=== PATIENT | female | born 1945 | race Caucasian/White ===

== ENCOUNTER 2017-05-09 02:23 | Inpatient (IN) | payer MEDICARE ==
[~2017-05-09 02:23] MED LIST: ISOVUE-370 76%-LOCM 1 ML ONE
[2017-05-09] MEDS ORDERED: Propofol 1,000 MG/100 ML VIAL IV ONE (02:39)
[2017-05-09 02:53] LABS: Actual Bicarbonate (HCO3a) 23.4 mEq/L (22-26); Base Excess (BEa) -2.9 mEq/L (0 (+/-) 2.5); CO2 Tension 46.4 mmHg (35.0-45.0); O2 Tension (PaO2) 81.5 mmHg (80.0-100.0); pH, Arterial 7.32 (7.35-7.45)
[2017-05-09 02:54] LABS: Calcium, Ionized 1.1 mmol/L (1.12-1.30); Hematocrit-ABG 44.4 % (36.0-47.0); Hemoglobin (Hb) 13.6 g/dL (12.0-16.0)
[2017-05-09 02:57] LABS: Analyzer IN Cardio ER
[2017-05-09 02:58] LABS: Puncture Site RBA
[2017-05-09] MEDS ORDERED: fentaNYL Citrate/PF 2,000 MCG in Sodium Chloride 0.9% 60 ML IV SCH (03:35)
[2017-05-09] MEDS ORDERED: Ondansetron ODT 4 MG TAB PO PRN (06:13)
[2017-05-09] MEDS ORDERED: Acetaminophen 650 MG Suppository PR PRN (06:13)
[2017-05-09] MEDS ORDERED: Ondansetron HCl/PF 4 MG/2 ML Vial IVP PRN (06:13)
[2017-05-09] MEDS ORDERED: hydrALAZINE 20 MG/ML VIAL SLOW IVP PRN (06:13)
[2017-05-09] MEDS ORDERED: CCU Electrolyte Replacement 1 EACH FS ONE ×2 (07:07→08:26)
[2017-05-09] MEDS ORDERED: Sedation Protocol FS ONE (07:07)
[2017-05-09] MEDS ORDERED: Potassium Chloride 40 MEQ in Sodium Chloride 0.9% 250 ML 250 ML IVPB PRN ×2 (07:09→08:36)
[2017-05-09] MEDS ORDERED: Potassium Phosphate 9 MMOL in Sodium Chloride 0.9% 100 ML IVPB PRN ×2 (07:09→08:36)
[2017-05-09] MEDS ORDERED: Magnesium 2 GM/NS 0.9% 100 ML 2 GM in Premix Bag 1 BAG IVPB PRN ×2 (07:09→08:36)
[2017-05-09] MEDS ORDERED: Magnesium Oxide 400 MG TAB PO PRN ×4 (07:09→08:36)
[2017-05-09] MEDS ORDERED: Potassium Chloride 40 MEQ in Premix Bag 1 BAG IVPB PRN ×2 (07:09→08:36)
[2017-05-09] MEDS ORDERED: Potassium Chloride 20 MEQ TAB PO PRN ×2 (07:09→08:36)
[2017-05-09] MEDS ORDERED: Potassium Phosphate 15 MMOL in Sodium Chloride 0.9% 250 ML 250 ML IV PRN ×2 (07:09→08:36)
[2017-05-09] MEDS ORDERED: Potassium Phosphate 12 MMOL in Sodium Chloride 0.9% 250 ML 250 ML IV PRN ×2 (07:09→08:36)
[2017-05-09] MEDS ORDERED: Lorazepam 2 MG/ML VIAL SLOW IVP PRN (07:11)
[2017-05-09] MEDS ORDERED: Morphine 2 MG/ML SYRINGE SLOW IVP PRN (07:11)
[2017-05-09] MEDS ORDERED: Fentanyl BOLUS 250 ML IVPB PRN (07:11)
[2017-05-09 07:15] LABS: Hemoglobin 14.5 g/dL (12.0-16.0); Mean Corpuscular HGB CONC 33.2 g/dL (32.0-36.0); Mean Corpuscular Volume 96.5 fl (81.0-99.0); Mean Platelet Volume 6.8 fL (7.4-10.4); Platelet Count 311 thou/uL (130-400); Red Blood Cell (RBC) Count 4.52 mill/uL (4.20-5.40); White Blood Cell (WBC) Count 14.6 thou/uL (4.8-10.8)
[2017-05-09 07:30] LABS: ALT (SGPT) 124 U/L (8-55); AST (SGOT) 99 U/L (5-34); Albumin 3.3 g/dL (3.4-4.8); Alkaline Phosphatase 116 U/L (40-150); Anion Gap 14 mmol/L (10-20); BUN (Urea Nitrogen) 20 mg/dL (9.8-20.1); Bilirubin, Total 0.4 mg/dL (0.2-1.2); Calc. Creatinine Clearance 74 mL/min (70-130); Calcium 8.2 mg/dL (7.8-10.44); Carbon Dioxide 22 mmol/L (23-31); Chloride 104 mmol/L (98-107); Estimated GFR-MDRD 61; Globulin 2.6 g/dL (2.4-3.5); Glucose 149 mg/dL (83-110); Potassium 4.6 mmol/L (3.5-5.1); Protein, Total 5.9 g/dL (6.0-8.3); Sodium 135 mmol/L (136-145)
[2017-05-09 07:33] LABS: Band 4 % (5-11); Lymphocytes 10 % (21-51); MDiff Complete? YES; Neutrophil 84 % (42-75); RBC Morphology Normal; Reactive Lymphocytes 2 % (0-10)
--- NOTE | 2017-05-09 07:50 | HP ---
PRIMARY CARE PHYSICIAN: Janae Fernandes CHIEF COMPLAINT: Shortness of breath. HISTORY OF PRESENT ILLNESS: This is a 71-year-old female who initially presented to [facility] Emergency Department complaining of shortness of breath. History is obtained after review of the electronic medical records from the emergency room in [place] as well as discussions with shannon andujar ER attending at [facility]. The patient was apparently complaining of incr eased respiratory distress and shortness of breath with wheezing and cough. The patient was evaluate d initially at [place] [facility], given a trial of BiPAP noninvasive mechanical ventilation without success. The patient with a longstanding history of tobacco use over 40 years, presenting w ith severe respiratory compromise. Due to the patient's inability to tolerate BiPAP noninvasive mech anical ventilation, the patient was given etomidate and rocuronium and intubated. The patient was not ed with tachycardia, tachypnea and hypoxemia. The patient received IV fentanyl, propofol, Solu-Medro l in addition to Levaquin 750 mg x1 dose. The patient was also noted with elevated D-dimer, promptin g CT angiogram of the chest showing no evidence of acute pulmonary embolus. Plain chest radiographs and CT imaging of the chest showed a right middle lobe infiltrate concerning for pneumonia. The tyrone ent was transferred to [facility] Emergency Department for further evaluation. PAST MEDICAL HISTORY: 1. Coronary artery disease. 2. Hyperlipidemia. 3. History of ischemic cardiomyopathy with ejection fraction of 30-35%. 4. History of urinary incontinence. 5. Osteoarthritis. 6. History of premature ventricular contractions. 7. Chronic obstructive pulmonary disease. 8. Tobacco abuse. PAST SURGICAL HISTORY: 1. Status post defibrillator/AICD placement. 2. Status post coronary artery bypass grafting in 2010. 3. Status post bilateral cataract removal. 4. Status post appendectomy. 5. Status post carpal tunnel release on the right. 6. Status post cholecystectomy. 7. Status post laparotomy. 8. Status post left knee, elbow and ankle surgery. 9. Status post tonsillectomy. 10. Status post cardiac ablation. CURRENT MEDICATIONS: Previous medications based on discharge summary 12/19/2016. 1. Premarin vaginal cream p.r.n. 2. Spiriva HandiHaler 18 mcg inhaled daily. 3. Albuterol sulfate nebulized solution t.i.d. p.r.n. 4. Aspirin 325 mg 1 tab p.o. daily. 5. Lipitor 40 mg p.o. at bedtime. 6. Bupropion 150 mg p.o. b.i.d. 7. Calcium carbonate with Vitamin D 1 tablet p.o. b.i.d. 8. Carvedilol 6.25 mg p.o. b.i.d. with meals. 9. Cyclobenzaprine 10 mg p.o. daily p.r.n. 10. Ferrous gluconate 324 mg p.o. b.i.d. 11. Lasix 40 mg 1 tab p.o. daily. 12. Neosho 10/325 mg 1 tab p.o. q.4-6h. p.r.n. pain. 13. Dulera 2 puffs inhaled b.i.d. 14. Nitroglycerin 0.4 mg sublingually every 5 minutes p.r.n. chest pain. 15. Protonix 40 mg 1 tab p.o. daily. 16. Ambien 5 mg p.o. at bedtime p.r.n. 17. Ropinirole 1 mg p.o. at bedtime. 18. Tramadol 100 mg p.o. every 6 hours p.r.n. pain. ALLERGIES: 1. LISINOPRIL. 2. MIPERIDINE. 3. PENICILLIN. FAMILY HISTORY: Positive for coronary artery disease, congestive heart failure, and aortic aneurysm. SOCIAL HISTORY: The patient smokes up to a pack of cigarettes daily over 40 years. No alcohol or il licit drug use. Retired and residing in the [place] area. REVIEW OF SYSTEMS: Unobtainable as patient is currently on mechanical ventilation and intubated. PHYSICAL EXAMINATION: VITAL SIGNS ON ADMISSION: Blood pressure 121/78, pulse 105, respiratory rate 14, temperature 98 degr ees Fahrenheit, O2 saturation 96% on 50% FiO2. GENERAL APPEARANCE: This is a 71-year-old female on mechanical ventilation, sedate, in no acute distress. HEENT: Pupils are minimally reactive to light and accommodation. Extraocular muscles are intact. N leigh patent with NG tube in place. OP with ET tube in place. NECK: Supple, no cervical adenopathy, no thyromegaly, no carotid bruits, no JVD appreciated. Cervic al spine with passive range of motion. CHEST: Diminished breath sounds in the bases bilaterally. CARDIOVASCULAR: S1, S2 with distant heart sounds. Midline chest is incision consistent with prior s urgical history. ABDOMEN: Obese, soft, nontender, nondistended. Bowel sounds are positive in all 4 quadrants. There is no hepatosplenomegaly, no abdominal bruits, no rebound or guarding appreciated. EXTREMITIES: Warm and dry with fair turgor. No clubbing, cyanosis or asymmetric edema appreciated. Pulses palpable distally at the dorsalis pedis, posterior tibial, and popliteal arteries bilaterally . Capillary refill less than 2 seconds. GENITOURINARY: Willett catheter in place with dark vinita urine. NEUROLOGIC: Sedate on current mechanical ventilation. PERTINENT LABORATORY AND X-RAY FINDINGS: Sodium 132, potassium 5.1, chloride 98, CO2 of 22, anion ga p of 17, BUN 18, creatinine 1.26 with estimated GFR 42, glucose 345. Lactic acid level 2.5, calcium 8.0. AST 78, ALT of 58, alkaline phosphatase 126, troponin I negative x1. BNP 230, previously noted 86 on 02/25/2016, lipase 29. CBC showed a white blood cell count 13.8, hemoglobin 15, hematocrit 45 , platelet count of 390 with normal differential. PT 13.7, INR 1.0, PTT 28.3. D-dimer 1.77. ABG da marla 05/09/2017 showed pH 7.32, pCO2 of 46, pO2 of 81.5, bicarbonate 23.4, O2 saturation 95% on 50% Fi O2. Urinalysis positive for protein, glucose and trace blood. Portable chest x-ray dated 05/09/2017 showed questionable infiltrate of the right middle lobe. A technically limited study. Positive for vascular prominence. Cardiomegaly noted. Left upper ches t wall pacemaker/defibrillator device noted. CT angiogram of the chest dated 05/09/2017 showed no ev idence for pulmonary embolus. Partial atelectasis of the lower lobes bilaterally. Endotracheal tube in appropriate position. NG tube in the proximal stomach. 1.3 cm right lobe thyroid nodule. EKG d ated 05/09/2017 by my interpretation shows normal sinus rhythm with heart rates in the 80s. Attenuat ed R waves noted in the precordial leads. Normal axis. No acute ST-T wave changes appreciated. ASSESSMENT AND PLAN: 1. Acute hypoxemic respiratory failure. The patient will be admitted to the Critical Care Unit. We will continue mechanical ventilation with SIMV 40% FiO2, rate of 12, PEEP of 5, tidal volume 500, p ressure support of 10. Suspect multifactorial respiratory failure including potential infectious pro cess with pneumonia. The patient also with longstanding history of chronic obstructive pulmonary dis ease. See treatment as outlined in #2. Consult Pulmonology Service in the a.m. 2. Suspected right middle lobe pneumonia, community acquired with gram positive cocci. We will cont inue Levaquin 500 mg IV daily. Add additional Rocephin 2 grams IV q.24h. DuoNebs q.4h. Consider Solu -Medrol if the patient exhibits no clinical improvement in the next 24 hours. 3. History of ischemic cardiomyopathy with ejection fraction of 30-35%. Mild volume overload with v ascular prominence by chest imaging. Continue Lasix 40 mg IV q.12h., monitor urine output and daily weight. 4. Acute kidney injury on chronic kidney disease stage 2. We will avoid nephrotoxic agents and cont rast media. Monitor creatinine closely. 5. Lactic acidosis. Suspect multifactorial given the patient's acute respiratory failure in conjunc tion with suspected pneumonia. We will continue treatment as outlined previously. Continue IV antib iotic therapy. 6. Coronary artery disease. Chronic and stable. No evidence to suggest acute coronary syndrome. 7. Prophylaxis. Sequential compression devices while in bed. Pepcid 20 mg IV q.12 hours. 8. Code status is full. Surrogate medical decision maker not identified.
[2017-05-09] MEDS: Furosemide 40 MG/4 ML VIAL SLOW IVP SCH ×2 (08:00→08:25)
[2017-05-09] MEDS: CEFTRIAXONE 2GM/50 ML BAG 2 GM in Premix Bag 1 BAG IVPB SCH (08:00)
--- NOTE | 2017-05-09 08:32 | PDOC.PULCN ---
Pulmonology Consult: HPI - Date of Consult Date: 05/09/17 Time: 08:29 - Consult Details Reason for Consult: Acute Respiratory failure/vent Requesting Physician: Tacho - History of Present Illness HPI: VIOLA STEVENSON is a 71 year-old F, previously seen by my partner, Dr. [place]. Presented to [facility] ER last night with acute respiratory failure secondary to bilateral pneumonia. She failed NIPPV and was subsequently intubated. She is unable to give a history because she is intubated and sedated. All of my data was obtained by reviewing chart and examining patient. Apparently pt has been feeling ill for a number of days. Pulmonology Consult: ROS - Review of Systems ROS unobtainable: due to endotracheal tube Pulmonology Consult: PM Source: other Past Medical History: COPD CAD Cardiomyopathy hyperlipidemia arthritis tobacco abuse AICD CABG Santos Cheng multiple orthopaedic surgeries - Family History Pertinent family history: CAD CHF Aortic aneurysm - Social History Smoking Status: Current every day smoker, Smokes 11 or more cig/day Pack Years: 40 Alcohol Use: none Drug Use History: none Living Situation: independent Pulmonology Consult: Meds - Medications MAR Reviewed: Yes Medications: Current Medications Acetaminophen (Tylenol) 650 mg IL Q4H PRN PRN Reason: Headache/Fever or Mild Pain Albuterol/Ipratropium (Duoneb) 3 ml NEB [id number] TRISTAN Famotidine (Pepcid) 20 mg SLOW IVP DAILY [facility] Hydralazine HCl (Apresoline) 10 mg SLOW IVP Q4H PRN PRN Reason: Systolic BP > 180 CEFTRIAXONE 2GM/50 ML BAG 2 gm (/ Device) 50 mls @ 100 mls/hr IVPB 0700 [facility] Last Admin: 05/09/17 08:00 Dose: 50 mls Levofloxacin 500 mg/ Device 100 mls @ 100 mls/hr IVPB 0630 [facility] Last Admin: 05/09/17 07:59 Dose: 100 mls Potassium Chloride 40 meq/ (Sodium Chloride) 270 mls @ 135 mls/hr IVPB ASDIR PRN PRN Reason: FOR SERUM K+ 2.5 - 3.5 Potassium Chloride 40 meq/ (Device) 100 mls @ 50 mls/hr IVPB ASDIR PRN PRN Reason: FOR SERUM K+ 2.5 - 3.5 Magnesium Sulfate 1 gm/ Sodium (Chloride) 102 mls @ 102 mls/hr IV PRN PRN PRN Reason: MAG LEVEL 1.4 - 2.0 Magnesium Sulfate 2 gm/ Device 100 mls @ 100 mls/hr IVPB ASDIR PRN PRN Reason: MAGNESIUM < 1.4 Potassium Phosphate 9 mmol/ (Sodium Chloride) 103 mls @ 25.75 mls/hr IVPB ASDIR PRN PRN Reason: Phosphate 1.0-1.8 Potassium Phosphate 12 mmol/ (Sodium Chloride) 254 mls @ 63.5 mls/hr IV ASDIR PRN PRN Reason: Serum phosphate 0.5-0.9 Potassium Phosphate 15 mmol/ (Sodium Chloride) 255 mls @ 63.75 mls/hr IV ASDIR PRN PRN Reason: Serum Phos < 0.5 Fentanyl Citrate 2,000 mcg/ (Sodium Chloride) 100 mls @ 0 mls/hr IV INF TRISTAN; Per Protocol PRN Reason: Protocol Stop: 06/08/17 07:11 Fentanyl Citrate (Fentanyl Bolus) 250 mls @ 0 mls/hr IVPB PRN PRN; As Directed PRN Reason: Breakthrough pain Stop: 06/08/17 07:11 Sodium Chloride (Normal Saline 0.9%) 1,000 mls @ 100 mls/hr IV .Q10H TRISTAN Lorazepam (Ativan) 2 mg SLOW IVP Q2H PRN PRN Reason: Anxiety to achieve Tripathi 2-3 Stop: 06/08/17 07:11 Magnesium Oxide (Magnesium Oxide) 400 mg PO BIDPRN PRN PRN Reason: FOR SERUM MAG 1.4 - 2.0 Magnesium Oxide (Magnesium Oxide) 800 mg PO PRN PRN PRN Reason: FOR SERUM MAG < 1.4 Methylprednisolone Sodium Succinate (Solu-Medrol) 40 mg IVP Q6HR TRISTAN Miscellaneous Medication (Phos-Nak) 1 pkt PO TIDPRN PRN PRN Reason: FOR PHOS LEVEL 1.0 - 1.8 Miscellaneous Medication (Phos-Nak) 2 pkt PO TIDPRN PRN PRN Reason: FOR PHOS LEVEL 0.5 - 1.0 Miscellaneous Medication (Ccu Electrolyte Replacement) 1 each FS ONE ONE Stop: 05/09/17 08:27 Morphine Sulfate (Morphine) 2 mg SLOW IVP Q2H PRN PRN Reason: Breakthrough pain Stop: 06/08/17 07:11 Ondansetron HCl (Zofran Odt) 4 mg PO Q6H PRN PRN Reason: Nausea/Vomiting Ondansetron HCl (Zofran) 4 mg IVP Q6H PRN PRN Reason: Nausea/Vomiting Potassium Chloride (K-Dur) 40 meq PO ASDIR PRN PRN Reason: FOR SERUM K+ 2.5 - 3.5 Potassium Chloride (Klor-Con) 40 meq PER TUBE ASDIR PRN PRN Reason: FOR SERUM K+ 2.5-3.5 Propofol (Diprivan) 1,000 mg IV INF PRN; Protocol PRN Reason: TO ACHIEVE TRIPATHI SCORE 2-3 Stop: 06/08/17 07:11 - Allergies Allergies/Adverse Reactions: Allergies Allergy/AdvReac Type Severity Reaction Status Date / Time lisinopril Allergy Verified 12/18/16 23:42 meperidine HCl [From Demerol] Allergy Verified 12/18/16 23:42 Penicillins Allergy Verified 12/18/16 23:42 Pulmonology Consult: PE - Physical Exam Deviation from normal: intubated, will awaken and follow HEENT: PERRLA, moist MMs, sclera anicteric Deviation from normal: edentulous Neck: no nodes, no JVD Cardiovascular: RRR, no significant murmur Focused Respiratory Location: rhonchi: Right, Left, wheezes: Right, Left Gastrointestinal: soft, non-tender Deviation from normal: low midline old surgical scar Musculoskeletal: no edema Neurological: non-focal, normal sensation, moves all 4 limbs Lymphatic: no nodes Deviation from normal: sedated Skin: no rash, normal turgor Pulmonology Consult: Results - Labs Result Diagrams: 05/09/17 07:02 05/09/17 07:02 Lab results: Laboratory Results WBC 14.6 thou/uL (4.8-10.8) H 05/09/17 07:02 RBC 4.52 mill/uL (4.20-5.40) 05/09/17 07:02 Hgb 14.5 g/dL (12.0-16.0) 05/09/17 07:02 Hct 43.7 % (36.0-47.0) 05/09/17 07:02 MCV 96.5 fl (81.0-99.0) 05/09/17 07:02 MCH 32.0 pg (27.0-31.0) H 05/09/17 07:02 MCHC 33.2 g/dL (32.0-36.0) 05/09/17 07:02 RDW 12.0 % (11.5-14.5) 05/09/17 07:02 Plt Count 311 thou/uL (130-400) 05/09/17 07:02 MPV 6.8 fL (7.4-10.4) L 05/09/17 07:02 Neutrophils % (Manual) 84 % (42-75) H 05/09/17 07:02 Band Neuts % (Manual) 4 % (5-11) L 05/09/17 07:02 Lymphocytes % (Manual) 10 % (21-51) L 05/09/17 07:02 Reactive Lymphs % 2 % (0-10) 05/09/17 07:02 RBC Morph Comment Normal 05/09/17 07:02 Specimen Type ARTERIAL 05/09/17 02:45 Puncture Site RBA 05/09/17 02:45 Bicarbonate Actual 23.4 mEq/L (22-26) 05/09/17 02:45 ABG pH 7.32 (7.35-7.45) L 05/09/17 02:45 ABG pCO2 46.4 mmHg (35.0-45.0) H 05/09/17 02:45 ABG pO2 81.5 mmHg (80.0-100.0) 05/09/17 02:45 ABG O2 Sat Calc/Pj 95.2 % (94.0-100.0) 05/09/17 02:45 ABG Base Excess -2.9 mEq/L (0 (+/-) 2.5) L 05/09/17 02:45 ABG Hematocrit 44.4 % (36.0-47.0) 05/09/17 02:45 ABG Hemoglobin 13.6 g/dL (12.0-16.0) 05/09/17 02:45 ABG Carboxyhemoglobin 1.3 gm% (0.0-3.0) 05/09/17 02:45 ABG Methemoglobin 0.7 gm% (0.0-1.5) 05/09/17 02:45 Danilo Test POSITIVE 05/09/17 02:45 A-a O2 Gradient 214.500 (0-20) H 05/09/17 02:45 Sodium 134 mmol/L (135-148) L 05/09/17 02:45 Potassium 4.0 mmol/L (3.70-5.30) 05/09/17 02:45 Chloride 101 mmol/L (98-106) 05/09/17 02:45 Ionized Calcium 1.1 mmol/L (1.12-1.30) L 05/09/17 02:45 Mode of Support SIMV 05/09/17 02:45 Mechanical Rate 14 min 05/09/17 02:45 Inspired O2 50 % 05/09/17 02:45 Tidal Volume 500 ml 05/09/17 02:45 Pressure Support 10 cmH2O 05/09/17 02:45 PEEP or CPAP 5.0 cmH2O 05/09/17 02:45 Sodium 135 mmol/L (136-145) L 05/09/17 07:02 Potassium 4.6 mmol/L (3.5-5.1) 05/09/17 07:02 Chloride 104 mmol/L (98-107) 05/09/17 07:02 Carbon Dioxide 22 mmol/L (23-31) L 05/09/17 07:02 Anion Gap 14 mmol/L (10-20) 05/09/17 07:02 BUN 20 mg/dL (9.8-20.1) 05/09/17 07:02 Creatinine 0.91 mg/dL (0.6-1.1) 05/09/17 07:02 Estimated GFR (MDRD) 61 05/09/17 07:02 Glucose 149 mg/dL (83-110) H 05/09/17 07:02 Calcium 8.2 mg/dL (7.8-10.44) 05/09/17 07:02 Total Bilirubin 0.4 mg/dL (0.2-1.2) 05/09/17 07:02 AST 99 U/L (5-34) H 05/09/17 07:02 ALT 124 U/L (8-55) H 05/09/17 07:02 Alkaline Phosphatase 116 U/L (40-150) 05/09/17 07:02 Serum Total Protein 5.9 g/dL (6.0-8.3) L 05/09/17 07:02 Albumin 3.3 g/dL (3.4-4.8) L 05/09/17 07:02 Globulin 2.6 g/dL (2.4-3.5) 05/09/17 07:02 Albumin/Globulin Ratio 1.3 g/dL (1.2-2.2) 05/09/17 07:02 - ABG Interpretation Attestation: I reviewed and interpreted this ABG. ABG Results: ABG pH 7.32 (7.35-7.45) L 05/09/17 02:45 ABG pCO2 46.4 mmHg (35.0-45.0) H 05/09/17 02:45 ABG O2 Sat Calc/Pj 95.2 % (94.0-100.0) 05/09/17 02:45 ABG Base Excess -2.9 mEq/L (0 (+/-) 2.5) L 05/09/17 02:45 Interpretation: abnormal - Radiology Interpretation CT scan - chest Status: image reviewed by me, report reviewed by me (bilateral lower lobe infiltrates) Pulmonology Consult: A/P - Problem (1) Pneumonia Current Visit: Yes Code(s): J18.9 - PNEUMONIA, UNSPECIFIED ORGANISM Status: Acute Qualifiers: Pneumonia type: due to unspecified organism Laterality: bilateral Lung location: lower lobe of lung Qualified Code(s): J18.9 - Pneumonia, unspecified organism (2) Acute respiratory failure with hypoxemia Current Visit: Yes Code(s): J96.01 - ACUTE RESPIRATORY FAILURE WITH HYPOXIA Status: Acute (3) Chronic systolic heart failure Current Visit: Yes Code(s): I50.22 - CHRONIC SYSTOLIC (CONGESTIVE) HEART FAILURE Status: Acute (4) COPD (chronic obstructive pulmonary disease) Current Visit: Yes Status: Acute Qualifiers: COPD type: unspecified COPD Qualified Code(s): J44.9 - Chronic obstructive pulmonary disease, unspecified - Time Time: 45 min cc time Time with Patient: greater than 50 minutes - Plan Plan: Adjusted ventilator settings Continue ABX, steroids, nebs Start TF Lovenox, Pepcid Hold lasix. Judicious IVF for 24 hrs
[2017-05-09] MEDS ORDERED: CCU ELECTROLYTE REPLACEMENT PROTOCOL FS PRN (08:36)
--- NOTE | 2017-05-09 08:45 | RAD ---
CHEST ONE VIEW: History: Dyspnea. Follow up. Comparison: Earlier exam, same date. FINDINGS: Cardiac silhouette is magnified and enlarged. Pulmonary vasculature remains engorged. Bibasilar infil trates are unchanged. Endotracheal catheter remains in place. Nasogastric tube descends to the abdomen. Dual-lead left subc lavian cardio electronic device is in place. IMPRESSION: 1. Interval placement of nasogastric tube, descending to the stomach. 2. Bilateral infiltrates and other findings are otherwise stable. POS: [facility]
[2017-05-09] MEDS: Enoxaparin Sodium 40 MG/0.4 ML SYRINGE SC SCH (08:55)
[2017-05-09] MEDS: Famotidine/PF 20 mg/2ml Vial SLOW IVP SCH (08:55)
[2017-05-09] MEDS: Sodium Chloride 0.9% 1,000 ML IV SCH ×2 (08:56→18:32)
--- NOTE | 2017-05-09 09:26 | CT ---
PRELIMINARY REPORT/[facility]/EMERGENCY AFTER HOURS PROCEDURE: EXAM: CT Angiography Chest With Intravenous Contrast EXAM DATE/TIME: Exam ordered 05/09/2017 3:17 AM CLINICAL HISTORY: 71 years old, female; Signs and symptoms; Dyspnea and shortness of breath; Patient HX: Er 4; 71 yo f presents to ed from another facilty intubated for respiratory distress. Pt persistently tachycardic t o 120. Ekg showed no obvious stemi. Pt got steroids, albuterol, and levaquin at [place]. Pt had an elevated d-dimer there so also given lovenox. Chest x-ray showed questionable rml infiltrate and m oderate chf. TECHNIQUE: Axial computed tomographic angiography images of the chest with intravenous contrast using pulmonary embolism protocol. COMPARISON: No relevant prior studies available. FINDINGS: Pulmonary arteries: Unremarkable. No pulmonary embolism. Aorta: No acute findings. No thoracic aortic aneurysm. Lungs: Partial atelectasis of the lower lobes bilaterally. Mucous plugging and subsegmental airways o f the left lower lobe. Lungs otherwise clear. No mass. Pleural space: Unremarkable. No significant effusion. No pneumothorax. Heart: Lipomatous hypertrophy of interatrial septum of the heart. Cardiomegaly. Cardiac device in derian ce. No significant pericardial effusion. No evidence of RV dysfunction. Mediastinum: Esophagus is normal. Thyroid: 1.3 cm right lobe thyroid nodule. Bones/joints: Prior sternotomy with removal of wires and sternal dehiscence. No acute fracture. No di slocation. Soft tissues: Unremarkable. Lymph nodes: 5 mm polygonal "nodule" associated with the right major fissure is probably a normal int rapulmonary lymph node. Adrenals: Incompletely visualized left adrenal adenoma. Tubes, lines and devices: ET tube in place, appears adequately positioned. NG tube courses into the p roximal stomach and beyond the inferior margin of the study. IMPRESSION: 1. 1.3 cm right lobe thyroid nodule. 2. Lipomatous hypertrophy of interatrial septum of the heart. 3. Partial atelectasis of the lower lobes bilaterally. 4. Mucous plugging and subsegmental airways of the left lower lobe. Thank you for allowing us to participate in the care of your patient. Dictated and Authenticated by: Eulalio Hyde MD 05/09/2017 3:54 AM Central Time ([place] & [place]) FINAL REPORT CT ANGIOGRAM CHEST WITH CONTRAST: HISTORY: Shortness of breath. COMPARISON: None. FINDINGS: CT angiogram chest is performed after the intravenous administration of contrast. Three-D rendering is provided. This is the final report. Findings and impression are concordant with the preliminary report. No pulmonary embolism. In addition, there are healing right anterior 6th and 7th rib fractu res. Right anterior 3rd rib is bifid. CODE: QA POS: [facility]
[2017-05-09] MEDS: Sterile Water 10 ML ONE ×2 (12:04→18:28)
[2017-05-09] MEDS: Propofol 1,000 MG/100 ML VIAL IV PRN ×2 (14:43→23:44)
--- NOTE | 2017-05-09 15:12 | PDOC.PN ---
- Subjective Encounter Start Date: 05/09/17 Encounter Start Time: 15:11 Subjective: admitted earlier today for Ac resp failure. -: remains intubated and sedated.chart reviewed - Objective Resuscitation Status: Resuscitation Status FULL:Full Resuscitation MAR Reviewed: Yes Vital Signs & Weight: Vital Signs (12 hours) Temp Pulse Resp BP BP Pulse Ox 05/09/17 11:41 87 14 94 L 05/09/17 11:35 87 131/63 05/09/17 08:00 98.6 F 05/09/17 06:15 97.7 F 74 14 98/89 95 05/09/17 06:13 97.7 F 75 14 90/54 L Weight Weight 185 lb 6.54 oz Most Recent Monitor Data Heart Rate from ECG 73 NIBP 104/60 NIBP BP-Mean 79 Respiration from ECG 18 SpO2 95 I&O: 05/08/17 05/09/17 05/10/17 06:59 06:59 06:59 Output Total 265 Balance -265 Result Diagrams: 05/09/17 07:02 05/09/17 07:02 Phys Exam - Physical Examination Constitutional: NAD HEENT: PERRLA, moist MMs, sclera anicteric, oral pharynx no lesions, 2+ tonsils Neck: no JVD coarse at bases Cardiovascular: RRR, no significant murmur Gastrointestinal: soft, non-tender, no distention, positive bowel sounds Musculoskeletal: no edema, pulses present sedated Deviation from normal: sedated Dx/Plan (1) Acute respiratory failure with hypoxemia Code(s): J96.01 - ACUTE RESPIRATORY FAILURE WITH HYPOXIA Status: Acute (2) Pneumonia Code(s): J18.9 - PNEUMONIA, UNSPECIFIED ORGANISM Status: Acute Qualifiers: Pneumonia type: due to unspecified organism Laterality: bilateral Lung location: lower lobe of lung Qualified Code(s): J18.9 - Pneumonia, unspecified organism (3) COPD (chronic obstructive pulmonary disease) Status: Acute Qualifiers: COPD type: unspecified COPD Qualified Code(s): J44.9 - Chronic obstructive pulmonary disease, unspecified (4) Chronic systolic heart failure Code(s): I50.22 - CHRONIC SYSTOLIC (CONGESTIVE) HEART FAILURE Status: Acute Comment: AICD in place (5) Anemia Code(s): D64.9 - ANEMIA, UNSPECIFIED Status: Acute (6) Afib Code(s): I48.91 - UNSPECIFIED ATRIAL FIBRILLATION Status: Chronic Comment: s /p ablation in past (7) CAD (coronary artery disease) Code(s): I25.10 - ATHSCL HEART DISEASE OF [place] CORONARY ARTERY W/O ANG PCTRS Status: Chronic Qualifiers: Coronary Disease-Associated Artery/Lesion type: unspecified vessel or lesion type [place] vs. transplanted heart: [place] heart Associated angina: without angina Qualified Code(s): I25.10 - Atherosclerotic heart disease of [place] coronary artery without angina pectoris (8) Hypertension Code(s): I10 - ESSENTIAL (PRIMARY) HYPERTENSION Status: Chronic Qualifiers: Hypertension type: essential hypertension Qualified Code(s): I10 - Essential (primary) hypertension - Plan continue antibiotics, PT/OT, respiratory therapy, DVT proph w/SCDs cont nebs,steroids,ABx.PCCM following.appreciate input -: vent manamgement per CCU team -: hold Lasix.ECHO pending -: am labs * .
[2017-05-09] MEDS: fentaNYL Citrate/PF 2,000 MCG in Sodium Chloride 0.9% 60 ML IV SCH (15:39)
[2017-05-09] MEDS ORDERED: FLU VACC TS2017-18 (>65YR) 0.5 ML SYRINGE IM ONE (19:00)
[2017-05-09] MEDS ORDERED: Prevnar 13-Val Conj/PF 0.5 ML SYRINGE IM ONE (19:00)
[2017-05-10] MEDS: fentaNYL Citrate/PF 2,000 MCG in Sodium Chloride 0.9% 60 ML IV SCH (01:40)
[2017-05-10] MEDS: Sodium Chloride 0.9% 1,000 ML IV SCH ×2 (02:57→16:11)
[2017-05-10 05:54] LABS: Band 10 % (5-11); Hemoglobin 13.5 g/dL (12.0-16.0); Lymphocytes 5 % (21-51); MDiff Complete? YES; Mean Corpuscular HGB CONC 33.7 g/dL (32.0-36.0); Mean Corpuscular Hemoglobin 32.7 pg (27.0-31.0); Mean Corpuscular Volume 97.1 fl (81.0-99.0); Mean Platelet Volume 7.1 fL (7.4-10.4); Monocytes 5 % (0-10); Neutrophil 80 % (42-75); PLT Morphology Comment Appears Adequate; Platelet Count 272 thou/uL (130-400); RBC Distribution Width 12.2 % (11.5-14.5); Red Blood Cell (RBC) Count 4.13 mill/uL (4.20-5.40)
[2017-05-10 06:24] LABS: ALT (SGPT) 92 U/L (8-55); AST (SGOT) 40 U/L (5-34); Albumin 2.9 g/dL (3.4-4.8); Alkaline Phosphatase 98 U/L (40-150); Anion Gap 12 mmol/L (10-20); BUN (Urea Nitrogen) 21 mg/dL (9.8-20.1); Bilirubin, Total 0.2 mg/dL (0.2-1.2); Calc. Creatinine Clearance 79 mL/min (70-130); Calcium 8.3 mg/dL (7.8-10.44); Carbon Dioxide 22 mmol/L (23-31); Chloride 107 mmol/L (98-107); Estimated GFR-MDRD 65; Globulin 2.4 g/dL (2.4-3.5); Glucose 134 mg/dL (83-110); Potassium 4.8 mmol/L (3.5-5.1); Protein, Total 5.3 g/dL (6.0-8.3); Sodium 136 mmol/L (136-145)
[2017-05-10] MEDS: CEFTRIAXONE 2GM/50 ML BAG 2 GM in Premix Bag 1 BAG IVPB SCH (06:53)
[2017-05-10 07:14] LABS: Base Excess (BEa) -1.8 mEq/L (0 (+/-) 2.5); CO2 Tension 44.9 mmHg (35.0-45.0); Hematocrit-ABG 41.5 % (36.0-47.0); Hemoglobin (Hb) 13.1 g/dL (12.0-16.0); O2 Tension (PaO2) 96.4 mmHg (80.0-100.0); pH, Arterial 7.35 (7.35-7.45)
[2017-05-10 07:15] LABS: ALV-art Gradient 201.475 (0-20); Calcium, Ionized 1.3 mmol/L (1.12-1.30); Puncture Site RRA
[2017-05-10] MEDS: Famotidine/PF 20 mg/2ml Vial SLOW IVP SCH (09:09)
[2017-05-10] MEDS: Enoxaparin Sodium 40 MG/0.4 ML SYRINGE SC SCH (09:09)
--- NOTE | 2017-05-10 10:07 | PRG ---
DATE OF SERVICE: 05/10/2017 She is intubated on the vent, sedated, responsive. Denies any pain and discomfort. PHYSICAL EXAMINATION: VITAL SIGNS: Pulse 55, blood pressure 93/41, sats 92%, respirations 12. I's and O's are 1447 in, 18 5 out. CHEST: Chest reveals decreased breath sounds, no wheezing. CARDIAC: Normal S1, S2, no gallops. ABDOMEN: Soft. NEURO: Neurologically, she moves all extremities. LABORATORY: Platelet count is normal, 80 segs, 10 bands. White count 16,000, H&H 13 and 40. Electr olytes normal. Creatinine is normal. AST is slightly elevated at 40, PO2 was 96, pCO2 47.35 on a ra te of 14, 50%. IMPRESSION: 1. Respiratory failure. 2. Chronic obstructive pulmonary disease. 3. Encephalopathy. 4. Atelectasis versus pneumonia. PLAN: Hold sedation, will consider weaning. In the meantime, broad-spectrum antibiotics, steroids, neb treatments. I will follow. One-half hour critical care time.
[2017-05-10] MEDS ORDERED: DC Sedation Protocol FS ONE (10:42)
[2017-05-10] MEDS ORDERED: Nicotine 21 MG PATCH TD SCH ×2 (11:28→14:30)
--- NOTE | 2017-05-10 11:31 | RAD ---
CHEST ONE VIEW: History: Ventilated patient. Comparison: Prior day. FINDINGS: Patient has an endotracheal tube tip in good position. Enteric tube tip below the diaphragm, out of f ield of view. There are worsening right middle and lower lobe airspace opacities. Left lung is relatively clear. He art size is enlarged. Cardiac device is similar. IMPRESSION: Worsening right middle and lower lobe airspace opacities. POS: [facility]
[2017-05-10] MEDS: ALPRAZolam 0.25 MG TAB PO PRN ×2 (12:04→19:51)
--- NOTE | 2017-05-10 13:38 | PDOC.PN ---
- Subjective Encounter Start Date: 05/10/17 Encounter Start Time: 13:37 Subjective: extubate this morning,doing well -: denies any pain,anxiety - Objective Resuscitation Status: Resuscitation Status FULL:Full Resuscitation MAR Reviewed: Yes Vital Signs & Weight: Vital Signs (12 hours) Temp Pulse Resp BP Pulse Ox 05/10/17 10:40 77 21 H 05/10/17 09:43 92 14 94 L 05/10/17 08:07 70 93/41 L 05/10/17 08:00 99.2 F 77 21 H 98 05/10/17 06:00 14 05/10/17 04:00 14 05/10/17 02:31 70 94/37 L 05/10/17 02:00 14 Weight Weight 186 lb 8.177 oz Most Recent Monitor Data Heart Rate from ECG 92 NIBP 120/41 NIBP BP-Mean 55 Respiration from ECG 25 SpO2 89 I&O: 05/09/17 05/10/17 05/11/17 06:59 06:59 06:59 Intake Total 1447.1 Output Total 1854 425 Balance -406.9 -425 Result Diagrams: 05/10/17 04:50 05/10/17 04:50 Phys Exam - Physical Examination Constitutional: NAD HEENT: PERRLA, moist MMs, sclera anicteric, oral pharynx no lesions Neck: no nodes, no JVD, supple, full ROM Respiratory: no wheezing, no rales, no rhonchi, clear to auscultation bilateral Cardiovascular: RRR, no significant murmur Gastrointestinal: soft, non-tender, no distention, positive bowel sounds Musculoskeletal: no edema, pulses present Neurological: non-focal, normal sensation, moves all 4 limbs Psychiatric: normal affect Deviation from normal: jittery and fidgety Skin: no rash Dx/Plan (1) Acute respiratory failure with hypoxemia Code(s): J96.01 - ACUTE RESPIRATORY FAILURE WITH HYPOXIA Status: Acute (2) Pneumonia Code(s): J18.9 - PNEUMONIA, UNSPECIFIED ORGANISM Status: Acute Qualifiers: Pneumonia type: due to unspecified organism Laterality: bilateral Lung location: lower lobe of lung Qualified Code(s): J18.9 - Pneumonia, unspecified organism (3) COPD (chronic obstructive pulmonary disease) Status: Acute Qualifiers: COPD type: unspecified COPD Qualified Code(s): J44.9 - Chronic obstructive pulmonary disease, unspecified (4) Chronic systolic heart failure Code(s): I50.22 - CHRONIC SYSTOLIC (CONGESTIVE) HEART FAILURE Status: Acute Comment: AICD in place (5) Anemia Code(s): D64.9 - ANEMIA, UNSPECIFIED Status: Acute (6) Afib Code(s): I48.91 - UNSPECIFIED ATRIAL FIBRILLATION Status: Chronic Comment: s /p ablation in past (7) CAD (coronary artery disease) Code(s): I25.10 - ATHSCL HEART DISEASE OF [place] CORONARY ARTERY W/O ANG PCTRS Status: Chronic Qualifiers: Coronary Disease-Associated Artery/Lesion type: unspecified vessel or lesion type [place] vs. transplanted heart: [place] heart Associated angina: without angina Qualified Code(s): I25.10 - Atherosclerotic heart disease of [place] coronary artery without angina pectoris (8) Hypertension Code(s): I10 - ESSENTIAL (PRIMARY) HYPERTENSION Status: Chronic Qualifiers: Hypertension type: essential hypertension Qualified Code(s): I10 - Essential (primary) hypertension - Plan continue antibiotics, PT/OT, respiratory therapy, incentive spirometry, out of bed/ambulate, DVT proph w/SCDs cont supportive care. extubated and doing well.PCCM following -: cont nebs,steroids,ABx. -: add Xanax prn & nicotine patch.pt has long standing smoking history -: echo pending.last 07/07 showed low EF 30%.apperas on dry side for now.on NS -: monitor I/Os.home meds to be confirmed * . Review of Systems - Review of Systems Constitutional: weakness, malaise Respiratory: negative: Cough, Dry, Shortness of Breath, Hemoptysis, SOB with Excertion, Pleuritic Pain, Sputum, Wheezing Cardiovascular: negative: chest pain, palpitations, orthopnea, paroxysmal nocturnal dyspnea, edema, light headedness, other Gastrointestinal: negative: Nausea, Vomiting, Abdominal Pain, Diarrhea, Constipation, Melena, Hematochezia, Other Genitourinary: negative: Dysuria, Frequency, Incontinence, Hematuria, Retention , Other Musculoskeletal: negative: Neck Pain, Shoulder Pain, Arm Pain, Back Pain, Hand Pain, Leg Pain, Foot Pain, Other Neurological: negative: Weakness, Numbness, Incoordination, Change in Speech, Confusion, Seizures, Other - Medications/Allergies Allergies/Adverse Reactions: Allergies Allergy/AdvReac Type Severity Reaction Status Date / Time lisinopril Allergy Verified 12/18/16 23:42 meperidine HCl [From Demerol] Allergy Verified 12/18/16 23:42 Penicillins Allergy Verified 12/18/16 23:42 Medications: Current Medications Acetaminophen (Tylenol) 650 mg VA Q4H PRN PRN Reason: Headache/Fever or Mild Pain Albuterol/Ipratropium (Duoneb) 3 ml NEB [id number] [facility] Last Admin: 05/10/17 10:40 Dose: 3 ml Alprazolam (Xanax) 0.25 mg PO TIDPRN PRN PRN Reason: Anxiety Last Admin: 05/10/17 12:04 Dose: 0.25 mg Enoxaparin Sodium (Lovenox) 40 mg SC 0900 [facility] Last Admin: 05/10/17 09:09 Dose: 40 mg Famotidine (Pepcid) 20 mg SLOW IVP DAILY [facility] Last Admin: 05/10/17 09:09 Dose: 20 mg Hydralazine HCl (Apresoline) 10 mg SLOW IVP Q4H PRN PRN Reason: Systolic BP > 180 CEFTRIAXONE 2GM/50 ML BAG 2 gm (/ Device) 50 mls @ 100 mls/hr IVPB 0700 [facility] Last Admin: 05/10/17 06:53 Dose: 50 mls Levofloxacin 500 mg/ Device 100 mls @ 100 mls/hr IVPB 0630 [facility] Last Admin: 05/10/17 05:49 Dose: 100 mls Sodium Chloride (Normal Saline 0.9%) 1,000 mls @ 100 mls/hr IV .Q10H [facility] Last Admin: 05/10/17 02:57 Dose: 1,000 mls Potassium Chloride 40 meq/ (Sodium Chloride) 270 mls @ 135 mls/hr IVPB ASDIR PRN PRN Reason: FOR SERUM K+ 2.5 - 3.5 Potassium Chloride 40 meq/ (Device) 100 mls @ 50 mls/hr IVPB ASDIR PRN PRN Reason: FOR SERUM K+ 2.5 - 3.5 Magnesium Sulfate 1 gm/ Sodium (Chloride) 102 mls @ 102 mls/hr IV PRN PRN PRN Reason: MAG LEVEL 1.4 - 2.0 Magnesium Sulfate 2 gm/ Device 100 mls @ 100 mls/hr IVPB ASDIR PRN PRN Reason: MAGNESIUM < 1.4 Potassium Phosphate 9 mmol/ (Sodium Chloride) 103 mls @ 25.75 mls/hr IVPB ASDIR PRN PRN Reason: Phosphate 1.0-1.8 Potassium Phosphate 12 mmol/ (Sodium Chloride) 254 mls @ 63.5 mls/hr IV ASDIR PRN PRN Reason: Serum phosphate 0.5-0.9 Potassium Phosphate 15 mmol/ (Sodium Chloride) 255 mls @ 63.75 mls/hr IV ASDIR PRN PRN Reason: Serum Phos < 0.5 Lorazepam (Ativan) 2 mg SLOW IVP Q2H PRN PRN Reason: Anxiety to achieve Alanis 2-3 Stop: 06/08/17 07:11 Magnesium Oxide (Magnesium Oxide) 400 mg PO BIDPRN PRN PRN Reason: FOR SERUM MAG 1.4 - 2.0 Magnesium Oxide (Magnesium Oxide) 800 mg PO PRN PRN PRN Reason: FOR SERUM MAG < 1.4 Methylprednisolone Sodium Succinate (Solu-Medrol) 40 mg IVP Q6HR [facility] Last Admin: 05/10/17 12:05 Dose: 40 mg Miscellaneous Medication (Phos-Nak) 1 pkt PO TIDPRN PRN PRN Reason: FOR PHOS LEVEL 1.0 - 1.8 Miscellaneous Medication (Phos-Nak) 2 pkt PO TIDPRN PRN PRN Reason: FOR PHOS LEVEL 0.5 - 1.0 Mometasone Furoate/Formoterol Fumar (Dulera 200 Mcg/5 Mcg Inhaler) 2 puff INH BID-RT [facility] Nicotine (Nicoderm Patch) 21 mg TD DAILY [facility] Ccu Electrolyte (Replacement Protocol) 0 each FS PRN PRN PRN Reason: FOR ELECTROLYTE REPLACEMENT Ondansetron HCl (Zofran Odt) 4 mg PO Q6H PRN PRN Reason: Nausea/Vomiting Ondansetron HCl (Zofran) 4 mg IVP Q6H PRN PRN Reason: Nausea/Vomiting Potassium Chloride (K-Dur) 40 meq PO ASDIR PRN PRN Reason: FOR SERUM K+ 2.5 - 3.5 Potassium Chloride (Klor-Con) 40 meq PER TUBE ASDIR PRN PRN Reason: FOR SERUM K+ 2.5-3.5 Propofol (Diprivan) 1,000 mg IV INF PRN; Protocol PRN Reason: TO ACHIEVE ALANIS SCORE 2-3 Stop: 06/08/17 07:11 Last Admin: 05/09/17 23:44 Dose: 1,000 mg
[2017-05-10] MEDS ORDERED: clonazePAM 0.5 MG TAB PO SCH (16:00)
[2017-05-10] MEDS: Mometasone/Formoterol 120 PUFF INHALER INH SCH (18:43)
[2017-05-10] MEDS: rOPINIRole HCl 1 MG TAB PO SCH (19:51)
[2017-05-11] MEDS: Sodium Chloride 0.9% 1,000 ML IV SCH ×2 (01:08→10:31)
[2017-05-11 05:26] LABS: ALT (SGPT) 64 U/L (8-55); AST (SGOT) 20 U/L (5-34); Albumin 2.9 g/dL (3.4-4.8); Alkaline Phosphatase 93 U/L (40-150); Anion Gap 9 mmol/L (10-20); BUN (Urea Nitrogen) 16 mg/dL (9.8-20.1); Bilirubin, Total 0.3 mg/dL (0.2-1.2); Calc. Creatinine Clearance 95 mL/min (70-130); Calcium 8.4 mg/dL (7.8-10.44); Carbon Dioxide 26 mmol/L (23-31); Chloride 105 mmol/L (98-107); Estimated GFR-MDRD 80; Globulin 2.4 g/dL (2.4-3.5); Glucose 123 mg/dL (83-110); Potassium 4.5 mmol/L (3.5-5.1); Protein, Total 5.3 g/dL (6.0-8.3); Sodium 135 mmol/L (136-145)
[2017-05-11 05:29] LABS: Band 5 % (5-11); Hemoglobin 13.1 g/dL (12.0-16.0); Lymphocytes 5 % (21-51); MDiff Complete? YES; Mean Corpuscular HGB CONC 31.1 g/dL (32.0-36.0); Mean Corpuscular Hemoglobin 30.1 pg (27.0-31.0); Mean Platelet Volume 7.1 fL (7.4-10.4); Monocytes 8 % (0-10); Neutrophil 82 % (42-75); Platelet Count 269 thou/uL (130-400); RBC Distribution Width 12.4 % (11.5-14.5); Red Blood Cell (RBC) Count 4.35 mill/uL (4.20-5.40); White Blood Cell (WBC) Count 11.9 thou/uL (4.8-10.8)
[2017-05-11] MEDS: CEFTRIAXONE 2GM/50 ML BAG 2 GM in Premix Bag 1 BAG IVPB SCH (06:33)
[2017-05-11] MEDS: Mometasone/Formoterol 120 PUFF INHALER INH SCH ×2 (07:38→18:57)
[2017-05-11] MEDS ORDERED: Cyclobenzaprine 10 MG TAB PO PRN (08:29)
[2017-05-11] MEDS ORDERED: Nitroglycerin 0.4 MG TAB (25 Tab Bottle) SL PRN (08:29)
[2017-05-11] MEDS ORDERED: Furosemide 40 MG TAB PO SCH (09:00)
[2017-05-11] MEDS ORDERED: clonazePAM 0.5 MG TAB PO SCH (09:00)
--- NOTE | 2017-05-11 09:06 | PRG ---
DATE OF SERVICE: 05/11/2017 This morning she is awake, alert, responsive. She is still having some unusual movements in bed, but she denies any pain. PHYSICAL EXAMINATION: VITAL SIGNS: Sats are 94% on 2 liters, pulse 81, blood pressure 147/88, respirations 27. I's and O' s over the last 24 hours have been 3056 in, 1600 out. CHEST: Chest revealed decreased breath sounds, no wheezing. CARDIAC: Normal S1-S2. No gallops. White count 11,000, H&H 8 and 32, platelet count normal. Electrolytes are normal. IMPRESSION: 1. Respiratory failure. 2. Encephalopathy. PLAN: Switch over to oral antibiotics, steroids. All cultures are negative. We will continue to observe her in the ICU for several hours. When she i s stable, we will consider transferring out of the ICU. One-half hour critical care time.
[2017-05-11] MEDS: Famotidine 20 MG TAB PO SCH ×2 (09:36→19:41)
[2017-05-11] MEDS: Aspirin 325 MG TAB PO SCH (09:37)
[2017-05-11] MEDS: ALPRAZolam 0.25 MG TAB PO PRN ×2 (09:37→19:42)
[2017-05-11] MEDS: Cefdinir 300 MG CAP PO SCH ×2 (09:37→19:41)
[2017-05-11] MEDS: Enoxaparin Sodium 40 MG/0.4 ML SYRINGE SC SCH (09:38)
[2017-05-11] MEDS: Bupropion 150 MG SR TAB PO SCH ×2 (09:56→19:41)
--- NOTE | 2017-05-11 15:04 | PDOC.PN ---
- Subjective Encounter Start Date: 05/11/17 Encounter Start Time: 15:00 Subjective: f/u for acute resp failure on prior mech vent now on O2 NC. Doing -: ok overall. O2 sats in 90% range on 2L/min. - Objective Resuscitation Status: Resuscitation Status FULL:Full Resuscitation MAR Reviewed: Yes Vital Signs & Weight: Vital Signs (12 hours) Temp Pulse Resp Pulse Ox 05/11/17 14:29 80 17 05/11/17 11:00 98.6 F 05/11/17 10:58 83 26 H 05/11/17 07:59 98.8 F 69 19 93 L 05/11/17 07:38 69 19 05/11/17 07:00 98.8 F Weight Admit Weight 186 lb Weight 187 lb 13.341 oz Most Recent Monitor Data Heart Rate from ECG 88 NIBP 97/60 NIBP BP-Mean 67 Respiration from ECG 16 SpO2 93 I&O: 05/10/17 05/11/17 05/12/17 06:59 06:59 06:59 Intake Total 1447.1 3056 1203 Output Total 1854 1600 1975 Balance -406.9 1456 -772 Result Diagrams: 05/11/17 04:22 05/11/17 04:22 Dx/Plan - Plan * .
--- NOTE | 2017-05-11 15:33 | PDOC.PN ---
- Subjective Encounter Start Date: 05/11/17 Encounter Start Time: 14:30 Subjective: f/u acute hypoxic resp failure extubated today. Required BiPAP -: transiently post-extubation. Nsg notes pt fidgety. Pt states she is -: fatigued but no CP. Some SOB. - Objective Resuscitation Status: Resuscitation Status FULL:Full Resuscitation MAR Reviewed: Yes Vital Signs & Weight: Vital Signs (12 hours) Temp Pulse Resp Pulse Ox 05/11/17 14:29 80 17 05/11/17 11:00 98.6 F 05/11/17 10:58 83 26 H 05/11/17 07:59 98.8 F 69 19 93 L 05/11/17 07:38 69 19 05/11/17 07:00 98.8 F Weight Admit Weight 186 lb Weight 187 lb 13.341 oz Most Recent Monitor Data Heart Rate from ECG 88 NIBP 97/60 NIBP BP-Mean 67 Respiration from ECG 16 SpO2 93 I&O: 05/10/17 05/11/17 05/12/17 06:59 06:59 06:59 Intake Total 1447.1 3056 1203 Output Total 1854 1600 1975 Balance -406.9 1456 -772 Result Diagrams: 05/11/17 04:22 05/11/17 04:22 Additional Labs: Laboratory Tests 05/09/17 05/09/17 05/10/17 07:02 07:02 04:50 WBC 14.6 H AST 99 H 40 H ALT 124 H 92 H 05/10/17 05/11/17 04:50 04:22 WBC 16.0 H AST 20 ALT 64 H Radiology Reviewed by me: Yes (Echo - 35-40%, diast dysfunction, mod MR) EKG Reviewed by me: Yes (Tele - SR in 90's) Phys Exam - Physical Examination alert, responds to questions HEENT: PERRLA, oral pharynx no lesions Neck: no JVD, supple exp wheezing and prolonged phase Cardiovascular: RRR Gastrointestinal: soft, non-tender, no distention, positive bowel sounds mild LE edema Musculoskeletal: pulses present Neurological: moves all 4 limbs Psychiatric: A&O x 3 Skin: normal turgor, cap refill <2 seconds Dx/Plan (1) Acute respiratory failure with hypoxemia Code(s): J96.01 - ACUTE RESPIRATORY FAILURE WITH HYPOXIA Status: Acute Comment: s/p extubation 05/11/17, watch closely as pt required transient BiPAP (2) COPD (chronic obstructive pulmonary disease) Status: Acute Qualifiers: COPD type: unspecified COPD Qualified Code(s): J44.9 - Chronic obstructive pulmonary disease, unspecified Comment: Continue Duonebs, Dulera, Prednisone (3) Chronic systolic heart failure Code(s): I50.22 - CHRONIC SYSTOLIC (CONGESTIVE) HEART FAILURE Status: Acute Comment: AICD in place, EF 35-40%, Lasix 40mg daily (4) Pneumonia Code(s): J18.9 - PNEUMONIA, UNSPECIFIED ORGANISM Status: Acute Qualifiers: Pneumonia type: due to unspecified organism Laterality: bilateral Lung location: lower lobe of lung Qualified Code(s): J18.9 - Pneumonia, unspecified organism Comment: Continue Omnicef 300mg BID - Plan 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
[2017-05-11] MEDS: Carvedilol 6.25 MG TAB PO SCH (16:14)
[2017-05-11] MEDS: rOPINIRole HCl 1 MG TAB PO SCH (19:42)
--- NOTE | 2017-05-11 21:48 | CON ---
DATE OF CONSULTATION: 05/11/2017 HISTORY OF PRESENT ILLNESS: Patient was initially evaluated in 10/2003. She had been in this hospital multiple times and multiple followups were scheduled in the office; however, she never comes to the office for followup. In 09/2003 , she was hospitalized in [facility] with presumed pneumonia. She was told that her heart was enlarged. Ultimately, she was evaluated in [facility] in [place] and underwent cardiac catheterization and was told that she should be treated medically. She had a 50% proximal LAD, 60-70% mid LAD, 70% first diagonal. There was total occlusion of the second obtuse marginal and total occlusion of the proximal right coronary artery. There was no mention of left ventricular function on the catheterization report. She was admitted in 10/2003 as well as 12/2003 for chest discomfort. She was very noncompliant with her medications on both admissions. Cardiac enzymes were normal. Her medicines were restarted and her pain resolved. In 06/2004, she again was admitted after stopping her medications except for aspirin. She was getting her medications from the [facility]. In 03/2006, she presented with acute cholecystitis and pancreatitis. She underwent laparoscopic cholecystectomy without incident. In 09/2007, she was again being transferred from [place] for chest pain. She described this as a sharp pain in the mid thoracic spine between her spine and scapula. The pain was worse with moving, coughing, or taking a deep breath. Chest CT in [place] revealed no evidence of dissection. It was also felt that her pain was musculoskeletal in nature. She was placed on Naprosyn and Flexeril. I did not see her again until 08/2010 when she was admitted. 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 She apparently had a stress test at the [facility] as well as an echocardiogram, but she was not certain of the results. She then presented here with increased chest pressure associated with shortness of breath which resolved with breathing treatments. Again, she had an episode of chest discomfort at 8 a.m. It was very difficult to separate her shortness of breath from the chest discomfort and then she mainly complained about her shortness of breath other than the chest pain. She received Lovenox, morphine, furosemide 80, sublingual nitroglycerin and was transferred. CK-MB was 30.6, troponin I 4.600. She underwent cardiac catheterization which revealed an ejection fraction of 25-30% with inferobasal and inferoapical akinesis, anteroapical dyskinesis. There was 40% left main, 70% proximal LAD, 80% mid LAD. The first diagonal was a large vessel with a 70% stenosis. There was total occlusion of large branch of the diagonal distal to the 70% stenosis. The 3rd obtuse marginal was totally occluded and 99% distal Cx. The RCA was totally occluded proximally. She then underwent CABG x4 with OLIVEROS to the LAD, left radial to the diagonal, saphenous vein graft to the first obtuse marginal and saphenous vein graft to the third obtuse marginal. She had atrial fibrillation and atrial flutter after surgery. She was placed on amiodarone prior to discharge. She was readmitted in 09/2010 with sternal wound infection and underwent surgical debridement of this and again in 11/2010 with sternal wound infection. She underwent plastic surgery by Dr. Shaw. In 05/2011, she was seen in the office and was fairly asymptomatic, although she continued to have poor left ventricular function. It was recommended that she see an muck miner blasting and was referred to EP. She was not seen from 2011 until when she was seen in the hospital. She did have Lexiscan Cardiolite in , which revealed extensive defects of the lateral wall, apex, inferior wall and anterior wall. There was no reversible ischemia. She apparently had an ICD placed on 06/22/2011. I assume that was placed at the [facility]. She presented in 08/2014 with 2 ICD shocks. She apparently was hypokalemic with a potassium of 2.8. She was placed on low dose amiodarone. She was then admitted in 06/2015, complaining of pressure in her chest radiating to her back. Cardiac enzymes were normal. It was felt that her pain was not cardiac in nature and was probably more GI related. In 02/2016, she was admitted with COPD exacerbation. She was again admitted in 11/2016 with COPD exacerbation. She now presented to the [place] emergency room complaining of increased shortness of breath. She had wheezing and coughing. She was given a trial of BiPAP without success. She was then intubated. She has an elevated D-dimer and CT angiogram of the chest revealed no evidence of acute pulmonary emboli. This did show a right middle lobe infiltrate consistent with pneumonia. She was transferred here for further evaluation. She has since been extubated and is currently back on BiPAP. She denied any chest discomfort. PAST MEDICAL HISTORY: Hypercholesterolemia, COPD, hypertension, hyperlipidemia , coronary artery disease, left ventricular dysfunction, recurrent urinary tract infections. PAST SURGICAL HISTORY: ICD placement, CABG, sternal debridement with ultimately having an unstable sternum, cataract removal, appendectomy, carpal tunnel release on the right, cholecystectomy, laparotomy, left knee, elbow, and ankle surgery, questionable type of cardiac ablation in 09/2014. MEDICATIONS: Albuterol nebs t.i.d. p.r.n., aspirin 325 daily, atorvastatin 40 daily, carvedilol 6.25 b.i.d., calcium carbonate plus vitamin D one tablet b.i.d., Flexeril 10 mg p.r.n., ferrous gluconate 324 b.i.d., furosemide 40 q.a.m., hydrocodone p.r.n., Dulera inhaler 2 puffs b.i.d., nitroglycerin p.r.n. , pantoprazole 40 daily, Requip 1 mg at bedtime, Spiriva daily, Ambien and Ultram. ALLERGIES: LISINOPRIL causes cough, MEPERIDINE, and PENICILLIN. SOCIAL HISTORY: She continues to smoke up to a pack of cigarettes per day. She does not drink alcohol. FAMILY HISTORY: Positive for coronary artery disease with sister having stents. REVIEW OF SYSTEMS: A twelve-point review of systems is difficult to obtain with her being on BiPAP. PHYSICAL EXAMINATION: VITAL SIGNS: 137/57, pulse of 90. HEENT: PERRL. NECK: Supple. CHEST: Reveals decreased breath sounds bilaterally. CARDIOVASCULAR: S1, S2 were distant without any S3 or S4. There are no murmurs. She does have an unstable sternum. ABDOMEN: Obese, normal bowel sounds, without tenderness, organomegaly. EXTREMITIES: Revealed no clubbing, cyanosis, or edema. NEUROLOGIC: Grossly intact. SKIN: Warm and dry. LABORATORY DATA: EKG revealed normal sinus rhythm with poor R-wave progression. Hemoglobin 13.1, hematocrit 42.2, white count 11,900, platelets 269,000. D-dimer 1.77. PH 7.32, pCO2 of 46.4, pO2 of 81.5. Sodium 135, potassium 4.5, chloride 105, carbon dioxide 26, BUN 16, creatinine 0.72. Previous ICD was interrogated. This is a dual chamber ICD without OptiVol. She has had 12 atrial high rates and 24 nonsustained ventricular tachycardia episodes which were probably really 1:1 SVT. The longest was 1 hour and 14 minutes on 05/09/2017. IMPRESSION: 1. Chronic obstructive pulmonary disease exacerbation, pneumonia, respiratory failure. 2. Ischemic cardiomyopathy with last ejection fraction of 30-35%. 3. Status post coronary artery bypass graft. 4. Status post dual-chamber implantable cardioverter defibrillator placement. 5. The patient continues to smoke. 6. Hypercholesterolemia. 7. Positive family history. 8. History of noncompliance. PLAN: Echocardiogram will be performed to reassess left ventricular function. Her rhythm will be monitored closely since she does appear to have some episodes of atrial high rates. CLEVE
[2017-05-12] MEDS: Lorazepam 2 MG/ML VIAL SLOW IVP SCH ×2 (00:25→01:12)
[2017-05-12] MEDS ORDERED: Propofol 1,000 MG/100 ML VIAL IV ONE (00:53)
--- NOTE | 2017-05-12 01:00 | PDOC.EVN ---
Event Note - Event Note Event Note: pt became more agitated. pt become hypoxic.sats dropped to in the 80's. pt was intubated after which her sats improved.
[2017-05-12] MEDS ORDERED: Sedation Protocol FS ONE (01:02)
--- NOTE | 2017-05-12 01:07 | PDOC.EVN ---
"Event Note - Event Note Event Note: Code tigre called. Arrived at room immediately afterward. Patient agitated, disoriented and on BiPAP. Severe retractions and paradoxical breathing. Decision made to intubate. 20 etomidate, 100 jesus given. First pass success with 7.5 ETT. Confirmed placement with color change, exam, CXR. Severe lung disease noted with no obvious PTX. Post intubation orders entered for sedation. Vent AC 16|450|5|60 % satting 94%. Formal code documentation to follow."
[2017-05-12] MEDS ORDERED: DISCONTINUE PREVIOUS NARCOTIC PAIN MEDICATIONS AND BENZODIAZEPINES FS SCH (01:09)
[2017-05-12] MEDS ORDERED: Fentanyl BOLUS 250 ML IVPB PRN (01:09)
[2017-05-12] MEDS ORDERED: fentaNYL Citrate/PF 2,000 MCG in Sodium Chloride 0.9% 60 ML IV SCH (01:09)
[2017-05-12] MEDS ORDERED: Morphine 2 MG/ML SYRINGE SLOW IVP PRN (01:09)
[2017-05-12] MEDS ORDERED: Rocuronium Bromide 50 MG/5 ML VIAL IVP SCH (01:15)
--- NOTE | 2017-05-12 01:19 | PDOC.OP ---
Operative Note - Operative Note Operative Note: INDICATION: Code Blue, Respiratory Failure PROCEDURE SHARED SERVICES MANAGER: Dar Medina MD ATTENDING PHYSICIAN: Kyle Sims MD In Attendance Yes PROCEDURE SUMMARY: The patient was placed on a fish farmer including continuous pulse oximetry. Rapid Sequence Intubation was conducted. The patient received 30mg of etomidate for induction and 100 mg of rocuronium for adequate paralysis. Using a Mac 4 blade and a size 7.0 endotracheal tube with stylet, the patient was intubated on the first attempt. The stylet was removed and cuff balloon was inflated. Appropriate endotracheal tube position was confirmed by direct visualization of vocal cord passage, fogging of the tube, CO2 colometric indicator, and symmetric breath sounds. The tube was secured at 22 cm at the teeth. Post intubation chest x-ray is pending at this time. <Kyle Medina K - Last Filed: 05/12/17 01:14> Attending Addendum - Attending Addendum I was present for the entire code blue. <Kyle Sims - Last Filed: 05/12/17 01:49>
[2017-05-12 01:25] LABS: Actual Bicarbonate (HCO3a) 28.2 mEq/L (22-26); Base Excess (BEa) 1.1 mEq/L (0 (+/-) 2.5); CO2 Tension 54.7 mmHg (35.0-45.0); O2 Tension (PaO2) 54.8 mmHg (80.0-100.0); pH, Arterial 7.33 (7.35-7.45)
[2017-05-12 01:26] LABS: Calcium, Ionized 1.2 mmol/L (1.12-1.30); Hemoglobin (Hb) 15.4 g/dL (12.0-16.0)
[2017-05-12 01:28] LABS: ALV-art Gradient 304.625 (0-20); Puncture Site RRA
[2017-05-12 04:27] LABS: ALT (SGPT) 51 U/L (8-55); AST (SGOT) 20 U/L (5-34); Albumin 3.2 g/dL (3.4-4.8); Alkaline Phosphatase 95 U/L (40-150); Anion Gap 13 mmol/L (10-20); BUN (Urea Nitrogen) 20 mg/dL (9.8-20.1); Bilirubin, Total 0.5 mg/dL (0.2-1.2); Calc. Creatinine Clearance 80 mL/min (70-130); Calcium 8.5 mg/dL (7.8-10.44); Carbon Dioxide 28 mmol/L (23-31); Chloride 98 mmol/L (98-107); Estimated GFR-MDRD 66; Globulin 2.7 g/dL (2.4-3.5); Glucose 86 mg/dL (83-110); Potassium 3.9 mmol/L (3.5-5.1); Protein, Total 5.9 g/dL (6.0-8.3); Sodium 135 mmol/L (136-145)
[2017-05-12 04:37] LABS: Band 9 % (5-11); Hemoglobin 14.9 g/dL (12.0-16.0); Lymphocytes 12 % (21-51); MDiff Complete? YES; Mean Corpuscular HGB CONC 31.9 g/dL (32.0-36.0); Mean Corpuscular Hemoglobin 30.7 pg (27.0-31.0); Mean Corpuscular Volume 96.5 fl (81.0-99.0); Mean Platelet Volume 7.1 fL (7.4-10.4); Monocytes 8 % (0-10); Neutrophil 71 % (42-75); Platelet Count 258 thou/uL (130-400); RBC Distribution Width 12.4 % (11.5-14.5); Red Blood Cell (RBC) Count 4.84 mill/uL (4.20-5.40); White Blood Cell (WBC) Count 13.3 thou/uL (4.8-10.8)
[2017-05-12] MEDS: Propofol 1,000 MG/100 ML VIAL IV PRN ×3 (04:43→20:47)
[2017-05-12 07:27] LABS: Actual Bicarbonate (HCO3a) 31.2 mEq/L (22-26); Analyzer IN Cardio OR; Base Excess (BEa) 5.5 mEq/L (0 (+/-) 2.5); CO2 Tension 49.6 mmHg (35.0-45.0); Calcium, Ionized 1.2 mmol/L (1.12-1.30); Hematocrit-ABG 47.4 % (36.0-47.0); Hemoglobin (Hb) 14.8 g/dL (12.0-16.0); O2 Tension (PaO2) 75.1 mmHg (80.0-100.0); Puncture Site RB; pH, Arterial 7.42 (7.35-7.45)
[2017-05-12] MEDS ORDERED: predniSONE 20 MG TAB PO SCH (08:00)
--- NOTE | 2017-05-12 08:03 | RAD ---
SINGLE VIEW OF CHEST: Date: 05/12/17 COMPARISON: 05/10/17. HISTORY: Intubation with pneumonia. FINDINGS: Single view of the chest shows an enlarged cardiomediastinal silhouette with atherosclerotic calcific ations in the aorta. Pacemaker is unchanged in position. Lines and tubes are unchanged in position. T here are multifocal opacities in the right lung. There is also obscurity in the left costophrenic ang le which could represent atelectasis or an infiltrate in the left lung base. IMPRESSION: Stable exam. POS: [facility]
[2017-05-12] MEDS ORDERED: Albumin 25% 25 GM/100 ML BOT IVPB SCH ×2 (08:11→11:15)
[2017-05-12] MEDS: Mometasone/Formoterol 120 PUFF INHALER INH SCH ×2 (08:14→18:29)
--- NOTE | 2017-05-12 08:24 | PRG ---
DATE OF SERVICE: 05/12/2017 This morning, she is intubated on the vent, sedated. Last night at midnight she became very agitated , trying to get out of bed. BiPAP. Ativan given 1 mg. In spite of this, she became agitated. Appa rently, she had an episode of briefly hypoventilation and respiratory failure. She was bagged and in tubated after a code blue was called in. Echo showed EF of 40%. X-ray shows the right-sided infiltrate from before. Presently she is on Diprivan. PHYSICAL EXAMINATION: VITAL SIGNS: Pulse 92, blood pressure 93/52, sats 99%, respirations anywhere from 20-30. CHEST: Chest revealed decreased breath sounds, no wheezing. CARDIAC: Normal S1-S2. No gallops. ABDOMEN: Soft. No masses. LABORATORY: White count 13,000, H&H 14 and 46, platelet count 58, PO2 75, PCO2 49%, 42, 50%, 450, PE EP of 7. Electrolytes are normal. IMPRESSION: 1. Respiratory failure. 2. Major encephalopathy. 3. Extrapyramidal symptoms of unknown etiology. 4. History of depression. PLAN: At this stage, continue vent support for the next 48 hours. I have started risperidone to see whether this may decrease her level of encephalopathy. Start nutrition, PT. Antibiotics, neb treatments, steroids. One-half hour critical care time.
[2017-05-12] MEDS ORDERED: Cefepime 1 GM in Sodium Chloride 0.9% 100 ML IVPB SCH (09:00)
[2017-05-12] MEDS: Carvedilol 6.25 MG TAB PO SCH ×2 (09:29→17:27)
[2017-05-12] MEDS: Famotidine 20 MG TAB PO SCH ×2 (09:30→20:45)
[2017-05-12] MEDS: Sodium Chloride 0.9% 1,000 ML IV SCH (09:30)
[2017-05-12] MEDS: Aspirin 325 MG TAB PO SCH (09:30)
[2017-05-12] MEDS: Enoxaparin Sodium 40 MG/0.4 ML SYRINGE SC SCH (09:30)
[2017-05-12] MEDS: Bupropion 150 MG SR TAB PO SCH ×2 (09:31→20:44)
[2017-05-12] MEDS: Cefepime 1 GM, Admixture Fee 1 EACH in Sterile Water 10 ML SLOW IVP SCH ×2 (09:31→20:45)
[2017-05-12] MEDS: risperiDONE 0.25 MG TAB PO SCH ×2 (09:38→20:44)
[2017-05-12] MEDS: Lorazepam 2 MG/ML VIAL SLOW IVP PRN (14:50)
--- NOTE | 2017-05-12 16:06 | PDOC.PN ---
- Subjective Encounter Start Date: 05/12/17 Encounter Start Time: 15:10 -: non-verbal Subjective: f/u after re-intubation for acute hypoxic resp failure after unsuccessful -: extubation. Remains on SIMV, Propofol, Cefepime and Solumedrol. - Objective Resuscitation Status: Resuscitation Status FULL:Full Resuscitation MAR Reviewed: Yes Vital Signs & Weight: Vital Signs (12 hours) Temp Pulse Resp BP Pulse Ox 05/12/17 14:59 69 107/57 L 05/12/17 14:00 19 05/12/17 13:33 74 94/44 L 05/12/17 12:00 20 05/12/17 11:00 99.9 F H 05/12/17 10:31 76 77/40 L 05/12/17 10:00 24 H 05/12/17 09:29 111/47 L 05/12/17 08:10 93 93/52 L 05/12/17 08:00 36 H 05/12/17 07:43 100.1 F H 94 31 H 95 05/12/17 07:00 100.1 F H 05/12/17 06:00 27 H Weight Admit Weight 186 lb Weight 189 lb 6.033 oz Most Recent Monitor Data Heart Rate from ECG 69 NIBP 91/47 NIBP BP-Mean 65 Respiration from ECG 16 SpO2 95 I&O: 05/11/17 05/12/17 05/13/17 06:59 06:59 06:59 Intake Total 3056 1615 200 Output Total 1600 4245 615 Balance 1456 -2630 -415 Result Diagrams: 05/12/17 03:43 05/12/17 03:43 Additional Labs: Laboratory Tests 05/09/17 05/09/17 05/10/17 07:02 07:02 04:50 WBC 14.6 H Neutrophils % (Manual) AST 99 H 40 H ALT 124 H 92 H 05/10/17 05/11/17 05/11/17 04:50 04:22 04:22 WBC 16.0 H 11.9 H Neutrophils % (Manual) 82 H AST 20 ALT 64 H 05/12/17 03:43 WBC Neutrophils % (Manual) 71 AST ALT Radiology Reviewed by me: Yes (PCXR - LLL atelectasis, multifocal opacities in R field) EKG Reviewed by me: Yes (Tele - SR in 80's) Phys Exam - Physical Examination sedate on mech ventilation ETT in place HEENT: oral pharynx no lesions Neck: no JVD, supple diminished in bases Cardiovascular: RRR Gastrointestinal: soft, non-tender, no distention, positive bowel sounds Musculoskeletal: no edema, pulses present sedate on mech ventilation Skin: normal turgor, cap refill <2 seconds Deviation from normal: [place] with vinita, clear urine Dx/Plan (1) Acute respiratory failure with hypoxemia Code(s): J96.01 - ACUTE RESPIRATORY FAILURE WITH HYPOXIA Status: Acute Comment: s/p extubation 05/11/17 with re-intubation 05/11/18, SIMV at 50% FIO2, likely multifactorial failure (2) COPD (chronic obstructive pulmonary disease) Status: Acute Qualifiers: COPD type: unspecified COPD Qualified Code(s): J44.9 - Chronic obstructive pulmonary disease, unspecified Comment: Continue Duonebs, Dulera, Solumedrol and Cefepime (3) Chronic systolic heart failure Code(s): I50.22 - CHRONIC SYSTOLIC (CONGESTIVE) HEART FAILURE Status: Acute Comment: AICD in place, EF 35-40%, Lasix 40mg daily (4) Pneumonia Code(s): J18.9 - PNEUMONIA, UNSPECIFIED ORGANISM Status: Acute Qualifiers: Pneumonia type: due to unspecified organism Laterality: bilateral Lung location: lower lobe of lung Qualified Code(s): J18.9 - Pneumonia, unspecified organism Comment: Continue Cefepime 1gm IV q12h, Duonebs - Plan continue antibiotics, PT/OT, social media manager, respiratory therapy, DVT proph w/ SCDs Continue critical support -: Nutritional support with Jevity 20ml/h -: Continue Cefepime 1gm IV q12h -: Continue Duonebs, Dulera, Solumedrol -: AM lab: BMP, CBC * PCXR in am
[2017-05-12] MEDS: rOPINIRole HCl 1 MG TAB PO SCH (20:44)
[2017-05-12] MEDS: ALPRAZolam 0.25 MG TAB PO PRN (20:45)
[2017-05-13] MEDS: Lorazepam 2 MG/ML VIAL SLOW IVP PRN ×3 (01:04→23:41)
[2017-05-13] MEDS: Propofol 1,000 MG/100 ML VIAL IV PRN ×5 (01:04→17:34)
[2017-05-13] MEDS: Sodium Chloride 0.9% 1,000 ML IV SCH (05:05)
[2017-05-13 06:17] LABS: Anion Gap 12 mmol/L (10-20); BUN (Urea Nitrogen) 16 mg/dL (9.8-20.1); Band 16 % (5-11); Calc. Creatinine Clearance 103 mL/min (70-130); Calcium 8.5 mg/dL (7.8-10.44); Carbon Dioxide 26 mmol/L (23-31); Chloride 102 mmol/L (98-107); Estimated GFR-MDRD Greater than 90; Glucose 147 mg/dL (83-110); Hemoglobin 13.2 g/dL (12.0-16.0); Lymphocytes 12 % (21-51); MDiff Complete? YES; Mean Corpuscular HGB CONC 31.4 g/dL (32.0-36.0); Mean Corpuscular Hemoglobin 30.2 pg (27.0-31.0); Mean Platelet Volume 7.5 fL (7.4-10.4); Monocytes 2 % (0-10); Neutrophil 70 % (42-75); Platelet Count 198 thou/uL (130-400); Potassium 3.8 mmol/L (3.5-5.1); RBC Distribution Width 12.3 % (11.5-14.5); Red Blood Cell (RBC) Count 4.38 mill/uL (4.20-5.40); Sodium 136 mmol/L (136-145); White Blood Cell (WBC) Count 5.4 thou/uL (4.8-10.8)
[2017-05-13 07:09] LABS: Actual Bicarbonate (HCO3a) 29.7 mEq/L (22-26); Base Excess (BEa) 4.5 mEq/L (0 (+/-) 2.5); CO2 Tension 46.8 mmHg (35.0-45.0); Calcium, Ionized 1.2 mmol/L (1.12-1.30); Hematocrit-ABG 41.7 % (36.0-47.0); O2 Tension (PaO2) 67.8 mmHg (80.0-100.0); Puncture Site RBA; pH, Arterial 7.42 (7.35-7.45)
[2017-05-13] MEDS: Mometasone/Formoterol 120 PUFF INHALER INH SCH ×2 (07:26→18:24)
[2017-05-13] MEDS: Aspirin 325 MG TAB PO SCH (08:14)
[2017-05-13] MEDS: risperiDONE 0.25 MG TAB PO SCH ×2 (08:14→19:55)
[2017-05-13] MEDS: Carvedilol 6.25 MG TAB PO SCH ×2 (08:14→16:30)
[2017-05-13] MEDS: Enoxaparin Sodium 40 MG/0.4 ML SYRINGE SC SCH (08:15)
[2017-05-13] MEDS: Famotidine 20 MG TAB PO SCH ×2 (08:15→19:55)
[2017-05-13] MEDS: Bupropion 150 MG SR TAB PO SCH ×2 (08:15→19:55)
[2017-05-13] MEDS: Cefepime 1 GM, Admixture Fee 1 EACH in Sterile Water 10 ML SLOW IVP SCH ×2 (08:26→19:55)
--- NOTE | 2017-05-13 09:04 | RAD ---
SINGLE VIEW OF THE CHEST: COMPARISON: 05/12/17. HISTORY: Respiratory failure on a ventilator. FINDINGS: A single view of the chest shows an enlarged but stable cardiomediastinal silhouette. The lines and tubes are unchanged I position. The pacemaker is unchanged in position. Diffuse increased interstit ial lung markings are present. There may be a superimposed airspace opacity in the right lower lobe. IMPRESSION: 1. Right lower lobe infiltrate. 2. Cardiomegaly. POS: [facility]
--- NOTE | 2017-05-13 09:24 | PDOC.PN ---
- Subjective Encounter Start Date: 05/13/17 Encounter Start Time: 10:00 Subjective: nsg notes rev, navi ovn pt intub and sedated not able to provide hx -: currently undergoing midline insertion - Objective Resuscitation Status: Resuscitation Status FULL:Full Resuscitation Vital Signs & Weight: Vital Signs (12 hours) Temp Pulse Resp BP Pulse Ox 05/13/17 08:14 115/55 L 05/13/17 08:00 20 05/13/17 07:23 72 100/47 L 05/13/17 07:20 97.9 F 77 32 H 92 L 05/13/17 07:00 97.9 F 05/13/17 06:00 20 05/13/17 04:00 18 05/13/17 03:00 98 F 05/13/17 02:44 76 132/65 05/13/17 02:00 22 H 05/13/17 00:00 20 05/12/17 23:00 98.4 F 05/12/17 22:37 70 94/50 L 05/12/17 22:00 20 Weight Admit Weight 186 lb Weight 180 lb 12.465 oz Most Recent Monitor Data Heart Rate from ECG 72 NIBP 113/50 NIBP BP-Mean 80 Respiration from ECG 21 SpO2 94 I&O: 05/12/17 05/13/17 05/14/17 06:59 06:59 06:59 Intake Total 1615 2044 60 Output Total 4245 1410 120 Balance -2630 634 -60 Result Diagrams: 05/13/17 05:12 05/13/17 05:12 Phys Exam - Physical Examination intubated, sedated HEENT: moist MMs ETT in approx correct position prominent vent sounds, b/l breath sounds, limited ant exam Cardiovascular: RRR, no significant murmur, no rub Gastrointestinal: soft, positive bowel sounds mild distention, not tense Musculoskeletal: no edema, pulses present Dx/Plan (1) Acute respiratory failure with hypoxemia Code(s): J96.01 - ACUTE RESPIRATORY FAILURE WITH HYPOXIA Status: Acute Comment: s/p extubation 05/11/17 with re-intubation 05/11/18, SIMV at 50% FIO2, likely multifactorial failure (2) Chronic systolic heart failure Code(s): I50.22 - CHRONIC SYSTOLIC (CONGESTIVE) HEART FAILURE Status: Acute Comment: AICD in place, EF 35-40%, Lasix 40mg daily (3) Pneumonia Code(s): J18.9 - PNEUMONIA, UNSPECIFIED ORGANISM Status: Acute Qualifiers: Pneumonia type: due to unspecified organism Laterality: bilateral Lung location: lower lobe of lung Qualified Code(s): J18.9 - Pneumonia, unspecified organism Comment: Continue Cefepime 1gm IV q12h, Duonebs (4) Anemia Code(s): D64.9 - ANEMIA, UNSPECIFIED Status: Acute (5) COPD exacerbation Code(s): J44.1 - CHRONIC OBSTRUCTIVE PULMONARY DISEASE W (ACUTE) EXACERBATION Status: Acute (6) Hypokalemia Code(s): E87.6 - HYPOKALEMIA Status: Acute (7) CAD (coronary artery disease) Code(s): I25.10 - ATHSCL HEART DISEASE OF [place] CORONARY ARTERY W/O ANG PCTRS Status: Chronic Qualifiers: Coronary Disease-Associated Artery/Lesion type: unspecified vessel or lesion type [place] vs. transplanted heart: [place] heart Associated angina: without angina Qualified Code(s): I25.10 - Atherosclerotic heart disease of [place] coronary artery without angina pectoris (8) CHF (congestive heart failure) Code(s): I50.9 - HEART FAILURE, UNSPECIFIED Status: Chronic Qualifiers: Congestive heart failure type: unspecified congestive heart failure type Congestive heart failure chronicity: unspecified congestive heart failure chronicity Qualified Code(s): I50.9 - Heart failure, unspecified - Plan continue antibiotics Continue critical support apprec pulmonary and cardiology c/s -: Nutritional support with Jevity 20ml/h -: Continue Cefepime 1gm IV q12h -: Continue Duonebs, Dulera, Solumedrol -: AM lab: BMP, CBC Guarded prognosis. Review of Systems - Medications/Allergies Allergies/Adverse Reactions: Allergies Allergy/AdvReac Type Severity Reaction Status Date / Time lisinopril Allergy Verified 12/18/16 23:42 meperidine HCl [From Demerol] Allergy Verified 12/18/16 23:42 Penicillins Allergy Verified 12/18/16 23:42 Medications: Current Medications Acetaminophen (Tylenol) 650 mg [place] Q4H PRN PRN Reason: Headache/Fever or Mild Pain Albuterol/Ipratropium (Duoneb) 3 ml NEB [id number] [facility] Last Admin: 05/13/17 18:24 Dose: 3 ml Alprazolam (Xanax) 0.25 mg PO TIDPRN PRN PRN Reason: Anxiety Last Admin: 05/12/17 20:45 Dose: 0.25 mg Aspirin (Aspirin) 325 mg PO DAILY [facility] Last Admin: 05/13/17 08:14 Dose: 325 mg Bupropion HCl (Wellbutrin Sr) 150 mg PO BID [facility] Last Admin: 05/13/17 19:55 Dose: 150 mg Carvedilol (Coreg) 6.25 mg PO BID-WM [facility] Last Admin: 05/13/17 16:30 Dose: 6.25 mg Cyclobenzaprine HCl (Flexeril) 10 mg PO DAILY PRN PRN Reason: Muscle Spasm Enoxaparin Sodium (Lovenox) 40 mg SC 0900 [facility] Last Admin: 05/13/17 08:15 Dose: 40 mg Famotidine (Pepcid) 20 mg PO BID [facility] Last Admin: 05/13/17 19:55 Dose: 20 mg Hydralazine HCl (Apresoline) 10 mg SLOW IVP Q4H PRN PRN Reason: Systolic BP > 180 Potassium Chloride 40 meq/ (Sodium Chloride) 270 mls @ 135 mls/hr IVPB ASDIR PRN PRN Reason: FOR SERUM K+ 2.5 - 3.5 Potassium Chloride 40 meq/ (Device) 100 mls @ 50 mls/hr IVPB ASDIR PRN PRN Reason: FOR SERUM K+ 2.5 - 3.5 Magnesium Sulfate 1 gm/ Sodium (Chloride) 102 mls @ 102 mls/hr IV PRN PRN PRN Reason: MAG LEVEL 1.4 - 2.0 Magnesium Sulfate 2 gm/ Device 100 mls @ 100 mls/hr IVPB ASDIR PRN PRN Reason: MAGNESIUM < 1.4 Potassium Phosphate 9 mmol/ (Sodium Chloride) 103 mls @ 25.75 mls/hr IVPB ASDIR PRN PRN Reason: Phosphate 1.0-1.8 Potassium Phosphate 12 mmol/ (Sodium Chloride) 254 mls @ 63.5 mls/hr IV ASDIR PRN PRN Reason: Serum phosphate 0.5-0.9 Potassium Phosphate 15 mmol/ (Sodium Chloride) 255 mls @ 63.75 mls/hr IV ASDIR PRN PRN Reason: Serum Phos < 0.5 Fentanyl Citrate 2,000 mcg/ (Sodium Chloride) 100 mls @ 0 mls/hr IV INF [facility]ST[facility]; Per Protocol PRN Reason: Protocol Stop: 06/11/17 01:09 Fentanyl Citrate (Fentanyl Bolus) 250 mls @ 0 mls/hr IVPB PRN PRN; As Directed PRN Reason: Breakthrough pain Stop: 06/11/17 01:09 Sodium Chloride (Normal Saline 0.9%) 1,000 mls @ 50 mls/hr IV .Q20H [facility] Last Admin: 05/13/17 05:05 Dose: 1,000 mls Cefepime HCl 1 gm/Miscellaneous Medication 1 each/ Sterile Water 10 mls @ 120 mls/hr SLOW IVP Q12HR [facility] Last Admin: 05/13/17 19:55 Dose: 10 mls Lorazepam (Ativan) 2 mg SLOW IVP Q2H PRN PRN Reason: Anxiety to achieve Alanis 2-3 Stop: 06/11/17 01:09 Last Admin: 05/13/17 01:04 Dose: 2 mg Magnesium Oxide (Magnesium Oxide) 400 mg PO BIDPRN PRN PRN Reason: FOR SERUM MAG 1.4 - 2.0 Magnesium Oxide (Magnesium Oxide) 800 mg PO PRN PRN PRN Reason: FOR SERUM MAG < 1.4 Methylprednisolone Sodium Succinate (Solu-Medrol) 40 mg IVP Q6HR [facility] Last Admin: 05/13/17 17:29 Dose: 40 mg Miscellaneous Medication (Phos-Nak) 1 pkt PO TIDPRN PRN PRN Reason: FOR PHOS LEVEL 1.0 - 1.8 Miscellaneous Medication (Phos-Nak) 2 pkt PO TIDPRN PRN PRN Reason: FOR PHOS LEVEL 0.5 - 1.0 Mometasone Furoate/Formoterol Fumar (Dulera 200 Mcg/5 Mcg Inhaler) 2 puff INH BID-RT [facility] Last Admin: 05/13/17 18:24 Dose: 2 puff Morphine Sulfate (Morphine) 2 mg SLOW IVP Q2H PRN PRN Reason: Breakthrough pain Stop: 06/11/17 01:09 Nitroglycerin (Nitrostat) 0.4 mg SL Q5MIN PRN PRN Reason: Chest Pain Ccu Electrolyte (Replacement Protocol) 0 each FS PRN PRN PRN Reason: FOR ELECTROLYTE REPLACEMENT Discontinue Previous Narcotic Pain Medications And Benzodiazepines 1 each FS .ONE [facility] Stop: 06/11/17 01:09 Ondansetron HCl (Zofran Odt) 4 mg PO Q6H PRN PRN Reason: Nausea/Vomiting Ondansetron HCl (Zofran) 4 mg IVP Q6H PRN PRN Reason: Nausea/Vomiting Potassium Chloride (K-Dur) 40 meq PO ASDIR PRN PRN Reason: FOR SERUM K+ 2.5 - 3.5 Potassium Chloride (Klor-Con) 40 meq PER TUBE ASDIR PRN PRN Reason: FOR SERUM K+ 2.5-3.5 Propofol (Diprivan) 1,000 mg IV INF PRN; Protocol PRN Reason: TO ACHIEVE ALANIS SCORE 2-3 Stop: 06/11/17 01:09 Last Admin: 05/13/17 17:34 Dose: 1,000 mg Risperidone (Risperidone) 0.25 mg PO BID [facility] Last Admin: 05/13/17 19:55 Dose: 0.25 mg Ropinirole HCl (Requip) 1 mg PO HS [facility] Last Admin: 05/13/17 19:55 Dose: 1 mg Sodium Chloride (Flush - Normal Saline) 10 ml IVF PRN PRN PRN Reason: Saline Flush Sodium Chloride (Flush - Normal Saline) 10 ml IVF BID [facility] Last Admin: 05/13/17 19:56 Dose: 10 ml
--- NOTE | 2017-05-13 17:45 | PDOC.CTH ---
Cardiology Progress Note - Subjective Remains sedated and intubated. - Objective Vital Signs Temp Pulse Resp BP Pulse Ox 05/13/17 16:30 119/61 05/13/17 16:00 98.8 F 29 H 05/13/17 15:06 75 117/57 L 05/13/17 14:00 16 05/13/17 13:20 73 100/48 L 05/13/17 11:57 98.6 F 28 H 05/13/17 10:58 98.6 F 05/13/17 10:32 73 98/48 L 05/13/17 09:58 18 05/13/17 08:14 115/55 L 05/13/17 08:00 20 05/13/17 07:23 72 100/47 L 05/13/17 07:20 97.9 F 77 32 H 92 L 05/13/17 07:00 97.9 F 05/13/17 06:00 20 Admit Weight 186 lb Weight 180 lb 12.465 oz 05/12/17 05/13/17 05/14/17 06:59 06:59 06:59 Intake Total 1615 2044 180 Output Total 4245 1410 550 Balance -2630 634 -370 - Physical Examination General/Neuro: other: (Intiubated .) Neck: no JVD present Lungs: unlabored respirations Heart: RRR Abdomen: NT/ND Extremities: other: (no edema) - Telemetry Telemetry Rhythm: NSR - Labs Result Diagrams: 05/13/17 05:12 05/13/17 05:12 - Assessment/Plan 1. COPD exacerbation. 2. Ischemic CM EF at 30-35%. 3. S/P CABG 4. AICD in place 5. Tobacco abuse, continued 6. RLL infiltrate. PLAN - Continue supportive care. - Judicious use of fluids.
--- NOTE | 2017-05-13 19:40 | PRG ---
DATE OF SERVICE: 05/13/2017 SUBJECTIVE: Ms. Tapia is reasonably stable overnight. OBJECTIVE: VITAL SIGNS: Heart rates in the 70s, respiratory rates in the teens to low 20s, oximetry is 95, bloo d pressure 100/51. Sedation was held earlier and she became very dyssynchronous from mechanical vent ilation. LUNGS: Remarkable for distant breath sounds. HEART: Regular rhythm. ABDOMEN: Soft. LABORATORY DATA: White count 5.4, hemoglobin 13.2, platelets 198,000. Sodium 136, potassium 3.8, chloride 102, bicarbonate 26, BUN 16, creatinine 0.64. A pH of 7.42, pCO2 of 46, pO2 of 67. Intake and output is positive 634. Chest radiograph was reviewed, it is in proper position, mild increase interstitial markings persist. She is hazy in a right lower lobe. IMPRESSION: 1. Respiratory failure. 2. Chronic obstructive pulmonary disease. 3. Encephalopathy that may be improving. She is trying to follow commands when her sedation was hel d. 4. History of depression. 5. Reported extrapyramidal symptoms. 6. Pneumonia. 7. Ischemic cardiomyopathy and ejection fraction of 30% 8. History of coronary artery bypass grafting. 9. History of defibrillator placement. 10. History of tobacco use up until this admission. PLAN: Continue supportive care, sedation, nutritional support. She will continue nebulized treatments every 4 hours, steroids every 6 hours. Cultures have been rev iewed from the 16, these are negative. Critical care time was 30 minutes.
[2017-05-13] MEDS: rOPINIRole HCl 1 MG TAB PO SCH (19:55)
[2017-05-14] MEDS: Sodium Chloride 0.9% 1,000 ML IV SCH ×2 (01:21→20:22)
[2017-05-14 05:32] LABS: Band 9 % (5-11); Hemoglobin 13.6 g/dL (12.0-16.0); Lymphocytes 9 % (21-51); MDiff Complete? YES; Mean Corpuscular HGB CONC 31.5 g/dL (32.0-36.0); Mean Corpuscular Volume 95.1 fl (81.0-99.0); Mean Platelet Volume 7.7 fL (7.4-10.4); Monocytes 6 % (0-10); Neutrophil 76 % (42-75); Platelet Count 204 thou/uL (130-400); RBC Distribution Width 12.3 % (11.5-14.5); Red Blood Cell (RBC) Count 4.54 mill/uL (4.20-5.40); White Blood Cell (WBC) Count 11.8 thou/uL (4.8-10.8)
[2017-05-14 05:33] LABS: Anion Gap 11 mmol/L (10-20); BUN (Urea Nitrogen) 21 mg/dL (9.8-20.1); Calc. Creatinine Clearance 96 mL/min (70-130); Calcium 8.6 mg/dL (7.8-10.44); Carbon Dioxide 28 mmol/L (23-31); Chloride 103 mmol/L (98-107); Estimated GFR-MDRD 84; Glucose 184 mg/dL (83-110); Potassium 4.1 mmol/L (3.5-5.1); Sodium 138 mmol/L (136-145)
[2017-05-14] MEDS: Propofol 1,000 MG/100 ML VIAL IV PRN ×3 (06:12→20:20)
[2017-05-14] MEDS: Mometasone/Formoterol 120 PUFF INHALER INH SCH ×2 (08:06→18:57)
--- NOTE | 2017-05-14 08:32 | RAD ---
SINGLE VIEW OF THE CHEST: COMPARISON: 05/13/17. HISTORY: Respiratory failure on ventilator. FINDINGS: A single view of the chest shows an enlarged but stable cardiomediastinal silhouette. The lines and tubes as well as the pacemaker are unchanged in position. Increased interstitial lung markings are p resent. The previously seen opacity in the right lung base is not appreciated on this exam, but ther e is significant rotation limiting evaluation. IMPRESSION: Stable cardiomegaly. POS: [facility]
[2017-05-14] MEDS: Famotidine 20 MG TAB PO SCH ×2 (08:56→20:26)
[2017-05-14] MEDS: Enoxaparin Sodium 40 MG/0.4 ML SYRINGE SC SCH (08:56)
[2017-05-14] MEDS: Cefepime 1 GM, Admixture Fee 1 EACH in Sterile Water 10 ML SLOW IVP SCH ×2 (08:57→20:25)
[2017-05-14] MEDS: Bupropion 150 MG SR TAB PO SCH ×2 (08:57→20:25)
[2017-05-14] MEDS: Aspirin 325 MG TAB PO SCH (08:58)
[2017-05-14] MEDS: risperiDONE 0.25 MG TAB PO SCH ×2 (08:58→20:26)
[2017-05-14] MEDS: Carvedilol 6.25 MG TAB PO SCH ×2 (08:58→17:36)
--- NOTE | 2017-05-14 11:24 | PDOC.PN ---
- Subjective Encounter Start Date: 05/14/17 Encounter Start Time: 11:23 -: non-verbal Subjective: intub, sed, nsg notes rev, navi ovn - Objective Resuscitation Status: Resuscitation Status FULL:Full Resuscitation Vital Signs & Weight: Vital Signs (12 hours) Temp Pulse Resp BP Pulse Ox 05/14/17 10:53 76 94/49 L 05/14/17 10:00 17 05/14/17 08:58 123/53 L 05/14/17 08:00 98.4 F 70 21 H 95 05/14/17 07:29 76 115/49 L 05/14/17 06:00 21 H 05/14/17 04:00 26 H 05/14/17 03:00 97.8 F 05/14/17 02:54 75 28 H 96 05/14/17 02:00 17 05/14/17 00:00 20 Weight Admit Weight 186 lb Weight 181 lb 14.102 oz Most Recent Monitor Data Heart Rate from ECG 73 NIBP 98/51 NIBP BP-Mean 73 Respiration from ECG 18 SpO2 96 I&O: 05/13/17 05/14/17 05/15/17 06:59 06:59 06:59 Intake Total 2044 2331 Output Total 1410 1235 205 Balance 634 1096 -205 Result Diagrams: 05/14/17 04:43 05/14/17 04:43 Phys Exam - Physical Examination Constitutional: NAD ETT in place coarse ventilater sounds throughout, limited anterior examination Cardiovascular: RRR, no significant murmur, no rub Gastrointestinal: soft, no distention, positive bowel sounds Musculoskeletal: no edema, pulses present intubated, sedated Dx/Plan (1) Acute respiratory failure with hypoxemia Code(s): J96.01 - ACUTE RESPIRATORY FAILURE WITH HYPOXIA Status: Acute Comment: s/p extubation 05/11/17 with re-intubation 05/11/18, SIMV at 50% FIO2, likely multifactorial failure (2) Chronic systolic heart failure Code(s): I50.22 - CHRONIC SYSTOLIC (CONGESTIVE) HEART FAILURE Status: Acute Comment: AICD in place, EF 35-40%, Lasix 40mg daily (3) Pneumonia Code(s): J18.9 - PNEUMONIA, UNSPECIFIED ORGANISM Status: Acute Qualifiers: Pneumonia type: due to unspecified organism Laterality: bilateral Lung location: lower lobe of lung Qualified Code(s): J18.9 - Pneumonia, unspecified organism Comment: Appreciate Pulmonary consultation weaning as tolerated Continue Cefepime 1gm IV q12h, Duonebs (4) Anemia Code(s): D64.9 - ANEMIA, UNSPECIFIED Status: Acute (5) COPD exacerbation Code(s): J44.1 - CHRONIC OBSTRUCTIVE PULMONARY DISEASE W (ACUTE) EXACERBATION Status: Acute Comment: Respiratory failure with ventilatory support IV solumedrol abx as below (6) Hypokalemia Code(s): E87.6 - HYPOKALEMIA Status: Acute (7) CAD (coronary artery disease) Code(s): I25.10 - ATHSCL HEART DISEASE OF [place] CORONARY ARTERY W/O ANG PCTRS Status: Chronic Qualifiers: Coronary Disease-Associated Artery/Lesion type: unspecified vessel or lesion type [place] vs. transplanted heart: [place] heart Associated angina: without angina Qualified Code(s): I25.10 - Atherosclerotic heart disease of [place] coronary artery without angina pectoris (8) CHF (congestive heart failure) Code(s): I50.9 - HEART FAILURE, UNSPECIFIED Status: Chronic Qualifiers: Congestive heart failure type: unspecified congestive heart failure type Congestive heart failure chronicity: unspecified congestive heart failure chronicity Qualified Code(s): I50.9 - Heart failure, unspecified - Plan Guarded prognosis. * . Review of Systems - Medications/Allergies Allergies/Adverse Reactions: Allergies Allergy/AdvReac Type Severity Reaction Status Date / Time lisinopril Allergy Verified 12/18/16 23:42 meperidine HCl [From Demerol] Allergy Verified 12/18/16 23:42 Penicillins Allergy Verified 12/18/16 23:42 Medications: Current Medications Acetaminophen (Tylenol) 650 mg [place] Q4H PRN PRN Reason: Headache/Fever or Mild Pain Albuterol/Ipratropium (Duoneb) 3 ml NEB [id number] [facility] Last Admin: 05/14/17 10:52 Dose: 3 ml Alprazolam (Xanax) 0.25 mg PO TIDPRN PRN PRN Reason: Anxiety Last Admin: 05/12/17 20:45 Dose: 0.25 mg Aspirin (Aspirin) 325 mg PO DAILY [facility] Last Admin: 05/14/17 08:58 Dose: 325 mg Bupropion HCl (Wellbutrin Sr) 150 mg PO BID [facility] Last Admin: 05/14/17 08:57 Dose: 150 mg Carvedilol (Coreg) 6.25 mg PO BID[facility] Last Admin: 05/14/17 08:58 Dose: 6.25 mg Cyclobenzaprine HCl (Flexeril) 10 mg PO DAILY PRN PRN Reason: Muscle Spasm Enoxaparin Sodium (Lovenox) 40 mg SC 0900 [facility] Last Admin: 05/14/17 08:56 Dose: 40 mg Famotidine (Pepcid) 20 mg PO BID [facility] Last Admin: 05/14/17 08:56 Dose: 20 mg Hydralazine HCl (Apresoline) 10 mg SLOW IVP Q4H PRN PRN Reason: Systolic BP > 180 Potassium Chloride 40 meq/ (Sodium Chloride) 270 mls @ 135 mls/hr IVPB ASDIR PRN PRN Reason: FOR SERUM K+ 2.5 - 3.5 Potassium Chloride 40 meq/ (Device) 100 mls @ 50 mls/hr IVPB ASDIR PRN PRN Reason: FOR SERUM K+ 2.5 - 3.5 Magnesium Sulfate 1 gm/ Sodium (Chloride) 102 mls @ 102 mls/hr IV PRN PRN PRN Reason: MAG LEVEL 1.4 - 2.0 Magnesium Sulfate 2 gm/ Device 100 mls @ 100 mls/hr IVPB ASDIR PRN PRN Reason: MAGNESIUM < 1.4 Potassium Phosphate 9 mmol/ (Sodium Chloride) 103 mls @ 25.75 mls/hr IVPB ASDIR PRN PRN Reason: Phosphate 1.0-1.8 Potassium Phosphate 12 mmol/ (Sodium Chloride) 254 mls @ 63.5 mls/hr IV ASDIR PRN PRN Reason: Serum phosphate 0.5-0.9 Potassium Phosphate 15 mmol/ (Sodium Chloride) 255 mls @ 63.75 mls/hr IV ASDIR PRN PRN Reason: Serum Phos < 0.5 Fentanyl Citrate 2,000 mcg/ (Sodium Chloride) 100 mls @ 0 mls/hr IV INF [facility]; Per Protocol PRN Reason: Protocol Stop: 06/11/17 01:09 Fentanyl Citrate (Fentanyl Bolus) 250 mls @ 0 mls/hr IVPB PRN PRN; As Directed PRN Reason: Breakthrough pain Stop: 06/11/17 01:09 Sodium Chloride (Normal Saline 0.9%) 1,000 mls @ 50 mls/hr IV .Q20H [facility] Last Admin: 05/14/17 01:21 Dose: 1,000 mls Cefepime HCl 1 gm/Miscellaneous Medication 1 each/ Sterile Water 10 mls @ 120 mls/hr SLOW IVP Q12HR [facility] Last Admin: 05/14/17 08:57 Dose: 10 mls Lorazepam (Ativan) 2 mg SLOW IVP Q2H PRN PRN Reason: Anxiety to achieve Alanis 2-3 Stop: 06/11/17 01:09 Last Admin: 05/13/17 23:41 Dose: 2 mg Magnesium Oxide (Magnesium Oxide) 400 mg PO BIDPRN PRN PRN Reason: FOR SERUM MAG 1.4 - 2.0 Magnesium Oxide (Magnesium Oxide) 800 mg PO PRN PRN PRN Reason: FOR SERUM MAG < 1.4 Methylprednisolone Sodium Succinate (Solu-Medrol) 40 mg IVP Q6HR [facility] Last Admin: 05/14/17 05:03 Dose: 40 mg Miscellaneous Medication (Phos-Nak) 1 pkt PO TIDPRN PRN PRN Reason: FOR PHOS LEVEL 1.0 - 1.8 Miscellaneous Medication (Phos-Nak) 2 pkt PO TIDPRN PRN PRN Reason: FOR PHOS LEVEL 0.5 - 1.0 Mometasone Furoate/Formoterol Fumar (Dulera 200 Mcg/5 Mcg Inhaler) 2 puff INH BID-RT [facility] Last Admin: 05/14/17 08:06 Dose: 2 puff Morphine Sulfate (Morphine) 2 mg SLOW IVP Q2H PRN PRN Reason: Breakthrough pain Stop: 06/11/17 01:09 Nitroglycerin (Nitrostat) 0.4 mg SL Q5MIN PRN PRN Reason: Chest Pain Ccu Electrolyte (Replacement Protocol) 0 each FS PRN PRN PRN Reason: FOR ELECTROLYTE REPLACEMENT Discontinue Previous Narcotic Pain Medications And Benzodiazepines 1 each FS .ONE [facility] Stop: 06/11/17 01:09 Ondansetron HCl (Zofran Odt) 4 mg PO Q6H PRN PRN Reason: Nausea/Vomiting Ondansetron HCl (Zofran) 4 mg IVP Q6H PRN PRN Reason: Nausea/Vomiting Potassium Chloride (K-Dur) 40 meq PO ASDIR PRN PRN Reason: FOR SERUM K+ 2.5 - 3.5 Potassium Chloride (Klor-Con) 40 meq PER TUBE ASDIR PRN PRN Reason: FOR SERUM K+ 2.5-3.5 Propofol (Diprivan) 1,000 mg IV INF PRN; Protocol PRN Reason: TO ACHIEVE ALANIS SCORE 2-3 Stop: 06/11/17 01:09 Last Admin: 05/14/17 06:12 Dose: 1,000 mg Risperidone (Risperidone) 0.25 mg PO BID [facility] Last Admin: 05/14/17 08:58 Dose: 0.25 mg Ropinirole HCl (Requip) 1 mg PO HS [facility] Last Admin: 05/13/17 19:55 Dose: 1 mg Sodium Chloride (Flush - Normal Saline) 10 ml IVF PRN PRN PRN Reason: Saline Flush Sodium Chloride (Flush - Normal Saline) 10 ml IVF BID [facility] Last Admin: 05/13/17 19:56 Dose: 10 ml
--- NOTE | 2017-05-14 16:19 | PRG ---
DATE OF SERVICE: 05/14/2017 Ms. Tapia still gets very dyssynchronous when she is not sedated. OBJECTIVE: VITAL SIGNS: Heart rate 75. Blood pressure 90/48, respiratory rate 21. LUNGS: Remarkable for coarse equal breath sounds. HEART: Regular rhythm. ABDOMEN: Soft. The monitor appears to be in sinus rhythm. LABORATORY: White count 11.8, hemoglobin 13, platelets 204,000. Sodium 138, potassium 4.1, chloride 103, bicarb 20, BUN 21, creatinine 0.69, glucose 184. Chest radiograph is rotated. She is hazy on the left. She has some atelectatic changes at the right base. IMPRESSION: 1. Respiratory failure. 2. Chronic obstructive pulmonary disease. 3. Encephalopathy. 4. History of depression. 5. Extrapyramidal symptoms. 6. Pneumonia. 7. Ischemic cardiomyopathy. 8. History of coronary artery bypass grafting. 9. History of defibrillator placement. 10. History of tobacco use up until this admission. She is currently not weanable. PLAN: We will continue with current care measures.
--- NOTE | 2017-05-14 18:03 | PDOC.CTH ---
Cardiology Progress Note - Subjective No new issues. Remains intubated. - Objective Vital Signs Temp Pulse Resp BP Pulse Ox 05/14/17 17:36 115/55 L 05/14/17 16:00 98.5 F 17 05/14/17 15:00 70 105/56 L 05/14/17 14:00 17 05/14/17 12:00 97.5 F L 19 05/14/17 10:53 76 94/49 L 05/14/17 10:00 17 05/14/17 08:58 123/53 L 05/14/17 08:00 98.4 F 70 21 H 95 05/14/17 07:29 76 115/49 L Admit Weight 186 lb Weight 181 lb 14.102 oz 05/13/17 05/14/17 05/15/17 06:59 06:59 06:59 Intake Total 2044 2331 Output Total 1410 1235 490 Balance 634 1096 -490 - Physical Examination General/Neuro: other: (intubated sedated. ) Neck: no JVD present Lungs: unlabored respirations Heart: RRR Abdomen: NT/ND Extremities: + edema B (trace) - Telemetry Telemetry Rhythm: NSR - Labs Result Diagrams: 05/14/17 04:43 05/14/17 04:43 - Assessment/Plan 1. COPD exacerbation. 2. Ischemic CM EF at 30-35%. 3. S/P CABG 4. AICD in place 5. Tobacco abuse, continued 6. RLL infiltrate. PLAN - Continue supportive care. - Judicious use of fluids. - No new recs.
[2017-05-14] MEDS: rOPINIRole HCl 1 MG TAB PO SCH (20:25)
[2017-05-15] MEDS: Propofol 1,000 MG/100 ML VIAL IV PRN ×2 (02:01→07:50)
[2017-05-15] MEDS: Lorazepam 2 MG/ML VIAL SLOW IVP PRN ×2 (04:24→11:48)
[2017-05-15 06:46] LABS: Hemoglobin 13.4 g/dL (12.0-16.0); Mean Corpuscular HGB CONC 32.2 g/dL (32.0-36.0); Mean Corpuscular Hemoglobin 30.9 pg (27.0-31.0); Mean Corpuscular Volume 96.2 fl (81.0-99.0); Mean Platelet Volume 7.7 fL (7.4-10.4); Platelet Count 205 thou/uL (130-400); RBC Distribution Width 12.5 % (11.5-14.5); Red Blood Cell (RBC) Count 4.35 mill/uL (4.20-5.40); White Blood Cell (WBC) Count 12.1 thou/uL (4.8-10.8)
[2017-05-15 06:52] LABS: Anion Gap 13 mmol/L (10-20); BUN (Urea Nitrogen) 24 mg/dL (9.8-20.1); Calc. Creatinine Clearance 99 mL/min (70-130); Calcium 8.2 mg/dL (7.8-10.44); Carbon Dioxide 22 mmol/L (23-31); Chloride 106 mmol/L (98-107); Estimated GFR-MDRD 85; Glucose 175 mg/dL (83-110); Potassium 4.2 mmol/L (3.5-5.1); Sodium 137 mmol/L (136-145)
[2017-05-15 07:52] LABS: Band 2 % (5-11); Lymphocytes 9 % (21-51); MDiff Complete? YES; Monocytes 2 % (0-10); Neutrophil 86 % (42-75); RBC Morphology Normal; Reactive Lymphocytes 1 % (0-10)
[2017-05-15] MEDS: Enoxaparin Sodium 40 MG/0.4 ML SYRINGE SC SCH (07:52)
[2017-05-15] MEDS: Carvedilol 6.25 MG TAB PO SCH ×2 (07:52→16:50)
[2017-05-15] MEDS: Aspirin 325 MG TAB PO SCH (07:52)
[2017-05-15] MEDS: Bupropion 150 MG SR TAB PO SCH ×2 (07:53→20:04)
[2017-05-15] MEDS: risperiDONE 0.25 MG TAB PO SCH ×2 (07:53→20:05)
[2017-05-15] MEDS: Famotidine 20 MG TAB PO SCH ×2 (07:53→20:05)
--- NOTE | 2017-05-15 08:50 | PRG ---
DATE OF SERVICE: 05/15/2017 The patient is intubated on the vent, sedated on Diprivan, unable to assess her medical status. We a re trying to hold Diprivan this morning. Will reassess her in about 30 minutes. PHYSICAL EXAMINATION: VITAL SIGNS: Blood pressure 119/60, pulse 75, respirations 18, afebrile. I's and O's 2331 in, 1235 out. CHEST: Chest revealed bilateral rhonchi and crackles. CARDIAC: Normal S1-S2. No gallops. LABORATORY: White count 12,000. Electrolytes are normal. X-ray shows cardiomegaly with some increa sed interstitial markings. IMPRESSION: 1. Acute on chronic respiratory failure. 2. Chronic obstructive pulmonary disease. 3. Encephalopathy. 4. Congestive heart failure. PLAN: Until we withhold the sedation unable to assess neurologic status. Continue antibiotics, neb treatments, supportive care. Discuss with family ongoing issues. One-half hour critical care time.
[2017-05-15] MEDS: Cefepime 1 GM, Admixture Fee 1 EACH in Sterile Water 10 ML SLOW IVP SCH ×2 (09:40→20:04)
[2017-05-15 10:03] LABS: Actual Bicarbonate (HCO3a) 27.3 mEq/L (22-26); Base Excess (BEa) 2.1 mEq/L (0 (+/-) 2.5); CO2 Tension 44.5 mmHg (35.0-45.0); Hemoglobin (Hb) 13.1 g/dL (12.0-16.0); O2 Tension (PaO2) 75.2 mmHg (80.0-100.0); pH, Arterial 7.41 (7.35-7.45)
[2017-05-15 10:04] LABS: ALV-art Gradient 225.675 (0-20); Analyzer IN Cardio OR; Calcium, Ionized 1.2 mmol/L (1.12-1.30); Puncture Site RRA
--- NOTE | 2017-05-15 10:21 | RAD ---
AP VIEW CHEST: Date: 05/15/17 INDICATION: History of respiratory failure and mechanical ventilation. COMPARISON: Prior exam dated 05/14/17. FINDINGS: Patient remains intubated with associated gastric catheter. Dual lead AICD is similar appearing. Ther e is mild pulmonary vascular congestion. There is right infrahilar air space opacity which may be rel ated to edema or pneumonia. Continued follow-up is recommended. No pneumothorax is evident. IMPRESSION: 1. Right infrahilar air space opacity suspicious for either edema or pneumonia. Continued follow-up recommended. 2. Tubes and lines are similar. 3. No pneumothorax grossly evident. POS: TPC
[2017-05-15] MEDS: Mometasone/Formoterol 120 PUFF INHALER INH SCH ×2 (12:14→18:36)
--- NOTE | 2017-05-15 15:16 | PDOC.PN ---
- Subjective Encounter Start Date: 05/15/17 Encounter Start Time: 15:16 -: non-verbal Subjective: intub, sedated - Objective Resuscitation Status: Resuscitation Status FULL:Full Resuscitation Vital Signs & Weight: Vital Signs (12 hours) Temp Pulse Resp BP Pulse Ox 05/15/17 14:28 69 124/53 L 05/15/17 14:25 70 23 H 96 05/15/17 14:00 19 05/15/17 12:12 73 119/56 L 05/15/17 12:10 72 24 H 94 L 05/15/17 12:00 98.7 F 05/15/17 10:00 29 H 05/15/17 08:00 98.5 F 05/15/17 07:55 75 119/60 05/15/17 07:53 70 18 92 L 05/15/17 07:52 119/60 05/15/17 06:00 16 05/15/17 04:00 98.6 F 28 H Weight Admit Weight 186 lb Weight 184 lb 8.43 oz Most Recent Monitor Data Heart Rate from ECG 73 NIBP 124/53 NIBP BP-Mean 68 Respiration from ECG 25 SpO2 96 I&O: 05/14/17 05/15/17 05/16/17 06:59 06:59 06:59 Intake Total 2331 2124 Output Total 1235 1125 760 Balance 1096 999 -760 Result Diagrams: 05/15/17 06:26 05/15/17 06:26 Phys Exam - Physical Examination intubated, sedated, lying in hospital bed HEENT: moist MMs, sclera anicteric prominent coarse ventilator sounds bilatera. limited anterior examination. Cardiovascular: RRR, no significant murmur, no rub Gastrointestinal: soft, positive bowel sounds Musculoskeletal: no edema, pulses present Dx/Plan (1) Acute respiratory failure with hypoxemia Code(s): J96.01 - ACUTE RESPIRATORY FAILURE WITH HYPOXIA Status: Acute Comment: s/p extubation 05/11/17 with re-intubation 05/11/18, SIMV at 50% FIO2, likely multifactorial failure (2) Chronic systolic heart failure Code(s): I50.22 - CHRONIC SYSTOLIC (CONGESTIVE) HEART FAILURE Status: Acute Comment: AICD in place, EF 35-40%, Lasix 40mg daily (3) Pneumonia Code(s): J18.9 - PNEUMONIA, UNSPECIFIED ORGANISM Status: Acute Qualifiers: Pneumonia type: due to unspecified organism Laterality: bilateral Lung location: lower lobe of lung Qualified Code(s): J18.9 - Pneumonia, unspecified organism Comment: Appreciate Pulmonary consultation weaning as tolerated Continue Cefepime 1gm IV q12h, Duonebs (4) Anemia Code(s): D64.9 - ANEMIA, UNSPECIFIED Status: Acute (5) COPD exacerbation Code(s): J44.1 - CHRONIC OBSTRUCTIVE PULMONARY DISEASE W (ACUTE) EXACERBATION Status: Acute Comment: Respiratory failure with ventilatory support IV solumedrol abx as below (6) Hypokalemia Code(s): E87.6 - HYPOKALEMIA Status: Acute (7) CAD (coronary artery disease) Code(s): I25.10 - ATHSCL HEART DISEASE OF [place] CORONARY ARTERY W/O ANG PCTRS Status: Chronic Qualifiers: Coronary Disease-Associated Artery/Lesion type: unspecified vessel or lesion type [place] vs. 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 Palliative care consultation requested. Continue with supportive -: management and treatment as per above. Will try to wean sedation and see if -: pt candidate for CPAP trial as per pulmonary medicine recs. * . Review of Systems - Medications/Allergies Allergies/Adverse Reactions: Allergies Allergy/AdvReac Type Severity Reaction Status Date / Time lisinopril Allergy Verified 12/18/16 23:42 meperidine HCl [From Demerol] Allergy Verified 12/18/16 23:42 Penicillins Allergy Verified 12/18/16 23:42 Medications: Current Medications Acetaminophen (Tylenol) 650 mg HI Q4H PRN PRN Reason: Headache/Fever or Mild Pain Albuterol/Ipratropium (Duoneb) 3 ml NEB [id number] [facility] Last Admin: 05/15/17 14:25 Dose: 3 ml Alprazolam (Xanax) 0.25 mg PO TIDPRN PRN PRN Reason: Anxiety Last Admin: 05/12/17 20:45 Dose: 0.25 mg Aspirin (Aspirin) 325 mg PO DAILY [facility] Last Admin: 05/15/17 07:52 Dose: 325 mg Bupropion HCl (Wellbutrin Sr) 150 mg PO BID [facility] Last Admin: 05/15/17 07:53 Dose: 150 mg Carvedilol (Coreg) 6.25 mg PO BID[facility] Last Admin: 05/15/17 07:52 Dose: 6.25 mg Cyclobenzaprine HCl (Flexeril) 10 mg PO DAILY PRN PRN Reason: Muscle Spasm Enoxaparin Sodium (Lovenox) 40 mg SC 0900 [facility] Last Admin: 05/15/17 07:52 Dose: 40 mg Famotidine (Pepcid) 20 mg PO BID [facility] Last Admin: 05/15/17 07:53 Dose: 20 mg Hydralazine HCl (Apresoline) 10 mg SLOW IVP Q4H PRN PRN Reason: Systolic BP > 180 Potassium Chloride 40 meq/ (Sodium Chloride) 270 mls @ 135 mls/hr IVPB ASDIR PRN PRN Reason: FOR SERUM K+ 2.5 - 3.5 Potassium Chloride 40 meq/ (Device) 100 mls @ 50 mls/hr IVPB ASDIR PRN PRN Reason: FOR SERUM K+ 2.5 - 3.5 Magnesium Sulfate 1 gm/ Sodium (Chloride) 102 mls @ 102 mls/hr IV PRN PRN PRN Reason: MAG LEVEL 1.4 - 2.0 Magnesium Sulfate 2 gm/ Device 100 mls @ 100 mls/hr IVPB ASDIR PRN PRN Reason: MAGNESIUM < 1.4 Potassium Phosphate 9 mmol/ (Sodium Chloride) 103 mls @ 25.75 mls/hr IVPB ASDIR PRN PRN Reason: Phosphate 1.0-1.8 Potassium Phosphate 12 mmol/ (Sodium Chloride) 254 mls @ 63.5 mls/hr IV ASDIR PRN PRN Reason: Serum phosphate 0.5-0.9 Potassium Phosphate 15 mmol/ (Sodium Chloride) 255 mls @ 63.75 mls/hr IV ASDIR PRN PRN Reason: Serum Phos < 0.5 Fentanyl Citrate 2,000 mcg/ (Sodium Chloride) 100 mls @ 0 mls/hr IV INF TRISTAN; Per Protocol PRN Reason: Protocol Stop: 06/11/17 01:09 Fentanyl Citrate (Fentanyl Bolus) 250 mls @ 0 mls/hr IVPB PRN PRN; As Directed PRN Reason: Breakthrough pain Stop: 06/11/17 01:09 Sodium Chloride (Normal Saline 0.9%) 1,000 mls @ 50 mls/hr IV .Q20H [facility] Last Admin: 05/14/17 20:22 Dose: 1,000 mls Cefepime HCl 1 gm/Miscellaneous Medication 1 each/ Sterile Water 10 mls @ 120 mls/hr SLOW IVP Q12HR [facility] Last Admin: 05/15/17 09:40 Dose: 10 mls Lorazepam (Ativan) 2 mg SLOW IVP Q2H PRN PRN Reason: Anxiety to achieve Alanis 2-3 Stop: 06/11/17 01:09 Last Admin: 05/15/17 11:48 Dose: 2 mg Magnesium Oxide (Magnesium Oxide) 400 mg PO BIDPRN PRN PRN Reason: FOR SERUM MAG 1.4 - 2.0 Magnesium Oxide (Magnesium Oxide) 800 mg PO PRN PRN PRN Reason: FOR SERUM MAG < 1.4 Methylprednisolone Sodium Succinate (Solu-Medrol) 40 mg IVP Q6HR [facility] Last Admin: 05/15/17 11:48 Dose: 40 mg Miscellaneous Medication (Phos-Nak) 1 pkt PO TIDPRN PRN PRN Reason: FOR PHOS LEVEL 1.0 - 1.8 Miscellaneous Medication (Phos-Nak) 2 pkt PO TIDPRN PRN PRN Reason: FOR PHOS LEVEL 0.5 - 1.0 Mometasone Furoate/Formoterol Fumar (Dulera 200 Mcg/5 Mcg Inhaler) 2 puff INH BID-RT [facility] Last Admin: 05/15/17 12:14 Dose: 2 puff Morphine Sulfate (Morphine) 2 mg SLOW IVP Q2H PRN PRN Reason: Breakthrough pain Stop: 06/11/17 01:09 Nitroglycerin (Nitrostat) 0.4 mg SL Q5MIN PRN PRN Reason: Chest Pain Ccu Electrolyte (Replacement Protocol) 0 each FS PRN PRN PRN Reason: FOR ELECTROLYTE REPLACEMENT Discontinue Previous Narcotic Pain Medications And Benzodiazepines 1 each FS .ONE [facility] Stop: 06/11/17 01:09 Ondansetron HCl (Zofran Odt) 4 mg PO Q6H PRN PRN Reason: Nausea/Vomiting Ondansetron HCl (Zofran) 4 mg IVP Q6H PRN PRN Reason: Nausea/Vomiting Potassium Chloride (K-Dur) 40 meq PO ASDIR PRN PRN Reason: FOR SERUM K+ 2.5 - 3.5 Potassium Chloride (Klor-Con) 40 meq PER TUBE ASDIR PRN PRN Reason: FOR SERUM K+ 2.5-3.5 Propofol (Diprivan) 1,000 mg IV INF PRN; Protocol PRN Reason: TO ACHIEVE ALANIS SCORE 2-3 Stop: 06/11/17 01:09 Last Admin: 05/15/17 07:50 Dose: 1,000 mg Risperidone (Risperidone) 0.25 mg PO BID [facility] Last Admin: 05/15/17 07:53 Dose: 0.25 mg Ropinirole HCl (Requip) 1 mg PO HS [facility] Last Admin: 05/14/17 20:25 Dose: 1 mg Sodium Chloride (Flush - Normal Saline) 10 ml IVF PRN PRN PRN Reason: Saline Flush Last Admin: 05/14/17 17:37 Dose: 10 ml Sodium Chloride (Flush - Normal Saline) 10 ml IVF BID [facility] Last Admin: 05/15/17 07:53 Dose: 10 ml
[2017-05-15] MEDS: Sodium Chloride 0.9% 1,000 ML IV SCH ×2 (16:50→21:06)
[2017-05-15] MEDS: rOPINIRole HCl 1 MG TAB PO SCH (20:05)
[2017-05-15] MEDS: ALPRAZolam 0.25 MG TAB PO PRN (20:56)
[2017-05-16] MEDS: Mometasone/Formoterol 120 PUFF INHALER INH SCH ×2 (07:14→19:10)
[2017-05-16 07:26] LABS: Actual Bicarbonate (HCO3a) 26.4 mEq/L (22-26); Base Excess (BEa) 2.3 mEq/L (0 (+/-) 2.5); CO2 Tension 39.3 mmHg (35.0-45.0); Calcium, Ionized 1.2 mmol/L (1.12-1.30); Hemoglobin (Hb) 12.7 g/dL (12.0-16.0); O2 Tension (PaO2) 101.7 mmHg (80.0-100.0); pH, Arterial 7.45 (7.35-7.45)
[2017-05-16 07:27] LABS: ALV-art Gradient 205.675 (0-20); Puncture Site RRA
[2017-05-16] MEDS: Famotidine 20 MG TAB PO SCH ×2 (08:08→20:57)
[2017-05-16] MEDS: Enoxaparin Sodium 40 MG/0.4 ML SYRINGE SC SCH (08:08)
[2017-05-16] MEDS: Carvedilol 6.25 MG TAB PO SCH ×2 (08:08→16:33)
[2017-05-16] MEDS: Aspirin 325 MG TAB PO SCH (08:09)
[2017-05-16] MEDS: Bupropion 150 MG SR TAB PO SCH ×2 (08:09→20:58)
[2017-05-16] MEDS: risperiDONE 0.25 MG TAB PO SCH ×2 (08:09→20:57)
--- NOTE | 2017-05-16 08:34 | PRG ---
DATE OF SERVICE: 05/16/2017 This morning she is awake, alert, responsive, on the vent, no longer agitated. PHYSICAL EXAMINATION: VITAL SIGNS: Blood pressure 140/60, pulse 70, respirations 18, sats 99, temperature 98. I's and O's 2 and 2000 in, 198 out. CHEST: Chest reveals decreased breath sounds, no wheezing. CARDIAC: Normal S1, S2. ABDOMEN: Soft, no masses. LABORATORY DATA: PO2 101, pCO2 37.45. IMPRESSION: 1. Respiratory failure. 2. Chronic obstructive pulmonary disease. 3. Possibly superimposed pneumonia. 4. Encephalopathy. PLAN: She appears to be much improved. We will again try and wean and extubate in the next 24-48 ho urs. In the meantime, continue steroids, neb treatments, supportive care. One-half hour critical care time.
[2017-05-16] MEDS ORDERED: DC Sedation Protocol FS ONE (08:46)
[2017-05-16] MEDS: Cefepime 1 GM, Admixture Fee 1 EACH in Sterile Water 10 ML SLOW IVP SCH ×2 (08:54→20:56)
[2017-05-16 09:12] LABS: #Lymphocytes 0.7 thou/uL (1.20-3.40); #Monocytes 0.4 thou/uL (0.11-0.59); #Neutrophils 12.8 thou/uL (1.40-6.50); %Basophils 0.1 % (0.0-1.0); %Eosinophils 0.3 % (0.0-10.0); %Lymphocytes 5.2 % (21.0-51.0); %Monocytes 2.9 % (0.0-10.0); %Neutrophils 91.5 % (42.0-75.0); Hemoglobin 13.8 g/dL (12.0-16.0); Mean Corpuscular HGB CONC 31.8 g/dL (32.0-36.0); Mean Corpuscular Hemoglobin 30.1 pg (27.0-31.0); Mean Corpuscular Volume 94.6 fl (81.0-99.0); Mean Platelet Volume 7.3 fL (7.4-10.4); Platelet Count 195 thou/uL (130-400); RBC Distribution Width 12.5 % (11.5-14.5); Red Blood Cell (RBC) Count 4.58 mill/uL (4.20-5.40)
[2017-05-16 09:32] LABS: Anion Gap 13 mmol/L (10-20); BUN (Urea Nitrogen) 24 mg/dL (9.8-20.1); Calc. Creatinine Clearance 105 mL/min (70-130); Calcium 8.3 mg/dL (7.8-10.44); Carbon Dioxide 22 mmol/L (23-31); Chloride 111 mmol/L (98-107); Estimated GFR-MDRD Greater than 90; Glucose 166 mg/dL (83-110); Potassium 4.5 mmol/L (3.5-5.1); Sodium 141 mmol/L (136-145)
--- NOTE | 2017-05-16 19:33 | PDOC.PN ---
- Subjective Encounter Start Date: 05/16/17 Encounter Start Time: 12:00 Subjective: pt extubated earlier. family and friends at bedside. pt feeling weak and -: SOB but otherwise no c/o. denies SOB, chest pain, fevers/ chills, pain -: elsewhere. + cough, non productive, not painful - Objective Resuscitation Status: Resuscitation Status FULL:Full Resuscitation Vital Signs & Weight: Vital Signs (12 hours) Temp Pulse Resp BP Pulse Ox 05/16/17 19:09 74 24 H 99 05/16/17 19:00 97.6 F 05/16/17 16:33 132/60 05/16/17 16:00 98.7 F 05/16/17 15:06 76 21 H 99 05/16/17 12:07 70 21 H 99 05/16/17 12:00 98.3 F 100 05/16/17 08:08 140/60 05/16/17 08:00 15 Weight Admit Weight 186 lb Weight 184 lb 15.485 oz Most Recent Monitor Data Heart Rate from ECG 70 NIBP 120/59 NIBP BP-Mean 74 Respiration from ECG 22 SpO2 85 I&O: 05/15/17 05/16/17 05/17/17 06:59 06:59 06:59 Intake Total 2124 2070 703 Output Total 1125 1980 715 Balance 999 90 -12 Result Diagrams: 05/16/17 09:04 05/16/17 09:04 Phys Exam - Physical Examination Constitutional: NAD HEENT: PERRLA, moist MMs, sclera anicteric Respiratory: no wheezing, no rales, no rhonchi diminished and slightly coarse Cardiovascular: RRR, no significant murmur, no rub Gastrointestinal: soft, non-tender, no distention, positive bowel sounds Neurological: moves all 4 limbs Psychiatric: normal affect, A&O x 3 Dx/Plan (1) Acute respiratory failure with hypoxemia Code(s): J96.01 - ACUTE RESPIRATORY FAILURE WITH HYPOXIA Status: Acute Comment: appreciate pulmonary c/s s/p extubation 05/11/17 with re-intubation 05/11/18 re-extubated 05/16/17 to [place] (2) Chronic systolic heart failure Code(s): I50.22 - CHRONIC SYSTOLIC (CONGESTIVE) HEART FAILURE Status: Acute Comment: AICD in place, EF 35-40%, Lasix 40mg daily (3) Pneumonia Code(s): J18.9 - PNEUMONIA, UNSPECIFIED ORGANISM Status: Acute Qualifiers: Pneumonia type: due to unspecified organism Laterality: bilateral Lung location: lower lobe of lung Qualified Code(s): J18.9 - Pneumonia, unspecified organism Comment: Continue Cefepime 1gm IV q12h (4) Anemia Code(s): D64.9 - ANEMIA, UNSPECIFIED Status: Acute Comment: Hemodynamically stable. Monitor. (5) COPD exacerbation Code(s): J44.1 - CHRONIC OBSTRUCTIVE PULMONARY DISEASE W (ACUTE) EXACERBATION Status: Acute Comment: IV solumedrol, duo nebs, abx, O2 support (currrently on NC) (6) Hypokalemia Code(s): E87.6 - HYPOKALEMIA Status: Acute - Plan cont current plan of care, continue antibiotics, respiratory therapy d/w patient and son at bedside plan of care as above Review of Systems - Medications/Allergies Allergies/Adverse Reactions: Allergies Allergy/AdvReac Type Severity Reaction Status Date / Time lisinopril Allergy Verified 12/18/16 23:42 meperidine HCl [From Demerol] Allergy Verified 12/18/16 23:42 Penicillins Allergy Verified 12/18/16 23:42 Medications: Current Medications Acetaminophen (Tylenol) 650 mg AL Q4H PRN PRN Reason: Headache/Fever or Mild Pain Albuterol/Ipratropium (Duoneb) 3 ml NEB [id number] [facility] Last Admin: 05/16/17 19:09 Dose: 3 ml Alprazolam (Xanax) 0.25 mg PO TIDPRN PRN PRN Reason: Anxiety Last Admin: 05/15/17 20:56 Dose: 0.25 mg Aspirin (Aspirin) 325 mg PO DAILY [facility] Last Admin: 05/16/17 08:09 Dose: 325 mg Bupropion HCl (Wellbutrin Sr) 150 mg PO BID [facility] Last Admin: 05/16/17 08:09 Dose: 150 mg Carvedilol (Coreg) 6.25 mg PO BID-[facility] Last Admin: 05/16/17 16:33 Dose: 6.25 mg Cyclobenzaprine HCl (Flexeril) 10 mg PO DAILY PRN PRN Reason: Muscle Spasm Enoxaparin Sodium (Lovenox) 40 mg SC 0900 [facility] Last Admin: 05/16/17 08:08 Dose: 40 mg Famotidine (Pepcid) 20 mg PO BID [facility] Last Admin: 05/16/17 08:08 Dose: 20 mg Hydralazine HCl (Apresoline) 10 mg SLOW IVP Q4H PRN PRN Reason: Systolic BP > 180 Potassium Chloride 40 meq/ (Sodium Chloride) 270 mls @ 135 mls/hr IVPB ASDIR PRN PRN Reason: FOR SERUM K+ 2.5 - 3.5 Potassium Chloride 40 meq/ (Device) 100 mls @ 50 mls/hr IVPB ASDIR PRN PRN Reason: FOR SERUM K+ 2.5 - 3.5 Magnesium Sulfate 1 gm/ Sodium (Chloride) 102 mls @ 102 mls/hr IV PRN PRN PRN Reason: MAG LEVEL 1.4 - 2.0 Magnesium Sulfate 2 gm/ Device 100 mls @ 100 mls/hr IVPB ASDIR PRN PRN Reason: MAGNESIUM < 1.4 Potassium Phosphate 9 mmol/ (Sodium Chloride) 103 mls @ 25.75 mls/hr IVPB ASDIR PRN PRN Reason: Phosphate 1.0-1.8 Potassium Phosphate 12 mmol/ (Sodium Chloride) 254 mls @ 63.5 mls/hr IV ASDIR PRN PRN Reason: Serum phosphate 0.5-0.9 Potassium Phosphate 15 mmol/ (Sodium Chloride) 255 mls @ 63.75 mls/hr IV ASDIR PRN PRN Reason: Serum Phos < 0.5 Sodium Chloride (Normal Saline 0.9%) 1,000 mls @ 50 mls/hr IV .Q20H [facility] Last Admin: 05/15/17 21:06 Dose: 1,000 mls Cefepime HCl 1 gm/Miscellaneous Medication 1 each/ Sterile Water 10 mls @ 120 mls/hr SLOW IVP Q12HR [facility] Last Admin: 05/16/17 08:54 Dose: 10 mls Magnesium Oxide (Magnesium Oxide) 400 mg PO BIDPRN PRN PRN Reason: FOR SERUM MAG 1.4 - 2.0 Magnesium Oxide (Magnesium Oxide) 800 mg PO PRN PRN PRN Reason: FOR SERUM MAG < 1.4 Methylprednisolone Sodium Succinate (Solu-Medrol) 40 mg IVP Q6HR [facility] Last Admin: 05/16/17 17:45 Dose: 40 mg Miscellaneous Medication (Phos-Nak) 1 pkt PO TIDPRN PRN PRN Reason: FOR PHOS LEVEL 1.0 - 1.8 Miscellaneous Medication (Phos-Nak) 2 pkt PO TIDPRN PRN PRN Reason: FOR PHOS LEVEL 0.5 - 1.0 Mometasone Furoate/Formoterol Fumar (Dulera 200 Mcg/5 Mcg Inhaler) 2 puff INH BID-RT [facility] Last Admin: 05/16/17 19:10 Dose: 2 puff Nitroglycerin (Nitrostat) 0.4 mg SL Q5MIN PRN PRN Reason: Chest Pain Ondansetron HCl (Zofran Odt) 4 mg PO Q6H PRN PRN Reason: Nausea/Vomiting Ondansetron HCl (Zofran) 4 mg IVP Q6H PRN PRN Reason: Nausea/Vomiting Potassium Chloride (K-Dur) 40 meq PO ASDIR PRN PRN Reason: FOR SERUM K+ 2.5 - 3.5 Potassium Chloride (Klor-Con) 40 meq PER TUBE ASDIR PRN PRN Reason: FOR SERUM K+ 2.5-3.5 Risperidone (Risperidone) 0.25 mg PO HS [facility] Ropinirole HCl (Requip) 1 mg PO HS [facility] Last Admin: 05/15/17 20:05 Dose: 1 mg Sodium Chloride (Flush - Normal Saline) 10 ml IVF PRN PRN PRN Reason: Saline Flush Last Admin: 05/14/17 17:37 Dose: 10 ml Sodium Chloride (Flush - Normal Saline) 10 ml IVF BID [facility] Last Admin: 05/16/17 08:09 Dose: 10 ml
[2017-05-16] MEDS: rOPINIRole HCl 1 MG TAB PO SCH (20:57)
[2017-05-17] MEDS: Sodium Chloride 0.9% 1,000 ML IV SCH (08:59)
--- NOTE | 2017-05-17 09:02 | PRG ---
DATE OF SERVICE: 05/17/2017 This morning she is awake, alert, responsive. No pain. She was extubated, in no respiratory distres s. PHYSICAL EXAMINATION: VITAL SIGNS: Blood pressure is 130/82, pulse 80, sats 93, respiration rate 18. CHEST: Chest revealed decreased breath sounds, no wheezing. CARDIAC: Normal S1-S2. No gallops. LABORATORY: White count 14,000, H&H 13 and 43, platelet count is normal. Electrolytes are normal. IMPRESSION: 1. Respiratory failure. 2. Unknown extrapyramidal symptoms. 3. Encephalopathy. PLAN: I will try and discontinue the antibiotics, put her on some oral antibiotics. Minimize sedation. She can be transferred to a monitored bed. I will follow. One-half hour critical care time.
[2017-05-17] MEDS: Carvedilol 6.25 MG TAB PO SCH ×2 (09:17→17:10)
[2017-05-17] MEDS: Enoxaparin Sodium 40 MG/0.4 ML SYRINGE SC SCH (09:17)
[2017-05-17] MEDS: Aspirin 325 MG TAB PO SCH (09:17)
[2017-05-17] MEDS: Cefdinir 300 MG CAP PO SCH ×2 (09:17→20:57)
[2017-05-17] MEDS: Bupropion 150 MG SR TAB PO SCH ×2 (09:17→20:57)
[2017-05-17] MEDS: Famotidine 20 MG TAB PO SCH ×2 (09:17→20:57)
[2017-05-17 10:23] LABS: #Lymphocytes 0.8 thou/uL (1.20-3.40); #Monocytes 0.3 thou/uL (0.11-0.59); #Neutrophils 14.6 thou/uL (1.40-6.50); %Basophils 0.1 % (0.0-1.0); %Eosinophils 0.2 % (0.0-10.0); %Neutrophils 92.7 % (42.0-75.0); Hemoglobin 14.9 g/dL (12.0-16.0); Mean Corpuscular HGB CONC 32.6 g/dL (32.0-36.0); Mean Corpuscular Hemoglobin 31.4 pg (27.0-31.0); Mean Corpuscular Volume 96.3 fl (81.0-99.0); Mean Platelet Volume 7.5 fL (7.4-10.4); Platelet Count 250 thou/uL (130-400); RBC Distribution Width 12.6 % (11.5-14.5); Red Blood Cell (RBC) Count 4.75 mill/uL (4.20-5.40); White Blood Cell (WBC) Count 15.8 thou/uL (4.8-10.8)
[2017-05-17 10:38] LABS: Anion Gap 12 mmol/L (10-20); BUN (Urea Nitrogen) 24 mg/dL (9.8-20.1); Calc. Creatinine Clearance 98 mL/min (70-130); Calcium 8.8 mg/dL (7.8-10.44); Carbon Dioxide 25 mmol/L (23-31); Chloride 105 mmol/L (98-107); Estimated GFR-MDRD 80; Glucose 194 mg/dL (83-110); Potassium 4.4 mmol/L (3.5-5.1); Sodium 138 mmol/L (136-145)
[2017-05-17] MEDS: Mometasone/Formoterol 120 PUFF INHALER INH SCH ×2 (11:04→19:03)
[2017-05-17 12:36] VITALS: BMI 36.4
--- NOTE | 2017-05-17 14:05 | PDOC.PN ---
- Subjective Encounter Start Date: 05/17/17 Encounter Start Time: 14:03 Subjective: In good spirits. No complaints. No acute events overnight. - Objective Resuscitation Status: Resuscitation Status FULL:Full Resuscitation MAR Reviewed: Yes Vital Signs & Weight: Vital Signs (12 hours) Temp Pulse Resp BP Pulse Ox 05/17/17 12:00 98 F 05/17/17 11:02 73 21 H 99 05/17/17 09:17 132/60 05/17/17 08:00 97.8 F 73 21 H 95 05/17/17 07:57 99 05/17/17 07:56 70 20 99 05/17/17 07:00 97.7 F 05/17/17 03:00 97.9 F 05/17/17 02:37 77 18 99 Weight Admit Weight 186 lb Weight 192 lb 14.472 oz Most Recent Monitor Data Heart Rate from ECG 72 NIBP 111/55 NIBP BP-Mean 80 Respiration from ECG 22 SpO2 95 I&O: 05/16/17 05/17/17 05/18/17 06:59 06:59 06:59 Intake Total 2070 1473 850 Output Total 1980 1550 260 Balance 90 -77 590 Result Diagrams: 05/17/17 10:12 05/17/17 10:12 Phys Exam - Physical Examination Constitutional: NAD HEENT: PERRLA, moist MMs, sclera anicteric Neck: full ROM Respiratory: no wheezing, no rales Vesicular with decreased sounds b/l lower extremities. Cardiovascular: RRR, no significant murmur, no rub, gallop Gastrointestinal: soft, non-tender, no distention, positive bowel sounds Musculoskeletal: no edema Neurological: non-focal, normal sensation, moves all 4 limbs Dx/Plan (1) Acute respiratory failure with hypoxemia Code(s): J96.01 - ACUTE RESPIRATORY FAILURE WITH HYPOXIA Status: Resolved Plan: Continue to wean off oxygen and nebulizer therapy. Comment: appreciate pulmonary c/s s/p extubation 05/11/17 with re-intubation 05/11/18 re-extubated 05/16/17 to [place] Extubated successfully 05/16 (2) COPD (chronic obstructive pulmonary disease) Status: Acute Qualifiers: COPD type: unspecified COPD Qualified Code(s): J44.9 - Chronic obstructive pulmonary disease, unspecified Plan: Continue current therapy. has steroid induced leucocytosis. IV streoids discontinued. Now on PO prednisone. Comment: Continue Duonebs, Dulera, Solumedrol and Cefepime (3) Chronic systolic heart failure Code(s): I50.22 - CHRONIC SYSTOLIC (CONGESTIVE) HEART FAILURE Status: Acute Plan: Stable. Will discontinue IV fluids. Comment: AICD in place, EF 35-40%, Lasix 40mg daily (4) Pneumonia Code(s): J18.9 - PNEUMONIA, UNSPECIFIED ORGANISM Status: Acute Qualifiers: Pneumonia type: due to unspecified organism Laterality: bilateral Lung location: lower lobe of lung Qualified Code(s): J18.9 - Pneumonia, unspecified organism Comment: Continue Omnicef (5) Anemia Code(s): D64.9 - ANEMIA, UNSPECIFIED Status: Acute Qualifiers: Anemia type: iron deficiency Iron deficiency anemia type: inadequate dietary iron intake Qualified Code(s): D50.8 - Other iron deficiency anemias Plan: Continue iron supplementation. Monitor CBC. Comment: Hemodynamically stable. Monitor. (6) CAD (coronary artery disease) Code(s): I25.10 - ATHSCL HEART DISEASE OF [place] CORONARY ARTERY W/O ANG PCTRS Status: Chronic Qualifiers: Coronary Disease-Associated Artery/Lesion type: unspecified vessel or lesion type [place] vs. transplanted heart: [place] heart Associated angina: without angina Qualified Code(s): I25.10 - Atherosclerotic heart disease of [place] coronary artery without angina pectoris Plan: Continue home medications. Stable and chest pain free, (7) Hypertension Code(s): I10 - ESSENTIAL (PRIMARY) HYPERTENSION Status: Chronic Qualifiers: Hypertension type: essential hypertension Qualified Code(s): I10 - Essential (primary) hypertension Plan: Continue home medications. - Plan cont current plan of care, PT/OT, foster care social worker, respiratory therapy, out of bed/ambulate PT/OT evaluation -: Home vs [facility] depending on patient's performance. * .
[2017-05-17] MEDS ORDERED: traMADol HCl 50 MG TAB PO PRN (14:06)
[2017-05-17] MEDS: Ferrous Gluconate 324 MG TAB PO SCH (17:10)
[2017-05-17] MEDS: rOPINIRole HCl 1 MG TAB PO SCH (20:57)
[2017-05-17] MEDS: risperiDONE 0.25 MG TAB PO SCH (20:57)
[2017-05-18 05:11] LABS: #Eosinphils 0.1 thou/uL (0.0-0.7); #Lymphocytes 3.1 thou/uL (1.20-3.40); #Monocytes 0.9 thou/uL (0.11-0.59); #Neutrophils 8.3 thou/uL (1.40-6.50); %Basophils 0.3 % (0.0-1.0); %Eosinophils 0.5 % (0.0-10.0); %Lymphocytes 24.9 % (21.0-51.0); %Monocytes 7.2 % (0.0-10.0); %Neutrophils 67.1 % (42.0-75.0); Hemoglobin 13.6 g/dL (12.0-16.0); Mean Corpuscular HGB CONC 32.9 g/dL (32.0-36.0); Mean Corpuscular Hemoglobin 31.6 pg (27.0-31.0); Mean Platelet Volume 7.5 fL (7.4-10.4); Platelet Count 222 thou/uL (130-400); RBC Distribution Width 12.4 % (11.5-14.5); Red Blood Cell (RBC) Count 4.31 mill/uL (4.20-5.40); White Blood Cell (WBC) Count 12.3 thou/uL (4.8-10.8)
[2017-05-18 05:21] LABS: Anion Gap 11 mmol/L (10-20); BUN (Urea Nitrogen) 22 mg/dL (9.8-20.1); Calc. Creatinine Clearance 110 mL/min (70-130); Calcium 8.3 mg/dL (7.8-10.44); Carbon Dioxide 26 mmol/L (23-31); Chloride 106 mmol/L (98-107); Estimated GFR-MDRD Greater than 90; Glucose 78 mg/dL (83-110); Magnesium 2.2 mg/dL (1.6-2.6); Potassium 3.9 mmol/L (3.5-5.1); Sodium 139 mmol/L (136-145)
[2017-05-18] MEDS: Mometasone/Formoterol 120 PUFF INHALER INH SCH ×2 (07:39→18:44)
--- NOTE | 2017-05-18 08:54 | PRG ---
DATE OF SERVICE: 05/18/2017 She is awake, alert, responsive. Sitting in the ICU bed eating breakfast. PHYSICAL EXAMINATION: VITAL SIGNS: Sats 93% on 2 liters, respirations 24, blood pressure 120/66. I's and O's 1473 in, 15 50 out. CHEST: Chest revealed extensive rhonchi and crackles. CARDIAC: Normal S1-S2. No gallops. LABORATORY: White count 12,000, H&H 13 and 41, platelet count normal. Electrolytes are normal. IMPRESSION: 1. Respiratory failure. 2. Chronic obstructive pulmonary disease. 3. Encephalopathy. 4. Chronic pain. PLAN: She can probably be transferred out of the ICU. Continue to monitor. PT, nutrition, and supp ortive care. I will follow.
[2017-05-18] MEDS: Carvedilol 6.25 MG TAB PO SCH ×2 (10:00→16:33)
[2017-05-18] MEDS: Ferrous Gluconate 324 MG TAB PO SCH ×2 (10:00→16:33)
[2017-05-18] MEDS: predniSONE 20 MG TAB PO SCH (10:00)
[2017-05-18] MEDS: Atorvastatin Calcium 40 MG TAB PO SCH (10:00)
[2017-05-18] MEDS: Aspirin 325 MG TAB PO SCH (10:00)
[2017-05-18] MEDS: Bupropion 150 MG SR TAB PO SCH ×2 (10:01→20:16)
[2017-05-18] MEDS: Cefdinir 300 MG CAP PO SCH ×2 (10:01→20:15)
[2017-05-18] MEDS: Famotidine 20 MG TAB PO SCH ×2 (10:01→20:15)
[2017-05-18] MEDS: Enoxaparin Sodium 40 MG/0.4 ML SYRINGE SC SCH (10:01)
--- NOTE | 2017-05-18 12:23 | PDOC.PN ---
- Subjective Encounter Start Date: 05/18/17 Encounter Start Time: 12:21 Subjective: No complaints today. Reports doing well. No acute overnight events - Objective Resuscitation Status: Resuscitation Status FULL:Full Resuscitation MAR Reviewed: Yes Vital Signs & Weight: Vital Signs (12 hours) Temp Pulse Resp BP Pulse Ox 05/18/17 11:21 80 19 95 05/18/17 10:00 119/60 05/18/17 08:00 97.7 F 80 22 H 95 05/18/17 07:35 95 05/18/17 07:32 85 24 H 95 05/18/17 03:01 70 23 H 96 05/18/17 03:00 98.2 F Weight Admit Weight 186 lb Weight 191 lb 9.307 oz Most Recent Monitor Data Heart Rate from ECG 78 NIBP 96/40 NIBP BP-Mean 74 Respiration from ECG 18 SpO2 94 I&O: 05/17/17 05/18/17 05/19/17 06:59 06:59 06:59 Intake Total 1473 1320 480 Output Total 1550 1360 350 Balance -77 -40 130 Result Diagrams: 05/18/17 05:04 05/18/17 05:04 Phys Exam - Physical Examination Constitutional: NAD HEENT: PERRLA, moist MMs, sclera anicteric Neck: full ROM Respiratory: no wheezing, no rales, clear to auscultation bilateral Cardiovascular: RRR, no significant murmur, no rub Gastrointestinal: soft, non-tender, no distention, positive bowel sounds Musculoskeletal: no edema Neurological: non-focal, moves all 4 limbs Psychiatric: normal affect, A&O x 3 Skin: no rash Dx/Plan (1) COPD (chronic obstructive pulmonary disease) Status: Acute Qualifiers: COPD type: unspecified COPD Qualified Code(s): J44.9 - Chronic obstructive pulmonary disease, unspecified Plan: Continue nebs, inhalers, prednisone and O2 supplementation. Comment: Continue Duonebs, Dulera, prednisone and Cefepime (2) Acute respiratory failure with hypoxemia Code(s): J96.01 - ACUTE RESPIRATORY FAILURE WITH HYPOXIA Status: Resolved Plan: Continue nebs, O2 supplementation, resp therapy. Comment: appreciate pulmonary c/s Extubation 05/11/17 with re-intubation 05/11/18 Extubated successfully 05/16/17 to [place]. pt on nocturnal home O2 (3) Chronic systolic heart failure Code(s): I50.22 - CHRONIC SYSTOLIC (CONGESTIVE) HEART FAILURE Status: Acute Plan: not in acute exacerbation. Continue diuretics, carvedilol Comment: AICD in place, EF 35-40%, Lasix 40mg daily (4) Pneumonia Code(s): J18.9 - PNEUMONIA, UNSPECIFIED ORGANISM Status: Acute Qualifiers: Pneumonia type: due to unspecified organism Laterality: bilateral Lung location: lower lobe of lung Qualified Code(s): J18.9 - Pneumonia, unspecified organism Plan: On omnicef. Will continue. Comment: Continue Omnicef (5) Anemia Code(s): D64.9 - ANEMIA, UNSPECIFIED Status: Acute Qualifiers: Anemia type: iron deficiency Iron deficiency anemia type: inadequate dietary iron intake Qualified Code(s): D50.8 - Other iron deficiency anemias Plan: Stable. Will monitor. Comment: Hemodynamically stable. Monitor. (6) CAD (coronary artery disease) Code(s): I25.10 - ATHSCL HEART DISEASE OF [place] CORONARY ARTERY W/O ANG PCTRS Status: Chronic Qualifiers: Coronary Disease-Associated Artery/Lesion type: unspecified vessel or lesion type [place] vs. transplanted heart: [place] heart Associated angina: without angina Qualified Code(s): I25.10 - Atherosclerotic heart disease of [place] coronary artery without angina pectoris Plan: Continue ASA, statin and coreg. Comment: Stable, chest pain free. (7) Hypertension Code(s): I10 - ESSENTIAL (PRIMARY) HYPERTENSION Status: Chronic Qualifiers: Hypertension type: essential hypertension Qualified Code(s): I10 - Essential (primary) hypertension Plan: Continue current care. Comment: Controlled on Carvedilol - Plan cont current plan of care, continue antibiotics, PT/OT, psychotherapist social worker, respiratory therapy, DVT proph w/lovenox * .
[2017-05-18] MEDS: risperiDONE 0.25 MG TAB PO SCH (20:16)
[2017-05-18] MEDS: ALPRAZolam 0.25 MG TAB PO PRN (20:16)
[2017-05-18] MEDS: rOPINIRole HCl 1 MG TAB PO SCH (20:20)
[2017-05-19 04:50] LABS: #Basophils 0.1 thou/uL (0.0-0.2); #Monocytes 0.6 thou/uL (0.11-0.59); #Neutrophils 7.4 thou/uL (1.40-6.50); %Basophils 0.9 % (0.0-1.0); %Eosinophils 0.3 % (0.0-10.0); %Lymphocytes 20.1 % (21.0-51.0); %Neutrophils 72.7 % (42.0-75.0); Hemoglobin 12.8 g/dL (12.0-16.0); Mean Corpuscular HGB CONC 32.6 g/dL (32.0-36.0); Mean Corpuscular Hemoglobin 31.3 pg (27.0-31.0); Mean Platelet Volume 7.4 fL (7.4-10.4); Platelet Count 192 thou/uL (130-400); RBC Distribution Width 12.3 % (11.5-14.5); White Blood Cell (WBC) Count 10.2 thou/uL (4.8-10.8)
[2017-05-19 05:08] LABS: Anion Gap 8 mmol/L (10-20); BUN (Urea Nitrogen) 16 mg/dL (9.8-20.1); Calc. Creatinine Clearance 131 mL/min (70-130); Calcium 8.2 mg/dL (7.8-10.44); Carbon Dioxide 29 mmol/L (23-31); Chloride 106 mmol/L (98-107); Estimated GFR-MDRD Greater than 90; Glucose 107 mg/dL (83-110); Potassium 3.5 mmol/L (3.5-5.1); Sodium 139 mmol/L (136-145)
[2017-05-19] MEDS: Mometasone/Formoterol 120 PUFF INHALER INH SCH ×2 (08:13→18:59)
--- NOTE | 2017-05-19 08:39 | PRG ---
DATE OF SERVICE: 05/19/2017 This morning she is awake, alert, responsive. She is complaining of back pain and she wants her rose pentin back. We are going to restart it today. She denies any difficulty breathing. She is still h aving some problems with sleeping. PHYSICAL EXAMINATION: VITAL SIGNS: Blood pressure 105/45, saturation 99 on 2 liters, respirations 21. I's and O's 1320 in , 36. CHEST: Chest reveals decreased breath sounds, no wheezing. CARDIAC: Normal S1, S2. ABDOMEN: Soft, no masses. LABORATORY DATA: Electrolytes are normal. White count normal 10,000. No recent chest x-ray was taken. IMPRESSION: 1. Respiratory failure. 2. Chronic obstructive pulmonary disease. 3. Encephalopathy. 4. Pain. PLAN: She can be transferred out of the ICU once a bed is available. Avoid excessive sedation. [place] pportive care and PT. I will follow.
[2017-05-19] MEDS: Atorvastatin Calcium 40 MG TAB PO SCH (10:22)
[2017-05-19] MEDS: Ferrous Gluconate 324 MG TAB PO SCH ×2 (10:22→17:38)
[2017-05-19] MEDS: Carvedilol 6.25 MG TAB PO SCH ×2 (10:29→17:39)
[2017-05-19] MEDS: Bupropion 150 MG SR TAB PO SCH ×2 (10:29→20:10)
[2017-05-19] MEDS: Cefdinir 300 MG CAP PO SCH ×2 (10:29→20:10)
[2017-05-19] MEDS: Aspirin 325 MG TAB PO SCH (10:30)
[2017-05-19] MEDS: Enoxaparin Sodium 40 MG/0.4 ML SYRINGE SC SCH (10:30)
[2017-05-19] MEDS: Famotidine 20 MG TAB PO SCH ×2 (10:30→20:10)
[2017-05-19] MEDS: Gabapentin 300 MG CAP PO SCH ×2 (10:30→20:10)
[2017-05-19] MEDS: predniSONE 20 MG TAB PO SCH (10:30)
[2017-05-19] MEDS: Potassium Chloride 20 MEQ TAB PO SCH (10:31)
--- NOTE | 2017-05-19 11:10 | PDOC.PN ---
- Subjective Encounter Start Date: 05/19/17 Encounter Start Time: 11:13 Subjective: Feels well. No complaints. No acute overnight events. - Objective Resuscitation Status: Resuscitation Status FULL:Full Resuscitation MAR Reviewed: Yes Vital Signs & Weight: Vital Signs (12 hours) Temp Pulse Resp BP Pulse Ox 05/19/17 10:45 71 19 96 05/19/17 10:29 127/47 L 05/19/17 08:04 99 05/19/17 08:02 69 21 H 99 05/19/17 08:00 97.7 F 69 21 H 05/19/17 04:00 98.3 F 05/19/17 02:36 72 17 97 05/19/17 00:00 98.1 F Weight Admit Weight 186 lb Weight 201 lb 11.567 oz Most Recent Monitor Data Heart Rate from ECG 70 NIBP 123/46 NIBP BP-Mean 68 Respiration from ECG 21 SpO2 94 I&O: 05/18/17 05/19/17 05/20/17 06:59 06:59 06:59 Intake Total 1320 1480 900 Output Total 1360 3240 45 Balance -40 -1760 855 Result Diagrams: 05/19/17 04:40 05/19/17 04:40 Phys Exam - Physical Examination Constitutional: NAD HEENT: PERRLA, moist MMs, sclera anicteric Neck: supple, full ROM Respiratory: no wheezing, no rales, clear to auscultation bilateral Cardiovascular: RRR, no significant murmur Gastrointestinal: soft, non-tender, no distention, positive bowel sounds Musculoskeletal: no edema Neurological: moves all 4 limbs Psychiatric: normal affect, A&O x 3 Skin: no rash Dx/Plan (1) COPD (chronic obstructive pulmonary disease) Status: Acute Qualifiers: COPD type: unspecified COPD Qualified Code(s): J44.9 - Chronic obstructive pulmonary disease, unspecified Plan: Improving. Continue current plan of care. Comment: Continue Duonebs, Dulera, prednisone and Cefepime. Pt on nocturnal O2 at home. (2) Acute respiratory failure with hypoxemia Code(s): J96.01 - ACUTE RESPIRATORY FAILURE WITH HYPOXIA Status: Resolved Plan: Resolved. Comment: appreciate pulmonary c/s Extubation 05/11/17 with re-intubation 05/11/18 Extubated successfully 05/16/17 to [place]. pt on nocturnal home O2 (3) Chronic systolic heart failure Code(s): I50.22 - CHRONIC SYSTOLIC (CONGESTIVE) HEART FAILURE Status: Acute Plan: Stable. Not in exacerbation Continue coreg, PO furosemide. Comment: AICD in place, EF 35-40%, Lasix 40mg daily. possible low dose Lisinopril and Aldactone b/4 discharge. (4) Pneumonia Code(s): J18.9 - PNEUMONIA, UNSPECIFIED ORGANISM Status: Acute Qualifiers: Pneumonia type: due to unspecified organism Laterality: bilateral Lung location: lower lobe of lung Qualified Code(s): J18.9 - Pneumonia, unspecified organism Plan: Improving. Comment: Continue Omnicef (5) Anemia Code(s): D64.9 - ANEMIA, UNSPECIFIED Status: Acute Qualifiers: Anemia type: iron deficiency Iron deficiency anemia type: inadequate dietary iron intake Qualified Code(s): D50.8 - Other iron deficiency anemias Comment: Hemoglobin stable. Monitor. (6) CAD (coronary artery disease) Code(s): I25.10 - ATHSCL HEART DISEASE OF [place] CORONARY ARTERY W/O ANG PCTRS Status: Chronic Qualifiers: Coronary Disease-Associated Artery/Lesion type: unspecified vessel or lesion type [place] vs. transplanted heart: [place] heart Associated angina: without angina Qualified Code(s): I25.10 - Atherosclerotic heart disease of [place] coronary artery without angina pectoris Plan: Continue management. Comment: Stable, chest pain free. (7) Hypertension Code(s): I10 - ESSENTIAL (PRIMARY) HYPERTENSION Status: Chronic Qualifiers: Hypertension type: essential hypertension Qualified Code(s): I10 - Essential (primary) hypertension Plan: Fairly well controlled. Comment: Controlled on Carvedilol - Plan * .
[2017-05-19] MEDS: rOPINIRole HCl 1 MG TAB PO SCH (20:10)
[2017-05-20 05:41] LABS: #Lymphocytes 2.2 thou/uL (1.20-3.40); #Monocytes 0.7 thou/uL (0.11-0.59); #Neutrophils 8.4 thou/uL (1.40-6.50); %Basophils 0.2 % (0.0-1.0); %Eosinophils 0.4 % (0.0-10.0); %Lymphocytes 19.2 % (21.0-51.0); %Monocytes 6.4 % (0.0-10.0); %Neutrophils 73.8 % (42.0-75.0); Anion Gap 9 mmol/L (10-20); BUN (Urea Nitrogen) 14 mg/dL (9.8-20.1); Calc. Creatinine Clearance 120 mL/min (70-130); Calcium 8.4 mg/dL (7.8-10.44); Carbon Dioxide 30 mmol/L (23-31); Chloride 105 mmol/L (98-107); Estimated GFR-MDRD Greater than 90; Glucose 108 mg/dL (83-110); Hemoglobin 12.3 g/dL (12.0-16.0); Magnesium 2.2 mg/dL (1.6-2.6); Mean Corpuscular HGB CONC 31.8 g/dL (32.0-36.0); Mean Corpuscular Hemoglobin 30.9 pg (27.0-31.0); Mean Corpuscular Volume 97.3 fl (81.0-99.0); Mean Platelet Volume 7.5 fL (7.4-10.4); Platelet Count 211 thou/uL (130-400); Potassium 3.8 mmol/L (3.5-5.1); RBC Distribution Width 12.4 % (11.5-14.5); Red Blood Cell (RBC) Count 3.98 mill/uL (4.20-5.40); Sodium 140 mmol/L (136-145); White Blood Cell (WBC) Count 11.3 thou/uL (4.8-10.8)
[2017-05-20] MEDS: Ferrous Gluconate 324 MG TAB PO SCH ×2 (08:37→17:03)
[2017-05-20] MEDS: predniSONE 20 MG TAB PO SCH (08:37)
[2017-05-20] MEDS: Aspirin 325 MG TAB PO SCH (08:37)
[2017-05-20] MEDS: Enoxaparin Sodium 40 MG/0.4 ML SYRINGE SC SCH (08:37)
[2017-05-20] MEDS: Bupropion 150 MG SR TAB PO SCH ×2 (08:38→20:35)
[2017-05-20] MEDS: Famotidine 20 MG TAB PO SCH ×2 (08:38→20:36)
[2017-05-20] MEDS: Carvedilol 6.25 MG TAB PO SCH ×2 (08:38→17:03)
[2017-05-20] MEDS: Cefdinir 300 MG CAP PO SCH ×2 (08:38→20:35)
[2017-05-20] MEDS: Gabapentin 300 MG CAP PO SCH ×2 (08:38→20:36)
[2017-05-20] MEDS: Potassium Chloride 20 MEQ TAB PO SCH (08:38)
[2017-05-20] MEDS: Furosemide 40 MG TAB PO SCH (08:38)
[2017-05-20] MEDS: Atorvastatin Calcium 40 MG TAB PO SCH (08:44)
[2017-05-20] MEDS: Mometasone/Formoterol 120 PUFF INHALER INH SCH ×2 (09:50→18:33)
--- NOTE | 2017-05-20 10:07 | PDOC.PN ---
- Subjective Encounter Start Date: 05/20/17 Encounter Start Time: 10:03 Subjective: Reports feeling muvh better. No complaints this monring. No acute events overnight. - Objective Resuscitation Status: Resuscitation Status FULL:Full Resuscitation MAR Reviewed: Yes Vital Signs & Weight: Vital Signs (12 hours) Temp Pulse Resp BP BP Pulse Ox 05/20/17 09:50 72 16 05/20/17 09:34 98 05/20/17 09:32 72 16 05/20/17 08:38 139/69 05/20/17 04:00 97.9 F 70 20 138/61 97 05/20/17 02:24 87 18 95 05/20/17 00:00 98.1 F 70 20 143/67 H 96 05/19/17 22:53 85 20 96 Weight Admit Weight 186 lb Weight 205 lb Most Recent Monitor Data Heart Rate from ECG 70 NIBP 123/46 NIBP BP-Mean 68 Respiration from ECG 21 SpO2 94 I&O: 05/19/17 05/20/17 05/21/17 06:59 06:59 06:59 Intake Total 1480 900 Output Total 3240 45 Balance -1760 855 Result Diagrams: 05/20/17 04:50 05/20/17 04:50 Phys Exam - Physical Examination Constitutional: NAD HEENT: PERRLA, moist MMs, sclera anicteric Neck: supple, full ROM Respiratory: no wheezing, no rales, no rhonchi, clear to auscultation bilateral Cardiovascular: RRR, no significant murmur, no rub Gastrointestinal: soft, non-tender, no distention, positive bowel sounds Musculoskeletal: no edema, pulses present Neurological: non-focal, moves all 4 limbs Skin: no rash, normal turgor Dx/Plan (1) COPD (chronic obstructive pulmonary disease) Status: Acute Qualifiers: COPD type: unspecified COPD Qualified Code(s): J44.9 - Chronic obstructive pulmonary disease, unspecified Plan: Stable. Not in exacerbation. On stable O2 requirements. Comment: Continue Duonebs, Dulera, prednisone and Cefepime. Pt on nocturnal O2 at home. (2) Acute respiratory failure with hypoxemia Code(s): J96.01 - ACUTE RESPIRATORY FAILURE WITH HYPOXIA Status: Resolved Comment: appreciate pulmonary c/s Extubation 05/11/17 with re-intubation 1/18/19 Extubated successfully 05/16/17 to [place]. pt on nocturnal home O2 (3) Chronic systolic heart failure Code(s): I50.22 - CHRONIC SYSTOLIC (CONGESTIVE) HEART FAILURE Status: Acute Comment: AICD in place, EF 35-40% On carvedilol, Lasix 40mg daily. Allergic to Lisinopril Possible Aldactone to be initiated / discharge. (4) Pneumonia Code(s): J18.9 - PNEUMONIA, UNSPECIFIED ORGANISM Status: Acute Qualifiers: Pneumonia type: due to unspecified organism Laterality: bilateral Lung location: lower lobe of lung Qualified Code(s): J18.9 - Pneumonia, unspecified organism Plan: Continue abx. Comment: Started Omnicef 05/17 (5) Anemia Code(s): D64.9 - ANEMIA, UNSPECIFIED Status: Chronic Qualifiers: Anemia type: iron deficiency Iron deficiency anemia type: inadequate dietary iron intake Qualified Code(s): D50.8 - Other iron deficiency anemias Plan: Continue Iron supplementation. Comment: Hemoglobin stable. Monitor. (6) CAD (coronary artery disease) Code(s): I25.10 - ATHSCL HEART DISEASE OF [place] CORONARY ARTERY W/O ANG PCTRS Status: Chronic Qualifiers: Coronary Disease-Associated Artery/Lesion type: unspecified vessel or lesion type [place] vs. transplanted heart: [place] heart Associated angina: without angina Qualified Code(s): I25.10 - Atherosclerotic heart disease of [place] coronary artery without angina pectoris Plan: Continue current mx. Comment: Stable, chest pain free. On ASA, Carvedilol and Statins. (7) Hypertension Code(s): I10 - ESSENTIAL (PRIMARY) HYPERTENSION Status: Chronic Qualifiers: Hypertension type: essential hypertension Qualified Code(s): I10 - Essential (primary) hypertension Comment: Controlled on Carvedilol. - Plan cont current plan of care, continue antibiotics, PT/OT, DVT proph w/lovenox To discharge to [facility] * .
--- NOTE | 2017-05-20 15:24 | PRG ---
DATE OF SERVICE: 05/20/2017 SUBJECTIVE: The patient feels much better than yesterday and no acute complaints. PHYSICAL EXAMINATION: VITAL SIGNS: Temperature is 98.0, pulse 72, respirations 16, O2 sat 95%, blood pressure 135/68. HEENT: Unremarkable. NECK: No JVD. LUNGS: Very mild expiratory wheeze. CARDIOVASCULAR: S1 and S2 regular. ABDOMEN: Soft. EXTREMITIES: No edema. LABORATORY DATA: White blood cell count 11, hematocrit 38.7, platelet count 211. Sodium 140, potass ium 3.8, chloride 105, CO2 of 30, BUN 14, creatinine 0.6, glucose 108. ASSESSMENT: 1. Chronic obstructive pulmonary disease with exacerbation. 2. Status post acute respiratory failure. 3. Improved encephalopathy. RECOMMENDATIONS: 1. Increase activity as tolerated. 2. Continue antibiotics, steroids and nebulization treatments.
--- NOTE | 2017-05-20 17:49 | EKG ---
Test Reason : Blood Pressure : / mmHG Vent. Rate : 082 BPM Atrial Rate : 082 BPM P-R Int : 156 ms QRS Dur : 118 ms QT Int : 448 ms P-R-T Axes : 083 083 077 degrees QTc Int : 523 ms Normal sinus rhythm Cannot rule out Anterior infarct , age undetermined Prolonged QT Abnormal ECG Confirmed by PATRICIA KRUEGER D.O. ([id number]), greeting card editor JORY PARTIDA ([id number]) on 05/20/2017 5:48:07 PM Referred By: Confirmed By:PATRICIA KRUEGER D.O.
[2017-05-20] MEDS: rOPINIRole HCl 1 MG TAB PO SCH (20:42)
[2017-05-21 07:22] LABS: Anion Gap 10 mmol/L (10-20); BUN (Urea Nitrogen) 16 mg/dL (9.8-20.1); Calc. Creatinine Clearance 111 mL/min (70-130); Calcium 8.7 mg/dL (7.8-10.44); Carbon Dioxide 33 mmol/L (23-31); Chloride 103 mmol/L (98-107); Estimated GFR-MDRD 87; Glucose 79 mg/dL (83-110); Magnesium 2.1 mg/dL (1.6-2.6); Sodium 142 mmol/L (136-145)
[2017-05-21 07:26] LABS: #Eosinphils 0.1 thou/uL (0.0-0.7); #Lymphocytes 3.6 thou/uL (1.20-3.40); #Monocytes 0.7 thou/uL (0.11-0.59); #Neutrophils 7.2 thou/uL (1.40-6.50); %Basophils 0.4 % (0.0-1.0); %Eosinophils 0.8 % (0.0-10.0); %Lymphocytes 30.7 % (21.0-51.0); %Monocytes 6.3 % (0.0-10.0); %Neutrophils 61.8 % (42.0-75.0); Hemoglobin 13.1 g/dL (12.0-16.0); Mean Corpuscular HGB CONC 32.4 g/dL (32.0-36.0); Mean Corpuscular Hemoglobin 31.3 pg (27.0-31.0); Mean Corpuscular Volume 96.7 fl (81.0-99.0); Mean Platelet Volume 7.6 fL (7.4-10.4); Platelet Count 227 thou/uL (130-400); RBC Distribution Width 12.4 % (11.5-14.5); Red Blood Cell (RBC) Count 4.18 mill/uL (4.20-5.40); White Blood Cell (WBC) Count 11.7 thou/uL (4.8-10.8)
[2017-05-21] MEDS: Mometasone/Formoterol 120 PUFF INHALER INH SCH ×2 (08:24→19:20)
[2017-05-21] MEDS: predniSONE 20 MG TAB PO SCH (08:43)
[2017-05-21] MEDS: Bupropion 150 MG SR TAB PO SCH ×2 (08:43→21:14)
[2017-05-21] MEDS: Cefdinir 300 MG CAP PO SCH ×2 (08:43→21:13)
[2017-05-21] MEDS: Atorvastatin Calcium 40 MG TAB PO SCH (08:43)
[2017-05-21] MEDS: Potassium Chloride 20 MEQ TAB PO SCH (08:43)
[2017-05-21] MEDS: Furosemide 40 MG TAB PO SCH (08:43)
[2017-05-21] MEDS: Aspirin 325 MG TAB PO SCH (08:43)
[2017-05-21] MEDS: Famotidine 20 MG TAB PO SCH ×2 (08:44→21:14)
[2017-05-21] MEDS: Ferrous Gluconate 324 MG TAB PO SCH ×2 (08:44→16:43)
[2017-05-21] MEDS: Enoxaparin Sodium 40 MG/0.4 ML SYRINGE SC SCH (08:44)
[2017-05-21] MEDS: Gabapentin 300 MG CAP PO SCH ×2 (08:44→21:14)
[2017-05-21] MEDS: Carvedilol 6.25 MG TAB PO SCH ×2 (08:44→16:43)
--- NOTE | 2017-05-21 11:16 | PDOC.PN ---
- Subjective Encounter Start Date: 05/21/17 Encounter Start Time: 11:15 Subjective: No new complaints. -: No acute events overnight. - Objective Resuscitation Status: Resuscitation Status FULL:Full Resuscitation MAR Reviewed: Yes Vital Signs & Weight: Vital Signs (12 hours) Temp Pulse Resp BP BP Pulse Ox 05/21/17 08:24 67 16 05/21/17 08:18 96 05/21/17 08:12 67 16 05/21/17 08:00 97.6 F 71 20 132/62 99 05/21/17 04:00 98.5 F 70 19 157/69 H 98 05/21/17 02:15 67 16 96 05/21/17 00:00 106/57 L Weight Admit Weight 186 lb Weight 204 lb 4.8 oz Most Recent Monitor Data Heart Rate from ECG 70 NIBP 123/46 NIBP BP-Mean 68 Respiration from ECG 21 SpO2 94 I&O: 05/20/17 05/21/17 05/22/17 06:59 06:59 06:59 Intake Total 900 1982 Output Total 45 250 Balance 855 1732 Result Diagrams: 05/21/17 06:55 05/21/17 06:55 Phys Exam - Physical Examination Constitutional: NAD HEENT: PERRLA, moist MMs, sclera anicteric Neck: supple, full ROM Respiratory: no wheezing, no rales, no rhonchi, clear to auscultation bilateral reduced breath sounds but otherwise clear. Cardiovascular: RRR, no significant murmur, no rub Gastrointestinal: soft, non-tender, no distention, positive bowel sounds Musculoskeletal: no edema, pulses present Neurological: non-focal, moves all 4 limbs Skin: no rash, normal turgor Dx/Plan (1) COPD (chronic obstructive pulmonary disease) Status: Acute Qualifiers: COPD type: unspecified COPD Qualified Code(s): J44.9 - Chronic obstructive pulmonary disease, unspecified Plan: Continue current management. Comment: Markedly improved. Continue Duonebs, Dulera, prednisone and Cefepime. Pt on nocturnal O2 at home. (2) Acute respiratory failure with hypoxemia Code(s): J96.01 - ACUTE RESPIRATORY FAILURE WITH HYPOXIA Status: Resolved Plan: As above. Comment: appreciate pulmonary c/s Extubation 05/11/17 with re-intubation 05/11/18 Extubated successfully 1/23/18 to [place]. pt on nocturnal home O2 (3) Chronic systolic heart failure Code(s): I50.22 - CHRONIC SYSTOLIC (CONGESTIVE) HEART FAILURE Status: Acute Comment: Stable. Not in acute exacerbation. AICD in place, EF 35-40% On carvedilol, Lasix 40mg daily. Allergic to Lisinopril Possible Aldactone to be initiated b/ discharge. (4) CAD (coronary artery disease) Code(s): I25.10 - ATHSCL HEART DISEASE OF [place] CORONARY ARTERY W/O ANG PCTRS Status: Chronic Qualifiers: Coronary Disease-Associated Artery/Lesion type: unspecified vessel or lesion type [place] vs. transplanted heart: [place] heart Associated angina: without angina Qualified Code(s): I25.10 - Atherosclerotic heart disease of [place] coronary artery without angina pectoris Comment: Stable, chest pain free. On ASA, Carvedilol and Statins. (5) Pneumonia Code(s): J18.9 - PNEUMONIA, UNSPECIFIED ORGANISM Status: Acute Qualifiers: Pneumonia type: due to unspecified organism Laterality: bilateral Lung location: lower lobe of lung Qualified Code(s): J18.9 - Pneumonia, unspecified organism Plan: Continue Omnicef. Comment: Started Omnicef 05/17 (6) Anemia Code(s): D64.9 - ANEMIA, UNSPECIFIED Status: Chronic Qualifiers: Anemia type: iron deficiency Iron deficiency anemia type: inadequate dietary iron intake Qualified Code(s): D50.8 - Other iron deficiency anemias Comment: Hemoglobin stable. Monitor. (7) Hypertension Code(s): I10 - ESSENTIAL (PRIMARY) HYPERTENSION Status: Chronic Qualifiers: Hypertension type: essential hypertension Qualified Code(s): I10 - Essential (primary) hypertension Comment: Controlled on Carvedilol. - Plan cont current plan of care, continue antibiotics, PT/OT, marriage and family social worker Discharge to [facility] once bed available. * .
--- NOTE | 2017-05-21 13:03 | PRG ---
DATE OF SERVICE: 05/21/2017 SUBJECTIVE: She feels better and is anxious to go to rehab. OBJECTIVE: VITAL SIGNS: Temperature is 96.9, pulse 70, respirations 18, O2 sat 93% on 1 liter and blood pressur e 102/52. HEENT: Unremarkable. NECK: No JVD. CHEST: Clear. CARDIAC: S1 and S2 regular. ABDOMEN: Obese, soft and nontender. EXTREMITIES: No edema. LABORATORY DATA: White blood cell count 11.7, hematocrit 40 and platelet count 227. Sodium 142, pot assium 4, chloride 103, CO2 of 33, BUN 16, creatinine 0.6 and glucose 79. ASSESSMENT: 1. Chronic obstructive pulmonary disease with exacerbation. 2. Status post acute respiratory failure. 3. Improved encephalopathy. PLAN: She is ready to go to rehab at any time. She is continuing oral antibiotics and oral steroids . Dr. Rosario will return tomorrow.
[2017-05-21] MEDS: rOPINIRole HCl 1 MG TAB PO SCH (21:14)
[2017-05-22] MEDS: ALPRAZolam 0.25 MG TAB PO PRN (01:32)
[2017-05-22 04:53] LABS: #Eosinphils 0.1 thou/uL (0.0-0.7); #Lymphocytes 3.7 thou/uL (1.20-3.40); #Neutrophils 9.5 thou/uL (1.40-6.50); %Basophils 0.2 % (0.0-1.0); %Eosinophils 0.6 % (0.0-10.0); %Monocytes 6.7 % (0.0-10.0); %Neutrophils 66.5 % (42.0-75.0); Hemoglobin 12.4 g/dL (12.0-16.0); Mean Corpuscular HGB CONC 32.7 g/dL (32.0-36.0); Mean Corpuscular Hemoglobin 31.3 pg (27.0-31.0); Mean Corpuscular Volume 95.6 fl (81.0-99.0); Mean Platelet Volume 7.5 fL (7.4-10.4); Platelet Count 213 thou/uL (130-400); RBC Distribution Width 12.6 % (11.5-14.5); Red Blood Cell (RBC) Count 3.95 mill/uL (4.20-5.40); White Blood Cell (WBC) Count 14.3 thou/uL (4.8-10.8)
[2017-05-22 05:04] LABS: Anion Gap 9 mmol/L (10-20); BUN (Urea Nitrogen) 14 mg/dL (9.8-20.1); Calc. Creatinine Clearance 112 mL/min (70-130); Calcium 8.6 mg/dL (7.8-10.44); Carbon Dioxide 32 mmol/L (23-31); Chloride 102 mmol/L (98-107); Estimated GFR-MDRD 87; Glucose 96 mg/dL (83-110); Potassium 3.5 mmol/L (3.5-5.1); Sodium 139 mmol/L (136-145)
[2017-05-22] MEDS: Mometasone/Formoterol 120 PUFF INHALER INH SCH (07:40)
[2017-05-22] MEDS: Aspirin 325 MG TAB PO SCH (08:18)
[2017-05-22] MEDS: Famotidine 20 MG TAB PO SCH (08:18)
[2017-05-22] MEDS: Atorvastatin Calcium 40 MG TAB PO SCH (08:18)
[2017-05-22] MEDS: Potassium Chloride 20 MEQ TAB PO SCH (08:18)
[2017-05-22] MEDS: Cefdinir 300 MG CAP PO SCH (08:18)
[2017-05-22] MEDS: Ferrous Gluconate 324 MG TAB PO SCH (08:18)
[2017-05-22] MEDS: Gabapentin 300 MG CAP PO SCH (08:18)
[2017-05-22] MEDS: Furosemide 40 MG TAB PO SCH (08:18)
[2017-05-22] MEDS: Bupropion 150 MG SR TAB PO SCH (08:18)
[2017-05-22] MEDS: predniSONE 20 MG TAB PO SCH (08:18)
[2017-05-22] MEDS: Enoxaparin Sodium 40 MG/0.4 ML SYRINGE SC SCH (08:19)
[2017-05-22] MEDS: Carvedilol 6.25 MG TAB PO SCH (08:28)
--- NOTE | 2017-05-22 09:35 | PRG ---
DATE OF SERVICE: 05/22/2017 This morning she is better. She is eager to go home. PHYSICAL EXAMINATION: VITAL SIGNS: Blood pressure 120/57, pulse 77, temperature 98, respirations 20. CHEST: Chest reveals decreased breath sounds, no wheezing. CARDIAC: Normal S1, S2. Electrolytes are normal at 14,000. IMPRESSION: 1. Chronic obstructive pulmonary disease exacerbation. 2. Bronchitis. 3. Encephalopathy. PLAN: She can be discharged home. Follow up with her primary care physician. She can be seen in [facility] office in about a month.
[2017-05-22 11:41] VITALS: TEMP 97.8
[2017-05-22 16:23] VITALS: BP 115/62
--- NOTE | 2017-05-22 18:26 | DIS ---
DATE OF ADMISSION: 05/09/2017 DATE OF DISCHARGE: 05/22/2017 CONDITION AT DISCHARGE: Stable and improved. PRIMARY DIAGNOSES: Acute hypoxemic respiratory failure, right lower lobe pneumonia. SECONDARY DIAGNOSES: Chronic obstructive pulmonary disease, chronic systolic heart failure, coronary artery disease, anemia, hypertension. HISTORY OF PRESENT ILLNESS: A 71-year-old female who presented to [place] [place] [facility] with shortness of breath. Patient was apparently complaining of increased respiratory distress with worsening shortness of breath, wheezing, and cough. At the emergency room there, she was given a tri al of noninvasive mechanical ventilation without success. Of note, the patient had a long history of tobacco use about 40 years. Due to patient's inability to tolerate BiPAP, she was given etomidate, rocuronium and intubated. She was also placed on fentanyl, propofol, Solu-Medrol, and started on 750 mg levofloxacin for presumed pneumonia. She also had an elevated D-dimer and a CT angiogram of the chest was done which showed no evidence of acute pulmonary embolism. Plain chest radiograph and CT i maging showed right middle lobe infiltrate concerning for pneumonia. She was then transferred to [facility] Emergency Department for further evaluation. HOSPITAL COURSE: She had a long and protracted hospital course and was initially intubated on 05/11 but reintubated on the same day and eventually successfully extubated on 05/16 and transitioned to na amy cannula oxygen. The patient has a history of chronic respiratory failure and uses nocturnal oxyg en at home. During her stay, she was placed on DuoNebs, parenteral steroids and transitioned to oral prednisone. She also was placed on p.o. cefepime for her pneumonia. For her heart failure, she was continued on carvedilol and 40 mg of Lasix. She was started on Aldactone before discharge and since she was allergic to LISINOPRIL (patient developed a cough), she was placed on losartan. Of note, gely had an AICD in place and her ejection fraction was 35-40%. She received PT and OT services and was discharged to subacute rehab. CONSULTATIONS: Cardiology, Pulmonary. PROCEDURES: CT angio of the chest (results above). DIET: Heart healthy diet. DISCHARGE MEDICATIONS: 1. Albuterol sulfate nebulizer t.i.d. 2. Alprazolam 0.25 mg p.o. t.i.d. p.r.n. for anxiety. 3. Aspirin 325 mg p.o. daily. 4. Atorvastatin 40 mg p.o. daily. 5. Bupropion 150 mg p.o. b.i.d. 6. Calcium carbonate plus vitamin D one tab p.o. b.i.d. with meals. 7. Carvedilol 6.25 mg p.o. b.i.d. 8. Cefdinir 300 mg p.o. b.i.d. 9. Cyclobenzaprine 10 mg p.o. daily. 10. Ferrous gluconate 324 mg p.o. b.i.d. 11. Furosemide 40 mg p.o. daily. 12. Gabapentin 300 mg p.o. b.i.d. 13. Hydrocodone 1 tab p.o. q.4 h. p.r.n. 14. Ipratropium/albuterol 3 mL nebulizers q.4h. 15. Losartan 25 mg p.o. daily. 16. Mometasone/formoterol 2 puffs inhaled b.i.d. 17. Nitroglycerin 0.4 mg sublingually every 5 minutes p.r.n. for chest pain. 18. Pantoprazole 40 mg p.o. daily. 19. Prednisone 40 mg p.o. q.a.m. 20. Ropinirole 1 mg p.o. at bedtime. 21. Spironolactone 12.5 mg p.o. daily. 22. Tiotropium inhaler 18 mcg inhaled daily. 23. Tramadol 100 mg p.o. q.4 hours p.r.n. for pain. 24. Zolpidem 5 mg p.o. at bedtime p.r.n. ACTIVITY: To resume as tolerated and as directed by physical and occupational therapy care goals. T he patient is to follow up with her physician within 1 week of discharge. She was instructed to take her medications as prescribed and return to the emergency room if she develops shortness of breath, chest pain, dizziness or has any episode of loss of consciousness. Discharged to subacute rehabilita ti. Total time of discharge including chart review 90 minutes.
[2017-05-23] MEDS ORDERED: Spironolactone 25 MG TAB PO SCH (08:00)
== END 2017-05-22 16:43 | DRG 207 ==
LOC: ERS 02:23 → CCU 04:24 → 2NO 05-19 11:40
PROVIDERS: ADMIT Family Medicine; ATTEND Family Medicine
PROC: 5A1955Z Respiratory Ventilation, Greater than 96 Consecutive Hours (ICD-10-PCS; principal; 2017-05-11)
PROC: 0BH17EZ Insertion of Endotracheal Airway into Trachea, Via Natural or Artificial Opening (ICD-10-PCS; 2017-05-12)
DX: J96.21 Acute and chronic respiratory failure with hypoxia (principal); J18.9 Pneumonia, unspecified organism; G93.40 Encephalopathy, unspecified; N17.9 Acute kidney failure, unspecified; E87.2 Acidosis; I13.0 Hypertensive heart and chronic kidney disease with heart failure and stage 1 through stage 4 chronic kidney disease, or unspecified chronic kidney disease; I50.22 Chronic systolic (congestive) heart failure; I48.2 Chronic atrial fibrillation; F17.210 Nicotine dependence, cigarettes, uncomplicated; D50.8 Other iron deficiency anemias; J44.0 Chronic obstructive pulmonary disease with (acute) lower respiratory infection; J44.1 Chronic obstructive pulmonary disease with (acute) exacerbation; I25.5 Ischemic cardiomyopathy; I25.10 Atherosclerotic heart disease of native coronary artery without angina pectoris; Z95.810 Presence of automatic (implantable) cardiac defibrillator; Z95.1 Presence of aortocoronary bypass graft; Z98.42 Cataract extraction status, left eye; Z98.41 Cataract extraction status, right eye; Z90.49 Acquired absence of other specified parts of digestive tract; N18.2 Chronic kidney disease, stage 2 (mild); F32.9 Major depressive disorder, single episode, unspecified; E78.00 Pure hypercholesterolemia, unspecified; Z91.19 Patient's noncompliance with other medical treatment and regimen
CPT/HCPCS: 36415; 51702; 71045; 71275; 80048; 80053; 82805; 83735; 85007; 85025; 85027; 93005; 93306; 94002; 94003; 94640; 94660; 94760; 96365; 96366; 96375; 96376; A4216; G8978-GP-CM; G8979-GP-CK; G8987-GO-CL; G8988-GO-CJ; J0692; J0696; J1650; J1940; J1956; J2060; J2704; J2920; J3010; J7050; J7506; J7620; P9047; S0028

== ENCOUNTER 2017-06-27 13:45 | Inpatient (IN) | payer MEDICARE ==
--- NOTE | 2017-06-27 14:42 | RAD ---
CHEST ONE VIEW: Comparison: 05-15-17 History: Shortness of breath, dyspnea. FINDINGS: Stable left sided transvenous defibrillator. There is atherosclerosis of the aorta. Heart is enlarged . Pulmonary vessels are slightly prominent. Small bilateral pleural effusions are suspected. No conso lidation of air bronchograms. No pneumothorax. IMPRESSION: 1. Atherosclerosis. 2. Congestive heart failure. POS: [facility]
[2017-06-27 14:50] LABS: #Basophils 0.1 thou/uL (0.0-0.2); #Eosinphils 0.2 thou/uL (0.0-0.7); #Lymphocytes 3.2 thou/uL (1.20-3.40); #Neutrophils 5.3 thou/uL (1.40-6.50); %Basophils 0.8 % (0.0-1.0); %Eosinophils 1.8 % (0.0-10.0); %Lymphocytes 33.1 % (21.0-51.0); %Monocytes 9.9 % (0.0-10.0); %Neutrophils 54.4 % (42.0-75.0); Hemoglobin 13.7 g/dL (12.0-16.0); Mean Corpuscular HGB CONC 31.7 g/dL (32.0-36.0); Mean Corpuscular Hemoglobin 30.5 pg (27.0-31.0); Mean Corpuscular Volume 96.2 fl (81.0-99.0); Mean Platelet Volume 7.3 fL (7.4-10.4); Platelet Count 301 thou/uL (130-400); RBC Distribution Width 13.3 % (11.5-14.5); Red Blood Cell (RBC) Count 4.49 mill/uL (4.20-5.40); White Blood Cell (WBC) Count 9.7 thou/uL (4.8-10.8)
[2017-06-27] MEDS ORDERED: methylPREDNISolone Sod Succ/PF 125 MG/2 ML VIAL ONE (14:50)
[2017-06-27 15:04] LABS: ALT (SGPT) 7 U/L (8-55); AST (SGOT) 9 U/L (5-34); Albumin 3.7 g/dL (3.4-4.8); Alkaline Phosphatase 106 U/L (40-150); Anion Gap 10 mmol/L (10-20); BUN (Urea Nitrogen) 6 mg/dL (9.8-20.1); Bilirubin, Total 0.5 mg/dL (0.2-1.2); CK (CPK) 57 U/L (29-168); Calc. Creatinine Clearance 0 mL/min (70-130); Calcium 9.3 mg/dL (7.8-10.44); Carbon Dioxide 26 mmol/L (23-31); Chloride 107 mmol/L (98-107); Estimated GFR-MDRD 76; Globulin 2.9 g/dL (2.4-3.5); Glucose 124 mg/dL (83-110); Potassium 3.3 mmol/L (3.5-5.1); Protein, Total 6.6 g/dL (6.0-8.3); Sodium 140 mmol/L (136-145)
[2017-06-27 15:09] LABS: CKMB 1.3 ng/mL (0-6.6); Troponin I 0.021 ng/mL (< 0.028)
[2017-06-27] MEDS ORDERED: Magnesium 2 GM/NS 0.9% 100 ML 2 GM in Premix Bag 1 BAG IVPB SCH (16:15)
[2017-06-27] MEDS ORDERED: methylPREDNISolone Sod Succ/PF 125 MG/2 ML VIAL IVP SCH (16:30)
[2017-06-27] MEDS ORDERED: Ondansetron HCl/PF 4 MG/2 ML Vial IVP PRN ×2 (19:16→19:17)
[2017-06-27] MEDS ORDERED: Ondansetron ODT 4 MG TAB SL PRN (19:16)
[2017-06-27] MEDS ORDERED: Guaifenesin DM 100-10/5 ML UDCUP PO PRN (19:17)
[2017-06-27] MEDS ORDERED: Ondansetron ODT 4 MG TAB PO PRN (19:17)
[2017-06-27] MEDS ORDERED: Albuterol Sulfate 2.5 mg/3 ml Neb NEB PRN (19:17)
[2017-06-27] MEDS ORDERED: Enoxaparin Sodium 40 MG/0.4 ML SYRINGE SC SCH (19:30)
[2017-06-27 20:14] VITALS: BMI 35.7
--- NOTE | 2017-06-27 22:00 | HP ---
PRIMARY CARE PHYSICIAN: Dr. Fernandes at the [place] DATE OF ADMISSION: 06/27/2017 TIME OF SERVICE: 1800 hours. CHIEF COMPLAINT: Shortness of breath and cough. HISTORY OF PRESENT ILLNESS: Ms. Tapia is a 71-year-old white female known to our service from pre vious admission. History of COPD, last admitted here in April 2017, in which she required endotrac heal intubation and ventilator. She has had 1 week history of shortness of breath and cough associated with congestion, subjective fe vers, body aches, and chills. She was in the Emergency Department for evaluation. She was found to be 89% on room air on arrival. She is on 2 liters nasal cannula with improvement to 99%. She denies any nausea, vomiting, diarrhea, constipation. She has had a cough productive of yellowish sputum an d no blood. Denies any hemoptysis. In the Emergency Department, she got Solu-Medrol, DuoNeb x2, 2 g anselmo of mag sulfate, and placed on oxygen. We were subsequently called for admit. She has no recurr ent complaints. Her breathing is better than it was on arrival. PAST MEDICAL HISTORY: 1. Essential hypertension. 2. History of coronary artery disease status post CABG in the past. 3. History of MRSA wound infection in 2010. 4. Hyperlipidemia. 5. Urinary incontinence. 6. Congestive heart failure, systolic, chronic. 7. PVCs. 8. Chronic obstructive pulmonary disease. 9. Osteoarthritis. PAST SURGICAL HISTORY: Include, 1. Coronary artery bypass graft in 2010. 2. Permanent pacemaker/AICD placement in 05/2013. 3. Bilateral cataract replacement in 2006. 4. Appendectomy in 1962. 5. Right carpal tunnel release in 1967. 6. Cholecystectomy a few years ago. 7. Laparoscopy after hernia repair and mesh rejection about 10 years ago. 8. Left knee total knee replacement in 06/2016. 9. Right elbow fracture repair in 1977. 10. Left ankle repair in 01/2016. 11. Tonsillectomy in 1973. 12. Heart ablation for arrhythmia in 2013. HOME MEDICATIONS: 1. Acyclovir 400 mg p.o. t.i.d. when she has a cold sore outbreak. 2. Albuterol MDI 2 puffs by mouth every 4 times a day as needed is 90 mcg. 3. Albuterol sulfate 0.03% 3 mL inhaled t.i.d. as needed for shortness of breath. 4. Atorvastatin 40 mg p.o. at bedtime. 5. Budesonide/formoterol 80/4.5 two puffs inhaled twice a day. 6. Bupropion 150 mg p.o. b.i.d. 7. Calcium 500 mg with vitamin D 200 units 1 tablet b.i.d. 8. Carvedilol 6.25 mg p.o. b.i.d. 9. Cetirizine 10 mg p.o. daily. 10. Tylenol No.3 two tablets by mouth every 6 hours as needed for pain. 11. Conjugated estrogen vaginal cream 0.5 grams vaginally for hormone replacement. 12. Iron sulfate 325 mg daily. 13. Lasix 40 mg p.o. daily. 14. Gabapentin 300 mg p.o. at bedtime. 15. Guaifenesin 400/dextromethorphan 20 one tablet by mouth twice a day for cough and congestion wit h losartan 12.5 mg p.o. daily. 16. Methenamine hippurate 1 gram 1 tablet by mouth 3 times a day for recurrent infection. 17. Nitroglycerin 0.4 mg sublingual as needed for chest pain. 18. Oxybutynin 5 mg p.o. t.i.d. 19. Potassium chloride 20 mEq one-half tablet daily. 20. Spironolactone 25 mg p.o. daily. 21. She also takes Coenzyme Q10 and aspirin 325 daily. ALLERGIES: LISINOPRIL, DEMEROL, and PENICILLIN. SOCIAL HISTORY: Significant for one-half pack per day, ongoing. Negative for drugs or alcohol use. She has been smoking for 30 years. She is a prior service in the [employer] and now achieved senior living. FAMILY HISTORY: Negative for clotting or bleeding disorder, no immune dysfunction. REVIEW OF SYSTEMS: Ten-point review of systems was performed and is negative for all other systems e xcept as stated as per HPI. PHYSICAL EXAMINATION: VITAL SIGNS: Temperature 99.4, pulse 79, blood pressure 109/71, respiratory rate 28, saturating 95% on 2 liters, 89% on room air on arrival. GENERAL: She is awake. She is alert. She is oriented x3. She is an obese white female, appears to be in no acute distress and breathing comfortably. HEENT: Normocephalic, atraumatic. Pupils equal, round, reactive to light bilaterally, she has bilat eral pseudophakia. Mucous membranes are moist. She has no visible lesion or thrush. NECK: Supple, without lymphadenopathy, JVD, or thyromegaly. She has normal carotid upstroke. I do not appreciate bruits. LUNGS: Have a slightly upon expiratory phase, but good air movement. Symmetrical chest excursion. She has a posterior right low pitched expiratory rhonchi. On the left side, she has a high pitched a nd expiratory high pitched wheezes. CARDIOVASCULAR: She is normal S1 and S2. No S3 or S4. She does have a 2/6 systolic ejection murmur and 2 at the right upper sternal border and 2/6 holosystolic murmur best over the apex. There is no diastolic murmurs. ABDOMEN: Soft, it is obese, it is nontender, nondistended. She has good bowel sounds. There is no rebound, rigidity, or guarding. I cannot palpate internal organs. EXTREMITIES: No cyanosis, clubbing or trace bilateral lower extremity edema. She has got 1+ dorsali s pedis and posterior tibial pulses. SKIN: Otherwise, warm, moist. No well perfused. She has no rashes or lesions. NEUROLOGIC: Cranial nerves II-XII are grossly intact. She has no focal neurologic deficits, 5/5 stre ngth, and normal speech pattern. MUSCULOSKELETAL: Shows large joints to be uninflamed. There is no palpable effusions. LABORATORY DATA: Sodium 140, potassium 3.3, chloride 107, bicarb 26, BUN 6, creatinine 0.75, glucose 124, and calcium 9.3. Liver function bilirubin within normal limits. CBC: White count 9.7, hemogl obin 13.7, hematocrit 43.2, and platelet count is 301,000. BNP was elevated at 330, but is stable for her. Lactic acid normal at 1.4. CK-MB normal at 1.3 and troponin I normal at 0.021. Chest x-ray showed atherosclerotic disease and pulmonary vascular congestion consistent with CHF. ASSESSMENT AND PLAN: 1. Acute exacerbation of chronic obstructive pulmonary disease. Place the patient on Solu-Medrol 40 mg IV q.6 hours, DuoNebs q.4 hours, albuterol nebs q.2 hours p.r.n., and levofloxacin. We will chec k morning labs including CBC, CMP, and magnesium. Use oxygen as needed. 2. Acute on chronic respiratory failure. No evidence of hypercapnia. 3. Acute hypoxemic respiratory failure. Oxygen as needed. Wean to keep her sats 90% to 92%. 4. Hypertension, essential. We will continue home medications. 5. Hyperlipidemia. Continue home medications. 6. Urinary incontinence. We will continue oxybutynin. 7. Chronic systolic and diastolic congestive heart failure: Continue her Lasix daily. 8. History of arrhythmia with premature ventricular contractions. 9. History of osteoarthritis. We will continue her home medications. We will continue to aggressively treat with nebulizers, IV st eroids, and antibiotics until she is clinically improved and was switched to oral at that point befor e discharging.
[2017-06-27] MEDS: Sodium Chloride 0.9% 1,000 ML IV SCH (22:08)
[2017-06-27] MEDS: Gabapentin 300 MG CAP PO SCH (22:20)
[2017-06-27] MEDS: Oxybutynin 5 MG TAB PO SCH (22:21)
[2017-06-27] MEDS: Famotidine/PF 20 mg/2ml Vial SLOW IVP SCH (22:23)
[2017-06-27] MEDS: Bupropion 150 MG SR TAB PO SCH (22:31)
[2017-06-28] MEDS: Sodium Chloride 0.9% 1,000 ML IV SCH (04:35)
[2017-06-28 04:41] LABS: #Lymphocytes 1.2 thou/uL (1.20-3.40); #Monocytes 0.2 thou/uL (0.11-0.59); #Neutrophils 6.3 thou/uL (1.40-6.50); %Basophils 0.1 % (0.0-1.0); %Eosinophils 0.3 % (0.0-10.0); %Lymphocytes 15.7 % (21.0-51.0); %Monocytes 2.7 % (0.0-10.0); %Neutrophils 81.3 % (42.0-75.0); Mean Corpuscular HGB CONC 32.2 g/dL (32.0-36.0); Mean Corpuscular Hemoglobin 31.3 pg (27.0-31.0); Mean Corpuscular Volume 97.2 fl (81.0-99.0); Mean Platelet Volume 7.6 fL (7.4-10.4); Platelet Count 278 thou/uL (130-400); RBC Distribution Width 13.2 % (11.5-14.5); Red Blood Cell (RBC) Count 4.15 mill/uL (4.20-5.40); White Blood Cell (WBC) Count 7.8 thou/uL (4.8-10.8)
[2017-06-28 04:51] LABS: Anion Gap 11 mmol/L (10-20); BUN (Urea Nitrogen) 8 mg/dL (9.8-20.1); Calc. Creatinine Clearance 101 mL/min (70-130); Calcium 9.6 mg/dL (7.8-10.44); Carbon Dioxide 28 mmol/L (23-31); Chloride 106 mmol/L (98-107); Estimated GFR-MDRD 78; Glucose 178 mg/dL (83-110); Magnesium 2.3 mg/dL (1.6-2.6); Potassium 4.3 mmol/L (3.5-5.1); Sodium 141 mmol/L (136-145)
[2017-06-28] MEDS ORDERED: Spironolactone 25 MG TAB PO SCH (09:00)
[2017-06-28] MEDS: Bupropion 150 MG SR TAB PO SCH ×2 (09:29→20:43)
[2017-06-28] MEDS: Loratadine 10 MG TAB PO SCH (09:29)
[2017-06-28] MEDS: Aspirin 325 MG TAB PO SCH (09:29)
[2017-06-28] MEDS: Atorvastatin Calcium 40 MG TAB PO SCH (09:29)
[2017-06-28] MEDS: Furosemide 40 MG TAB PO SCH (09:30)
[2017-06-28] MEDS: Carvedilol 6.25 MG TAB PO SCH ×2 (09:30→16:05)
[2017-06-28] MEDS: Oxybutynin 5 MG TAB PO SCH ×3 (09:30→20:44)
[2017-06-28] MEDS: Losartan 25 MG TAB PO SCH (09:30)
[2017-06-28] MEDS: Famotidine/PF 20 mg/2ml Vial SLOW IVP SCH ×2 (09:31→20:44)
[2017-06-28] MEDS: Enoxaparin Sodium 40 MG/0.4 ML SYRINGE SC SCH (09:32)
[2017-06-28] MEDS: Gabapentin 300 MG CAP PO SCH ×2 (09:33→20:43)
--- NOTE | 2017-06-28 14:32 | PDOC.PN ---
- Subjective Encounter Start Date: 06/28/17 Encounter Start Time: 11:40 Pt is breathing much better, no cough,no sputum, no hemoptysis. no f/C, no n/V/ d/c, no CP. feels anxious. 10 point ROs performed and neg for all systems except as per HPI - Objective Resuscitation Status: Resuscitation Status FULL:Full Resuscitation MAR Reviewed: Yes Vital Signs & Weight: Vital Signs (12 hours) Temp Pulse Resp BP BP Pulse Ox 06/28/17 14:04 84 22 H 93 L 06/28/17 12:16 98.5 F 74 20 159/69 H 93 L 06/28/17 10:38 81 20 92 L 06/28/17 09:30 138/69 06/28/17 08:00 98.0 F 73 20 138/69 94 L 06/28/17 07:59 98.0 F 73 20 138/69 06/28/17 06:39 75 20 95 Weight Weight 202 lb Result Diagrams: 06/28/17 03:41 06/28/17 03:41 Radiology Reviewed by me: Yes EKG Reviewed by me: Yes Phys Exam - Physical Examination Constitutional: NAD HEENT: PERRLA, moist MMs, sclera anicteric, oral pharynx no lesions Neck: no nodes, no JVD, supple, full ROM Respiratory: no rhonchi left posterior basilar rales. slight exp prolongation, no wheeze Cardiovascular: RRR, no significant murmur, no rub Gastrointestinal: soft, non-tender, no distention, positive bowel sounds Musculoskeletal: no edema, pulses present Neurological: non-focal, normal sensation, moves all 4 limbs Lymphatic: no nodes Psychiatric: normal affect, A&O x 3 Skin: no rash, normal turgor, cap refill <2 seconds Dx/Plan (1) COPD (chronic obstructive pulmonary disease) Status: Acute Qualifiers: COPD type: unspecified COPD Qualified Code(s): J44.9 - Chronic obstructive pulmonary disease, unspecified Comment: Markedly improved. Continue Duonebs and decrease to q6h, restart Dulera, to po sterodis, contoinue levoflox Pt on nocturnal O2 at home. (2) COPD exacerbation Code(s): J44.1 - CHRONIC OBSTRUCTIVE PULMONARY DISEASE W (ACUTE) EXACERBATION Status: Acute Comment: to PO prednisone, restart dulera, duo nebs, abx, O2 support (currrently on NC) (3) Chronic systolic heart failure Code(s): I50.22 - CHRONIC SYSTOLIC (CONGESTIVE) HEART FAILURE Status: Acute Comment: Stable. Not in acute exacerbation. AICD in place, EF 35-40% On carvedilol, Lasix 40mg daily. Allergic to Lisinopril (4) Pneumonia Code(s): J18.9 - PNEUMONIA, UNSPECIFIED ORGANISM Status: Acute Qualifiers: Pneumonia type: due to unspecified organism Laterality: bilateral Lung location: lower lobe of lung Qualified Code(s): J18.9 - Pneumonia, unspecified organism Comment: on levoflox, CXR repeat today (5) Afib Code(s): I48.91 - UNSPECIFIED ATRIAL FIBRILLATION Status: Chronic Qualifiers: Atrial fibrillation type: chronic Qualified Code(s): I48.2 - Chronic atrial fibrillation Comment: s/p ablation in past (6) Anemia Code(s): D64.9 - ANEMIA, UNSPECIFIED Status: Chronic Qualifiers: Anemia type: iron deficiency Iron deficiency anemia type: inadequate dietary iron intake Qualified Code(s): D50.8 - Other iron deficiency anemias Comment: Hemoglobin stable. Monitor. (7) CAD (coronary artery disease) Code(s): I25.10 - ATHSCL HEART DISEASE OF [place] CORONARY ARTERY W/O ANG PCTRS Status: Chronic Qualifiers: Coronary Disease-Associated Artery/Lesion type: unspecified vessel or lesion type [place] vs. transplanted heart: [place] heart Associated angina: without angina Qualified Code(s): I25.10 - Atherosclerotic heart disease of [place] coronary artery without angina pectoris Comment: Stable, chest pain free. On ASA, Carvedilol and Statins. (8) Hypertension Code(s): I10 - ESSENTIAL (PRIMARY) HYPERTENSION Status: Chronic Qualifiers: Hypertension type: essential hypertension Qualified Code(s): I10 - Essential (primary) hypertension Comment: Controlled on Carvedilol. (9) Acute respiratory failure with hypoxemia Code(s): J96.01 - ACUTE RESPIRATORY FAILURE WITH HYPOXIA Status: Resolved Comment: wean o2 as tolerated pt on nocturnal home O2 - Plan cont current plan of care, continue antibiotics, respiratory therapy, out of bed /ambulate, DVT proph w/lovenox * .
[2017-06-28] MEDS ORDERED: predniSONE 20 MG TAB PO SCH (14:45)
--- NOTE | 2017-06-28 19:02 | RAD ---
CHEST TWO VIEW 06/28/17 HISTORY: Left posterior and basilar crackles. COMPARISON: Radiograph prior day. There is a right infrahilar opacity. No pneumothorax or large effusion. Dual lead AICD/pacer is prese nt. There is a left lower lobe consolidation also noted. IMPRESSION: 1. Bilateral lower lobe consolidation/edema. 2. No pneumothorax. POS: [facility]
[2017-06-28] MEDS: guaiFENesin/DM ER PO SCH (20:43)
[2017-06-28] MEDS: Mometasone/Formoterol 120 PUFF INHALER INH SCH (23:15)
[2017-06-29] MEDS: ALPRAZolam 0.25 MG TAB PO PRN ×2 (02:03→23:02)
[2017-06-29 04:28] LABS: #Lymphocytes 1.2 thou/uL (1.20-3.40); #Monocytes 0.5 thou/uL (0.11-0.59); #Neutrophils 12.6 thou/uL (1.40-6.50); %Basophils 0.2 % (0.0-1.0); %Eosinophils 0.2 % (0.0-10.0); %Lymphocytes 8.6 % (21.0-51.0); %Monocytes 3.5 % (0.0-10.0); %Neutrophils 87.6 % (42.0-75.0); Hemoglobin 12.8 g/dL (12.0-16.0); Mean Corpuscular HGB CONC 32.3 g/dL (32.0-36.0); Mean Corpuscular Hemoglobin 30.5 pg (27.0-31.0); Mean Corpuscular Volume 94.6 fl (81.0-99.0); Mean Platelet Volume 7.3 fL (7.4-10.4); Platelet Count 313 thou/uL (130-400); RBC Distribution Width 13.4 % (11.5-14.5); Red Blood Cell (RBC) Count 4.21 mill/uL (4.20-5.40); White Blood Cell (WBC) Count 14.4 thou/uL (4.8-10.8)
[2017-06-29 04:37] LABS: Anion Gap 13 mmol/L (10-20); BUN (Urea Nitrogen) 14 mg/dL (9.8-20.1); Calc. Creatinine Clearance 99 mL/min (70-130); Calcium 9.4 mg/dL (7.8-10.44); Carbon Dioxide 26 mmol/L (23-31); Chloride 106 mmol/L (98-107); Estimated GFR-MDRD 77; Glucose 135 mg/dL (83-110); Magnesium 2.1 mg/dL (1.6-2.6); Potassium 3.9 mmol/L (3.5-5.1); Sodium 141 mmol/L (136-145)
[2017-06-29] MEDS: Mometasone/Formoterol 120 PUFF INHALER INH SCH ×2 (06:23→19:06)
[2017-06-29] MEDS: Atorvastatin Calcium 40 MG TAB PO SCH (07:43)
[2017-06-29] MEDS: Enoxaparin Sodium 40 MG/0.4 ML SYRINGE SC SCH (07:43)
[2017-06-29] MEDS: predniSONE 20 MG TAB PO SCH (07:43)
[2017-06-29] MEDS: Ferrous Sulfate 325 MG TAB PO SCH (07:43)
[2017-06-29] MEDS: guaiFENesin/DM ER PO SCH ×2 (07:44→20:06)
[2017-06-29] MEDS: Aspirin 325 MG TAB PO SCH (07:44)
[2017-06-29] MEDS: Oxybutynin 5 MG TAB PO SCH ×3 (07:44→20:06)
[2017-06-29] MEDS: Losartan 25 MG TAB PO SCH (07:44)
[2017-06-29] MEDS: Carvedilol 6.25 MG TAB PO SCH ×2 (07:45→16:10)
[2017-06-29] MEDS: Furosemide 40 MG TAB PO SCH (07:45)
[2017-06-29] MEDS: Spironolactone 25 MG TAB PO SCH (07:45)
[2017-06-29] MEDS: Calcium Carbonate + Vit D 1 TAB PO SCH ×2 (07:45→16:10)
[2017-06-29] MEDS: Bupropion 150 MG SR TAB PO SCH ×2 (07:45→20:06)
[2017-06-29] MEDS: Loratadine 10 MG TAB PO SCH (07:45)
--- NOTE | 2017-06-29 09:56 | PDOC.PN ---
- Subjective Encounter Start Date: 06/29/17 Encounter Start Time: 08:10 -: old records requested/rev Patient seen and examined. No new complaints. No overnight events still o2 sats drops with exertion - Objective Resuscitation Status: Resuscitation Status FULL:Full Resuscitation MAR Reviewed: Yes Vital Signs & Weight: Vital Signs (12 hours) Temp Pulse Resp BP BP Pulse Ox 06/29/17 08:00 98.5 F 90 22 H 137/78 93 L 06/29/17 07:45 137/78 06/29/17 06:25 90 14 06/29/17 00:13 82 18 94 L Weight Weight 202 lb I&O: 06/28/17 06/29/17 06/30/17 06:59 06:59 06:59 Intake Total 1880 Balance 1880 Result Diagrams: 06/29/17 03:33 06/29/17 03:33 Phys Exam - Physical Examination Constitutional: NAD HEENT: PERRLA, moist MMs, sclera anicteric Neck: no JVD, supple Respiratory: no wheezing, no rales, no rhonchi reduced air entry at base Cardiovascular: RRR, no significant murmur, no rub Gastrointestinal: soft, non-tender, no distention, positive bowel sounds Musculoskeletal: no edema, pulses present Neurological: non-focal, normal sensation, moves all 4 limbs Psychiatric: normal affect, A&O x 3 Skin: no rash, normal turgor Dx/Plan (1) Acute on chronic respiratory failure with hypoxia Code(s): J96.21 - ACUTE AND CHRONIC RESPIRATORY FAILURE WITH HYPOXIA Status: Acute (2) Anxiety and depression Code(s): F41.8 - OTHER SPECIFIED ANXIETY DISORDERS Status: Acute (3) COPD exacerbation Code(s): J44.1 - CHRONIC OBSTRUCTIVE PULMONARY DISEASE W (ACUTE) EXACERBATION Status: Acute Comment: (4) Community acquired bacterial pneumonia Code(s): J15.9 - UNSPECIFIED BACTERIAL PNEUMONIA Status: Acute (5) CAD (coronary artery disease) Code(s): I25.10 - ATHSCL HEART DISEASE OF [place] CORONARY ARTERY W/O ANG PCTRS Status: Chronic Qualifiers: Coronary Disease-Associated Artery/Lesion type: unspecified vessel or lesion type [place] vs. transplanted heart: [place] heart Associated angina: without angina Qualified Code(s): I25.10 - Atherosclerotic heart disease of [place] coronary artery without angina pectoris Comment: (6) Chronic systolic heart failure Code(s): I50.22 - CHRONIC SYSTOLIC (CONGESTIVE) HEART FAILURE Status: Chronic Comment: Stable. Not in acute exacerbation. AICD in place, EF 35-40% On carvedilol, Lasix 40mg daily. Allergic to Lisinopril (7) Hypertension Code(s): I10 - ESSENTIAL (PRIMARY) HYPERTENSION Status: Chronic Qualifiers: Hypertension type: essential hypertension Qualified Code(s): I10 - Essential (primary) hypertension Comment: Controlled on Carvedilol. (8) Obesity (BMI 30-39.9) Code(s): E66.9 - OBESITY, UNSPECIFIED Status: Chronic - Plan cont current plan of care, continue antibiotics, respiratory therapy * medication reviewed as below * symptomatic treatment * continue levaquin * Dc solumedrol * start prednisone * ambulate and check room air SPO2. Review of Systems - Review of Systems ENT: negative: Ear Pain, Ear Discharge, Nose Pain, Nose Discharge, Nose Congestion, Mouth Pain, Mouth Swelling, Throat Pain, Throat Swelling, Other Respiratory: negative: Cough, Dry, Shortness of Breath, Hemoptysis, SOB with Excertion, Pleuritic Pain, Sputum, Wheezing Cardiovascular: negative: chest pain, palpitations, orthopnea, paroxysmal nocturnal dyspnea, edema, light headedness, other Gastrointestinal: negative: Nausea, Vomiting, Abdominal Pain, Diarrhea, Constipation, Melena, Hematochezia, Other Genitourinary: negative: Dysuria, Frequency, Incontinence, Hematuria, Retention , Other Musculoskeletal: negative: Neck Pain, Shoulder Pain, Arm Pain, Back Pain, Hand Pain, Leg Pain, Foot Pain, Other Skin: negative: Rash, Lesions, Justin, Bruising, Other - Medications/Allergies Allergies/Adverse Reactions: Allergies Allergy/AdvReac Type Severity Reaction Status Date / Time lisinopril Allergy Verified 06/27/17 20:10 meperidine HCl [From Demerol] Allergy Verified 06/27/17 20:10 Penicillins Allergy Verified 06/27/17 20:10 Medications: Current Medications Albuterol Sulfate (Ventolin) 2.5 mg NEB Q2H PRN PRN Reason: Wheezing Albuterol/Ipratropium (Duoneb) 3 ml NEB [id number] TRISTAN Last Admin: 06/29/17 06:25 Dose: 3 ml Alprazolam (Xanax) 0.25 mg PO TIDPRN PRN PRN Reason: Anxiety Last Admin: 06/29/17 02:03 Dose: 0.25 mg Aspirin (Aspirin) 325 mg PO DAILY [facility] Last Admin: 06/29/17 07:44 Dose: 325 mg Atorvastatin Calcium (Lipitor) 40 mg PO DAILY [facility] Last Admin: 06/29/17 07:43 Dose: 40 mg Bupropion HCl (Wellbutrin Sr) 150 mg PO BID [facility] Last Admin: 06/29/17 07:45 Dose: 150 mg Calcium/Vitamin D (Caltrate 600 + Vit D) 1 tab PO BID-[facility] Last Admin: 06/29/17 07:45 Dose: 1 tab Carvedilol (Coreg) 6.25 mg PO BID-[facility] Last Admin: 06/29/17 07:45 Dose: 6.25 mg Enoxaparin Sodium (Lovenox) 40 mg SC DAILY [facility] Last Admin: 06/29/17 07:43 Dose: 40 mg Ferrous Sulfate (Feosol) 325 mg PO DAILY [facility] Last Admin: 06/29/17 07:43 Dose: 325 mg Furosemide (Lasix) 40 mg PO DAILY [facility] Last Admin: 06/29/17 07:45 Dose: Not Given Gabapentin (Neurontin) 300 mg PO HS [facility] Guaifenesin/Dextromethorphan (Robitussin Dm) 15 ml PO Q4H PRN PRN Reason: Cough Guaifenesin/Dextromethorphan (Mucinex Dm) 1 tab PO BID [facility] Last Admin: 06/29/17 07:44 Dose: 1 tab Levofloxacin 750 mg/ Device 150 mls @ 100 mls/hr IVPB Q24HR [facility] Last Admin: 06/28/17 20:42 Dose: 150 mls Loratadine (Claritin) 10 mg PO DAILY [facility] Last Admin: 06/29/17 07:45 Dose: 10 mg Losartan Potassium (Cozaar) 12.5 mg PO DAILY [facility] Last Admin: 06/29/17 07:44 Dose: 12.5 mg Mometasone Furoate/Formoterol Fumar (Dulera 100 Mcg/5 Mcg Inhaler) 2 puff INH BID-RT [facility] Last Admin: 06/29/17 06:23 Dose: 2 puff Ondansetron HCl (Zofran Odt) 4 mg PO Q6H PRN PRN Reason: Nausea/Vomiting Ondansetron HCl (Zofran) 4 mg IVP Q6H PRN PRN Reason: Nausea/Vomiting Oxybutynin Chloride (Ditropan) 5 mg PO TID [facility] Last Admin: 06/29/17 07:44 Dose: 5 mg Prednisone (Prednisone) 40 mg PO QA-[facility] Last Admin: 06/29/17 07:43 Dose: 40 mg Spironolactone (Aldactone) 25 mg PO DAILY [facility] Last Admin: 06/29/17 07:45 Dose: 25 mg
[2017-06-29] MEDS ORDERED: Gabapentin 300 MG CAP PO SCH (21:00)
[2017-06-30] MEDS: Mometasone/Formoterol 120 PUFF INHALER INH SCH (07:11)
[2017-06-30] MEDS: predniSONE 20 MG TAB PO SCH (09:35)
[2017-06-30] MEDS: Calcium Carbonate + Vit D 1 TAB PO SCH (09:39)
[2017-06-30] MEDS: guaiFENesin/DM ER PO SCH (09:39)
[2017-06-30] MEDS: Spironolactone 25 MG TAB PO SCH (09:40)
[2017-06-30] MEDS: Atorvastatin Calcium 40 MG TAB PO SCH (09:40)
[2017-06-30] MEDS: Aspirin 325 MG TAB PO SCH (09:40)
[2017-06-30] MEDS: Carvedilol 6.25 MG TAB PO SCH (09:40)
[2017-06-30] MEDS: Losartan 25 MG TAB PO SCH (09:41)
[2017-06-30] MEDS: Bupropion 150 MG SR TAB PO SCH (09:41)
[2017-06-30] MEDS: Enoxaparin Sodium 40 MG/0.4 ML SYRINGE SC SCH (09:42)
[2017-06-30] MEDS: Loratadine 10 MG TAB PO SCH (09:42)
[2017-06-30] MEDS: Ferrous Sulfate 325 MG TAB PO SCH (09:42)
[2017-06-30] MEDS: Furosemide 40 MG TAB PO SCH (09:43)
--- NOTE | 2017-06-30 10:34 | PDOC.PN ---
- Subjective Encounter Start Date: 06/30/17 Encounter Start Time: 08:20 Patient seen and examined. No new complaints. No overnight events - Objective Resuscitation Status: Resuscitation Status FULL:Full Resuscitation MAR Reviewed: Yes Vital Signs & Weight: Vital Signs (12 hours) Temp Pulse Resp BP BP Pulse Ox 06/30/17 10:28 93 L 06/30/17 09:40 146/73 H 06/30/17 08:00 98.6 F 73 20 146/73 H 96 06/30/17 07:11 70 12 06/30/17 07:03 90 L 06/30/17 07:01 70 12 06/30/17 00:30 69 16 91 L Weight Weight 202 lb I&O: 06/29/17 06/30/17 07/01/17 06:59 06:59 06:59 Intake Total 1880 2680 Balance 1880 2680 Result Diagrams: 06/29/17 03:33 06/29/17 03:33 Phys Exam - Physical Examination Constitutional: NAD HEENT: PERRLA, moist MMs, sclera anicteric Neck: no JVD, supple Respiratory: no wheezing, no rales, no rhonchi Cardiovascular: RRR, no significant murmur, no rub Gastrointestinal: soft, non-tender, no distention, positive bowel sounds Musculoskeletal: no edema, pulses present Neurological: non-focal, normal sensation, moves all 4 limbs Psychiatric: normal affect, A&O x 3 Skin: no rash, normal turgor Dx/Plan (1) Acute on chronic respiratory failure with hypoxia Code(s): J96.21 - ACUTE AND CHRONIC RESPIRATORY FAILURE WITH HYPOXIA Status: Acute (2) Anxiety and depression Code(s): F41.8 - OTHER SPECIFIED ANXIETY DISORDERS Status: Acute (3) COPD exacerbation Code(s): J44.1 - CHRONIC OBSTRUCTIVE PULMONARY DISEASE W (ACUTE) EXACERBATION Status: Acute Comment: (4) Community acquired bacterial pneumonia Code(s): J15.9 - UNSPECIFIED BACTERIAL PNEUMONIA Status: Acute (5) CAD (coronary artery disease) Code(s): I25.10 - ATHSCL HEART DISEASE OF [place] CORONARY ARTERY W/O ANG PCTRS Status: Chronic Qualifiers: Coronary Disease-Associated Artery/Lesion type: unspecified vessel or lesion type [place] vs. transplanted heart: [place] heart Associated angina: without angina Qualified Code(s): I25.10 - Atherosclerotic heart disease of [place] coronary artery without angina pectoris Comment: (6) Chronic systolic heart failure Code(s): I50.22 - CHRONIC SYSTOLIC (CONGESTIVE) HEART FAILURE Status: Chronic Comment: Stable. Not in acute exacerbation. AICD in place, EF 35-40% On carvedilol, Lasix 40mg daily. Allergic to Lisinopril (7) Hypertension Code(s): I10 - ESSENTIAL (PRIMARY) HYPERTENSION Status: Chronic Qualifiers: Hypertension type: essential hypertension Qualified Code(s): I10 - Essential (primary) hypertension Comment: Controlled on Carvedilol. (8) Obesity (BMI 30-39.9) Code(s): E66.9 - OBESITY, UNSPECIFIED Status: Chronic - Plan cont current plan of care, continue antibiotics, respiratory therapy * medication reviewed as below * symptomatic treatment * see discharge summery. Review of Systems - Review of Systems Eyes: negative: Pain, Vision Change, Conjunctivae Inflammation, Eyelid Inflammation, Redness, Other ENT: negative: Ear Pain, Ear Discharge, Nose Pain, Nose Discharge, Nose Congestion, Mouth Pain, Mouth Swelling, Throat Pain, Throat Swelling, Other Respiratory: negative: Cough, Dry, Shortness of Breath, Hemoptysis, SOB with Excertion, Pleuritic Pain, Sputum, Wheezing Cardiovascular: negative: chest pain, palpitations, orthopnea, paroxysmal nocturnal dyspnea, edema, light headedness, other Gastrointestinal: negative: Nausea, Vomiting, Abdominal Pain, Diarrhea, Constipation, Melena, Hematochezia, Other Genitourinary: negative: Dysuria, Frequency, Incontinence, Hematuria, Retention , Other Musculoskeletal: negative: Neck Pain, Shoulder Pain, Arm Pain, Back Pain, Hand Pain, Leg Pain, Foot Pain, Other Skin: negative: Rash, Lesions, Justin, Bruising, Other - Medications/Allergies Allergies/Adverse Reactions: Allergies Allergy/AdvReac Type Severity Reaction Status Date / Time lisinopril Allergy Verified 06/27/17 20:10 meperidine HCl [From Demerol] Allergy Verified 06/27/17 20:10 Penicillins Allergy Verified 06/27/17 20:10 Medications: Current Medications Albuterol Sulfate (Ventolin) 2.5 mg NEB Q2H PRN PRN Reason: Wheezing Albuterol/Ipratropium (Duoneb) 3 ml NEB [id number] TRISTAN Last Admin: 06/30/17 07:01 Dose: 3 ml Alprazolam (Xanax) 0.25 mg PO TIDPRN PRN PRN Reason: Anxiety Last Admin: 06/29/17 23:02 Dose: 0.25 mg Aspirin (Aspirin) 325 mg PO DAILY COUNTS INCLUDE 234 BEDS AT THE [facility] Last Admin: 06/30/17 09:40 Dose: 325 mg Atorvastatin Calcium (Lipitor) 40 mg PO DAILY COUNTS INCLUDE 234 BEDS AT THE [facility] Last Admin: 06/30/17 09:40 Dose: 40 mg Bupropion HCl (Wellbutrin Sr) 150 mg PO BID COUNTS INCLUDE 234 BEDS AT THE [facility] Last Admin: 06/30/17 09:41 Dose: 150 mg Calcium/Vitamin D (Caltrate 600 + Vit D) 1 tab PO BID-[facility] Last Admin: 06/30/17 09:39 Dose: 1 tab Carvedilol (Coreg) 6.25 mg PO BID-[facility] Last Admin: 06/30/17 09:40 Dose: 6.25 mg Enoxaparin Sodium (Lovenox) 40 mg SC DAILY COUNTS INCLUDE 234 BEDS AT THE [facility] Last Admin: 06/30/17 09:42 Dose: 40 mg Ferrous Sulfate (Feosol) 325 mg PO DAILY COUNTS INCLUDE 234 BEDS AT THE [facility] Last Admin: 06/30/17 09:42 Dose: 325 mg Furosemide (Lasix) 40 mg PO DAILY COUNTS INCLUDE 234 BEDS AT THE [facility] Last Admin: 06/30/17 09:43 Dose: Not Given Gabapentin (Neurontin) 300 mg PO HS COUNTS INCLUDE 234 BEDS AT THE [facility] Last Admin: 06/29/17 20:06 Dose: 300 mg Guaifenesin/Dextromethorphan (Robitussin Dm) 15 ml PO Q4H PRN PRN Reason: Cough Guaifenesin/Dextromethorphan (Mucinex Dm) 1 tab PO BID COUNTS INCLUDE 234 BEDS AT THE [facility] Last Admin: 06/30/17 09:39 Dose: 1 tab Levofloxacin 750 mg/ Device 150 mls @ 100 mls/hr IVPB Q24HR COUNTS INCLUDE 234 BEDS AT THE [facility] Last Admin: 06/29/17 20:05 Dose: 150 mls Loratadine (Claritin) 10 mg PO DAILY COUNTS INCLUDE 234 BEDS AT THE [facility] Last Admin: 06/30/17 09:42 Dose: 10 mg Losartan Potassium (Cozaar) 12.5 mg PO DAILY COUNTS INCLUDE 234 BEDS AT THE [facility] Last Admin: 06/30/17 09:41 Dose: 12.5 mg Mometasone Furoate/Formoterol Fumar (Dulera 100 Mcg/5 Mcg Inhaler) 2 puff INH BID-RT COUNTS INCLUDE 234 BEDS AT THE [facility] Last Admin: 06/30/17 07:11 Dose: 2 puff Ondansetron HCl (Zofran Odt) 4 mg PO Q6H PRN PRN Reason: Nausea/Vomiting Ondansetron HCl (Zofran) 4 mg IVP Q6H PRN PRN Reason: Nausea/Vomiting Oxybutynin Chloride (Ditropan) 5 mg PO TID COUNTS INCLUDE 234 BEDS AT THE [facility] Last Admin: 06/29/17 20:06 Dose: 5 mg Prednisone (Prednisone) 40 mg PO QAM-[facility] Last Admin: 06/30/17 09:35 Dose: 40 mg Spironolactone (Aldactone) 25 mg PO DAILY COUNTS INCLUDE 234 BEDS AT THE [facility] Last Admin: 06/30/17 09:40 Dose: 25 mg
[2017-06-30] MEDS: Oxybutynin 5 MG TAB PO SCH (11:10)
--- NOTE | 2017-06-30 11:32 | DIS ---
DATE OF ADMISSION: 06/27/2017 DATE OF DISCHARGE: 06/30/2017 PRIMARY CARE PHYSICIAN: Dr. Fernandes. DISCHARGE DISPOSITION: Home. PRIMARY DISCHARGE DIAGNOSES: 1. Acute on chronic respiratory failure with hypoxia. 2. Chronic obstructive pulmonary disease exacerbation. 3. Community-acquired bacterial pneumonia. SECONDARY DISCHARGE DIAGNOSES: Anxiety and depression; obesity with BMI 35; chronic obstructive pulm onary disease; chronic respiratory failure, on nocturnal oxygen therapy; hypertension; coronary arter y disease; chronic systolic heart failure. PRIMARY PROCEDURE/OPERATION: None. RADIOLOGICAL INVESTIGATION: Chest x-ray on admission showed findings suggestive of congestive heart failure. Repeat chest x-ray next day showed bibasilar lower lobe consolidation. SIGNIFICANT LABORATORY DATA: WBC 14.8, hemoglobin 12.8, platelet 313. Sodium 141, potassium 3.9, BU N 14, creatinine 0.74, calcium 9.04. LFT normal. BNP 330. DISCHARGE MEDICATIONS: Tylenol #3 one or two tablets p.o. q.6 hourly p.r.n., Ventolin nebulization 3 mL q.8 hourly p.r.n., Proventil HFA 2 puffs q.4 hourly p.r.n., Lipitor 40 mg p.o. daily, Symbicort 2 puff inhalation b.i.d., Wellbutrin-SR 150 mg p.o. b.i.d., calcium with vitamin D one tablet twice da idalia, Coreg 6.25 mg p.o. b.i.d., cetirizine 10 mg p.o. daily, conjugated estrogen topical application for vaginal daily p.r.n., ferrous sulfate 325 mg p.o. daily, Lasix 40 mg p.o. daily, gabapentin 300 m g p.o. at bedtime, Mucinex 600 mg twice daily, Levaquin 750 mg p.o. daily for 7 days, Cozaar 12.5 mg p.o. daily, methenamine 1 gram p.o. t.i.d., nitroglycerin 0.4 mg sublingual p.r.n., oxybutynin 5 mg p .o. t.i.d., potassium chloride 10 mEq p.o. daily. Prednisone 40 mg p.o. daily for 7 days, then 20 mg p.o. daily for 7 days, then 10 mg p.o. daily for 7 days. Aldactone 25 mg p.o. daily. CONTRAINDICATIONS: The patient is not on MANDI inhibitor because of allergy to LISINOPRIL, but patient is on ARB. CODE STATUS: FULL CODE. INPATIENT BLEACHING SUPERVISOR: None. ALLERGIES: LISINOPRIL, MEPERIDINE, and PENICILLIN. DISCHARGE PLAN: Post hospital, the patient will follow up with primary care physician in 1 week. HOSPITAL COURSE: A 71-year-old female with above-mentioned medical problem who was admitted by Dr. Augusto Arango. Please see his H&P for further detail. This patient has chronic respiratory failure and she is using oxygen during night time only. She also has COPD and congestive heart failure. She wa s admitted by Dr. Diaz for increasing shortness of breath. Her clinical presentation was more towa rds COPD exacerbation at this time. She was also found with bibasilar consolidation and she was hypo xic on admission. She required oxygen therapy while in hospital and we treated her with optimally wi th a COPD flareup while in hospital including antibiotic therapy was given for pneumonia. The patient's condition significantly improved over the next few days. She was not requiring oxygen during daytime as well as on exertion. She returned her level back to baseline level. She is euvole eda as well. We are continuing all her previous medication. Only during this admission, we are pres cribing levofloxacin for 7 days and tapering doses of prednisone. Rest of medication will be continu ed as per previous. The patient was seen and examined at bedside today. She expressed her wish to go home today. The pa darin is medically stable for discharge. The patient is seen and examined at bedside today. Please see my progress note from today for further detail.
[2017-06-30 13:13] VITALS: BP 151/70; TEMP 98.3
--- NOTE | 2017-07-01 15:03 | EKG ---
Test Reason : Blood Pressure : / mmHG Vent. Rate : 077 BPM Atrial Rate : 077 BPM P-R Int : 132 ms QRS Dur : 126 ms QT Int : 430 ms P-R-T Axes : 000 072 246 degrees QTc Int : 486 ms Normal sinus rhythm Non-specific intra-ventricular conduction block T wave abnormality, consider inferolateral ischemia Abnormal ECG Confirmed by PIPE CHRISTENSEN ([id number]), department editor JORY PARTIDA ([id number]) on 07/01/2017 3:02:38 PM Referred By: Confirmed By:PIPE CHRISTENSEN
== END 2017-06-30 13:10 | disposition home or self-care (01) | DRG 193 ==
LOC: ERS 13:45 → T4-A 17:37
PROVIDERS: ADMIT Internal Medicine Infectious Disease; ATTEND Internal Medicine Infectious Disease
DX: J15.9 Unspecified bacterial pneumonia (principal); J96.01 Acute respiratory failure with hypoxia; I50.42 Chronic combined systolic (congestive) and diastolic (congestive) heart failure; J44.0 Chronic obstructive pulmonary disease with (acute) lower respiratory infection; J44.1 Chronic obstructive pulmonary disease with (acute) exacerbation; I11.0 Hypertensive heart disease with heart failure; Z99.81 Dependence on supplemental oxygen; D64.9 Anemia, unspecified; I25.10 Atherosclerotic heart disease of native coronary artery without angina pectoris; Z95.1 Presence of aortocoronary bypass graft; Z22.322 Carrier or suspected carrier of Methicillin resistant Staphylococcus aureus; E78.5 Hyperlipidemia, unspecified; F17.210 Nicotine dependence, cigarettes, uncomplicated; F41.9 Anxiety disorder, unspecified; F32.9 Major depressive disorder, single episode, unspecified; E66.9 Obesity, unspecified; Z68.35 Body mass index [BMI] 35.0-35.9, adult
CPT/HCPCS: 36415; 71045; 71046; 80048; 80053; 82550; 82553; 83605; 83735; 83880; 84484; 85025; 87040; 87804; 93005; 94640; 96365; 96375; J1650; J1956; J2920; J2930; J3475; J7506; J7620; S0028

== ENCOUNTER 2017-07-20 21:48 | Inpatient (IN) | payer MEDICARE ==
[2017-07-20] MEDS ORDERED: Lorazepam 2 MG/ML VIAL ONE (22:11)
[2017-07-20] MEDS ORDERED: Furosemide 40 MG/4 ML VIAL ONE (22:11)
--- NOTE | 2017-07-20 22:11 | RAD ---
SINGLE VIEW OF THE CHEST: 07/20/17 COMPARISON: 06/27/17 HISTORY: Shortness of breath and dyspnea. FINDINGS: Single view of the chest shows an enlarged but stable cardiomediastinal silhouette. Atherosclerotic c alcifications are seen in the aorta. The pacemaker is unchanged in position. There is no evidence of consolidation, mass, or pleural effusion. IMPRESSION: No evidence of acute cardiopulmonary disease. POS: [facility]
[2017-07-20] MEDS ORDERED: Magnesium Sulfate 2 GM/100 ML BAG ONE (22:13)
[2017-07-20 22:47] LABS: PTT 34.3 SEC (22.9-36.1)
[2017-07-20 22:52] LABS: CO2 Tension 39.8 mmHg (35.0-45.0)
[2017-07-20 22:52] LABS: Hemoglobin 15.9 g/dL (12.0-16.0); Mean Corpuscular HGB CONC 32.9 g/dL (32.0-36.0); Mean Corpuscular Volume 94.1 fl (81.0-99.0); Mean Platelet Volume 7.3 fL (7.4-10.4); Platelet Count 241 thou/uL (130-400); RBC Distribution Width 14.4 % (11.5-14.5); Red Blood Cell (RBC) Count 5.15 mill/uL (4.20-5.40); White Blood Cell (WBC) Count 19.7 thou/uL (4.8-10.8)
[2017-07-20 22:53] LABS: Actual Bicarbonate (HCO3a) 23.8 mEq/L (22-26); Base Excess (BEa) -0.9 mEq/L (0 (+/-) 2.5); Hematocrit-ABG 53.6 % (36.0-47.0); O2 Tension (PaO2) 40.8 mmHg (80.0-100.0)
[2017-07-20 22:54] LABS: Analyzer IN Cardio ER; Calcium, Ionized 1.2 mmol/L (1.12-1.30); Puncture Site R ARM
[2017-07-20 23:02] LABS: ALT (SGPT) 10 U/L (8-55); AST (SGOT) 13 U/L (5-34); Albumin 4.1 g/dL (3.4-4.8); Alkaline Phosphatase 102 U/L (40-150); Anion Gap 15 mmol/L (10-20); BUN (Urea Nitrogen) 16 mg/dL (9.8-20.1); Bilirubin, Total 0.9 mg/dL (0.2-1.2); CK (CPK) 29 U/L (29-168); Calc. Creatinine Clearance 0 mL/min (70-130); Calcium 9.2 mg/dL (7.8-10.44); Carbon Dioxide 21 mmol/L (23-31); Chloride 101 mmol/L (98-107); Estimated GFR-MDRD 54; Globulin 2.9 g/dL (2.4-3.5); Glucose 114 mg/dL (83-110); Sodium 133 mmol/L (136-145)
[2017-07-20 23:05] LABS: CKMB 0.9 ng/mL (0-6.6); Troponin I Less than 0.010 ng/mL (< 0.028)
[2017-07-20 23:06] LABS: Band 14 % (5-11); Eosinophils 1 % (0-10); Lymphocytes 10 % (21-51); MDiff Complete? YES; Monocytes 6 % (0-10); Neutrophil 69 % (42-75)
[2017-07-21 00:06] LABS: Bilirubin Negative (Negative); Blood, Urine Negative (Negative); Clarity CLEAR (Clear); Glucose, Urine (Dipstick) Negative (Negative); Leukocyte Negative (Negative); Nitrite Negative (Negative); Protein, Urine (Dipstick) Negative (Neg-Trace); Specific Gravity, Urine 1.009 (1.002-1.036); Urobilinogen 0.2 mg/dL (0.2-1.0); pH, Urine 6.5 (5.0-9.0)
[2017-07-21 01:59] LABS: Troponin I 0.022 ng/mL (< 0.028)
[2017-07-21] MEDS ORDERED: Ondansetron ODT 4 MG TAB SL PRN (02:26)
[2017-07-21] MEDS ORDERED: Acetaminophen 325 MG TAB PO PRN (02:26)
[2017-07-21] MEDS ORDERED: Ondansetron HCl/PF 4 MG/2 ML Vial IVP PRN ×2 (02:26→04:24)
[2017-07-21] MEDS ORDERED: Ondansetron ODT 4 MG TAB PO PRN (04:24)
[2017-07-21] MEDS ORDERED: Albuterol Sulfate 2.5 mg/3 ml Neb NEB PRN (04:24)
[2017-07-21] MEDS ORDERED: PROVENTIL INHALER 6.7 G (200 INHALATIONS) INH PRN (04:24)
[2017-07-21] MEDS ORDERED: cloNIDine 0.1 MG TAB PO PRN (04:24)
[2017-07-21] MEDS ORDERED: Acetaminophen 500 MG TAB PO PRN (04:24)
[2017-07-21] MEDS ORDERED: Acetaminophen/Codeine 30-300mg Tablet PO PRN (04:24)
[2017-07-21] MEDS ORDERED: hydrALAZINE 20 MG/ML VIAL SLOW IVP PRN (04:24)
[2017-07-21] MEDS ORDERED: Loratadine 10 MG TAB PO PRN (04:24)
[2017-07-21] MEDS ORDERED: Benzonatate 100 MG CAP PO PRN (04:24)
[2017-07-21] MEDS ORDERED: Estrogens, Conjugated 30 GM TUBE VAG PRN (04:24)
[2017-07-21 05:33] LABS: Troponin I 0.014 ng/mL (< 0.028)
--- NOTE | 2017-07-21 05:54 | HP ---
DATE OF ADMISSION: 07/21/2017 PRIMARY CARE PHYSICIAN: [facility]. CHIEF COMPLAINT: Shortness of breath. HISTORY OF PRESENT ILLNESS: This is a 71-year-old female who presents to [facility], complaining of increased shortness of breath over the last 24 hours. The pa tient with a longstanding history of chronic hypoxemic respiratory failure with recent admission on 0 06/27/2017 through 06/30/2017 with COPD exacerbation. The patient was also treated for suspected comm unity-acquired bacterial pneumonia with Levaquin and placed on a prednisone tapering regimen after angie schilling. The patient states she was compliant with this regimen; however, developed increasing short ness of breath in the last 24 hours prior to this evaluation. No specific documented fever, travel h istory, trauma, or hemoptysis. The patient does admit to chronic oxygen use nocturnally at 2-3 liter s per minute by nasal cannula. In the emergency room, the patient underwent chest imaging showing no acute infiltrates. The patient was noted with oxygen saturations in the low 90% range placed on non rebreather, transitioning to a continuous positive airway pressure, noninvasive mechanical ventilatio n. The patient also received IV Solu-Medrol and DuoNeb therapy. The patient continued to require CP AP, transitioning to BiPAP noninvasive mechanical ventilation and was transferred to the Intermediate Care Unit for further evaluation. PAST MEDICAL HISTORY: 1. Acute on chronic hypoxemic respiratory failure with chronic oxygen supplementation at 2-3 liters per minute by nasal cannula. 2. Hypertension. 3. Coronary artery disease, status post coronary artery bypass grafting. 4. History of methicillin resistant Staphylococcus aureus. Chest wound infection in 2010. 5. Hyperlipidemia. 6. Urinary incontinence. 7. Chronic systolic congestive heart failure. 8. Chronic obstructive pulmonary disease with multiple exacerbations. 9. Osteoarthritis. 10. Polypharmacy. 11. History of urinary incontinence. 12. Osteoarthritis. 13. Premature ventricular contractions. PAST SURGICAL HISTORY: 1. Status post pacemaker/AICD placement. 2. Status post coronary artery bypass grafting in 2010. 3. Status post bilateral cataract removal. 4. Status post appendectomy. 5. Status post right carpal tunnel release. 6. Status post cholecystectomy. 7. Status post laparoscopy with hernia repair and mesh rejection. 8. Status post left total knee arthroplasty. 9. Status post right elbow fracture with repair. 10. Status post left ankle repair. 11. Status post tonsillectomy. 12. Status post cardiac ablation for arrhythmia. CURRENT MEDICATIONS: Based on recent admission on 06/27/2017; 1. Acyclovir 400 mg p.o. t.i.d. for cold sore outbreaks. 2. Albuterol metered dose inhaler 2 puffs inhaled q.i.d. p.r.n. 3. Albuterol sulfate 0.03% 3 mL nebulized t.i.d. p.r.n. 4. Lipitor 40 mg p.o. at bedtime. 5. Symbicort 80/4.5 two puffs inhaled b.i.d. 6. Bupropion 150 mg p.o. b.i.d. 7. Calcium 500 mg with vitamin D 200 units one tab p.o. b.i.d. 8. Carvedilol 6.25 mg p.o. b.i.d. 9. Cetirizine 10 mg p.o. daily. 10. Tylenol No.3 two tablets p.o. q.6. p.r.n. pain. 11. Conjugated estrogen vaginal cream 0.5 g vaginally daily. 12. Iron sulfate 325 mg p.o. daily. 13. Lasix 40 mg 1 tab p.o. daily. 14. Gabapentin 300 mg p.o. at bedtime. 15. Methenamine hippurate 1 g 1 tablet p.o. t.i.d. 16. Nitroglycerin 0.4 mg sublingually p.r.n. chest pain. 17. Oxybutynin 5 mg p.o. t.i.d. 18. Potassium chloride 20 mEq 1/2 tablet p.o. daily. 19. Spironolactone 25 mg p.o. daily. 20. Coenzyme Q10 p.o. daily. 21. Aspirin 325 mg p.o. daily. ALLERGIES: LISINOPRIL, DEMEROL, and PENICILLIN. FAMILY HISTORY: No inheritable diseases per patient report. SOCIAL HISTORY: Smokes up to half a pack of cigarettes daily. No alcohol or illicit drug use. 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 REVIEW OF SYSTEMS: The following complete review of systems was negative, unless otherwise mentioned in the HPI or below: Constitutional: Weight loss or gain, ability to conduct usual activities. Sk in: Rash, itching. Eyes: Double vision, pain. ENT/Mouth: Nose bleeding, neck stiffness, pain, te nderness. Cardiovascular: Palpitations, dyspnea on exertion, orthopnea. Respiratory: Shortness of breath, wheezing, cough, hemoptysis, fever or night sweats. Gastrointestinal: Poor appetite, abdom inal pain, heartburn, nausea, vomiting, constipation, or diarrhea. Genitourinary: Urgency, frequenc y, dysuria, nocturia. Musculoskeletal: Pain, swelling. Neurologic/Psychiatric: Anxiety, depressio n. Allergy/Immunologic: Skin rash, bleeding tendency. PHYSICAL EXAMINATION: VITAL SIGNS: On admission, blood pressure 132/79, pulse 100, respiratory rate 28, temperature 99 deg sandro Fahrenheit, O2 saturation 92% on BiPAP noninvasive mechanical ventilation on 32% FiO2. GENERAL APPEARANCE: This is a 71-year-old female on BiPAP noninvasive mechanical ventilati on, in [id number] respiratory distress. HEENT: Pupils are equal, round, and reactive to light and accommodation. Extraocular muscles are in tact. No scleral icterus, no conjunctival injection. Nares patent. OP is clear. Teeth in fair rep air. NECK: Supple. No cervical adenopathy, no thyromegaly, no carotid bruits, no JVD appreciated. Cervi joselyn spine with full active and passive range of motion. No meningeal signs appreciated. CHEST: Coarse breath sounds with expiratory wheeze and rhonchi. CARDIOVASCULAR: S1, S2 with tachycardia. 2/6 systolic ejection murmur in the right upper sternal espinoza rder. ABDOMEN: Rounded, soft, nontender, nondistended. Bowel sounds are positive in all four quadrants. There is no hepatosplenomegaly, no abdominal bruits, no rebound or guarding appreciated. EXTREMITIES: Warm and dry with fair turgor. No clubbing, cyanosis, or asymmetric edema appreciated. Pulses palpable distally at the dorsalis pedis, posterior tibial, and popliteal arteries bilaterall y. Capillary refill less than 2 seconds. NEUROLOGIC: Cranial nerves II through XII are grossly intact. No focal or lateralizing signs apprec iated. PERTINENT LABORATORY AND X-RAY FINDINGS: Sodium 133, potassium 4.0, chloride 101, CO2 of 21, BUN 16, creatinine 1.01 with estimated GFR 54, glucose 114, calcium 9.2. LFTs within normal limits. Tropon in I negative x2. BNP 155, previously noted 330 on 06/27/2017. CBC showed a white blood cell count of 19.7, hemoglobin 16, hematocrit 49, platelet count 241 with 69% neutrophils, 14% bands. Venous bl ood gas dated 07/20/2017 showed a pH of 7.40, pCO2 of 39.8, pO2 of 41, bicarbonate 24, O2 saturation 72% on 32% FiO2 on BiPAP. Urinalysis negative. Portable chest x-ray dated 07/20/2017 showed no acut e cardiopulmonary process. EKG dated on 07/20/2017 by my interpretation shows sinus tachycardia with heart rates in the low 100s. Attenuated R waves noted in the precordial leads. Incomplete left bun dle branch block pattern. Normal axis. T-wave inversion in lead V5 and V6. T-wave inversion in annie ds II and F. ASSESSMENT AND PLAN: 1. Acute on chronic hypoxemic respiratory failure. The patient will be admitted to the intermediate care unit. We will continue BiPAP noninvasive mechanical ventilation. Suspect secondary to exacerb ation of chronic obstructive pulmonary disease. See treatment and management as outlined. 2. Consult Pulmonology Service in the a.m. for further recommendations and comanagement. 3. Acute chronic obstructive pulmonary disease exacerbation. Continue DuoNeb q.4 hours. Solu-Medro l 40 mg IV q.6 hours. Symbicort 80/4.5 two puffs inhaled b.i.d. Levaquin 750 mg IV q.24 hours. Con tinue BiPAP noninvasive mechanical ventilation weaning as clinically indicated and tolerated. 4. Hypertension. Resume home blood pressure regimen and monitor clinical response. 5. 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 No curren t evidence to suggest acute exacerbation or decompensation. We will continue with Lasix 40 mg p.o. d aily. 6. Leukocytosis with bandemia. Suspect secondarily to recent exposure to steroids. We will continu e serial monitoring and repeat CBC in the a.m. Continue Levaquin as outlined previously. 7. Prophylaxis. Sequential compression devices while in bed. Pepcid 20 mg p.o. b.i.d. 8. Code status is FULL. Surrogate medical decision maker is patient's niece.
[2017-07-21] MEDS ORDERED: Mometasone/Formoterol 120 PUFF INHALER INH SCH (06:30)
[2017-07-21] MEDS ORDERED: Methenamine Hippurate 1 GM TAB PO SCH (09:00)
[2017-07-21] MEDS ORDERED: guaiFENesin/DM ER PO SCH (09:00)
[2017-07-21] MEDS: Carvedilol 6.25 MG TAB PO SCH ×2 (09:49→16:10)
[2017-07-21] MEDS: Calcium Carbonate + Vit D 1 TAB PO SCH ×2 (09:49→16:10)
[2017-07-21] MEDS: Famotidine 20 MG TAB PO SCH (09:50)
[2017-07-21] MEDS: Potassium Chloride 10 MEQ TAB PO SCH (09:50)
[2017-07-21] MEDS: Bupropion 150 MG SR TAB PO SCH ×2 (09:50→21:04)
[2017-07-21] MEDS: Ferrous Sulfate 325 MG TAB PO SCH (09:50)
[2017-07-21] MEDS: Furosemide 40 MG TAB PO SCH (09:50)
[2017-07-21] MEDS: Losartan 25 MG TAB PO SCH (09:51)
[2017-07-21] MEDS: Spironolactone 25 MG TAB PO SCH (09:54)
[2017-07-21] MEDS: Oxybutynin 5 MG TAB PO SCH ×3 (12:27→21:03)
[2017-07-21] MEDS ORDERED: Furosemide 40 MG/4 ML VIAL SLOW IVP SCH (15:15)
--- NOTE | 2017-07-21 17:00 | CON ---
DATE OF CONSULTATION: 07/21/2017 SERVICE: Pulmonary Medicine. REASON FOR CONSULTATION: Chronic obstructive pulmonary disease exacerbation. HISTORY OF PRESENT ILLNESS: The patient is a 71-year-old white female. She follows with Dr. Marques at the [facility] for COPD. She uses Symbicort twice daily, and p.r.n. albuterol. She typically has dyspnea that limits her activity on a daily basis. If she has to do any small amounts of activity, she has to break it up into small pieces and rest throughout. Whenever she unloads the car from the grocery store, or cooks, she has to rest multiple times. She got home from the store here recently and forgot to get the stuff out of her car. As such, when she realized it, she had multiple things that she had to get out of her in a very short period of time to get into the fridge and the freezer. It caused her to hurry more than usual and she had shortness of breath. Unfortunately, it just did not clear. She had increasing cough, and a little bit of extra sputum production. Outside of this, she is in her usual state of health. She presented to the Emergency Department and was given some antibiotics, steroids, and nebulized medication. She was initiated on BiPAP and overnight, she is much improved and has returned near to baseline. PAST MEDICAL HISTORY: 1. Chronic hypoxic respiratory failure. 2. Chronic obstructive pulmonary disease. 3. Coronary artery disease. 4. Hypertension. 5. Dyslipidemia. 6. Chronic systolic heart failure. 7. Osteoarthritis. 8. Urinary incontinence. 9. Osteoarthritis. 10. Premature ventricular contractions. 11. Restless leg syndrome. 12. 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 PAST SURGICAL HISTORY: 1. Coronary artery bypass graft in 2010. 2. Pacemaker/AICD placement. 3. Bilateral cataract surgery. 4. Appendectomy. 5. Right carpal tunnel surgery. 6. Cholecystectomy. 7. Laparoscopy with hernia repair and mesh. 8. Left total knee arthroplasty. 9. Right elbow fracture repair. 10. Left ankle repair. 11. Tonsillectomy. 12. Cardiac ablation. ALLERGIES: LISINOPRIL, DEMEROL, PENICILLIN. MEDICATIONS: List of her inpatient medications were reviewed. No specific updates were made. FAMILY HISTORY: Noncontributory. SOCIAL HISTORY: She smokes a half pack on a daily basis. She has a greater than 70-pack per year history of smoking. She denies any alcohol or illicit drug use. She was in the [employer]. She has no exposures; however, to chemicals, dusts, asbestos or tuberculosis that she is aware of. REVIEW OF SYSTEMS: General, head, ears, eyes, nose, throat, cardiovascular, respiratory, GI, , musculoskeletal, neurologic and skin is negative except as mentioned in the HPI. PHYSICAL EXAMINATION: VITAL SIGNS: Afebrile, pulse 78, blood pressure 130/73, respirations 18, saturation 92% on 4 liters nasal cannula. GENERAL: The patient is awake, alert, no apparent distress. LUNGS: Decent air entry. There is rhonchi present. There is also some crackles. Prolonged expiratory phase is evident with wheezing, which is polyphonic. HEART: Normal rate, regular. ABDOMEN: Soft, nontender, nondistended. Bowel sounds are positive. MUSCULOSKELETAL: No cyanosis or clubbing. Trace pitting in the bilateral lower extremities. NEUROLOGIC: Grossly nonfocal. LABORATORY DATA: WBC 19.7, hemoglobin 15.9, platelets 241,000. Band count is 14%. INR 1.0. PCO2 39, PH 7.4, PO2 40 on inspired O2 of 32% (likely VBG). Basic metabolic profile and liver function studies are otherwise unremarkable. Troponin is negative x3. BNP 155. Urinalysis is unremarkable. IMAGING: Chest x-ray demonstrates no acute cardiopulmonary abnormality. ASSESSMENT: 1. Acute on chronic hypoxic respiratory failure. 2. Chronic obstructive pulmonary disease with acute exacerbation. 3. Chronic systolic and diastolic heart failure. PLAN: Agree with antibiotics, nebulize medications and steroids. I will deescalate her steroids to p.o. We will continue other current management. BiPAP will be discontinued as the patient did not like using it and really has not been on it since she has been in the [facility]. I will transition her to the telemetry unit. I will provide her with a couple of doses of Lasix and will repeat laboratories tomorrow morning. Pulmonary and Critical Care will continue to follow. 70 minutes have been devoted to this patient in various activities. I personally reviewed all imaging studies and laboratory data noted within this document. For fifty percent of this time, I was interacting with the patient at the bedside or coordinating care with the care team. For the remainder of the time I was immediately available to the patient in the hospital unit. CLEVE
[2017-07-21] MEDS: guaiFENesin ER 600 MG TAB PO SCH (21:03)
[2017-07-21] MEDS: Atorvastatin Calcium 40 MG TAB PO SCH (21:04)
[2017-07-21] MEDS: Gabapentin 300 MG CAP PO SCH (21:04)
[2017-07-21] MEDS: Acetaminophen/Codeine 30-300mg Tablet PO PRN (22:02)
[2017-07-22 05:37] LABS: Band 5 % (5-11); Hemoglobin 14.5 g/dL (12.0-16.0); Lymphocytes 15 % (21-51); MDiff Complete? YES; Mean Corpuscular HGB CONC 32.5 g/dL (32.0-36.0); Mean Corpuscular Hemoglobin 30.5 pg (27.0-31.0); Mean Corpuscular Volume 93.9 fl (81.0-99.0); Mean Platelet Volume 7.6 fL (7.4-10.4); Monocytes 5 % (0-10); Neutrophil 74 % (42-75); Platelet Count 208 thou/uL (130-400); RBC Distribution Width 14.3 % (11.5-14.5); Reactive Lymphocytes 1 % (0-10); Red Blood Cell (RBC) Count 4.76 mill/uL (4.20-5.40); White Blood Cell (WBC) Count 15.4 thou/uL (4.8-10.8)
[2017-07-22 05:43] LABS: Anion Gap 10 mmol/L (10-20); BUN (Urea Nitrogen) 17 mg/dL (9.8-20.1); Calc. Creatinine Clearance 85 mL/min (70-130); Calcium 9.3 mg/dL (7.8-10.44); Carbon Dioxide 31 mmol/L (23-31); Chloride 96 mmol/L (98-107); Estimated GFR-MDRD 69; Glucose 130 mg/dL (83-110); Potassium 3.7 mmol/L (3.5-5.1); Sodium 133 mmol/L (136-145)
[2017-07-22] MEDS: predniSONE 20 MG TAB PO SCH (10:06)
[2017-07-22] MEDS: Carvedilol 6.25 MG TAB PO SCH ×2 (10:06→18:08)
[2017-07-22] MEDS: Potassium Chloride 10 MEQ TAB PO SCH (10:06)
[2017-07-22] MEDS: Calcium Carbonate + Vit D 1 TAB PO SCH ×2 (10:06→18:08)
[2017-07-22] MEDS: Furosemide 40 MG TAB PO SCH (10:07)
[2017-07-22] MEDS: guaiFENesin ER 600 MG TAB PO SCH ×2 (10:07→21:41)
[2017-07-22] MEDS: Famotidine 20 MG TAB PO SCH (10:07)
[2017-07-22] MEDS: Bupropion 150 MG SR TAB PO SCH ×2 (10:07→21:40)
[2017-07-22] MEDS: Ferrous Sulfate 325 MG TAB PO SCH (10:07)
[2017-07-22] MEDS: Losartan 25 MG TAB PO SCH (10:07)
[2017-07-22] MEDS: Spironolactone 25 MG TAB PO SCH (10:08)
[2017-07-22] MEDS: Oxybutynin 5 MG TAB PO SCH ×3 (10:08→21:41)
--- NOTE | 2017-07-22 11:00 | PDOC.PN ---
- Subjective Encounter Start Date: 07/22/17 Encounter Start Time: 10:58 Patient seen and examined, states she is having difficulty breathing, nurse at bedside, respiratory therapy already contacted and on their way, no other issues or complaints. - Objective Resuscitation Status: Resuscitation Status FULL:Full Resuscitation Vital Signs & Weight: Vital Signs (12 hours) Temp Pulse Resp BP Pulse Ox 07/22/17 10:09 106 H 20 07/22/17 08:00 98.9 F 92 23 H 92 L 07/22/17 07:45 98.9 F 92 23 H 97/77 91 L 07/22/17 07:34 94 18 07/22/17 04:09 97.4 F L 70 19 94/46 L 90 L 07/22/17 00:14 97.4 F L 85 20 109/56 L 90 L Weight Weight 188 lb 3.2 oz I&O: 07/21/17 07/22/17 07/23/17 06:59 06:59 06:59 Intake Total 270 1600 Output Total 6600 Balance 270 -5000 Result Diagrams: 07/22/17 04:09 07/22/17 04:09 Phys Exam - Physical Examination mild respiratory distress HEENT: PERRLA, moist MMs, sclera anicteric Neck: no nodes, no JVD Respiratory: wheezing present Cardiovascular: no significant murmur, no rub tachycardic Gastrointestinal: soft, non-tender, no distention Musculoskeletal: pulses present, edema present (trace) Dx/Plan (1) Acute on chronic respiratory failure with hypoxia Code(s): J96.21 - ACUTE AND CHRONIC RESPIRATORY FAILURE WITH HYPOXIA Status: Acute (2) Anxiety and depression Code(s): F41.8 - OTHER SPECIFIED ANXIETY DISORDERS Status: Acute (3) COPD exacerbation Code(s): J44.1 - CHRONIC OBSTRUCTIVE PULMONARY DISEASE W (ACUTE) EXACERBATION Status: Acute Comment: (4) CAD (coronary artery disease) Code(s): I25.10 - ATHSCL HEART DISEASE OF [place] CORONARY ARTERY W/O ANG PCTRS Status: Chronic Qualifiers: Comment: (5) Chronic systolic heart failure Code(s): I50.22 - CHRONIC SYSTOLIC (CONGESTIVE) HEART FAILURE Status: Chronic Comment: Stable. Not in acute exacerbation. AICD in place, EF 35-40% On carvedilol, Lasix 40mg daily. Allergic to Lisinopril (6) Hypertension Code(s): I10 - ESSENTIAL (PRIMARY) HYPERTENSION Status: Chronic Qualifiers: Comment: Controlled on Carvedilol. (7) Obesity (BMI 30-39.9) Code(s): E66.9 - OBESITY, UNSPECIFIED Status: Chronic - Plan * Patient having significant difficulty breathing, requested nurse to contact respiraotry therapy for duonebs and to place on 50% ventimask for now, can switch to bipap once respiratory therapist arrives * labs in AM * no other changes in plan of care for now, continue in ICU * CCU team following
--- NOTE | 2017-07-22 15:04 | PRG ---
DATE OF SERVICE: 07/22/2017 SERVICE: Pulmonary Medicine INTERVAL HISTORY: The patient is doing fine from a respiratory standpoint. This morning, she had a little bit of a respiratory event got put back on the BiPAP briefly. She then had resolution of that event. She has been off ever since. She blames the hot room for that condition. Apparently, the son was coming in and heated up her room to the point where she had hard time breathing. She prefers cold air. PHYSICAL EXAMINATION: VITAL SIGNS: Afebrile, pulse 99, blood pressure 121/74, respirations 24, saturation 99% on 2 liters nasal cannula. GENERAL: The patient is awake, alert, no apparent distress. LUNGS: Decent air entry. There is a prolonged expiratory phase. Wheezing and crackles are present. HEART: Normal rate, regular. ABDOMEN: Soft, nontender, nondistended. Bowel sounds positive. MUSCULOSKELETAL: No cyanosis or clubbing. There is no pitting in the bilateral lower extremities. NEUROLOGIC: Grossly nonfocal. LABORATORY DATA: WBC 15.4 and down trending. Hemoglobin 14.5, platelets 208, 000. Lymphocyte count is responding. Band count has dropped to 5%. Basic metabolic profile is essentially unremarkable. Bicarbonate is improved to 31. Troponins are negative x3. BNP 155. Urinalysis is unremarkable. ASSESSMENT: 1. Acute on chronic hypoxic respiratory failure. 2. Chronic obstructive pulmonary disease with acute exacerbation. 3. Chronic systolic and diastolic heart failure. PLAN: We will continue our antibiotics, nebulized medications and steroids. We will use the BiPAP on an as needed basis. If she goes 24 hours without use, we can successfully transition her to the floor. Laboratory holiday will be provided. Pulmonary will continue to follow. CLEVE
[2017-07-22] MEDS: Gabapentin 300 MG CAP PO SCH (21:41)
[2017-07-22] MEDS: Atorvastatin Calcium 40 MG TAB PO SCH (21:41)
[2017-07-22] MEDS: Acetaminophen/Codeine 30-300mg Tablet PO PRN (21:44)
[2017-07-23] MEDS: predniSONE 20 MG TAB PO SCH (08:06)
[2017-07-23] MEDS: Potassium Chloride 10 MEQ TAB PO SCH (08:06)
[2017-07-23] MEDS: Calcium Carbonate + Vit D 1 TAB PO SCH ×2 (08:06→16:39)
[2017-07-23] MEDS: Carvedilol 6.25 MG TAB PO SCH ×2 (08:06→16:39)
[2017-07-23] MEDS: Ferrous Sulfate 325 MG TAB PO SCH (08:07)
[2017-07-23] MEDS: Furosemide 40 MG TAB PO SCH (08:07)
[2017-07-23] MEDS: Famotidine 20 MG TAB PO SCH (08:07)
[2017-07-23] MEDS: guaiFENesin ER 600 MG TAB PO SCH ×2 (08:08→21:45)
[2017-07-23] MEDS: Losartan 25 MG TAB PO SCH (08:08)
[2017-07-23] MEDS: Spironolactone 25 MG TAB PO SCH (08:09)
[2017-07-23] MEDS: Bupropion 150 MG SR TAB PO SCH ×2 (09:27→21:45)
[2017-07-23] MEDS: Oxybutynin 5 MG TAB PO SCH ×3 (09:28→21:45)
[2017-07-23 10:10] LABS: Lactic Acid 1.5 mmol/L (0.5-2.2)
--- NOTE | 2017-07-23 10:35 | PDOC.PN ---
- Subjective Encounter Start Date: 07/23/17 Encounter Start Time: 10:33 Patient seen and examined, states she feels much better today than yesterday, no new issues or complaints. No famliy at bedside, all questions answered. - Objective Resuscitation Status: Resuscitation Status FULL:Full Resuscitation Vital Signs & Weight: Vital Signs (12 hours) Temp Pulse Resp BP BP BP Pulse Ox 07/23/17 10:18 91 18 07/23/17 08:16 97.2 F L 71 28 H 95 07/23/17 08:06 125/73 07/23/17 07:47 97.2 F L 71 28 H 125/73 95 07/23/17 06:44 72 16 07/23/17 04:00 96.9 F L 71 20 92/57 L 90 L 07/23/17 02:32 70 16 99 07/23/17 00:18 96.8 F L 69 19 96/46 L 98 Weight Weight 187 lb 1.6 oz I&O: 07/22/17 07/23/17 07/24/17 06:59 06:59 06:59 Intake Total 1600 1550 Output Total 6600 3600 Balance -4999 -2049 Result Diagrams: 07/22/17 04:09 07/22/17 04:09 Phys Exam - Physical Examination Constitutional: NAD obese HEENT: PERRLA, moist MMs, sclera anicteric Neck: no nodes Respiratory: clear to auscultation bilateral Cardiovascular: RRR, no significant murmur, no rub Gastrointestinal: soft, non-tender, no distention Musculoskeletal: pulses present, edema present (trace) Dx/Plan (1) Acute on chronic respiratory failure with hypoxia Code(s): J96.21 - ACUTE AND CHRONIC RESPIRATORY FAILURE WITH HYPOXIA Status: Acute (2) Anxiety and depression Code(s): F41.8 - OTHER SPECIFIED ANXIETY DISORDERS Status: Acute (3) COPD exacerbation Code(s): J44.1 - CHRONIC OBSTRUCTIVE PULMONARY DISEASE W (ACUTE) EXACERBATION Status: Acute Comment: (4) CAD (coronary artery disease) Code(s): I25.10 - ATHSCL HEART DISEASE OF [place] CORONARY ARTERY W/O ANG PCTRS Status: Chronic Qualifiers: Comment: (5) Chronic systolic heart failure Code(s): I50.22 - CHRONIC SYSTOLIC (CONGESTIVE) HEART FAILURE Status: Chronic Comment: Stable. Not in acute exacerbation. AICD in place, EF 35-40% On carvedilol, Lasix 40mg daily. Allergic to Lisinopril (6) Hypertension Code(s): I10 - ESSENTIAL (PRIMARY) HYPERTENSION Status: Chronic Qualifiers: Comment: Controlled on Carvedilol. (7) Obesity (BMI 30-39.9) Code(s): E66.9 - OBESITY, UNSPECIFIED Status: Chronic - Plan * doing better today, requiring oxygen * bipap not used in the last 24 hours * may consider transferring to telemetry if ok with pulmonary team * continue with current plan of care otherwise with no changes * CXR in AM * case and plan d/w patient at length, she understands and agrees with this plan
[2017-07-23] MEDS: Atorvastatin Calcium 20 MG TAB PO SCH (21:45)
[2017-07-23] MEDS: Gabapentin 300 MG CAP PO SCH (21:45)
[2017-07-23] MEDS: Acetaminophen/Codeine 30-300mg Tablet PO PRN (22:01)
[2017-07-24 05:57] LABS: #Basophils 0.1 thou/uL (0.0-0.2); #Eosinphils 0.1 thou/uL (0.0-0.7); #Lymphocytes 3.3 thou/uL (1.20-3.40); #Neutrophils 7.1 thou/uL (1.40-6.50); %Basophils 0.7 % (0.0-1.0); %Eosinophils 0.5 % (0.0-10.0); %Lymphocytes 28.6 % (21.0-51.0); %Monocytes 8.9 % (0.0-10.0); %Neutrophils 61.3 % (42.0-75.0); Mean Corpuscular HGB CONC 32.5 g/dL (32.0-36.0); Mean Corpuscular Hemoglobin 31.6 pg (27.0-31.0); Mean Platelet Volume 7.5 fL (7.4-10.4); Platelet Count 232 thou/uL (130-400); RBC Distribution Width 14.2 % (11.5-14.5); Red Blood Cell (RBC) Count 4.74 mill/uL (4.20-5.40); White Blood Cell (WBC) Count 11.5 thou/uL (4.8-10.8)
[2017-07-24 06:18] LABS: Anion Gap 13 mmol/L (10-20); BUN (Urea Nitrogen) 22 mg/dL (9.8-20.1); Calc. Creatinine Clearance 79 mL/min (70-130); Calcium 9.7 mg/dL (7.8-10.44); Carbon Dioxide 30 mmol/L (23-31); Chloride 97 mmol/L (98-107); Estimated GFR-MDRD 65; Glucose 80 mg/dL (83-110); Sodium 136 mmol/L (136-145)
[2017-07-24 07:15] VITALS: BMI 33.1
[2017-07-24] MEDS: Bupropion 150 MG SR TAB PO SCH ×2 (08:20→20:33)
[2017-07-24] MEDS: Losartan 25 MG TAB PO SCH (08:20)
[2017-07-24] MEDS: predniSONE 20 MG TAB PO SCH (08:21)
[2017-07-24] MEDS: guaiFENesin ER 600 MG TAB PO SCH ×2 (08:22→20:33)
[2017-07-24] MEDS: Spironolactone 25 MG TAB PO SCH (08:22)
[2017-07-24] MEDS: Calcium Carbonate + Vit D 1 TAB PO SCH ×2 (08:22→17:20)
[2017-07-24] MEDS: Potassium Chloride 10 MEQ TAB PO SCH (08:23)
[2017-07-24] MEDS: Carvedilol 6.25 MG TAB PO SCH ×2 (08:23→17:20)
[2017-07-24] MEDS: Ferrous Sulfate 325 MG TAB PO SCH (08:24)
[2017-07-24] MEDS: Furosemide 40 MG TAB PO SCH (08:25)
[2017-07-24] MEDS: Famotidine 20 MG TAB PO SCH (08:25)
[2017-07-24] MEDS: Oxybutynin 5 MG TAB PO SCH ×3 (08:26→20:33)
--- NOTE | 2017-07-24 10:29 | PRG ---
DATE OF SERVICE: 07/24/2017 This is a 71-year-old female admitted with increased shortness of breath, coughing and wheezing, stil l have a lot of difficulty breathing this morning. She denied any chest pain, chills or sweats. PHYSICAL EXAMINATION: VITAL SIGNS: Sats 95% on 3 liters, temperature 98, blood pressure 121/90, respirations 17. CHEST: Chest with diffuse wheezing. CARDIAC: Normal S1, S2. ABDOMEN: Soft, no masses. LABORATORY: Electrolytes are normal. Bicarb is 30. White count 11,000. Chest x-ray did not show a ny obvious infiltrates. IMPRESSION: 1. Chronic obstructive pulmonary disease exacerbation. 2. Bronchitis. PLAN: Continue neb treatments, continue steroids and Dulera. I will follow.
[2017-07-24] MEDS ORDERED: Magnesium 2 GM/NS 0.9% 100 ML 2 GM in Premix Bag 1 BAG IVPB SCH (10:45)
--- NOTE | 2017-07-24 11:48 | PRG ---
DATE OF SERVICE: 07/23/2017 SERVICE: Pulmonary Medicine. INTERVAL HISTORY: The patient is doing fantastic from a cardiovascular and respiratory standpoint. She denies any shortness of breath or chest pain. She has not been using the BiPAP at all. Otherwise, she feels like she has turned the corner. She got a fan in her room and she feels that this may all the world of difference. OBJECTIVE: VITAL SIGNS: Afebrile, pulse 93, blood pressure 111/75, respirations 21, saturation 97% on 2 liters nasal cannula. GENERAL: The patient is awake, alert, no apparent distress. LUNGS: Better air entry. There are some rhonchi present. No prolonged expiratory phase. The small airway wheezing is a little bit better today. I still hear some coarse breath sounds, however. HEART: Normal rate, regular. ABDOMEN: Soft, nontender, nondistended. Bowel sounds are positive. MUSCULOSKELETAL: No cyanosis or clubbing. No pitting in the bilateral lower extremities. NEUROLOGIC: Grossly nonfocal. LABORATORY DATA: Lactate 1.5. ASSESSMENT: 1. Acute on chronic hypoxic and hypercapnic respiratory failure, improving. 2. Chronic obstructive pulmonary disease with acute exacerbation. 3. Chronic systolic and diastolic heart failure. PLAN: I will continue her antibiotics, nebulized medications, and steroids. We will watch her volume status to make sure she maintains euvolemia. We can transition her to the floor today. Pulmonary Critical Care will continue to follow along. CLEVE
[2017-07-24] MEDS ORDERED: Magnesium 2 GM/NS 0.9% 50 ML 2 GM in Premix Bag 1 BAG IVPB SCH (13:00)
--- NOTE | 2017-07-24 13:49 | PDOC.PN ---
- Subjective Encounter Start Date: 07/24/17 Encounter Start Time: 08:20 Pt seen for followup re: acute on chronic respiratory failure. Reports cough, minimal sputum. No fevers or chills. - Objective Resuscitation Status: Resuscitation Status FULL:Full Resuscitation Vital Signs & Weight: Vital Signs (12 hours) Temp Pulse Resp BP BP BP Pulse Ox 07/24/17 13:30 63 16 96 07/24/17 11:30 97.9 F 88 22 H 110/63 93 L 07/24/17 09:45 70 20 95 07/24/17 08:23 121/70 07/24/17 08:10 98 F 84 18 93 L 07/24/17 07:08 98 F 84 18 121/70 93 L 07/24/17 06:44 67 16 95 07/24/17 02:31 61 16 95 Weight Weight 187 lb I&O: 07/23/17 07/24/17 07/25/17 06:59 06:59 06:59 Intake Total 1550 2145 Output Total 3600 1425 Balance -2049 720 Result Diagrams: 07/24/17 05:05 07/24/17 05:05 Phys Exam - Physical Examination Obese HEENT: moist MMs Neck: supple Respiratory: wheezing present Cardiovascular: RRR Gastrointestinal: soft Neurological: moves all 4 limbs Psychiatric: normal affect Skin: no rash Dx/Plan (1) Acute on chronic respiratory failure with hypoxia Code(s): J96.21 - ACUTE AND CHRONIC RESPIRATORY FAILURE WITH HYPOXIA Status: Acute Comment: due to COPD exacerbation (2) COPD exacerbation Code(s): J44.1 - CHRONIC OBSTRUCTIVE PULMONARY DISEASE W (ACUTE) EXACERBATION Status: Acute Comment: Continue oxygen, steroids, bronchodilators and antibiotics. (3) Anxiety and depression Code(s): F41.8 - OTHER SPECIFIED ANXIETY DISORDERS Status: Chronic Comment: stable (4) CAD (coronary artery disease) Code(s): I25.10 - ATHSCL HEART DISEASE OF [place] CORONARY ARTERY W/O ANG PCTRS Status: Chronic Qualifiers: Comment: stable (5) Hypertension Code(s): I10 - ESSENTIAL (PRIMARY) HYPERTENSION Status: Chronic Qualifiers: Comment: Monitor vital signs, titrate antihypertensives as needed (6) Obesity (BMI 30-39.9) Code(s): E66.9 - OBESITY, UNSPECIFIED Status: Chronic - Plan * . Review of Systems - Review of Systems Constitutional: negative: fever, chills, sweats, weakness, malaise Respiratory: Cough, Shortness of Breath, SOB with Excertion, Sputum, Wheezing Cardiovascular: negative: chest pain, palpitations, orthopnea, paroxysmal nocturnal dyspnea, edema, light headedness - Medications/Allergies Allergies/Adverse Reactions: Allergies Allergy/AdvReac Type Severity Reaction Status Date / Time lisinopril Allergy Verified 07/21/17 02:33 meperidine HCl [From Demerol] Allergy Verified 07/21/17 02:33 Penicillins Allergy Verified 07/21/17 02:33 Medications: Current Medications Acetaminophen (Tylenol) 1,000 mg PO Q6H PRN PRN Reason: Headache/Fever or Mild Pain Acetaminophen/Codeine Phosphate (Tylenol #3) 1 tab PO Q6H PRN PRN Reason: Pain 4-6 Acetaminophen/Codeine Phosphate (Tylenol #3) 2 tab PO Q6H PRN PRN Reason: Pain 7-10 Last Admin: 07/23/17 22:01 Dose: 2 tab Albuterol Sulfate (Proventil Hfa) 2 puff INH Q4H PRN PRN Reason: SOB &/or Wheezing Albuterol Sulfate (Ventolin) 7.5 mg NEB Q8H PRN PRN Reason: SOB &/or Wheezing Albuterol/Ipratropium (Duoneb) 3 ml NEB [id number] [facility] Last Admin: 07/24/17 13:30 Dose: 3 ml Atorvastatin Calcium (Lipitor) 40 mg PO HS [facility] Last Admin: 07/23/17 21:45 Dose: 40 mg Bupropion HCl (Wellbutrin Sr) 150 mg PO BID [facility] Last Admin: 07/24/17 08:20 Dose: 150 mg Calcium/Vitamin D (Caltrate 600 + Vit D) 1 tab PO BID-[facility] Last Admin: 07/24/17 08:22 Dose: 1 tab Carvedilol (Coreg) 6.25 mg PO BID-[facility] Last Admin: 07/24/17 08:23 Dose: 6.25 mg Clonidine (Catapres) 0.1 mg PO Q4H PRN PRN Reason: Systolic BP > 180 Estrogens Conjugated (Premarin Cream) 1 gm VAG DAILY PRN PRN Reason: Hormone replacement Famotidine (Pepcid) 20 mg PO DAILY [facility] Last Admin: 07/24/17 08:25 Dose: 20 mg Ferrous Sulfate (Feosol) 325 mg PO DAILY [facility] Last Admin: 07/24/17 08:24 Dose: 325 mg Furosemide (Lasix) 40 mg PO DAILY [facility] Last Admin: 07/24/17 08:25 Dose: 40 mg Gabapentin (Neurontin) 300 mg PO HS [facility] Last Admin: 07/23/17 21:45 Dose: 300 mg Guaifenesin (Mucinex) 1,200 mg PO Q12HR [facility] Last Admin: 07/24/17 08:22 Dose: 1,200 mg Hydralazine HCl (Apresoline) 10 mg SLOW IVP Q4H PRN PRN Reason: Systolic BP > 180 Levofloxacin 750 mg/ Device 150 mls @ 100 mls/hr IVPB Q24HR [facility] Last Admin: 07/24/17 05:49 Dose: 150 mls Magnesium Sulfate 2 gm/ Device 50 mls @ 200 mls/hr IVPB ONE [facility] Stop: 07/24/17 14:00 Loratadine (Claritin) 10 mg PO DAILY PRN PRN Reason: Sinus Symptoms Losartan Potassium (Cozaar) 12.5 mg PO DAILY [facility] Last Admin: 07/24/17 08:20 Dose: 12.5 mg Mometasone Furoate/Formoterol Fumar (Dulera 200 Mcg/5 Mcg Inhaler) 2 puff INH BID-RT [facility] Ondansetron HCl (Zofran Odt) 4 mg PO Q6H PRN PRN Reason: Nausea/Vomiting Ondansetron HCl (Zofran) 4 mg IVP Q6H PRN PRN Reason: Nausea/Vomiting Oxybutynin Chloride (Ditropan) 5 mg PO TID [facility] Last Admin: 07/24/17 08:26 Dose: 5 mg Potassium Chloride (Klor-Con 10) 10 meq PO QAM-WM [facility] Last Admin: 07/24/17 08:23 Dose: 10 meq Prednisone (Prednisone) 40 mg PO QAM-WM [facility] Stop: 07/29/17 08:01 Last Admin: 07/24/17 08:21 Dose: 40 mg Sodium Chloride (Flush - Normal Saline) 10 ml IVF Q12HR [facility] Last Admin: 07/24/17 08:26 Dose: 10 ml Sodium Chloride (Flush - Normal Saline) 10 ml IVF PRN PRN PRN Reason: Saline Flush Spironolactone (Aldactone) 25 mg PO DAILY [facility] Last Admin: 07/24/17 08:22 Dose: 25 mg
[2017-07-24] MEDS: Mometasone/Formoterol 120 PUFF INHALER INH SCH (18:52)
[2017-07-24] MEDS: Gabapentin 300 MG CAP PO SCH (20:33)
[2017-07-24] MEDS: Atorvastatin Calcium 20 MG TAB PO SCH (20:33)
[2017-07-24] MEDS: Acetaminophen/Codeine 30-300mg Tablet PO PRN (21:20)
[2017-07-25] MEDS: Mometasone/Formoterol 120 PUFF INHALER INH SCH ×2 (05:49→20:35)
[2017-07-25] MEDS: Calcium Carbonate + Vit D 1 TAB PO SCH ×2 (08:25→17:21)
[2017-07-25] MEDS: guaiFENesin ER 600 MG TAB PO SCH ×2 (08:25→21:25)
[2017-07-25] MEDS: Carvedilol 6.25 MG TAB PO SCH ×2 (08:26→17:21)
[2017-07-25] MEDS: Spironolactone 25 MG TAB PO SCH (08:26)
[2017-07-25] MEDS: Oxybutynin 5 MG TAB PO SCH ×3 (08:26→21:25)
[2017-07-25] MEDS: Losartan 25 MG TAB PO SCH (08:26)
[2017-07-25] MEDS: Potassium Chloride 10 MEQ TAB PO SCH (08:26)
[2017-07-25] MEDS: Ferrous Sulfate 325 MG TAB PO SCH (08:26)
[2017-07-25] MEDS: predniSONE 20 MG TAB PO SCH (08:26)
[2017-07-25] MEDS: Furosemide 40 MG TAB PO SCH (08:26)
[2017-07-25] MEDS: Famotidine 20 MG TAB PO SCH (08:26)
[2017-07-25] MEDS: Bupropion 150 MG SR TAB PO SCH ×2 (08:31→21:25)
--- NOTE | 2017-07-25 09:49 | PRG ---
DATE OF SERVICE: 07/25/2017 SUBJECTIVE: This morning, she is better. She is still wheezing. IV infiltrate. OBJECTIVE: VITAL SIGNS: Sats are 92% on 2 liters, temperature 98, blood pressure 130/81. CHEST: Still diffuse wheezing. CARDIAC: Normal S1, S2, no gallops. ABDOMEN: Soft, no masses. ASSESSMENT: She was having bronchitis. PLAN: Switch over to oral medication, neb treatments. Supportive care and PT. She is stable to be discharged in the next 24-48 hours.
--- NOTE | 2017-07-25 13:40 | PDOC.PN ---
- Subjective Encounter Start Date: 07/25/17 Encounter Start Time: 07:20 Pt seen for followup re: acute on chronic resp failure. Reports feeling better. No chest pain, shortness of breath is better. - Objective Resuscitation Status: Resuscitation Status FULL:Full Resuscitation MAR Reviewed: Yes Vital Signs & Weight: Vital Signs (12 hours) Temp Pulse Resp BP BP BP Pulse Ox 07/25/17 13:30 63 16 96 07/25/17 11:23 97.9 F 93 20 128/71 91 L 07/25/17 09:47 71 16 96 07/25/17 09:10 99.0 F 91 20 90 L 07/25/17 08:26 138/81 07/25/17 07:15 99.0 F 91 20 138/81 90 L 07/25/17 05:49 69 16 96 07/25/17 05:46 69 16 96 07/25/17 04:00 98.1 F 74 16 106/62 93 L 07/25/17 02:04 16 Weight Weight 187 lb I&O: 07/24/17 07/25/17 07/26/17 06:59 06:59 06:59 Intake Total 2145 1770 Output Total 1425 Balance 720 1770 Result Diagrams: 07/24/17 05:05 07/24/17 05:05 Phys Exam - Physical Examination Obese HEENT: moist MMs Neck: supple Respiratory: clear to auscultation bilateral Cardiovascular: RRR Gastrointestinal: soft Neurological: moves all 4 limbs Psychiatric: normal affect Dx/Plan (1) Acute on chronic respiratory failure with hypoxia Code(s): J96.21 - ACUTE AND CHRONIC RESPIRATORY FAILURE WITH HYPOXIA Status: Acute Comment: Improving (2) COPD exacerbation Code(s): J44.1 - CHRONIC OBSTRUCTIVE PULMONARY DISEASE W (ACUTE) EXACERBATION Status: Acute Comment: Continue oxygen, oral steroids, bronchodilators and oral antibiotics. (3) Anxiety and depression Code(s): F41.8 - OTHER SPECIFIED ANXIETY DISORDERS Status: Chronic Comment: stable (4) CAD (coronary artery disease) Code(s): I25.10 - ATHSCL HEART DISEASE OF [place] CORONARY ARTERY W/O ANG PCTRS Status: Chronic Qualifiers: Comment: stable (5) Hypertension Code(s): I10 - ESSENTIAL (PRIMARY) HYPERTENSION Status: Chronic Qualifiers: Comment: titrate antihypertensives as needed (6) Obesity (BMI 30-39.9) Code(s): E66.9 - OBESITY, UNSPECIFIED Status: Chronic - Plan * . Review of Systems - Review of Systems Respiratory: Cough, Dry, SOB with Excertion. negative: Shortness of Breath, Hemoptysis, Pleuritic Pain, Wheezing Cardiovascular: negative: chest pain, palpitations, orthopnea, paroxysmal nocturnal dyspnea, edema, light headedness - Medications/Allergies Allergies/Adverse Reactions: Allergies Allergy/AdvReac Type Severity Reaction Status Date / Time lisinopril Allergy Verified 07/21/17 02:33 meperidine HCl [From Demerol] Allergy Verified 07/21/17 02:33 Penicillins Allergy Verified 07/21/17 02:33 Medications: Current Medications Acetaminophen (Tylenol) 1,000 mg PO Q6H PRN PRN Reason: Headache/Fever or Mild Pain Acetaminophen/Codeine Phosphate (Tylenol #3) 1 tab PO Q6H PRN PRN Reason: Pain 4-6 Acetaminophen/Codeine Phosphate (Tylenol #3) 2 tab PO Q6H PRN PRN Reason: Pain 7-10 Last Admin: 07/24/17 21:20 Dose: 2 tab Albuterol Sulfate (Proventil Hfa) 2 puff INH Q4H PRN PRN Reason: SOB &/or Wheezing Albuterol Sulfate (Ventolin) 7.5 mg NEB Q8H PRN PRN Reason: SOB &/or Wheezing Albuterol/Ipratropium (Duoneb) 3 ml NEB [id number] [facility] Last Admin: 07/25/17 13:30 Dose: 3 ml Atorvastatin Calcium (Lipitor) 40 mg PO HS [facility] Last Admin: 07/24/17 20:33 Dose: 40 mg Bupropion HCl (Wellbutrin Sr) 150 mg PO BID [facility] Last Admin: 07/25/17 08:31 Dose: 150 mg Calcium/Vitamin D (Caltrate 600 + Vit D) 1 tab PO BID-[facility] Last Admin: 07/25/17 08:25 Dose: 1 tab Carvedilol (Coreg) 6.25 mg PO BID-[facility] Last Admin: 07/25/17 08:26 Dose: 6.25 mg Clonidine (Catapres) 0.1 mg PO Q4H PRN PRN Reason: Systolic BP > 180 Estrogens Conjugated (Premarin Cream) 1 gm VAG DAILY PRN PRN Reason: Hormone replacement Famotidine (Pepcid) 20 mg PO DAILY [facility] Last Admin: 07/25/17 08:26 Dose: 20 mg Ferrous Sulfate (Feosol) 325 mg PO DAILY [facility] Last Admin: 07/25/17 08:26 Dose: 325 mg Furosemide (Lasix) 40 mg PO DAILY [facility] Last Admin: 07/25/17 08:26 Dose: 40 mg Gabapentin (Neurontin) 300 mg PO HS [facility] Last Admin: 07/24/17 20:33 Dose: 300 mg Guaifenesin (Mucinex) 1,200 mg PO Q12HR [facility] Last Admin: 07/25/17 08:25 Dose: 1,200 mg Hydralazine HCl (Apresoline) 10 mg SLOW IVP Q4H PRN PRN Reason: Systolic BP > 180 Levofloxacin (Levaquin) 750 mg PO 0600 [facility] Loratadine (Claritin) 10 mg PO DAILY PRN PRN Reason: Sinus Symptoms Losartan Potassium (Cozaar) 12.5 mg PO DAILY [facility] Last Admin: 07/25/17 08:26 Dose: 12.5 mg Mometasone Furoate/Formoterol Fumar (Dulera 200 Mcg/5 Mcg Inhaler) 2 puff INH BID-RT [facility] Last Admin: 07/25/17 05:49 Dose: 2 puff Ondansetron HCl (Zofran Odt) 4 mg PO Q6H PRN PRN Reason: Nausea/Vomiting Ondansetron HCl (Zofran) 4 mg IVP Q6H PRN PRN Reason: Nausea/Vomiting Oxybutynin Chloride (Ditropan) 5 mg PO TID [facility] Last Admin: 07/25/17 08:26 Dose: 5 mg Potassium Chloride (Klor-Con 10) 10 meq PO QAM-[facility] Last Admin: 07/25/17 08:26 Dose: 10 meq Prednisone (Prednisone) 40 mg PO QAM-WM [facility] Stop: 07/29/17 08:01 Last Admin: 07/25/17 08:26 Dose: 40 mg Sodium Chloride (Flush - Normal Saline) 10 ml IVF Q12HR [facility] Last Admin: 07/25/17 08:27 Dose: Not Given Sodium Chloride (Flush - Normal Saline) 10 ml IVF PRN PRN PRN Reason: Saline Flush Spironolactone (Aldactone) 25 mg PO DAILY [facility] Last Admin: 07/25/17 08:26 Dose: 25 mg
[2017-07-25] MEDS: Atorvastatin Calcium 20 MG TAB PO SCH (21:24)
[2017-07-25] MEDS: Gabapentin 300 MG CAP PO SCH (21:25)
[2017-07-25] MEDS: Acetaminophen/Codeine 30-300mg Tablet PO PRN (21:27)
[2017-07-26] MEDS: Mometasone/Formoterol 120 PUFF INHALER INH SCH (06:23)
[2017-07-26] MEDS: Bupropion 150 MG SR TAB PO SCH (08:51)
[2017-07-26] MEDS: Carvedilol 6.25 MG TAB PO SCH (08:51)
[2017-07-26] MEDS: predniSONE 20 MG TAB PO SCH (08:51)
[2017-07-26] MEDS: Oxybutynin 5 MG TAB PO SCH (08:52)
[2017-07-26] MEDS: Calcium Carbonate + Vit D 1 TAB PO SCH (08:52)
[2017-07-26] MEDS: guaiFENesin ER 600 MG TAB PO SCH (08:52)
[2017-07-26] MEDS: Famotidine 20 MG TAB PO SCH (08:52)
[2017-07-26] MEDS: Potassium Chloride 10 MEQ TAB PO SCH (08:52)
[2017-07-26] MEDS: Ferrous Sulfate 325 MG TAB PO SCH (08:53)
[2017-07-26] MEDS: Spironolactone 25 MG TAB PO SCH (08:53)
[2017-07-26] MEDS: Losartan 25 MG TAB PO SCH (08:53)
[2017-07-26] MEDS: Furosemide 40 MG TAB PO SCH (08:53)
--- NOTE | 2017-07-26 09:32 | PRG ---
DATE OF SERVICE: 07/26/2017 This morning she is better, less short of breath, less cough and wheezing. PHYSICAL EXAMINATION: VITAL SIGNS: Sats are 90% on 2, temperature 97, respiration 28, blood pressure 120/76. CHEST: Chest reveals decreased breath sounds, occasional wheeze. CARDIAC: Normal S1-S2. No gallops. ABDOMEN: Soft, no masses. IMPRESSION: 1. Chronic obstructive pulmonary disease exacerbation. 2. Bronchitis. PLAN: She can be discharged home on tapering dose of prednisone for 10 days, antibiotics for 5 days. Otherwise, she has a nebulizer at home. She can be seen in the office in 2-3 weeks. She is follow ed in the [place] system.
[2017-07-26 16:10] VITALS: BP 113/79; TEMP 97.8
--- NOTE | 2017-07-27 15:11 | DIS ---
DISCHARGE DIAGNOSES: 1. Chronic obstructive pulmonary disease exacerbation. 2. Acute on chronic respiratory failure with hypoxia secondary to chronic obstructive pulmonary dise ase exacerbation, resolving. 3. History of coronary artery disease. 4. History of anxiety and depression. BRIEF SUMMARY OF HOSPITAL COURSE: This is a 71-year-old female with a known history of coronary rocco ry disease and COPD, who presented with acute shortness of breath, noted to have acute respiratory fa ilure. Please see the original history and physical for full details. The patient was found to be i n COPD exacerbation and started on medical regimen including steroids, supplemental O2, nebulizers, a nd empiric antibiotics. Pulmonology was consulted for the patient's acute on chronic respiratory prudence lure with hypoxia and at the time of discharge, her symptoms are greatly improved. The patient's chr onic coronary artery disease, anxiety and depression have otherwise remained stable during this hospi talization. CONSULTATIONS: Pulmonary. MEDICATION RECONCILIATION: Please see the EMR for full details. At the time of discharge, the wilma nt will continue on her home regimen with the addition of prednisone taper and doxycycline 100 mg p.o . b.i.d., antibiotic regimen. The patient has also been given a prescription of DuoNebs as needed. CONDITION ON DISCHARGE: At the time of discharge, the patient is hemodynamically stable, tolerating her baseline diet and ADLs. The patient was seen and examined on the day of discharge. DISCHARGE INSTRUCTIONS: The patient is asked to follow up closely with her primary care provider and her outpatient team including her fiber optic central office installer. The patient has been counseled regarding smoking c essation multiple times by multiple providers during this hospitalization and unfortunately is curren tly precontemplative of cessation. The patient is able to complete teach back in regards to her home medication regimen changes. Thank you for asking me to care for your patient. Questions or concerns, contact me at [facility].
--- NOTE | 2017-07-29 22:58 | EKG ---
Test Reason : Blood Pressure : / mmHG Vent. Rate : 107 BPM Atrial Rate : 107 BPM P-R Int : 128 ms QRS Dur : 112 ms QT Int : 346 ms P-R-T Axes : 004 076 -43 degrees QTc Int : 461 ms Sinus tachycardia with Premature supraventricular complexes Incomplete left bundle branch block Abnormal ECG Confirmed by RANJITH KOTHARI, ЕЛЕНА ([id number]), manuscript editor JORY PARTIDA ([id number]) on 07/29/2017 10:58:06 PM Referred By: Confirmed By:ЕЛЕНА KASPER MD
== END 2017-07-26 16:27 | disposition home health service (06) | DRG 189 ==
LOC: ERS 21:48 → IMCU/EMU 07-21 00:05 → SURG A 07-23 17:32
PROVIDERS: ADMIT Family Medicine; ATTEND Family Medicine
DX: J96.21 Acute and chronic respiratory failure with hypoxia (principal); I11.0 Hypertensive heart disease with heart failure; I50.42 Chronic combined systolic (congestive) and diastolic (congestive) heart failure; Z99.81 Dependence on supplemental oxygen; J44.1 Chronic obstructive pulmonary disease with (acute) exacerbation; I25.10 Atherosclerotic heart disease of native coronary artery without angina pectoris; Z95.1 Presence of aortocoronary bypass graft; E78.5 Hyperlipidemia, unspecified; Z95.810 Presence of automatic (implantable) cardiac defibrillator; F17.210 Nicotine dependence, cigarettes, uncomplicated; F32.9 Major depressive disorder, single episode, unspecified; F41.9 Anxiety disorder, unspecified; E66.9 Obesity, unspecified; Z68.39 Body mass index [BMI] 39.0-39.9, adult
CPT/HCPCS: 36415; 71045; 80048; 80053; 81003; 82553; 82805; 83605; 83880; 84484; 85007; 85025; 85027; 85610; 85730; 93005; 94640; 94660; 96365; 96374; 96375; 99406; G8978-GP-CJ; G8979-GP-CI; J1940; J1956; J2060; J3475; J7506; J7620

== ENCOUNTER 2017-07-27 14:20 | Inpatient (IN) | payer MEDICARE ==
[2017-07-27 15:19] LABS: #Eosinphils 0.1 thou/uL (0.0-0.7); #Lymphocytes 1.2 thou/uL (1.20-3.40); #Monocytes 0.4 thou/uL (0.11-0.59); %Basophils 0.1 % (0.0-1.0); %Eosinophils 0.6 % (0.0-10.0); %Lymphocytes 9.6 % (21.0-51.0); %Monocytes 2.8 % (0.0-10.0); %Neutrophils 86.8 % (42.0-75.0); Mean Corpuscular HGB CONC 32.4 g/dL (32.0-36.0); Mean Corpuscular Hemoglobin 30.7 pg (27.0-31.0); Mean Corpuscular Volume 94.8 fl (81.0-99.0); Mean Platelet Volume 6.9 fL (7.4-10.4); Platelet Count 300 thou/uL (130-400); RBC Distribution Width 13.8 % (11.5-14.5); Red Blood Cell (RBC) Count 5.22 mill/uL (4.20-5.40); White Blood Cell (WBC) Count 12.7 thou/uL (4.8-10.8)
--- NOTE | 2017-07-27 15:27 | RAD ---
AP CHEST: Indication: COPD, shortness of breath. FINDINGS: There is mild cardiomegaly. Chronic lung change is stable. There is a dual lead AICD in the left ches t wall. No acute osseous abnormality is evident. IMPRESSION: Stable cardiomegaly and COPD changes. POS: RADHA
[2017-07-27 15:42] LABS: ALT (SGPT) 14 U/L (8-55); AST (SGOT) 11 U/L (5-34); Albumin 3.9 g/dL (3.4-4.8); Alkaline Phosphatase 97 U/L (40-150); Anion Gap 16 mmol/L (10-20); BUN (Urea Nitrogen) 18 mg/dL (9.8-20.1); Bilirubin, Total 0.5 mg/dL (0.2-1.2); CK (CPK) 40 U/L (29-168); Calc. Creatinine Clearance 0 mL/min (70-130); Calcium 9.9 mg/dL (7.8-10.44); Carbon Dioxide 26 mmol/L (23-31); Chloride 96 mmol/L (98-107); Estimated GFR-MDRD 59; Globulin 2.6 g/dL (2.4-3.5); Glucose 177 mg/dL (83-110); Potassium 4.5 mmol/L (3.5-5.1); Protein, Total 6.5 g/dL (6.0-8.3); Sodium 133 mmol/L (136-145)
[2017-07-27 15:45] LABS: CKMB 1.8 ng/mL (0-6.6); Troponin I 0.011 ng/mL (< 0.028)
[2017-07-27] MEDS ORDERED: methylPREDNISolone Sod Succ/PF 125 MG/2 ML VIAL ONE (15:53)
[2017-07-27] MEDS ORDERED: Acetaminophen 325 MG TAB PO PRN (18:28)
[2017-07-27] MEDS ORDERED: Bisacodyl 5 MG TAB PO PRN (18:28)
[2017-07-27] MEDS ORDERED: Acetaminophen 650 MG Suppository PR PRN (18:28)
[2017-07-27] MEDS ORDERED: Nicotine 14 MG PATCH TD SCH (18:30)
[2017-07-27 19:08] LABS: Lactic Acid 1.8 mmol/L (0.5-2.2)
--- NOTE | 2017-07-27 20:21 | HP ---
PRIMARY CARE PROVIDER: [facility]. CHIEF COMPLAINT: Shortness of breath. HISTORY OF PRESENT ILLNESS: Ms. Tapia is a pleasant 71-year-old lady, who was seen at [facility] on 07/27/2017. She was hospitalized at this facility from 07/21/2017 to 07/26. She was discharged home yesterday. She was supposed to follow up with her senior web services developer at [facility]. She reports that she was feeling well when she left the hospital. After going home, she started havi ng shortness of breath. She also reports cough that is nonproductive. She denies any fevers or chil ls. She reports shortness of breath with minimal exertion. She came to the emergency room today bec ause of ongoing shortness of breath. She could not keep her appointment with her senior web services developer for t he same reason. She denies any fevers or chills. She denies any nausea or vomiting. She denies any urinary symptoms . REVIEW OF SYSTEMS: The following complete review of systems was negative, unless otherwise mentioned in the HPI or below: Constitutional: Weight loss or gain, ability to conduct usual activities. Sk in: Rash, itching. Eyes: Double vision, pain. ENT/Mouth: Nose bleeding, neck stiffness, pain, te nderness. Cardiovascular: Palpitations, dyspnea on exertion, orthopnea. Respiratory: Shortness of breath, wheezing, cough, hemoptysis, fever or night sweats. Gastrointestinal: Poor appetite, abdom inal pain, heartburn, nausea, vomiting, constipation, or diarrhea. Genitourinary: Urgency, frequenc y, dysuria, nocturia. Musculoskeletal: Pain, swelling. Neurologic/Psychiatric: Anxiety, depressio n. Allergy/Immunologic: Skin rash, bleeding tendency. PAST MEDICAL HISTORY: Chronic hypoxemic respiratory failure, on home oxygen therapy; hypertension; c oronary artery disease, status post coronary artery bypass graft; MRSA chest wound infection in 2010; dyslipidemia; urinary incontinence; chronic systolic congestive heart failure; chronic obstructive p ulmonary disease with multiple exacerbations, osteoarthritis. PAST SURGICAL HISTORY: Pacemaker/AICD placement, coronary artery bypass graft, bilateral cataract hernandez rgery, appendectomy, right carpal tunnel release, cholecystectomy, laparoscopy with hernia repair and mesh rejection, left total knee arthroplasty, right elbow fracture with repair, left ankle repair, t onsillectomy, and cardiac ablation for arrhythmia. CURRENT MEDICATIONS: Albuterol p.r.n., aspirin 325 mg daily, atorvastatin 80 mg daily, Coreg 6.25 mg 2 times a day, losartan 25 mg daily, nitroglycerin p.r.n., omeprazole 20 mg daily, oxybutynin 5 mg 3 times a day, spironolactone 25 mg daily, trazodone 100 mg at bedtime, guaifenesin 400mg as needed, C elebrex 200 mg 2 times a day, Neurontin 100 mg 3 times a day, bupropion 150 mg 2 times a day, Flexeri l 10 mg as needed, prednisone 20 mg 2 times a day, Levofloxacin 750 mg daily. FAMILY HISTORY: The patient denies any family history of premature coronary artery disease. SOCIAL HISTORY: She smokes half a pack of cigarettes a day. She denies alcohol use or recreational drug use. CODE STATUS: I discussed her code status. She is FULL CODE. Her nephew Beny is the surrogate de cision maker. ALLERGIES: LISINOPRIL, DEMEROL, AND PENICILLIN. PHYSICAL EXAMINATION: GENERAL: Ms. Tapia is awake and alert, in moderate respiratory distress. VITAL SIGNS: Blood pressure is 113/91, pulse is 97. She is breathing at rate of 36 and saturating 9 4% on 2 liters of oxygen on BiPAP machine. She is afebrile. EYES: No scleral icterus. No conjunctival pallor. ENT: Moist mucosal membranes, no oropharyngeal erythema or exudates. NECK: Supple, nontender, normal range of movement. Trachea is midline. RESPIRATORY: Accessory muscles of breathing are active. Chest wall movements are symmetric bilatera lly. Lungs examination reveals markedly diminished air entry at both bases, upper lung zones are augusto ar. CARDIOVASCULAR: S1 and S2 are heard, regular. Peripheral pulses palpable. No carotid bruit, no per icardial rub. ABDOMEN: Soft, nontender, bowel sounds heard, no hepatomegaly, no splenomegaly. She has an abdomina l wall hernia. NEUROLOGIC: Cranial nerves II-XII intact. Deep tendon reflexes 2+. MUSCULOSKELETAL: Power is 5/5 in all 4 extremities. Normal range of movement at all major extremity joints. SKIN: No rashes or subcutaneous nodules. LYMPHATIC: No cervical lymphadenopathy. PSYCHIATRIC: The patient mildly anxious, oriented to person, place, and time. LABORATORY DATA AND IMAGING: Ms. Tapia's labs and investigations were reviewed. I reviewed her e lectrocardiogram, which shows normal sinus rhythm, no ST changes to suggest an acute coronary syndrom e. I also reviewed her chest x-ray, which does not show any pulmonary infiltrates. She has leukocyt osis with 12,700 white cells, of which 86.8% are neutrophils, normal hemoglobin, normal platelet coun t, decreased sodium of 133, normal potassium, normal creatinine, normal liver profile, elevated lacti c acid level of 2.6 and elevated BNP of 131.1. Troponin I is normal. ASSESSMENT AND PLAN: Ms. Tapia is a pleasant 71-year-old lady who was seen at [facility] on 07/27/2017. Her problem list includes: 1. Acute on chronic hypoxic respiratory failure: Likely secondary to chronic obstructive pulmonary disease exacerbation. She is currently on a BiPAP machine. She will be admitted to the [facility] for fur ther management. 2. Chronic obstructive pulmonary disease exacerbation: She will be treated with oxygen, steroids, b ronchodilators and antibiotics. Pulmonology Service consult has been requested by the emergency room physician. 3. Hyponatremia: Mild, likely asymptomatic, we will recheck. 4. Lactic acidosis: Likely secondary to chronic obstructive pulmonary disease exacerbation. We angélica l recheck lactic acid level. 5. Hypertension: Monitor vital signs, titrate antihypertensives as needed. 6. Coronary artery disease: Stable, the patient denies any chest pain at this time. 7. Dyslipidemia: Continue statin. 8. Chronic systolic congestive heart failure: Appears to be stable. BNP only slightly elevated, no evidence of volume overload at this time. 9. Tobacco abuse: Counseled patient regarding tobacco cessation, start nicotine replacement therapy . Many thanks for allowing me to participate in your patient's care. Please feel free to contact me wi th any questions or concerns. LEVEL OF RISK: High. LEVEL OF COMPLEXITY: High.
[2017-07-27 22:04] VITALS: BMI 34.6
[2017-07-27] MEDS ORDERED: Ondansetron ODT 4 MG TAB SL PRN (22:15)
[2017-07-27] MEDS ORDERED: Ondansetron HCl/PF 4 MG/2 ML Vial IVP PRN (22:15)
[2017-07-28 04:38] LABS: #Lymphocytes 1.3 thou/uL (1.20-3.40); #Monocytes 0.2 thou/uL (0.11-0.59); #Neutrophils 8.9 thou/uL (1.40-6.50); %Basophils 0.2 % (0.0-1.0); %Eosinophils 0.4 % (0.0-10.0); %Monocytes 1.6 % (0.0-10.0); %Neutrophils 85.9 % (42.0-75.0); Hemoglobin 14.5 g/dL (12.0-16.0); Mean Corpuscular HGB CONC 31.7 g/dL (32.0-36.0); Mean Corpuscular Hemoglobin 30.7 pg (27.0-31.0); Mean Platelet Volume 7.3 fL (7.4-10.4); Platelet Count 273 thou/uL (130-400); RBC Distribution Width 13.9 % (11.5-14.5); Red Blood Cell (RBC) Count 4.71 mill/uL (4.20-5.40); White Blood Cell (WBC) Count 10.4 thou/uL (4.8-10.8)
[2017-07-28 04:48] LABS: Anion Gap 12 mmol/L (10-20); BUN (Urea Nitrogen) 15 mg/dL (9.8-20.1); Calc. Creatinine Clearance 92 mL/min (70-130); Carbon Dioxide 27 mmol/L (23-31); Chloride 100 mmol/L (98-107); Estimated GFR-MDRD 74; Glucose 124 mg/dL (83-110); Potassium 4.4 mmol/L (3.5-5.1); Sodium 135 mmol/L (136-145)
[2017-07-28] MEDS: Enoxaparin Sodium 40 MG/0.4 ML SYRINGE SC SCH (08:05)
[2017-07-28] MEDS ORDERED: Estrogens, Conjugated 30 GM TUBE VAG PRN (08:23)
--- NOTE | 2017-07-28 08:34 | PDOC.PN ---
- Subjective Encounter Start Date: 07/28/17 Encounter Start Time: 08:33 Ms. Tapia was seen today in follow-up of COPD exacerbation. She says she is breathing better today. She appears dyspneic, and is using accessory muscles of respiration. she admits to cough productive of yellow sputum, which is looser than it has been. - Objective MAR Reviewed: Yes Vital Signs & Weight: Vital Signs (12 hours) Temp Pulse Resp BP Pulse Ox 07/28/17 07:45 97.9 F 89 22 H 104/69 92 L 07/28/17 06:36 89 16 07/28/17 04:00 96.8 F L 77 23 H 115/55 L 98 07/28/17 02:55 68 16 99 07/27/17 23:58 97.6 F 66 20 117/62 100 07/27/17 22:35 73 15 100 07/27/17 22:34 68 12 99 07/27/17 22:30 97.6 F 66 28 H 100 07/27/17 22:02 97.4 F L 82 28 H 125/84 100 Weight Weight 194 lb 4.8 oz I&O: 07/27/17 07/28/17 07/29/17 06:59 06:59 06:59 Intake Total 170 Output Total 580 Balance -410 Result Diagrams: 07/28/17 03:56 07/28/17 03:56 Phys Exam - Physical Examination HEENT: PERRLA Respiratory: wheezing present + wheezing and rhonchi bilaterally Cardiovascular: RRR, no significant murmur, no rub Gastrointestinal: soft, non-tender, no distention, positive bowel sounds trace pedal edema Dx/Plan (1) Acute on chronic respiratory failure with hypoxia Code(s): J96.21 - ACUTE AND CHRONIC RESPIRATORY FAILURE WITH HYPOXIA Status: Acute Comment: Improving (2) COPD exacerbation Code(s): J44.1 - CHRONIC OBSTRUCTIVE PULMONARY DISEASE W (ACUTE) EXACERBATION Status: Acute Comment: Continue oxygen, oral steroids, bronchodilators and oral antibiotics. (3) CAD (coronary artery disease) Code(s): I25.10 - ATHSCL HEART DISEASE OF [place] CORONARY ARTERY W/O ANG PCTRS Status: Chronic Qualifiers: Comment: stable (4) Hypertension Code(s): I10 - ESSENTIAL (PRIMARY) HYPERTENSION Status: Chronic Qualifiers: Comment: titrate antihypertensives as needed (5) Obesity (BMI 30-39.9) Code(s): E66.9 - OBESITY, UNSPECIFIED Status: Chronic - Plan * Acute respiratory failure with hypoxemia due to severe COPD- continue Duonebs , and IV steroids * Will re-start Symbicort, and further recommendations as per Lipcoat Sprayer * HTN- blood pressure is stable * CAD- stable.
[2017-07-28] MEDS: Doxycycline 100 MG CAP PO SCH ×2 (10:22→22:03)
[2017-07-28] MEDS: Bupropion 150 MG SR TAB PO SCH ×2 (10:22→22:03)
--- NOTE | 2017-07-28 15:50 | CON ---
DATE OF CONSULTATION: 07/28/2017 HISTORY OF PRESENT ILLNESS: Ms. Tapia is a 71-year-old female who is well known to us who was jus t discharged from the hospital yesterday. She was to go to the [facility] for ongoing care when she said she got more short of breath and could not make it. She is back in the hospital with increasing shortne ss of breath, cough without associated fever, chills or sweats. Extensive history is outlined in previous medical records. PAST MEDICAL HISTORY: Pertinent for COPD, multiple admissions from time to time. Cardiomyopathy, hyperlipidemia, arthritis. PAST SURGICAL HISTORY: Back surgery, gallbladder, appendix, CABG, AICD. MEDICATIONS FROM HOME: Prednisone, spironolactone, Ditropan, nitroglycerin, Cozaar, gabapentin, Lasi x, ferrous sulfate, Coreg, Symbicort, codeine. ALLERGIES: Multiple including LISINOPRIL, MEPERIDINE, PENICILLIN. SOCIAL HISTORY: Tobacco, former smoker. Alcohol, none. REVIEW OF SYSTEMS: A 10 point negative. PHYSICAL EXAMINATION: GENERAL: She is awake, alert, responsive. VITAL SIGNS: Blood pressure of 104/69, O2 sats 92% on room air, respiratory rate 22. EXTREMITIES: No edema. NECK: Unremarkable. No bruits. CHEST: Decreased breath sounds, no wheezing. CARDIAC: Normal S1, S2. No gallops. ABDOMEN: Soft. No masses. X-RAY FINDINGS: X-ray was normal. White count is 10,000, H&H is 14 and 46, platelet count 273. Mary ctrolytes are normal. BNP is normal. IMPRESSION: 1. Acute on chronic respiratory failure. 2. Severe deconditioning. PLAN: Switch over back to oral medication. PT and supportive care. Hopefully, she can be discharge d in the next day or two. We will follow. This consultation note took 70 minutes of which 50% of time took for direct patient care.
[2017-07-28] MEDS: Carvedilol 6.25 MG TAB PO SCH (18:12)
[2017-07-28] MEDS ORDERED: Mometasone/Formoterol 120 PUFF INHALER INH SCH (18:30)
[2017-07-28] MEDS: Mometasone/Formoterol 120 PUFF INHALER INH SCH (18:42)
[2017-07-28] MEDS: Atorvastatin Calcium 40 MG TAB PO SCH (22:03)
[2017-07-29] MEDS: Mometasone/Formoterol 120 PUFF INHALER INH SCH ×2 (06:33→18:45)
[2017-07-29] MEDS: Bupropion 150 MG SR TAB PO SCH ×2 (08:02→20:34)
[2017-07-29] MEDS: Carvedilol 6.25 MG TAB PO SCH ×2 (08:02→16:18)
[2017-07-29] MEDS: predniSONE 20 MG TAB PO SCH (08:02)
[2017-07-29] MEDS: Doxycycline 100 MG CAP PO SCH ×2 (08:02→20:34)
[2017-07-29] MEDS: Enoxaparin Sodium 40 MG/0.4 ML SYRINGE SC SCH (08:03)
--- NOTE | 2017-07-29 09:13 | PDOC.PN ---
- Subjective Encounter Start Date: 07/29/17 Encounter Start Time: 09:11 Ms. Tapia was seen today in follow-up of severe COPD. She says she is breathing a little better, and says that she only used the BIPAP for a few hours yesterday. - Objective MAR Reviewed: Yes Vital Signs & Weight: Vital Signs (12 hours) Temp Pulse Resp BP BP Pulse Ox 07/29/17 08:02 115/72 07/29/17 08:00 98.9 F 77 20 98 07/29/17 07:31 98.9 F 77 20 115/72 97 07/29/17 06:33 72 18 100 07/29/17 06:28 99 07/29/17 06:26 70 16 99 07/29/17 03:27 98.4 F 70 20 113/44 L 99 07/29/17 00:18 84 24 H 92 L 07/28/17 23:27 97.7 F 79 20 114/62 96 Weight Weight 194 lb 4.8 oz I&O: 07/28/17 07/29/17 07/30/17 06:59 06:59 06:59 Intake Total 170 1460 Output Total 580 1150 Balance -410 310 Result Diagrams: 07/28/17 03:56 07/28/17 03:56 Phys Exam - Physical Examination HEENT: PERRLA Respiratory: no rhonchi, wheezing present Bilateral wheezing, no rales Cardiovascular: RRR, no significant murmur, no rub tachycardic Gastrointestinal: soft, non-tender, no distention, positive bowel sounds Musculoskeletal: edema present Dx/Plan (1) Acute on chronic respiratory failure with hypoxia Code(s): J96.21 - ACUTE AND CHRONIC RESPIRATORY FAILURE WITH HYPOXIA Status: Acute Comment: Improving (2) COPD exacerbation Code(s): J44.1 - CHRONIC OBSTRUCTIVE PULMONARY DISEASE W (ACUTE) EXACERBATION Status: Acute Comment: Continue oxygen, oral steroids, bronchodilators and oral antibiotics. (3) CAD (coronary artery disease) Code(s): I25.10 - ATHSCL HEART DISEASE OF [place] CORONARY ARTERY W/O ANG PCTRS Status: Chronic Qualifiers: Comment: stable (4) Hypertension Code(s): I10 - ESSENTIAL (PRIMARY) HYPERTENSION Status: Chronic Qualifiers: Comment: titrate antihypertensives as needed (5) Obesity (BMI 30-39.9) Code(s): E66.9 - OBESITY, UNSPECIFIED Status: Chronic - Plan * Acute on chronic respiratory failure with hypoxemia- continue Duonebs, steroids, and Dulera, and Doxycycline * HTN- blood pressure is stable. * CAD- stable * Deconditioning- PT/OT * Disposition as per Pulmonary Medicine
--- NOTE | 2017-07-29 15:04 | PRG ---
DATE OF SERVICE: 07/29/2017 SUBJECTIVE: This morning, she is somewhat better, less short of breath, still coughing, still wheezi ng somewhat. She is severely deconditioned. PHYSICAL EXAMINATION: VITAL SIGNS: Blood pressure is 115/72, sats are 98% on 2 liters, temperature 98, respiratory rate 20 . CHEST: Decreased breath sounds without any wheezing. CARDIAC: Normal S1, S2. No gallops. ABDOMEN: No masses. IMPRESSION: Severe chronic obstructive pulmonary disease exacerbation, bronchitis, deconditioning. PLAN: Continue neb treatment, supportive care and PT.
[2017-07-29] MEDS: Atorvastatin Calcium 40 MG TAB PO SCH (20:34)
[2017-07-29] MEDS ORDERED: Gabapentin 300 MG CAP PO SCH (21:15)
[2017-07-30 05:21] LABS: #Eosinphils 0.1 thou/uL (0.0-0.7); #Lymphocytes 3.7 thou/uL (1.20-3.40); #Monocytes 0.9 thou/uL (0.11-0.59); #Neutrophils 6.8 thou/uL (1.40-6.50); %Basophils 0.2 % (0.0-1.0); %Eosinophils 1.1 % (0.0-10.0); %Lymphocytes 32.3 % (21.0-51.0); %Monocytes 7.7 % (0.0-10.0); %Neutrophils 58.7 % (42.0-75.0); Hemoglobin 13.9 g/dL (12.0-16.0); Mean Corpuscular HGB CONC 32.5 g/dL (32.0-36.0); Mean Corpuscular Hemoglobin 31.1 pg (27.0-31.0); Mean Corpuscular Volume 95.5 fl (81.0-99.0); Mean Platelet Volume 6.9 fL (7.4-10.4); Platelet Count 277 thou/uL (130-400); Red Blood Cell (RBC) Count 4.47 mill/uL (4.20-5.40); White Blood Cell (WBC) Count 11.6 thou/uL (4.8-10.8)
[2017-07-30 05:38] LABS: Anion Gap 9 mmol/L (10-20); BUN (Urea Nitrogen) 16 mg/dL (9.8-20.1); Calc. Creatinine Clearance 94 mL/min (70-130); Calcium 8.7 mg/dL (7.8-10.44); Carbon Dioxide 27 mmol/L (23-31); Chloride 102 mmol/L (98-107); Estimated GFR-MDRD 76; Glucose 103 mg/dL (83-110); Potassium 3.5 mmol/L (3.5-5.1); Sodium 134 mmol/L (136-145)
[2017-07-30] MEDS: Mometasone/Formoterol 120 PUFF INHALER INH SCH ×2 (06:30→18:30)
--- NOTE | 2017-07-30 07:54 | PDOC.PN ---
- Subjective Encounter Start Date: 07/30/17 Encounter Start Time: 07:53 Ms. Tapia was seen today in follow-up. She was able to breathe a bit better overnight. She also says her cough has improved some. - Objective MAR Reviewed: Yes Vital Signs & Weight: Vital Signs (12 hours) Temp Pulse Resp BP Pulse Ox 07/30/17 06:35 95 22 H 98 07/30/17 04:00 96.9 F L 88 21 H 108/42 L 99 07/30/17 00:35 91 22 H 100 07/30/17 00:00 96.9 F L 69 20 107/57 L 100 07/29/17 20:00 97.4 F L 83 22 H 147/69 H 100 Weight Weight 194 lb 4.8 oz I&O: 07/29/17 07/30/17 07/31/17 06:59 06:59 06:59 Intake Total 1460 Output Total 1150 Balance 310 Result Diagrams: 07/30/17 04:11 07/30/17 04:11 Phys Exam - Physical Examination HEENT: PERRLA Respiratory: wheezing present + scattered wheezing and rhonchi bilaterally Cardiovascular: RRR, no significant murmur, no rub Gastrointestinal: soft, non-tender, no distention, positive bowel sounds Musculoskeletal: no edema Dx/Plan (1) Acute on chronic respiratory failure with hypoxia Code(s): J96.21 - ACUTE AND CHRONIC RESPIRATORY FAILURE WITH HYPOXIA Status: Acute Comment: Improving (2) COPD exacerbation Code(s): J44.1 - CHRONIC OBSTRUCTIVE PULMONARY DISEASE W (ACUTE) EXACERBATION Status: Acute Comment: Continue oxygen, oral steroids, bronchodilators and oral antibiotics. (3) CAD (coronary artery disease) Code(s): I25.10 - ATHSCL HEART DISEASE OF [place] CORONARY ARTERY W/O ANG PCTRS Status: Chronic Qualifiers: Comment: stable (4) Hypertension Code(s): I10 - ESSENTIAL (PRIMARY) HYPERTENSION Status: Chronic Qualifiers: Comment: titrate antihypertensives as needed (5) Obesity (BMI 30-39.9) Code(s): E66.9 - OBESITY, UNSPECIFIED Status: Chronic - Plan * Acute on chronic respiratory failure- improving slowly * CAD- stable * HTN- blood pressure is stable * Severe Deconditioning- agree with PT, and ambulate as tolerated.
[2017-07-30] MEDS: Enoxaparin Sodium 40 MG/0.4 ML SYRINGE SC SCH (08:29)
[2017-07-30] MEDS: Bupropion 150 MG SR TAB PO SCH ×2 (08:29→20:25)
[2017-07-30] MEDS: Doxycycline 100 MG CAP PO SCH ×2 (08:29→20:25)
[2017-07-30] MEDS: Carvedilol 6.25 MG TAB PO SCH ×2 (08:29→17:55)
[2017-07-30] MEDS: predniSONE 20 MG TAB PO SCH (08:29)
[2017-07-30] MEDS: Atorvastatin Calcium 40 MG TAB PO SCH (20:25)
[2017-07-30] MEDS: Gabapentin 300 MG CAP PO SCH (20:25)
[2017-07-31] MEDS: Mometasone/Formoterol 120 PUFF INHALER INH SCH ×2 (07:14→19:22)
[2017-07-31] MEDS: Carvedilol 6.25 MG TAB PO SCH ×2 (08:29→17:15)
[2017-07-31] MEDS: Doxycycline 100 MG CAP PO SCH ×2 (08:30→20:20)
[2017-07-31] MEDS: Enoxaparin Sodium 40 MG/0.4 ML SYRINGE SC SCH (08:30)
[2017-07-31] MEDS: predniSONE 20 MG TAB PO SCH (08:30)
[2017-07-31] MEDS: Bupropion 150 MG SR TAB PO SCH ×2 (08:31→20:20)
--- NOTE | 2017-07-31 09:36 | PRG ---
DATE OF SERVICE: 07/31/2017 This morning she is better, less short of breath, less coughing, wheezing. PHYSICAL EXAMINATION: VITAL SIGNS: Sats are 94 on 3 liters, blood pressure 125/57, temperature 98, respiration rate 18. CHEST: Chest reveals decreased breath sounds, no wheezing. CARDIAC: Normal S1, S2, no gallops. ABDOMEN: Soft, no masses. LABORATORY DATA: White count 11,000, H&H 13 and 42, platelet count normal. Electrolytes normal. IMPRESSION: 1. Chronic obstructive pulmonary disease exacerbation. 2. Bronchitis. 3. Severe deconditioning. 4. Hypertension. She can be transferred out of the [facility]. Continue aggressive PT. Hopefully, she can be discharged ho la in the next 24-48 hours. One-half hour critical care time.
--- NOTE | 2017-07-31 11:02 | PRG ---
DATE OF SERVICE: 07/30/2017 SUBJECTIVE: This morning, she is much better. She is in noninvasive ventilation for a brief period of time yesterday. OBJECTIVE: VITAL SIGNS: Temperature is 97, blood pressure 115/72, respiration rate 18, sats are 98%. CHEST: Chest reveals decreased breath sounds without any wheezing. CARDIAC: Normal S1, S2. No gallops. ABDOMEN: Soft, no mass. LABORATORY DATA: White count 11,000. Hemoglobin and hematocrit is 13 and 42. Electrolytes are feng l. IMPRESSION: Chronic obstructive pulmonary disease exacerbation, endstage, probably sleep apnea. PLAN: Continue neb treatments, steroids. Probably recommend outpatient sleep study. Hopefully, she is stable to be discharged home in the [facility] 24-48 hours.
--- NOTE | 2017-07-31 16:10 | EKG ---
Test Reason : SOB Blood Pressure : / mmHG Vent. Rate : 096 BPM Atrial Rate : 096 BPM P-R Int : 142 ms QRS Dur : 120 ms QT Int : 370 ms P-R-T Axes : 021 075 -58 degrees QTc Int : 467 ms Normal sinus rhythm Possible Left atrial enlargement Cannot rule out Inferior infarct , age undetermined No STEMI Abnormal ECG Confirmed by RUSSELL Urena, RICHIE ([id number]), legal editor JORY PARTIDA ([id number] on 07/31/2017 4:10:13 PM Referred By: TRIAGE Confirmed By:RICHIE WELLS M.D.
[2017-07-31] MEDS: Gabapentin 300 MG CAP PO SCH (20:20)
[2017-07-31] MEDS: Atorvastatin Calcium 40 MG TAB PO SCH (20:21)
--- NOTE | 2017-07-31 22:33 | PDOC.PN ---
- Subjective Encounter Start Date: 07/31/17 Encounter Start Time: 17:30 Patient seen and examined. No new complaints. Productive cough. - Objective MAR Reviewed: Yes Vital Signs & Weight: Vital Signs (12 hours) Temp Pulse Resp BP BP BP BP 07/31/17 20:00 98.3 F 94 21 H 07/31/17 19:52 98.3 F 94 21 H 156/67 H 07/31/17 19:25 07/31/17 19:23 07/31/17 19:22 60 18 07/31/17 17:15 144/65 H 07/31/17 16:00 97.5 F L 83 25 H 144/65 H 07/31/17 14:16 85 28 H 07/31/17 11:26 97.8 F 81 27 H 122/57 L 07/31/17 10:41 98/63 117/64 Pulse Ox 07/31/17 20:00 96 07/31/17 19:52 96 07/31/17 19:25 92 L 07/31/17 19:23 94 L 07/31/17 19:22 94 L 07/31/17 17:15 07/31/17 16:00 92 L 07/31/17 14:16 92 L 07/31/17 11:26 93 L 07/31/17 10:41 Weight Weight 194 lb 4.8 oz I&O: 07/30/17 07/31/17 08/01/17 06:59 06:59 06:59 Intake Total 1400 1270 Balance 1400 1270 Result Diagrams: 08/01/17 04:32 08/01/17 04:32 EKG Reviewed by me: Yes (Tele SR) Phys Exam - Physical Examination Constitutional: NAD Respiratory: no wheezing, no rales Scat rhonchi Cardiovascular: RRR, no rub Gastrointestinal: soft, non-tender, positive bowel sounds Musculoskeletal: edema present (trace) Dx/Plan - Plan continue antibiotics, respiratory therapy, out of bed/ambulate, DVT proph w/ lovenox, DVT proph w/SCDs IMPRESSION: 1. Acute hypoxic respiratory failure - improving 2. COPD Exacerbation 3. Chronic systolic heart failure 4. Obesity BMI 34.4 /CAD/HTN 5. Other issues per previous notes PLAN: * Cont Atbx/Steroids * Cont current meds as below * Cont to monitor Review of Systems - Review of Systems Constitutional: negative: fever, chills, sweats, weakness, malaise, other Respiratory: Cough, Sputum, Wheezing. negative: Dry, Shortness of Breath, Hemoptysis, SOB with Excertion, Pleuritic Pain Cardiovascular: negative: chest pain, palpitations, orthopnea, paroxysmal nocturnal dyspnea, edema, light headedness, other Gastrointestinal: negative: Nausea, Vomiting, Abdominal Pain, Diarrhea, Constipation, Melena, Hematochezia, Other - Medications/Allergies Allergies/Adverse Reactions: Allergies Allergy/AdvReac Type Severity Reaction Status Date / Time lisinopril Allergy Verified 07/21/17 02:33 meperidine HCl [From Demerol] Allergy Verified 07/21/17 02:33 Penicillins Allergy Verified 07/21/17 02:33 Medications: Current Medications Acetaminophen (Tylenol) 650 mg PO Q4H PRN PRN Reason: Headache/Fever or Pain Last Admin: 07/28/17 15:27 Dose: 650 mg Acetaminophen (Tylenol) 650 mg OK Q4H PRN PRN Reason: Headache/Fever or Pain Albuterol/Ipratropium (Duoneb) 3 ml NEB [id number] PRN PRN Reason: SOB &/or Wheezing Albuterol/Ipratropium (Duoneb) 3 ml NEB [id number] [facility] Last Admin: 07/31/17 19:23 Dose: 3 ml Atorvastatin Calcium (Lipitor) 40 mg PO HS [facility] Last Admin: 07/31/17 20:21 Dose: 40 mg Bisacodyl (Dulcolax) 10 mg PO DAILYPRN PRN PRN Reason: Constipation Bupropion HCl (Wellbutrin Sr) 150 mg PO BID [facility] Last Admin: 07/31/17 20:20 Dose: 150 mg Carvedilol (Coreg) 6.25 mg PO BID-[facility] Last Admin: 07/31/17 17:15 Dose: 6.25 mg Doxycycline Hyclate (Vibramycin) 100 mg PO BID [facility] Last Admin: 07/31/17 20:20 Dose: 100 mg Enoxaparin Sodium (Lovenox) 40 mg SC 0900 [facility] Last Admin: 07/31/17 08:30 Dose: 40 mg Estrogens Conjugated (Premarin Cream) 0 gm VAG DAILYPRN PRN PRN Reason: Hormone replacement Gabapentin (Neurontin) 300 mg PO 2100 [facility] Last Admin: 07/31/17 20:20 Dose: 300 mg Mometasone Furoate/Formoterol Fumar (Dulera 200 Mcg/5 Mcg Inhaler) 2 puff INH BID-RT [facility] Last Admin: 07/31/17 19:22 Dose: 2 puff Prednisone (Prednisone) 40 mg PO QAM-WM [facility] Last Admin: 07/31/17 08:30 Dose: 40 mg Sodium Chloride (Flush - Normal Saline) 10 ml IVF Q12HR [facility] Last Admin: 07/31/17 20:21 Dose: 10 ml Sodium Chloride (Flush - Normal Saline) 10 ml IVF PRN PRN PRN Reason: Saline Flush Last Admin: 07/28/17 05:57 Dose: 10 ml
[2017-08-01 05:24] LABS: #Eosinphils 0.1 thou/uL (0.0-0.7); #Lymphocytes 3.4 thou/uL (1.20-3.40); #Monocytes 0.7 thou/uL (0.11-0.59); #Neutrophils 7.4 thou/uL (1.40-6.50); %Basophils 0.2 % (0.0-1.0); %Lymphocytes 29.1 % (21.0-51.0); %Monocytes 6.1 % (0.0-10.0); %Neutrophils 63.6 % (42.0-75.0); Hemoglobin 13.5 g/dL (12.0-16.0); Mean Corpuscular HGB CONC 32.5 g/dL (32.0-36.0); Mean Corpuscular Volume 95.3 fl (81.0-99.0); Mean Platelet Volume 6.7 fL (7.4-10.4); Platelet Count 261 thou/uL (130-400); RBC Distribution Width 13.9 % (11.5-14.5); Red Blood Cell (RBC) Count 4.35 mill/uL (4.20-5.40); White Blood Cell (WBC) Count 11.6 thou/uL (4.8-10.8)
[2017-08-01 05:30] LABS: Albumin 3.2 g/dL (3.4-4.8); Anion Gap 7 mmol/L (10-20); BUN (Urea Nitrogen) 14 mg/dL (9.8-20.1); BUN/Creatinine Ratio 19.72; Calc. Creatinine Clearance 100 mL/min (70-130); Calcium 8.8 mg/dL (7.8-10.44); Carbon Dioxide 31 mmol/L (23-31); Chloride 106 mmol/L (98-107); Estimated GFR-MDRD 81; Glucose 102 mg/dL (83-110); Magnesium 2.3 mg/dL (1.6-2.6); Phosphorus 3.6 mg/dL (2.3-4.7); Potassium 3.6 mmol/L (3.5-5.1); Sodium 140 mmol/L (136-145)
[2017-08-01] MEDS: Mometasone/Formoterol 120 PUFF INHALER INH SCH (08:16)
[2017-08-01] MEDS: Bupropion 150 MG SR TAB PO SCH (08:26)
[2017-08-01] MEDS: predniSONE 20 MG TAB PO SCH (08:26)
[2017-08-01] MEDS: Carvedilol 6.25 MG TAB PO SCH (08:26)
[2017-08-01] MEDS: Enoxaparin Sodium 40 MG/0.4 ML SYRINGE SC SCH (08:26)
[2017-08-01] MEDS: Doxycycline 100 MG CAP PO SCH (08:28)
--- NOTE | 2017-08-01 08:41 | PRG ---
DATE OF SERVICE: 08/01/2017 She is much improved, less short of breath, less coughing, less wheezing, less chest pain. She is wa lking in the room. PHYSICAL EXAMINATION: VITAL SIGNS: Sats are 92 on 3 liters, respiration 22, temperature 98, blood pressure is 141/73. CHEST: Chest revealed decreased breath sounds, no wheezing. CARDIAC: Normal S1, S2, no gallops. ABDOMEN: Soft, without any masses. EXTREMITIES: No edema. LABORATORY DATA: White count was 11,000, H&H 13 and 41. Electrolytes are normal. IMPRESSION: 1. Chronic obstructive pulmonary disease exacerbation. 2. Bronchitis. PLAN: From a pulmonary standpoint of view the patient could be discharged home. She can follow up w [facility] doctors in [place]. She can see Dr. Rosario if she wanted to in several days. I would taper her pre dnisone over 2 weeks.
[2017-08-01 11:33] VITALS: BP 126/52; TEMP 97.6
--- NOTE | 2017-08-02 09:38 | DIS ---
DATE OF ADMISSION: 07/27/2017 DATE OF DISCHARGE: 08/01/2017 DISCHARGE DISPOSITION: Home. FOLLOWUP: 1. Follow up with Dr. Yasmeen Pang next week as scheduled. 2. Follow up with Dr. Rosario in 1-2 weeks. ALLERGIES: The patient is allergic to LISINOPRIL, DEMEROL, AND PENICILLIN. The patient was seen and examined on the day of discharge, denies any new complaints, no chest pain, shortness of breath, or palpitations. DISCHARGE MEDICATIONS: 1. Doxycycline 100 mg twice a day for the next 7 days. 2. Prednisone taper. 3. All other home medications were resumed. BRIEF HOSPITAL COURSE: The patient is a 71-year-old female with chronic respiratory failure on home oxygen, coronary artery disease, chronic obstructive pulmonary disease with multiple exacerbations, p resented to the emergency room with above complaints. Patient was discharged from this facility on 0 06/30/2017 for similar complaint. Please refer to the discharge summary dated 06/30/2017 for further details. Also, refer to the history and physical dated 07/27/2017 for details on admission. The patient was admitted to the intermediate care unit with a diagnosis of acute on chronic hypoxic r espiratory failure requiring noninvasive positive pressure ventilation. She showed good improvement with oxygen, steroids, bronchodilators and antibiotics. The patient was also seen by Dr. Rosario, Pulmo nology. A Chest x-ray on admission was negative for infiltrate. Patient has been cleared by Pulmona ry for discharge. She will be discharged home with doxycycline and steroids. SIGNIFICANT LABORATORY DATA: BNP 131. Lactic acid on admission 2.6, repeat lactic acid 1.8, albumin 3.2, sodium of 133, at discharge was 140. Creatinine 0.17. FINAL DIAGNOSES: 1. Acute on chronic hypoxic respiratory failure secondary to chronic obstructive pulmonary disease e xacerbation. 2. Chronic systolic heart failure. 3. Obesity with a BMI 34.4. 4. Coronary artery disease. 5. Hypertension. 6. Lactic acidosis, probably secondary to hypovolemia, resolved. 7. Hyponatremia, resolved. 8. Dyslipidemia. 9. Tobacco dependence. Patient was counseled. 10. Coronary artery disease. Plan of care was discussed with the patient in detail. She stated understanding.
== END 2017-08-01 13:46 | disposition home or self-care (01) | DRG 189 ==
LOC: ERS 14:20 → IMCU/EMU 21:53
PROVIDERS: ADMIT Internal Medicine; ATTEND Internal Medicine
PROC: 5A09357 Assistance with Respiratory Ventilation, Less than 24 Consecutive Hours, Continuous Positive Airway Pressure (ICD-10-PCS; principal; 2017-07-27)
DX: J96.21 Acute and chronic respiratory failure with hypoxia (principal); E87.2 Acidosis; E87.1 Hypo-osmolality and hyponatremia; I50.22 Chronic systolic (congestive) heart failure; J44.1 Chronic obstructive pulmonary disease with (acute) exacerbation; I11.0 Hypertensive heart disease with heart failure; Z99.81 Dependence on supplemental oxygen; I25.10 Atherosclerotic heart disease of native coronary artery without angina pectoris; E78.5 Hyperlipidemia, unspecified; F17.210 Nicotine dependence, cigarettes, uncomplicated; E66.9 Obesity, unspecified; Z68.34 Body mass index [BMI] 34.0-34.9, adult; Z86.14 Personal history of Methicillin resistant Staphylococcus aureus infection; Z79.82 Long term (current) use of aspirin; Z79.52 Long term (current) use of systemic steroids; Z79.899 Other long term (current) drug therapy; Z96.652 Presence of left artificial knee joint; Z95.1 Presence of aortocoronary bypass graft; Z95.810 Presence of automatic (implantable) cardiac defibrillator
CPT/HCPCS: 36415; 71045; 80048; 80053; 80069; 82553; 83605; 83735; 83880; 84484; 85025; 87040; 93005; 94640; 94660; 94760; 96361; 96374; G8978-GP-CI; G8979-GP-CI; G8980-GP-CI; G8987-GO-CJ; G8988-GO-CI; J2930; J7620

== ENCOUNTER 2018-01-28 18:26 | Inpatient (IN) | payer MEDICARE, OTHER ==
[2018-01-28 18:57] LABS: #Basophils 0.1 thou/uL (0.0-0.2); #Eosinphils 0.2 thou/uL (0.0-0.7); #Lymphocytes 3.3 thou/uL (1.20-3.40); #Monocytes 0.6 thou/uL (0.11-0.59); #Neutrophils 3.3 thou/uL (1.40-6.50); %Basophils 1.2 % (0.0-1.0); %Eosinophils 3.2 % (0.0-10.0); %Lymphocytes 43.2 % (21.0-51.0); %Monocytes 8.4 % (0.0-10.0); Hemoglobin 15.2 g/dL (12.0-16.0); Mean Corpuscular HGB CONC 32.9 g/dL (32.0-36.0); Mean Corpuscular Hemoglobin 31.1 pg (27.0-31.0); Mean Corpuscular Volume 94.6 fL (78.0-98.0); Mean Platelet Volume 8.7 fL (7.4-10.4); Platelet Count 140 thou/uL (130-400); RBC Distribution Width 12.8 % (11.5-14.5); Red Blood Cell (RBC) Count 4.88 mill/uL (4.20-5.40); White Blood Cell (WBC) Count 7.6 thou/uL (4.8-10.8)
[2018-01-28] MEDS ORDERED: Albuterol Sulfate 2.5 mg/3 ml Neb ONE ×4 (19:02→21:28)
[2018-01-28] MEDS ORDERED: Albuterol Sulfate 2.5 mg/0.5 ml Neb ONE (19:02)
--- NOTE | 2018-01-28 19:33 | RAD ---
FRONTAL RADIOGRAPH CHEST: 01/28/2018 HISTORY: Shortness of breath. COMPARISON: 09/03/2017 FINDINGS: Stable dual-lead transvenous pacing device. Stable enlargement of the cardiac silhouette, and diffus e increased linear interstitial density. There is no pneumothorax, pleural fluid, lobar consolidatio n, or alveolar edema. There is atherosclerotic calcification of the aortic arch. There is increased density in the hilar and infrahilar region, on the right, unchanged when compared to numerous prior examinations, which suggests chronic infiltrate, volume loss, or scar within the me dial right lung base. IMPRESSION: Stable appearance of the chest, as detailed above. POS: [facility]
[2018-01-28] MEDS ORDERED: Magnesium 2 GM/50 ML 2 GM in Premix Bag 1 BAG IVPB SCH (19:45)
[2018-01-28 19:56] LABS: CKMB 1.5 ng/mL (0-6.6); Troponin I Less than 0.010 ng/mL (< 0.028)
[2018-01-28 19:59] LABS: ALT (SGPT) 10 U/L (8-55); AST (SGOT) 12 U/L (5-34); Albumin 3.6 g/dL (3.4-4.8); Alkaline Phosphatase 93 U/L (40-150); Anion Gap 12 mmol/L (10-20); BUN (Urea Nitrogen) 7 mg/dL (9.8-20.1); Bilirubin, Total 0.6 mg/dL (0.2-1.2); Calc. Creatinine Clearance 0 mL/min (70-130); Calcium 9.1 mg/dL (7.8-10.44); Carbon Dioxide 26 mmol/L (23-31); Chloride 106 mmol/L (98-107); Estimated GFR-MDRD 79; Globulin 2.7 g/dL (2.4-3.5); Glucose 91 mg/dL (83-110); Potassium 3.1 mmol/L (3.5-5.1); Protein, Total 6.3 g/dL (6.0-8.3); Sodium 141 mmol/L (136-145)
[2018-01-28] MEDS ORDERED: Potassium Chloride 20 MEQ TAB ONE (21:07)
[2018-01-28 21:10] LABS: Actual Bicarbonate (HCO3a) 24.1 mEq/L (22-28); Analyzer IN Cardio ER; Base Excess (BEa) 0.8 mEq/L (-2.0 to +3.0); CO2 Tension 34.6 mmHg (35.0-45.0); Calcium, Ionized 1.15 mmol/L (1.12-1.30); Carboxyhemoglobin (COHb) 1.2 gm% (0.0-3.0); Hemoglobin (Hb) 14.7 g/dL (12.0-16.0); O2 Tension (PaO2) 183.7 mmHg (> 70.0); Potassium - ABG Lab 3.06 mmol/L (3.70-5.30); pH, Arterial 7.46 (7.35-7.45)
[2018-01-28 22:34] LABS: Puncture Site RRA
[2018-01-29 00:54] LABS: Troponin I Less than 0.010 ng/mL (< 0.028)
[2018-01-29] MEDS ORDERED: diphenhydrAMINE 50 MG CAP ONE (01:08)
[2018-01-29] MEDS ORDERED: Azithromycin 500 MG VIAL ONE (01:08)
[2018-01-29] MEDS ORDERED: Ondansetron ODT 4 MG TAB PO PRN (01:47)
[2018-01-29] MEDS ORDERED: Ondansetron HCl/PF 4 MG/2 ML Vial IVP PRN ×2 (01:47→01:53)
[2018-01-29] MEDS ORDERED: Ondansetron ODT 4 MG TAB SL PRN (01:53)
[2018-01-29] MEDS ORDERED: Acetaminophen 325 MG TAB PO PRN (01:53)
[2018-01-29] MEDS ORDERED: Albuterol Sulfate 2.5 mg/3 ml Neb NEB PRN ×2 (01:54→14:29)
[2018-01-29 02:07] VITALS: BMI 35.4
[2018-01-29] MEDS: Albuterol Sulfate 2.5 mg/3 ml Neb NEB SCH ×4 (02:27→14:29)
[2018-01-29] MEDS: Ipratropium Bromide 2.5 ml Neb NEB SCH ×4 (02:28→14:29)
[2018-01-29 03:18] LABS: #Basophils 0.1 thou/uL (0.0-0.2); #Eosinphils 0.2 thou/uL (0.0-0.7); #Lymphocytes 2.5 thou/uL (1.20-3.40); #Monocytes 0.7 thou/uL (0.11-0.59); #Neutrophils 3.3 thou/uL (1.40-6.50); %Basophils 0.7 % (0.0-1.0); %Eosinophils 3.6 % (0.0-10.0); %Lymphocytes 36.5 % (21.0-51.0); %Monocytes 9.8 % (0.0-10.0); %Neutrophils 49.4 % (42.0-75.0); Mean Corpuscular HGB CONC 31.9 g/dL (32.0-36.0); Mean Corpuscular Hemoglobin 30.6 pg (27.0-31.0); Mean Corpuscular Volume 95.9 fL (78.0-98.0); Mean Platelet Volume 7.2 fL (7.4-10.4); Platelet Count 252 thou/uL (130-400); RBC Distribution Width 12.7 % (11.5-14.5); Red Blood Cell (RBC) Count 4.56 mill/uL (4.20-5.40); White Blood Cell (WBC) Count 6.7 thou/uL (4.8-10.8)
[2018-01-29 03:40] LABS: Troponin I Less than 0.010 ng/mL (< 0.028)
[2018-01-29 05:02] LABS: Chloride 107 mmol/L (98-107); Potassium 3.6 mmol/L (3.5-5.1); Sodium 140 mmol/L (136-145)
[2018-01-29 05:03] LABS: Calcium 8.8 mg/dL (7.8-10.44); Glucose 90 mg/dL (83-110)
--- NOTE | 2018-01-29 05:04 | HP ---
CHIEF COMPLAINT: Shortness of breath. HISTORY OF PRESENT ILLNESS: This is a 72-year-old female with past medical history of COPD, hyperten danelle, CABG in 2010, hyperlipidemia, urinary incontinence, osteoarthritis, congestive heart failure, a rrhythmias, presenting with shortness of breath, which started on Monday. Per the patient on Monday, she went to [place] and she had to get her pacemaker replaced. After getting her pacemaker replaced, patient stated that she was having difficulty with her breathing, so patient, however, was able to m anage with the breathing and patient was sent home. However, patient woke up on Monday and patient stated that she started having severe difficulty with catching her breath and this prompted ED visit . Per patient, she was recently in the hospital on 08/31/2017 for COPD sedation. At that time, tyrone ent was treated with some antibiotics and patient states that she felt better. Earlier on this year in 04/2017, patient stated that she also had similar episode of shortness of breath and had to be int ubated. Patient admits to having smoked for years and states that she still smokes half a pack per d ay. At this point, patient admits to associated symptoms of productive cough with shortness of breat h. Denies any headaches, nausea, vomiting, palpitations, abdominal pain. REVIEW OF SYSTEMS: Positive for productive cough, shortness of breath, otherwise as documented in e HPI. All other systems were reviewed and are negative. FAMILY HISTORY: Reviewed and noncontributory to this visit. PAST MEDICAL HISTORY: CABG, COPD, urinary incontinence, hyperlipidemia, hypertension, CHF, arrhythmi as, osteoarthritis. PAST SURGICAL HISTORY: Status post pacemaker and defibrillator placement, cardiac bypass in 2010, bi lateral cataract surgery and lens implants, pacemaker replacement on 01/26/2018, carpal tunnel surger y on the right wrist, cholecystectomy, left knee replacement, right elbow and left ankle surgery, ton sillectomy, heart ablation in 2013. PSYCHIATRIC HISTORY: Depression. SOCIAL HISTORY: Patient has been smoking for 30 years. Patient smokes half a pack per day. Patient lives at home with family. Patient denies any illicit drug use or alcohol use. ALLERGIES: Patient is allergic to DEMEROL, LISINOPRIL, PENICILLIN. CURRENT MEDICATIONS: Patient is on albuterol sulfate, atorvastatin 80 mg, carvedilol 6.25 mg, omepra zole 20 mg, oxybutynin 5 mg, spironolactone 25 mg, trazodone 100 mg, Neurontin 300 daily, bupropion 1 50 mg, levofloxacin 750 mg 1 tab oral daily. PHYSICAL EXAMINATION: VITAL SIGNS: Blood pressure 162/92, pulse is 72, respiratory rate of 25, temperature of 97.7, oxygen saturation of 96. GENERAL APPEARANCE: Patient is lying in bed with a BiPAP on, able to speak in full sentences. When BiPAP is taking off, patient desats to the 80s. HEENT: Normocephalic, atraumatic. Pupils are equally round and reactive to light. Extraocular move ments are intact. No scleral icterus. Mucous membranes are moist. Patient has lost most of the bot dov teeth. NECK: Supple, nontender, nondistended. No JVD is noted. Full range of motion. LUNGS: Patient has diffuse wheezing at the anterior lung patricia and some crackles at the posterior l obes bilaterally. CARDIOVASCULAR: Patient is tachycardic. ABDOMEN: Obese abdomen, soft, nontender, nondistended, positive bowel sounds in all quadrants. No m asses. EXTREMITIES: Patient has 5/5 upper extremity strength. Good radial pulses bilaterally. Lower extre mity, patient has trace edema of the lower extremities. NEUROLOGIC: Cranial nerves II-XII grossly intact. No neurologic deficits noted. SKIN: Warm, dry, and intact. PSYCHIATRIC: Patient is alert, oriented x3, not in acute distress. HEENT: Normal affect. EKG showed paced rhythm. ED COURSE: Patient received 25 mg of Benadryl, 500 of azithromycin was ordered and Levaquin was give n 750 mg. Patient also received magnesium sulfate, potassium chloride oral, aspirin, normal saline, and some DuoNeb treatments. LABORATORY DATA: WBC 7.6, hemoglobin 15.2, hematocrit is 46.2, platelet count of 140. ABG: pH 7.46, pCO2 is 34.6, pO2 is 183. Sodium of 141, potassium of 3.1, chloride of 106, carbon dioxide of 26, a nion gap of 12, BUN of 7, creatinine is 0.72, GFR 79, glucose of 91, calcium of 9.1, magnesium of 2.0 . AST is 12, ALT is 10, alkaline phosphatase of 93. Troponin is less than 0.010. BNP is 503.5. ASSESSMENT AND PLAN: This is a 72-year-old female being admitted for hypoxemic respiratory failure. At this point, patient is placed on BiPAP. We are going to admit patient to the IMCU due to the pat ient being on BiPAP. If patient's oxygenation improves, patient can be downgraded from the IMCU to t he regular floor. It is important to note that patient has chronic obstructive pulmonary disease; th erefore, it is okay for patient to have oxygen saturation between 88 to 92. Patient also states that she has oxygen at home. Therefore, patient does not need oxygen when the patient is being discharge d. 1. Chronic obstructive pulmonary disease exacerbation. At this point, we are going to start the pat ient on azithromycin since patient is allergic to LEVOFLOXACIN and other PENICILLINS. We will contin ue azithromycin for 3 days. We have ordered for Solu-Medrol. We will do DuoNeb treatments and pulmo nologist on consult. 2. Hypokalemia. We will replete patient's electrolytes. 3. Hyperlipidemia. We will continue patient on home medication. 4. Hypertension. We will monitor the patient's blood pressure closely. We will start patient on ho az medication. 5. History of congestive heart failure. We will continue the patient on current management by liset chavez patient on her current home medications. 6. Osteoarthritis, currently stable. 7. Status post pacemaker and defibrillator, currently stable. We will continue patient on her curre nt management. 8. Deep venous thrombosis and gastrointestinal prophylaxis.
[2018-01-29 05:05] LABS: Anion Gap 15 mmol/L (10-20); Carbon Dioxide 22 mmol/L (23-31)
[2018-01-29 05:06] LABS: Calc. Creatinine Clearance 106 mL/min (70-130); Estimated GFR-MDRD 85
[2018-01-29 05:07] LABS: BUN (Urea Nitrogen) 8 mg/dL (9.8-20.1)
[2018-01-29] MEDS: Nicotine 14 MG PATCH TD SCH (05:40)
[2018-01-29] MEDS ORDERED: Spiriva 18 MCG CAP (Box of 5 Caps) INH SCH (07:00)
[2018-01-29] MEDS: Enoxaparin Sodium 40 MG/0.4 ML SYRINGE SC SCH (09:55)
[2018-01-29] MEDS: Famotidine 20 MG TAB PO SCH ×2 (09:55→21:01)
[2018-01-29] MEDS ORDERED: Potassium Chloride 20 MEQ TAB PO SCH (14:30)
[2018-01-29] MEDS ORDERED: predniSONE 20 MG TAB PO SCH (14:30)
[2018-01-29] MEDS ORDERED: Furosemide 40 MG/4 ML VIAL SLOW IVP SCH (15:45)
--- NOTE | 2018-01-29 16:40 | CON ---
DATE OF CONSULTATION: 01/29/2018 SERVICE: Pulmonary Medicine. REASON FOR CONSULTATION: IMCU patient, COPD exacerbation. HISTORY OF PRESENT ILLNESS: The patient is a 72-year-old white female who had a pacemaker generator exchange done on Monday. She did well Monday, but Monday morning, she woke up with shortness of breath and rhonchi. She presented to the Emergency Department last night because of severe shortness of breath. She got placed on BiPAP. Overnight, she had a profound improvement in symptoms. She has been coughing up a little bit of white phlegm. She has not had any fevers or chills. She denies having any myalgias or malaise. She has not had nausea, vomiting or diarrhea. She is tolerating p.o. just fine. She got removed from her BiPAP today and she has been doing fine ever since. PAST MEDICAL HISTORY: 1. COPD. 2. Dyslipidemia. 3. Hypertension. 4. Congestive heart failure. 5. Osteoarthritis. 6. Arrhythmias. 7. Urinary incontinence. PAST SURGICAL HISTORY: 1. Coronary artery bypass graft. 2. AICD placement. 3. Cataract surgeries, bilateral. 4. Carpal tunnel surgery on right. 5. Cholecystectomy. 6. Left knee replacement. 7. Right elbow surgery. 8. Left ankle surgery. 9. Cardiac ablation in 2013. SOCIAL HISTORY: She smokes a half a pack on a daily basis and has over a 30- pack-year history of smoking. She denies any alcohol or illicit drug use. She has no exposure to chemicals, asbestos, dust or tuberculosis. FAMILY HISTORY: Noncontributory. ALLERGIES: DEMEROL, LISINOPRIL, PENICILLIN. MEDICATIONS: List of her inpatient medications were reviewed. Multiple updates were made. REVIEW OF SYSTEMS: General, head, ears, eyes, nose, throat, cardiovascular, respiratory, GI, , musculoskeletal, neurologic and skin is negative except as mentioned in the HPI. PHYSICAL EXAMINATION: VITAL SIGNS: Afebrile, pulse 87, respirations 20, saturation 97% on 3 liters. Blood pressure 140/110. HEENT: Normocephalic, atraumatic. Sclerae are white. Conjunctivae are pink. Oral mucosa is moist without lesions. LUNGS: Excellent air entry. There is no hint of a prolonged expiratory phase. Rhonchi are identified. No wheezing or crackles are appreciated. HEART: Normal rate, regular. ABDOMEN: Soft, nontender, nondistended. Bowel sounds are positive. MUSCULOSKELETAL: No cyanosis or clubbing. There is no pitting in the bilateral lower extremities. NEUROLOGIC: Grossly nonfocal. LABORATORY DATA: WBC 6.7, hemoglobin 14, platelets 252,000. PH 7.46, pCO2 34, PO2 183. Basic metabolic profile is otherwise unremarkable. Liver function studies and cardiac enzymes x3 are negative. IMAGING: Chest x-ray demonstrates no evidence of an acute cardiopulmonary abnormality. The right hilar densities are stable compared to August. ASSESSMENT: 1. Acute hypoxic respiratory failure, resolved. 2. Hyperventilation, resolved. 3. Acute on chronic systolic and diastolic heart failure. DISCUSSION AND PLAN: The patient can be transitioned to the telemetry unit. I gave the patient a dose of Lasix today and we will follow that up with a p.o. dose of Lasix in the morning. I will deescalate the steroids, nebulized medications. Antibiotics and steroids can be limited to a 5-day course. After that, we will need to restart her home medications. Pulmonary Critical Care will continue to follow along while the patient remains in house for the time being. 70 minutes have been devoted to this patient in various activities. I personally reviewed all imaging studies and laboratory data noted within this document. For fifty percent of this time, I was interacting with the patient at the bedside or coordinating care with the care team. For the remainder of the time I was immediately available to the patient in the hospital unit. CLEVE
[2018-01-29] MEDS: Acetaminophen 325 MG TAB PO PRN (21:02)
[2018-01-29] MEDS ORDERED: traZODone HCl 50 MG TAB PO SCH (21:45)
[2018-01-30] MEDS: Azithromycin 500 MG in Sodium Chloride 0.9% 250 ML 250 ML IVPB SCH (00:24)
[2018-01-30] MEDS: Acetaminophen 325 MG TAB PO PRN (01:06)
[2018-01-30] MEDS ORDERED: Cetirizine HCl 10 MG TAB PO PRN (05:03)
[2018-01-30] MEDS: Nicotine 14 MG PATCH TD SCH (05:10)
[2018-01-30] MEDS: guaiFENesin 200 MG TAB PO SCH ×3 (06:05→21:35)
[2018-01-30] MEDS: Bupropion 150 MG SR TAB PO SCH ×2 (09:06→21:35)
[2018-01-30] MEDS: Terbinafine 250 MG TAB PO SCH (09:06)
[2018-01-30] MEDS: Ferrous Sulfate 325 MG TAB PO SCH (09:07)
[2018-01-30] MEDS: Famotidine 20 MG TAB PO SCH ×2 (09:07→21:35)
[2018-01-30] MEDS: Oxybutynin 5 MG TAB PO SCH (09:07)
[2018-01-30] MEDS: Losartan 25 MG TAB PO SCH (09:07)
[2018-01-30] MEDS: Furosemide 40 MG TAB PO SCH (09:07)
[2018-01-30] MEDS: Carvedilol 6.25 MG TAB PO SCH ×2 (09:08→17:23)
[2018-01-30] MEDS: Cyclobenzaprine 10 MG TAB PO SCH (09:08)
[2018-01-30] MEDS: Enoxaparin Sodium 40 MG/0.4 ML SYRINGE SC SCH (09:15)
--- NOTE | 2018-01-30 13:10 | PRG ---
DATE OF SERVICE: 01/30/2018 SERVICE: Pulmonary Medicine INTERVAL HISTORY: The patient is doing great from a respiratory standpoint. She denies any current chest pain, nausea, vomiting, fevers or chills. Otherwise, there has been no interval change to her condition. She is breathing much better. She continues to bring up a little bit of sputum, but othe rwise she is able to be more active. PHYSICAL EXAMINATION: VITAL SIGNS: Afebrile, pulse 78, blood pressure 127/57, respirations 20, saturation 98% on room air. GENERAL: The patient is awake, alert, no apparent distress. LUNGS: Excellent air entry. No prolonged expiratory phase, wheezing, rhonchi, or crackles present. HEART: Normal rate, regular. ABDOMEN: Soft, nontender, nondistended. Bowel sounds are positive. MUSCULOSKELETAL: No cyanosis or clubbing. There is trace to 1+ pitting edema in the bilateral lower extremities. NEUROLOGIC: Grossly nonfocal. ASSESSMENT: 1. Acute hypoxic respiratory failure, resolving. 2. Hyperventilation, resolved. 3. Acute on chronic systolic and diastolic heart failure. DISCUSSION AND PLAN: We will continue to wean the patient's oxygen through time. We will continue t o diurese her gently. I will increase her gabapentin to 3 times daily for her severe restless leg sy ndrome. Antibiotics and steroids can be limited to a 5-day course. I am really not suspicious of a COPD exacerbation here as she does not have a significantly prolonged expiratory time. From my stand point, she is stable for transition to the telemetry and/or medical unit.
[2018-01-30] MEDS: Gabapentin 300 MG CAP PO SCH ×2 (14:19→21:35)
[2018-01-30] MEDS ORDERED: Furosemide 20 MG/2 ML VIAL SLOW IVP SCH (15:00)
[2018-01-30] MEDS ORDERED: Gabapentin 300 MG CAP PO SCH (21:00)
[2018-01-30] MEDS: traZODone HCl 50 MG TAB PO SCH (21:34)
[2018-01-30] MEDS: Atorvastatin Calcium 40 MG TAB PO SCH (21:35)
--- NOTE | 2018-01-30 22:26 | PDOC.PN ---
- Subjective Encounter Start Date: 01/30/18 Encounter Start Time: 09:30 Patient seen and examined for resp failure. Some dry cough. SOB improving. No other complaints. No overnight events - Objective Resuscitation Status: Resuscitation Status FULL:Full Resuscitation MAR Reviewed: Yes Vital Signs & Weight: Vital Signs (12 hours) Temp Pulse Resp BP BP Pulse Ox 01/30/18 20:20 97.9 F 74 22 H 147/86 H 100 01/30/18 20:00 100 01/30/18 19:48 98.5 F 80 20 129/89 97 01/30/18 18:46 70 16 96 01/30/18 17:23 145/78 H 01/30/18 15:56 97.7 F 78 20 129/89 95 01/30/18 13:38 81 18 100 01/30/18 12:00 100 01/30/18 11:29 97.6 F 78 20 127/57 L 98 Weight Weight 200 lb I&O: 01/29/18 01/30/18 01/31/18 06:59 06:59 06:59 Intake Total 150 1620 Output Total 3900 4000 Balance 150 -2280 -4000 Result Diagrams: 01/29/18 02:58 01/31/18 04:35 Phys Exam - Physical Examination Constitutional: NAD Respiratory: no rhonchi Scat wheezing Cardiovascular: RRR, no rub Gastrointestinal: soft, non-tender, positive bowel sounds Musculoskeletal: edema present Neurological: non-focal, moves all 4 limbs Dx/Plan - Plan DVT proph w/SCDs IMPRESSION: 1. Acute hypoxic respiratory failure/COPD Exacerbation/Acute on chronic systolic /diastolic HF - stage C 2. Hypokalemia 3. CAD s/p CABG / s/p AICD / Ischemic CM 4. Tobacco abuse 5. HTN / HLD 6. Other issues per H&P PLAN: Cont Atbx/Steroids Wean O2 Nicotin patch AM labs Cont diuresis/Losartan/Coreg Review of Systems - Review of Systems Cardiovascular: negative: chest pain, palpitations, orthopnea, paroxysmal nocturnal dyspnea, edema, light headedness, other Gastrointestinal: negative: Nausea, Vomiting, Abdominal Pain, Diarrhea, Constipation, Melena, Hematochezia, Other - Medications/Allergies Allergies/Adverse Reactions: Allergies Allergy/AdvReac Type Severity Reaction Status Date / Time levofloxacin [From Levaquin] Allergy Verified 01/29/18 02:07 lisinopril Allergy Verified 08/31/17 20:40 meperidine HCl [From Demerol] Allergy Verified 08/31/17 20:40 Penicillins Allergy Verified 08/31/17 20:40 Medications: Current Medications Acetaminophen (Tylenol) 650 mg PO Q4H PRN PRN Reason: Headache/Fever/Mild Pain (1-3) Last Admin: 01/30/18 01:06 Dose: 650 mg Albuterol Sulfate (Ventolin) 2.5 mg NEB [id number] PRN PRN Reason: Wheezing Albuterol/Ipratropium (Duoneb) 3 ml NEB [id number] [facility] Last Admin: 01/30/18 18:46 Dose: 3 ml Atorvastatin Calcium (Lipitor) 40 mg PO HS [facility] Last Admin: 01/30/18 21:35 Dose: 40 mg Bupropion HCl (Wellbutrin Sr) 150 mg PO BID [facility] Last Admin: 01/30/18 21:35 Dose: 150 mg Carvedilol (Coreg) 6.25 mg PO BID-WM [facility] Last Admin: 01/30/18 17:23 Dose: 6.25 mg Cetirizine HCl (Zyrtec) 10 mg PO DAILYPRN PRN PRN Reason: ALLERGIES Cyclobenzaprine HCl (Flexeril) 5 mg PO DAILY [facility] Last Admin: 01/30/18 09:08 Dose: 5 mg Enoxaparin Sodium (Lovenox) 40 mg SC 0900 [facility] Last Admin: 01/30/18 09:15 Dose: 40 mg Famotidine (Pepcid) 20 mg PO BID [facility] Last Admin: 01/30/18 21:35 Dose: 20 mg Ferrous Sulfate (Feosol) 325 mg PO DAILY [facility] Last Admin: 01/30/18 09:07 Dose: 325 mg Furosemide (Lasix) 40 mg PO DAILY-AC [facility] Last Admin: 01/30/18 09:07 Dose: 40 mg Gabapentin (Neurontin) 300 mg PO TID [facility] Last Admin: 01/30/18 21:35 Dose: 300 mg Guaifenesin (Organ-I Nr) 400 mg PO Q8HR [facility] Last Admin: 01/30/18 21:35 Dose: 400 mg Azithromycin 500 mg/ Sodium (Chloride) 250 mls @ 250 mls/hr IVPB Q24HR [facility] Last Admin: 01/30/18 00:24 Dose: 250 mls Losartan Potassium (Cozaar) 12.5 mg PO DAILY [facility] Last Admin: 01/30/18 09:07 Dose: 12.5 mg Miscellaneous Medication (Pharmacy To Dose) 1 each IVPB PRN PRN PRN Reason: Pharmacy to dose Nicotine (Nicoderm Patch) 14 mg TD Q24HR [facility] Last Admin: 01/30/18 05:10 Dose: Not Given Ondansetron HCl (Zofran Odt) 4 mg PO Q6H PRN PRN Reason: Nausea/Vomiting Ondansetron HCl (Zofran) 4 mg IVP Q6H PRN PRN Reason: Nausea/Vomiting Oxybutynin Chloride (Ditropan) 5 mg PO DAILY [facility] Last Admin: 01/30/18 09:07 Dose: 5 mg Pantoprazole Sodium (Protonix) 40 mg PO DAILY [facility] Sodium Chloride (Flush - Normal Saline) 10 ml IVF Q12HR [facility] Last Admin: 01/30/18 21:36 Dose: 10 ml Sodium Chloride (Flush - Normal Saline) 10 ml IVF PRN PRN PRN Reason: Saline Flush Last Admin: 01/29/18 05:34 Dose: 10 ml Terbinafine HCl (Lamisil) 250 mg PO DAILY [facility] Last Admin: 01/30/18 09:06 Dose: 250 mg Trazodone HCl (Desyrel) 100 mg PO HS [facility] Last Admin: 01/30/18 21:34 Dose: 100 mg
[2018-01-31] MEDS: Azithromycin 500 MG in Sodium Chloride 0.9% 250 ML 250 ML IVPB SCH (00:45)
[2018-01-31] MEDS: guaiFENesin 200 MG TAB PO SCH ×3 (05:47→22:08)
[2018-01-31] MEDS: Nicotine 14 MG PATCH TD SCH (05:48)
[2018-01-31 06:24] LABS: Anion Gap 12 mmol/L (10-20); BUN (Urea Nitrogen) 15 mg/dL (9.8-20.1); Calc. Creatinine Clearance 98 mL/min (70-130); Calcium 8.7 mg/dL (7.8-10.44); Carbon Dioxide 28 mmol/L (23-31); Chloride 103 mmol/L (98-107); Estimated GFR-MDRD 78; Glucose 79 mg/dL (83-110); Magnesium 1.9 mg/dL (1.6-2.6); Potassium 3.3 mmol/L (3.5-5.1); Sodium 140 mmol/L (136-145)
[2018-01-31] MEDS: Bupropion 150 MG SR TAB PO SCH ×2 (08:41→20:00)
[2018-01-31] MEDS: Cyclobenzaprine 10 MG TAB PO SCH (08:42)
[2018-01-31] MEDS: Famotidine 20 MG TAB PO SCH ×2 (08:42→20:00)
[2018-01-31] MEDS: Potassium Chloride 20 MEQ TAB PO SCH ×3 (08:43→16:19)
[2018-01-31] MEDS: Losartan 25 MG TAB PO SCH (08:43)
[2018-01-31] MEDS: Ferrous Sulfate 325 MG TAB PO SCH (08:44)
[2018-01-31] MEDS: Carvedilol 6.25 MG TAB PO SCH (08:44)
[2018-01-31] MEDS: Gabapentin 300 MG CAP PO SCH ×3 (08:44→20:00)
[2018-01-31] MEDS: Furosemide 40 MG TAB PO SCH (08:44)
[2018-01-31] MEDS: Enoxaparin Sodium 40 MG/0.4 ML SYRINGE SC SCH (08:44)
[2018-01-31] MEDS: Terbinafine 250 MG TAB PO SCH (08:46)
--- NOTE | 2018-01-31 12:47 | PRG ---
DATE OF SERVICE: 01/31/2018 SERVICE: Pulmonary Medicine. INTERVAL HISTORY: The patient is doing great from a respiratory standpoint. She is breathing comfor tably. Her blood pressures are little marginal. That being said, she denies having any lightheadedn ess, fevers, chills, nausea or vomiting. Her cough is still present. She got a little bit of pale y ellow sputum. Outside of that, it seems to be tapering off as well. OBJECTIVE: VITAL SIGNS: Afebrile, pulse 64, blood pressure , respirations 16, saturation 98% on room air. GENERAL: The patient is awake, alert, no apparent distress. LUNGS: Decent air entry. There is no prolonged expiratory phase, wheezing identified. She got some rhonchi, but they clear with cough. No crackles. HEART: Normal rate, regular. ABDOMEN: Soft, nontender, nondistended. Bowel sounds are positive. MUSCULOSKELETAL: No cyanosis or clubbing. No pitting in the bilateral lower extremities. NEUROLOGIC: Grossly nonfocal. LABORATORY DATA: Potassium 3.3. Basic metabolic profile and magnesium are otherwise unremarkable. Blood cultures x2 are negative. Respiratory cultures negative to date. ASSESSMENT: 1. Acute hypoxic respiratory failure. 2. Hyperventilation, resolved. 3. Acute on chronic systolic and diastolic heart failure. DISCUSSION AND PLAN: The patient is now on room air. From my perspective, she is stable for transit ion out of the hospital. Antibiotics and steroids can be limited to a 5-day course. I am not terrib ly suspicious of advanced COPD as she is moving fantastic air and does not have a prolonged expirator y time. I believe that most of this admission was volume mediated. At this point, she has no furthe r requirements for inpatient Pulmonary or Critical Care opinion, and I will sign off. Please call wi th additional questions or concerns.
--- NOTE | 2018-01-31 15:17 | PDOC.PN ---
- Subjective Encounter Start Date: 01/31/18 Encounter Start Time: 15:15 Ms. Tapia was seen today in follow-up of acute on chronic respiratory failure. She says she is breathingok with the exception of an occasional cough. - Objective Resuscitation Status: Resuscitation Status FULL:Full Resuscitation MAR Reviewed: Yes Vital Signs & Weight: Vital Signs (12 hours) Temp Pulse Resp BP BP Pulse Ox 01/31/18 11:57 64 16 90 L 01/31/18 11:37 97.5 F L 88 16 96/52 L 98 01/31/18 08:44 145/78 H 01/31/18 08:00 95 01/31/18 07:44 98.0 F 75 16 107/69 95 01/31/18 06:44 90 L 01/31/18 06:41 82 16 91 L 01/31/18 04:00 97.8 F 75 18 103/62 96 Weight Weight 200 lb I&O: 01/30/18 01/31/18 02/01/18 06:59 06:59 06:59 Intake Total 1620 650 480 Output Total 3900 4000 Balance -2280 -3350 480 Result Diagrams: 01/29/18 02:58 01/31/18 04:35 Phys Exam - Physical Examination HEENT: PERRLA Respiratory: no rales, no rhonchi, wheezing present, clear to auscultation bilateral occasional wheeze, good airmovement Cardiovascular: RRR, no significant murmur, no rub Gastrointestinal: soft, non-tender, no distention, positive bowel sounds Musculoskeletal: no edema Psychiatric: normal affect, A&O x 3 Dx/Plan (1) Acute on chronic combined systolic and diastolic CHF, NYHA class 2 Code(s): I50.43 - ACUTE ON CHRONIC COMBINED SYSTOLIC AND DIASTOLIC HRT FAIL Status: Acute (2) Acute on chronic respiratory failure with hypoxia Code(s): J96.21 - ACUTE AND CHRONIC RESPIRATORY FAILURE WITH HYPOXIA Status: Acute Comment: Improving (3) COPD exacerbation Code(s): J44.1 - CHRONIC OBSTRUCTIVE PULMONARY DISEASE W (ACUTE) EXACERBATION Status: Acute Comment: oral steroids, bronchodilators and oral antibiotics. (4) CAD (coronary artery disease) Code(s): I25.10 - ATHSCL HEART DISEASE OF [place] CORONARY ARTERY W/O ANG PCTRS Status: Chronic Qualifiers: Coronary Disease-Associated Artery/Lesion type: [place] artery [place] vs. transplanted heart: [place] heart Associated angina: without angina Qualified Code(s): I25.10 - Atherosclerotic heart disease of [place] coronary artery without angina pectoris Comment: stable (5) Hypertension Code(s): I10 - ESSENTIAL (PRIMARY) HYPERTENSION Status: Chronic Qualifiers: Hypertension type: essential hypertension Qualified Code(s): I10 - Essential (primary) hypertension (6) Obesity (BMI 30-39.9) Code(s): E66.9 - OBESITY, UNSPECIFIED Status: Chronic - Plan * Acute on chronic respiratory failure- improved- PCC evaluation noted- She has more of a component of heart failure than COPD. She has diuresed well over the past few days * COPD- stable * HTN- blood pressure is stable * Stable for discharge home.
[2018-01-31] MEDS ORDERED: Azithromycin 250 MG TAB PO SCH (15:30)
[2018-01-31] MEDS: Oxybutynin 5 MG TAB PO SCH (17:25)
[2018-01-31] MEDS: Carvedilol 3.125 MG TAB PO SCH (17:26)
[2018-01-31] MEDS: Atorvastatin Calcium 40 MG TAB PO SCH (20:00)
[2018-01-31] MEDS: traZODone HCl 50 MG TAB PO SCH (22:08)
[2018-02-01] MEDS ORDERED: Azithromycin 250 MG TAB PO SCH (01:00)
[2018-02-01] MEDS: Nicotine 14 MG PATCH TD SCH (05:29)
[2018-02-01] MEDS: guaiFENesin 200 MG TAB PO SCH (05:30)
[2018-02-01] MEDS: Cyclobenzaprine 10 MG TAB PO SCH (08:27)
[2018-02-01] MEDS: Furosemide 40 MG TAB PO SCH (08:27)
[2018-02-01] MEDS: Losartan 25 MG TAB PO SCH (08:28)
[2018-02-01] MEDS: Terbinafine 250 MG TAB PO SCH (08:28)
[2018-02-01] MEDS: Gabapentin 300 MG CAP PO SCH (08:28)
[2018-02-01] MEDS: Ferrous Sulfate 325 MG TAB PO SCH (08:28)
[2018-02-01] MEDS: Enoxaparin Sodium 40 MG/0.4 ML SYRINGE SC SCH (08:28)
[2018-02-01] MEDS: Famotidine 20 MG TAB PO SCH (08:29)
[2018-02-01] MEDS: Carvedilol 3.125 MG TAB PO SCH (08:29)
[2018-02-01] MEDS: Oxybutynin 5 MG TAB PO SCH (08:29)
[2018-02-01] MEDS: Bupropion 150 MG SR TAB PO SCH (08:29)
[2018-02-01] MEDS: Potassium Chloride 20 MEQ TAB PO SCH (08:30)
--- NOTE | 2018-02-01 09:53 | DIS ---
DATE OF ADMISSION: 01/28/2018 DATE OF DISCHARGE: 01/31/2018 PRIMARY CARE PHYSICIAN: Dr[facility] Janae [facility] and their fax is [phone]. DISCHARGE DIAGNOSES: 1. Acute on chronic combined systolic and diastolic heart failure, [place] Heart Association class II. 2. Chronic obstructive pulmonary disease exacerbation. 3. Acute on chronic respiratory failure with hypoxemia secondary to #1 and #2. 4. Hypertension. 5. Hyperlipidemia. 6. Coronary artery disease. 7. Osteoarthritis. DISCHARGE MEDICATIONS: Include azithromycin 250 mg 1 tablet, Wellbutrin 150 mg twice a day, carvedil ol 6.25 mg twice daily, DuoNebs q.4 hours p.r.n., Lamisil 250 mg daily, Aldactone 25 mg daily, Ditrop an 5 mg 3 times a day, omeprazole 20 mg daily, Nitrostat 0.4 sublingual p.r.n., methenamine 1 gram t. i.d., losartan 25 mg 1/2 tablet daily, DuoNebs twice a day, guaifenesin 400 mg q.8 hours as needed, N eurontin 300 mg at bedtime, iron sulfate 325 mg daily, cyclobenzaprine 5 mg daily, Zyrtec 10 mg as ne eded, calcium carbonate 1 tablet twice a day, Symbicort 80/4.5 two puffs twice daily, atorvastatin 40 mg daily, albuterol, Proventil 2 puffs q.6 hours and acyclovir 400 mg t.i.d. CODE STATUS: FULL CODE. ALLERGIES: LEVOFLOXACIN, LISINOPRIL, MEPERIDINE, and PENICILLINS. HOSPITAL COURSE: Ms. Tapia is a pleasant 72-year-old female who was admitted to the hospital with acute respiratory distress and acute respiratory failure due to both CHF exacerbation and COPD. She was admitted to the hospital and initially required BiPAP. She was placed on empiric antibiotics, D uoNebs, and steroids. She was also diuresed. She was able to be downgraded from the [facility]. Continue treatment on the floor. She did well, diuresed several liters of fluids. She was seen by Pulmonmirian su, who felt that this particular exacerbation was due more to congestive heart failure then to chron ic obstructive pulmonary disease. At the time of discharge, she was satting in the 90s on room air, had been ambulatory and generally much improved. Therefore, she will be discharged home with home he alth and outpatient followup in 1-2 weeks at the [facility].
[2018-02-01 11:22] VITALS: BP 114/74; TEMP 97.6
== END 2018-02-01 12:04 | disposition home or self-care (01) | DRG 291 ==
LOC: ERS 18:26 → IMCU/EMU 23:00 → T4-B 01-30 20:36
PROVIDERS: ADMIT Internal Medicine; ATTEND Internal Medicine
PROC: 5A09457 Assistance with Respiratory Ventilation, 24-96 Consecutive Hours, Continuous Positive Airway Pressure (ICD-10-PCS; principal; 2018-01-28)
DX: I11.0 Hypertensive heart disease with heart failure (principal); J96.21 Acute and chronic respiratory failure with hypoxia; J44.1 Chronic obstructive pulmonary disease with (acute) exacerbation; I50.43 Acute on chronic combined systolic (congestive) and diastolic (congestive) heart failure; E78.5 Hyperlipidemia, unspecified; I25.10 Atherosclerotic heart disease of native coronary artery without angina pectoris; M19.90 Unspecified osteoarthritis, unspecified site; Z88.0 Allergy status to penicillin; Z88.1 Allergy status to other antibiotic agents; Z88.8 Allergy status to other drugs, medicaments and biological substances; Z95.1 Presence of aortocoronary bypass graft; I49.9 Cardiac arrhythmia, unspecified; Z95.0 Presence of cardiac pacemaker; F17.210 Nicotine dependence, cigarettes, uncomplicated; Z95.810 Presence of automatic (implantable) cardiac defibrillator; Z96.652 Presence of left artificial knee joint; F32.9 Major depressive disorder, single episode, unspecified; Z99.81 Dependence on supplemental oxygen; E87.6 Hypokalemia
CPT/HCPCS: 36415; 71045; 80048; 80053; 82553; 82805; 83735; 83880; 84484; 85025; 87040; 87070; 87205; 93005; 94660; 96361; 96365; 96367; J0456; J1650; J1940; J1956; J2920; J7050; J7506; J7611; J7620; J7644

== ENCOUNTER 2018-02-26 20:28 | Inpatient (IN) | payer MEDICARE, OTHER ==
[2018-02-26 20:57] LABS: #Basophils 0.1 thou/uL (0.0-0.2); #Eosinphils 0.2 thou/uL (0.0-0.7); #Lymphocytes 2.2 thou/uL (1.20-3.40); #Monocytes 0.6 thou/uL (0.11-0.59); #Neutrophils 6.1 thou/uL (1.40-6.50); %Lymphocytes 24.3 % (21.0-51.0); %Monocytes 6.8 % (0.0-10.0); %Neutrophils 65.9 % (42.0-75.0); Hemoglobin 14.8 g/dL (12.0-16.0); Mean Corpuscular HGB CONC 31.5 g/dL (32.0-36.0); Mean Corpuscular Hemoglobin 30.9 pg (27.0-31.0); Mean Corpuscular Volume 98.1 fL (78.0-98.0); Mean Platelet Volume 7.6 fL (7.4-10.4); Platelet Count 225 thou/uL (130-400); RBC Distribution Width 12.8 % (11.5-14.5); White Blood Cell (WBC) Count 9.2 thou/uL (4.8-10.8)
[2018-02-26 21:20] LABS: ALT (SGPT) Less than 7 U/L (8-55); AST (SGOT) 10 U/L (5-34); Albumin 3.9 g/dL (3.4-4.8); Alkaline Phosphatase 103 U/L (40-150); Anion Gap 14 mmol/L (10-20); BUN (Urea Nitrogen) 8 mg/dL (9.8-20.1); Bilirubin, Total 0.4 mg/dL (0.2-1.2); Calc. Creatinine Clearance 0 mL/min (70-130); Calcium 9.3 mg/dL (7.8-10.44); Carbon Dioxide 25 mmol/L (23-31); Chloride 105 mmol/L (98-107); Estimated GFR-MDRD 65; Globulin 2.6 g/dL (2.4-3.5); Glucose 116 mg/dL (83-110); Potassium 3.6 mmol/L (3.5-5.1); Protein, Total 6.5 g/dL (6.0-8.3); Sodium 140 mmol/L (136-145)
[2018-02-26 21:25] LABS: CKMB 2.2 ng/mL (0-6.6); Troponin I Less than 0.010 ng/mL (< 0.028)
[2018-02-26] MEDS ORDERED: Furosemide 40 MG/4 ML VIAL ONE (22:15)
[2018-02-26] MEDS ORDERED: predniSONE 20 MG TAB ONE (22:15)
[2018-02-26] MEDS ORDERED: Albuterol Sulfate 2.5 mg/3 ml Neb ONE (22:20)
[2018-02-26 22:30] LABS: Actual Bicarbonate (HCO3a) 24.3 mEq/L (22-28); Analyzer IN Cardio ER; Base Excess (BEa) 0.5 mEq/L (-2.0 to +3.0); Carboxyhemoglobin (COHb) 3.1 gm% (0.0-3.0); Hemoglobin (Hb) 15.2 g/dL (12.0-16.0); Potassium - ABG Lab 3.38 mmol/L (3.70-5.30); pH, Arterial 7.44 (7.35-7.45)
[2018-02-26 22:37] LABS: O2 Tension (PaO2) 56.6 mmHg (> 70.0); Puncture Site RRA
--- NOTE | 2018-02-26 23:09 | RAD ---
CHEST ONE VIEW: INDICATIONS: Acute shortness of breath. History of CHF and COPD. COMPARISON: 01/28/2018 FINDINGS: Cardiomegaly and AICD are unchanged. Lungs are clear. No pleural lesions or pneumothorax is evident . The osseous structures are similar appearing. IMPRESSION: Stable examination. No definite acute abnormality. POS: [facility]
[2018-02-26] MEDS ORDERED: Albuterol Sulfate 2.5 mg/3 ml Neb NEB PRN (23:56)
[2018-02-26] MEDS ORDERED: Ondansetron ODT 4 MG TAB SL PRN (23:58)
[2018-02-26] MEDS ORDERED: Ondansetron PF 4 MG/2 ML Vial IVP PRN (23:58)
[2018-02-26] MEDS ORDERED: Acetaminophen 325 MG TAB PO PRN (23:58)
[2018-02-27 00:54] VITALS: BMI 34.9
[2018-02-27] MEDS ORDERED: Loratadine 10 MG TAB PO PRN (08:25)
[2018-02-27] MEDS ORDERED: Spironolactone 25 MG TAB PO SCH (09:00)
[2018-02-27] MEDS ORDERED: Furosemide 40 MG/4 ML VIAL SLOW IVP SCH (09:00)
[2018-02-27] MEDS ORDERED: predniSONE 20 MG TAB PO SCH (09:00)
[2018-02-27] MEDS: Cyclobenzaprine 10 MG TAB PO SCH (10:45)
[2018-02-27] MEDS: Atorvastatin Calcium 40 MG TAB PO SCH (10:45)
[2018-02-27] MEDS: Calcium Carbonate + Vit D 1 TAB PO SCH ×2 (10:45→20:37)
[2018-02-27] MEDS: Losartan 25 MG TAB PO SCH (10:46)
[2018-02-27] MEDS: Doxycycline 100 MG CAP PO SCH ×2 (10:46→20:38)
[2018-02-27] MEDS: Famotidine 20 MG TAB PO SCH ×2 (10:46→20:38)
[2018-02-27] MEDS: Enoxaparin Sodium 40 MG/0.4 ML SYRINGE SC SCH (10:46)
[2018-02-27] MEDS: Bupropion 150 MG SR TAB PO SCH ×2 (11:56→20:37)
[2018-02-27] MEDS: Diabetic Tussin 200 MG/10 ML UDCUP PO SCH ×2 (11:56→20:38)
[2018-02-27] MEDS: Oxybutynin 5 MG TAB PO SCH ×3 (11:57→20:38)
[2018-02-27] MEDS: Terbinafine 250 MG TAB PO SCH (11:57)
[2018-02-27] MEDS: Carvedilol 6.25 MG TAB PO SCH (17:19)
[2018-02-27] MEDS: Gabapentin 300 MG CAP PO SCH (20:38)
[2018-02-27] MEDS: traZODone HCl 50 MG TAB PO SCH (20:38)
--- NOTE | 2018-02-27 20:52 | HP ---
CHIEF COMPLAINT: Shortness of breath. HISTORY OF PRESENT ILLNESS: This patient is a 72-year-old female with a history of CHF and COPD who presented via the emergency department. The patient was only discharged from this facility less than a week ago for similar symptoms of shortness of breath. At that time she was felt to have more of c ongestive heart failure exacerbation/decompensation. The patient reports it was less than a month ag o not little over a week ago that she was here. Patient started complaining of some reporting increa sed shortness of breath about a week ago. She was having some increasing dyspnea on exertion, it bec nigel so severe that when she was away from home, she was worried that she was going to make it back wh ile she was driving. She has home O2 typically only uses it at night, but she has been using it some during the day. She has been coughing. Cough is productive of a yellow to white very thick sputum. She denies any fevers, chills or chest pain. She denies any orthopnea. Denies upper respiratory s ymptoms. She does report that she had a flu shot in December of this year. REVIEW OF SYSTEMS: Only notable for some mild musculoskeletal back pain. Otherwise, a 10-system rev iew was negative except for those things been mentioned in the HPI. PAST MEDICAL HISTORY: Notable for COPD, coronary artery bypass graft, urinary incontinence, hyperlip idemia, hypertension, CHF, arrhythmias, osteoarthritis. PAST SURGICAL HISTORY: Pacemaker defibrillator placement, cardiac bypass in 2010, bilateral cataract surgery with lens implant, pacemaker replacement in 02/08/2018, carpal tunnel release on the right, cholecystectomy, left knee replacement, right elbow and left ankle surgery, tonsillectomy, cardiac ab lation in 2013. FAMILY HISTORY: Reviewed and noncontributory with any irrelevant information pertinent to this admis danelle. SOCIAL HISTORY: The patient is a 30-year smoker, continues to smoke. She denies any drugs or alcoho l. She lives at home with her family. She is a FULL [employer] and her surrogate decision maker would be her nephew, Harshad Louis. ALLERGIES: DEMEROL, LISINOPRIL, PENICILLIN, MEPERIDINE. CURRENT MEDICATIONS: Sublingual nitroglycerin p.r.n., Proventil HFA, trazodone 100 mg at bedtime, gu aifenesin 100 mg b.i.d., Lamisil 250 every day, spironolactone 25 every day, Ditropan 5 mg t.i.d., om eprazole 20 mg every day, nicotine lozenge p.r.n., methenamine hippurate 1 gram p.o. t.i.d., Cozaar 0 .5 p.o. daily, Neurontin 300 mg at bedtime, ferrous sulfate 325 every day, cyclobenzaprine 5 mg daily , Zyrtec 10 mg every day p.r.n., Coreg 6.25 p.o. b.i.d., calcium with vitamin D 1 p.o. b.i.d., Symbic ort 2 puffs inhaled b.i.d., bupropion SR 150 p.o. b.i.d., atorvastatin 40 mg every day, albuterol p.r .n., DuoNeb p.r.n. PHYSICAL EXAMINATION: VITAL SIGNS: Temperature is 98.3, pulse 72, respirations 22, O2 sat 96% on 2 liters, BP was 129/71. GENERAL APPEARANCE: Age appropriate female. She is in no distress. She is a bit tachypneic, but sp eaking in full sentences. HEENT: PERRL. No OP lesions. NECK: Supple, symmetric without lymphadenopathy, JVD, or carotid bruits. HEART: Regular rate and rhythm without murmurs, gallops or rubs. LUNGS: Diminished throughout all lung patricia. No substantial wheezing or rales are noted presently. ABDOMEN: Soft, nontender, nondistended, positive bowel sounds, no masses, no organomegaly. EXTREMITIES: No significant edema. No cyanosis or clubbing. LABORATORY DATA AND IMAGING DATA: White count 9.2, hemoglobin 14.8, platelets 225. ABG; pH 7.44, pC O2 is 37.0, pO2 56.6. Sodium 140, potassium 3.6, chloride 105, CO2 25, BUN 8, creatinine 0.86, gluco se 116, calcium 9.3, AST 10, ALT less than 7. Troponin is less than 0.01, BNP 672, albumin 3.9. Sally st x-ray, stable cardiomegaly, AICD present. Lungs are clear. IMPRESSION AND PLAN: 1. Chronic obstructive pulmonary disease exacerbation in a patient with persistent tobacco abuse. S he has evidence of bronchitis as well gave steroids, nebulizer treatments, covered with antibiotics w ith doxycycline given that it does not appear that she actually has pneumonia and her chest x-ray is clear. She also has multiple allergies to work around. We have pulmonary consult in place as well. 2. History of congestive heart failure. Does not appear to be significantly decompensated. We will continue with all of her usual home medications including losartan and Coreg. 3. Hyperlipidemia. Continue with her statin. 4. Lovenox for DVT prophylaxis.
--- NOTE | 2018-02-27 20:52 | CON ---
DATE OF CONSULTATION: 02/27/2018 HISTORY: Ms. Tapia is a very pleasant 72-year-old female with cardiomyopathy. She just had her pacemaker defibrillator changed out on the 5th of this month. She also has chronic obstructive pulmonary disease. She says she is followed primarily at the [facility]. 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 She is a retired [employer]. Unfortunately, she has been unable to quit smoking. PAST MEDICAL HISTORY: 1. Remarkable for lipid disorder, hypertension, degenerative arthritis. 2. History of urinary incontinence. 3. History of coronary artery bypass grafting. 4. History of cataract surgery. 5. History of carpal tunnel surgery on the right. 6. History of cholecystectomy. 7. History of a left knee replacement. 8. History of right elbow surgery. 9. History of left ankle surgery. 10. History of an ablation procedure in 2013. SOCIAL HISTORY: She is still a half pack a day. She is not a drinker or drug user. FAMILY HISTORY: Negative for lung disease in early age. ALLERGIES: Reports allergies to MANDI INHIBITORS, DEMEROL, and PENICILLIN. REVIEW OF SYSTEMS: A 10-point review of systems is otherwise negative. PHYSICAL EXAMINATION: GENERAL: She is very pleasant, in no distress. Her BiPAP has been removed. She says she feels much better than last night. She has been short of breath for several days leading up to this. VITAL SIGNS: She is afebrile, heart rate 81, respiratory rate 26, oximetry is 97 on 2 liters, blood pressure 136/77. HEENT: Pupils are equal. NECK: Supple. LUNGS: Remarkable for faint wheezes diffusely. HEART: Regular rhythm. S1 and S2 are normal. ABDOMEN: Soft and nontender. EXTREMITIES: Without clubbing, cyanosis, or edema. Chest radiograph is free of infiltrates. Defibrillator is visualized. IMPRESSION: Chronic obstructive pulmonary disease exacerbation, slowly improving. Unit room. Reviewing old records, she has been seen by multiple doctors in our group in the past. She has been seen most frequently by Dr. Rosario it appears. Dr. Rosario is not working this week, so I will be happy to follow her while she is in the hospital. Hopefully, we will see enough improvement over the next 48 hours, she can be discharged for the weekend. This is a 50-minute consult, 50% of the time spent coordinating care in the unit. CLEVE
[2018-02-28] MEDS: Ferrous Sulfate 325 MG TAB PO SCH (08:51)
[2018-02-28] MEDS: Spironolactone 25 MG TAB PO SCH (08:51)
[2018-02-28] MEDS: Carvedilol 6.25 MG TAB PO SCH ×2 (08:51→16:31)
[2018-02-28] MEDS: Atorvastatin Calcium 40 MG TAB PO SCH (08:52)
[2018-02-28] MEDS: Calcium Carbonate + Vit D 1 TAB PO SCH ×2 (08:52→20:06)
[2018-02-28] MEDS: Cyclobenzaprine 10 MG TAB PO SCH (08:52)
[2018-02-28] MEDS: Bupropion 150 MG SR TAB PO SCH ×2 (08:52→20:06)
[2018-02-28] MEDS: Enoxaparin Sodium 40 MG/0.4 ML SYRINGE SC SCH (08:53)
[2018-02-28] MEDS: Losartan 25 MG TAB PO SCH (08:53)
[2018-02-28] MEDS: Famotidine 20 MG TAB PO SCH ×2 (08:53→20:06)
[2018-02-28] MEDS: Doxycycline 100 MG CAP PO SCH ×2 (08:53→20:05)
[2018-02-28] MEDS: Diabetic Tussin 200 MG/10 ML UDCUP PO SCH ×2 (08:53→20:06)
[2018-02-28] MEDS: Terbinafine 250 MG TAB PO SCH (08:54)
[2018-02-28] MEDS: Oxybutynin 5 MG TAB PO SCH ×3 (08:54→20:06)
[2018-02-28 08:58] LABS: Anion Gap 15 mmol/L (10-20); BUN (Urea Nitrogen) 13 mg/dL (9.8-20.1); Calc. Creatinine Clearance 86 mL/min (70-130); Calcium 9.6 mg/dL (7.8-10.44); Carbon Dioxide 24 mmol/L (23-31); Chloride 105 mmol/L (98-107); Estimated GFR-MDRD 68; Glucose 163 mg/dL (83-110); Potassium 3.6 mmol/L (3.5-5.1); Sodium 140 mmol/L (136-145)
[2018-02-28 09:21] LABS: #Basophils 0.2 thou/uL (0.0-0.2); #Eosinphils 0.1 thou/uL (0.0-0.7); #Lymphocytes 0.9 thou/uL (1.20-3.40); #Monocytes 0.3 thou/uL (0.11-0.59); %Basophils 1.4 % (0.0-1.0); %Eosinophils 0.5 % (0.0-10.0); %Monocytes 2.2 % (0.0-10.0); Mean Corpuscular HGB CONC 31.7 g/dL (32.0-36.0); Mean Corpuscular Hemoglobin 29.9 pg (27.0-31.0); Mean Corpuscular Volume 94.3 fL (78.0-98.0); Mean Platelet Volume 7.7 fL (7.4-10.4); Platelet Count 300 thou/uL (130-400); RBC Distribution Width 12.9 % (11.5-14.5); Red Blood Cell (RBC) Count 5.01 mill/uL (4.20-5.40); White Blood Cell (WBC) Count 11.4 thou/uL (4.8-10.8)
--- NOTE | 2018-02-28 13:45 | PDOC.PN ---
- Subjective Encounter Start Date: 02/28/18 Encounter Start Time: 13:43 Feeling some better, bust still sob. Still coughing. Starting have some looser sputum. - Objective Resuscitation Status: Resuscitation Status FULL:Full Resuscitation Vital Signs & Weight: Vital Signs (12 hours) Temp Pulse Resp BP Pulse Ox 02/28/18 11:22 98.1 F 73 18 141/95 H 97 02/28/18 11:15 77 20 98 02/28/18 07:55 99 02/28/18 07:53 88 21 H 99 02/28/18 07:34 98.6 F 86 22 H 126/68 98 02/28/18 07:30 96 02/28/18 04:00 98.5 F 74 26 H 120/60 96 Weight Weight 196 lb 3.2 oz I&O: 02/27/18 02/28/18 03/01/18 06:59 06:59 06:59 Intake Total 240 2360 Output Total 950 4300 Balance -710 -1940 Result Diagrams: 02/28/18 08:19 02/28/18 08:19 Phys Exam - Physical Examination Constitutional: NAD Tachypneic Diminished. Scattered rales. Sternum not fused and each side moves independently. Cardiovascular: RRR, no significant murmur Gastrointestinal: soft, non-tender, no distention Musculoskeletal: no edema Dx/Plan (1) COPD exacerbation Code(s): J44.1 - CHRONIC OBSTRUCTIVE PULMONARY DISEASE W (ACUTE) EXACERBATION Status: Acute Comment: oral steroids, bronchodilators and oral antibiotics. (2) Chronic systolic heart failure Code(s): I50.22 - CHRONIC SYSTOLIC (CONGESTIVE) HEART FAILURE Status: Chronic Comment: Stable. Not in acute exacerbation. AICD in place, EF 35-40% On carvedilol, Lasix 40mg daily. Allergic to Lisinopril (3) Dyslipidemia Code(s): E78.5 - HYPERLIPIDEMIA, UNSPECIFIED Status: Chronic Comment: Statin (4) Hypertension Code(s): I10 - ESSENTIAL (PRIMARY) HYPERTENSION Status: Chronic Qualifiers: Hypertension type: essential hypertension Qualified Code(s): I10 - Essential (primary) hypertension Comment: Stable - Plan cont current plan of care, continue antibiotics, respiratory therapy, out of bed /ambulate, DVT proph w/lovenox * Can likely move to floor.
[2018-02-28] MEDS ORDERED: Furosemide 20 MG/2 ML VIAL SLOW IVP SCH (14:30)
--- NOTE | 2018-02-28 14:42 | PRG ---
DATE OF SERVICE: 02/28/2018 SERVICE: Pulmonary Medicine. INTERVAL HISTORY: The patient is breathing comfortably. She had a coughing fit last night and brought up a little bit of white phlegm. After this, her breathing improved a little bit. That being said, she is moving in the right direction, but still feels that there is some room for improvement. She denies any fevers or chills. There are no overnight events. PHYSICAL EXAMINATION: VITAL SIGNS: Afebrile, pulse 73, blood pressure 141/95, respirations 18, saturation 97% on 2.5 liters nasal cannula. GENERAL: The patient is awake and alert, in no apparent distress. LUNGS: Reduced air entry. She has polyphonic wheezing, crackles and rhonchi present. Crackles predominate in the bibasilar regions. HEART: Normal rate and regular. ABDOMEN: Soft, nontender, nondistended. Bowel sounds are positive. MUSCULOSKELETAL: No cyanosis or clubbing. There is trace to 1+ pitting in the bilateral lower extremities. NEUROLOGIC: Grossly nonfocal. LABORATORY DATA: WBC 11.4, hemoglobin 15.0, platelets 300,000. Basic metabolic profile is otherwise unremarkable. BNP 672, which is above her baseline. ASSESSMENT: 1. Acute hypoxic respiratory failure. 2. Chronic obstructive pulmonary disease with acute exacerbation. 3. Acute on chronic systolic heart failure. DISCUSSION AND PLAN: We will continue to diurese the patient gently through time. She is not taking any long-acting medications out of the hospital. I have asked her to talk to her primary party supply specialist, Dr. Marques at the [facility] in the outpatient setting on a monthly basis until she gets her breathing under better control. I would give her a 14-day course of steroids. I have counseled her on the importance of taking her Symbicort 2 puffs twice daily, essentially for the rest of her life regardless of how she feels. CLEVE
[2018-02-28] MEDS: traZODone HCl 50 MG TAB PO SCH (20:05)
[2018-02-28] MEDS: Gabapentin 300 MG CAP PO SCH (20:06)
[2018-02-28] MEDS ORDERED: Acetaminophen 325 MG TAB PO SCH (20:45)
[2018-03-01 04:26] LABS: #Lymphocytes 3.2 thou/uL (1.20-3.40); #Monocytes 0.9 thou/uL (0.11-0.59); #Neutrophils 7.4 thou/uL (1.40-6.50); %Basophils 0.2 % (0.0-1.0); %Eosinophils 0.2 % (0.0-10.0); %Lymphocytes 27.6 % (21.0-51.0); %Monocytes 7.4 % (0.0-10.0); %Neutrophils 64.6 % (42.0-75.0); Hemoglobin 13.9 g/dL (12.0-16.0); Mean Corpuscular HGB CONC 30.8 g/dL (32.0-36.0); Mean Corpuscular Hemoglobin 29.8 pg (27.0-31.0); Mean Corpuscular Volume 96.9 fL (78.0-98.0); Mean Platelet Volume 7.4 fL (7.4-10.4); Platelet Count 288 thou/uL (130-400); Red Blood Cell (RBC) Count 4.68 mill/uL (4.20-5.40); White Blood Cell (WBC) Count 11.5 thou/uL (4.8-10.8)
[2018-03-01 04:56] LABS: Anion Gap 9 mmol/L (10-20); BUN (Urea Nitrogen) 19 mg/dL (9.8-20.1); Calc. Creatinine Clearance 88 mL/min (70-130); Calcium 8.8 mg/dL (7.8-10.44); Carbon Dioxide 30 mmol/L (23-31); Chloride 105 mmol/L (98-107); Estimated GFR-MDRD 70; Glucose 101 mg/dL (83-110); Potassium 3.3 mmol/L (3.5-5.1); Sodium 141 mmol/L (136-145)
[2018-03-01] MEDS: Enoxaparin Sodium 40 MG/0.4 ML SYRINGE SC SCH (08:40)
[2018-03-01] MEDS: Diabetic Tussin 200 MG/10 ML UDCUP PO SCH (08:43)
[2018-03-01] MEDS: Cyclobenzaprine 10 MG TAB PO SCH (08:44)
[2018-03-01] MEDS: Atorvastatin Calcium 40 MG TAB PO SCH (08:45)
[2018-03-01] MEDS: Ferrous Sulfate 325 MG TAB PO SCH (08:45)
[2018-03-01] MEDS: Doxycycline 100 MG CAP PO SCH ×2 (08:45→20:04)
[2018-03-01] MEDS: Losartan 25 MG TAB PO SCH (08:45)
[2018-03-01] MEDS: predniSONE 20 MG TAB PO SCH (08:46)
[2018-03-01] MEDS: Furosemide 20 MG/2 ML VIAL SLOW IVP SCH (08:46)
[2018-03-01] MEDS: Spironolactone 25 MG TAB PO SCH (08:46)
[2018-03-01] MEDS: Terbinafine 250 MG TAB PO SCH (08:46)
[2018-03-01] MEDS: Famotidine 20 MG TAB PO SCH ×2 (08:46→20:04)
[2018-03-01] MEDS: Carvedilol 6.25 MG TAB PO SCH ×2 (08:46→16:13)
[2018-03-01] MEDS: Bupropion 150 MG SR TAB PO SCH ×2 (08:46→20:05)
[2018-03-01] MEDS: Calcium Carbonate + Vit D 1 TAB PO SCH ×2 (08:46→20:04)
[2018-03-01] MEDS: Oxybutynin 5 MG TAB PO SCH ×3 (08:46→20:05)
--- NOTE | 2018-03-01 10:18 | PDOC.PN ---
- Subjective Encounter Start Date: 03/01/18 Encounter Start Time: 10:16 - Objective Resuscitation Status: Resuscitation Status FULL:Full Resuscitation Vital Signs & Weight: Vital Signs (12 hours) Temp Pulse Resp BP Pulse Ox 03/01/18 07:29 98 03/01/18 07:28 71 16 97 03/01/18 07:25 98.3 F 80 15 136/90 97 03/01/18 04:00 98.4 F 79 22 H 106/49 L 98 03/01/18 00:23 69 20 99 03/01/18 00:00 97.9 F 73 23 H 106/46 L 100 Weight Weight 181 lb 8 oz I&O: 02/28/18 03/01/18 03/02/18 06:59 06:59 06:59 Intake Total 2360 1850 Output Total 4300 900 800 Balance -1940 950 -800 Result Diagrams: 03/01/18 03:59 03/01/18 03:59 Dx/Plan - Plan Constitutional: NAD Tachypneic Diminished. Scattered rales. Sternum not fused and each side moves independently. + breath sounds b/l Cardiovascular: RRR, no significant murmur Gastrointestinal: soft, non-tender, no distention Musculoskeletal: no edema Dx/Plan (1) COPD exacerbation Code(s): J44.1 - CHRONIC OBSTRUCTIVE PULMONARY DISEASE W (ACUTE) EXACERBATION Status: Acute Comment: oral steroids, bronchodilators and oral antibiotics. Overall improving Sig dyspnea with exertion (2) Chronic systolic heart failure Code(s): I50.22 - CHRONIC SYSTOLIC (CONGESTIVE) HEART FAILURE Status: Chronic Comment: Stable. Not in acute exacerbation. AICD in place, EF 35-40% On carvedilol, Lasix 40mg daily. Allergic to Lisinopril (3) Dyslipidemia Code(s): E78.5 - HYPERLIPIDEMIA, UNSPECIFIED Status: Chronic Comment: Statin (4) Hypertension Code(s): I10 - ESSENTIAL (PRIMARY) HYPERTENSION Status: Chronic Qualifiers: Hypertension type: essential hypertension Qualified Code(s): I10 - Essential (primary) hypertension Comment: Stable - Plan cont current plan of care, continue antibiotics, respiratory therapy, out of bed /ambulate, DVT proph w/lovenox * Transfer to floor * d/w pts bedside nsg Review of Systems - Review of Systems Constitutional: chills - Medications/Allergies Allergies/Adverse Reactions: Allergies Allergy/AdvReac Type Severity Reaction Status Date / Time levofloxacin [From Levaquin] Allergy Verified 02/27/18 00:54 lisinopril Allergy Verified 02/27/18 00:54 meperidine HCl [From Demerol] Allergy Verified 02/27/18 00:54 Penicillins Allergy Verified 02/27/18 00:54 Medications: Current Medications Albuterol/Ipratropium (Duoneb) 3 ml NEB [id number] [facility] Last Admin: 03/01/18 07:28 Dose: 3 ml Atorvastatin Calcium (Lipitor) 40 mg PO DAILY [facility] Last Admin: 03/01/18 08:45 Dose: 40 mg Bupropion HCl (Wellbutrin Sr) 150 mg PO BID [facility] Last Admin: 03/01/18 08:46 Dose: 150 mg Calcium/Vitamin D (Caltrate 600 + Vit D) 1 tab PO BID [facility] Last Admin: 03/01/18 08:46 Dose: 1 tab Carvedilol (Coreg) 6.25 mg PO BID[facility] Last Admin: 03/01/18 08:46 Dose: 6.25 mg Cyclobenzaprine HCl (Flexeril) 5 mg PO DAILY [facility] Last Admin: 03/01/18 08:44 Dose: 5 mg Doxycycline Hyclate (Vibramycin) 100 mg PO BID [facility] Last Admin: 03/01/18 08:45 Dose: 100 mg Enoxaparin Sodium (Lovenox) 40 mg SC 0900 [facility] Last Admin: 03/01/18 08:40 Dose: 40 mg Famotidine (Pepcid) 20 mg PO BID [facility] Last Admin: 03/01/18 08:46 Dose: 20 mg Ferrous Sulfate (Feosol) 325 mg PO QAM[facility] Last Admin: 03/01/18 08:45 Dose: 325 mg Furosemide (Lasix) 20 mg SLOW IVP DAILY [facility] Last Admin: 03/01/18 08:46 Dose: 20 mg Gabapentin (Neurontin) 300 mg PO HS [facility] Last Admin: 02/28/18 20:06 Dose: 300 mg Guaifenesin (Robitussin Sf) 100 mg PO BID [facility] Last Admin: 03/01/18 08:43 Dose: 100 mg Loratadine (Claritin) 10 mg PO DAILY PRN PRN Reason: Sinus Symptoms Losartan Potassium (Cozaar) 12.5 mg PO DAILY [facility] Last Admin: 03/01/18 08:45 Dose: 12.5 mg Oxybutynin Chloride (Ditropan) 5 mg PO TID [facility] Last Admin: 03/01/18 08:46 Dose: 5 mg Pantoprazole Sodium (Protonix) 40 mg PO DAILY [facility] Last Admin: 03/01/18 08:45 Dose: 40 mg Methenamine Hippurate (Hiprex) 1 Gm Tab 0 each PO TID [facility] Prednisone (Prednisone) 40 mg PO [facility] Stop: 03/13/18 08:01 Last Admin: 03/01/18 08:46 Dose: 40 mg Sodium Chloride (Flush - Normal Saline) 10 ml IVF Q12HR [facility] Last Admin: 03/01/18 08:43 Dose: 10 ml Sodium Chloride (Flush - Normal Saline) 10 ml IVF PRN PRN PRN Reason: Saline Flush Spironolactone (Aldactone) 25 mg PO [facility] Last Admin: 03/01/18 08:46 Dose: 25 mg Terbinafine HCl (Lamisil) 250 mg PO DAILY [facility] Last Admin: 03/01/18 08:46 Dose: 250 mg Trazodone HCl (Desyrel) 100 mg PO [facility] Last Admin: 02/28/18 20:05 Dose: 100 mg
[2018-03-01] MEDS ORDERED: guaiFENesin ER 600 MG TAB PO SCH (12:45)
--- NOTE | 2018-03-01 12:48 | PRG ---
DATE OF SERVICE: 03/01/2018 SERVICE: Pulmonary Medicine. INTERVAL HISTORY: The patient continues to do well from a respiratory standpoint. She denies any cu rrent chest pain, fevers, chills, nausea or vomiting. Her sputum production is changed to yellow. S he seems to be getting less crud out, but she feels it is still down there. Additionally, she has go t significant restless body features. Previously, she was on Requip and this helped, but it was prev iously interrupted because of some dizziness. Ultimately, the dizziness resolved. Around that time, 4 medications were discontinued. We are going to cautiously reintroduce her Requip. PHYSICAL EXAMINATION: VITAL SIGNS: Afebrile, pulse 97, blood pressure 120/64, respirations 21, saturation 98% on 2 liters nasal cannula. GENERAL: The patient is awake and alert, in no apparent distress. LUNGS: Excellent air entry. There is no prolonged expiratory phase or wheezing present. HEART: Normal rate, regular. ABDOMEN: Soft, nontender, nondistended. Bowel sounds are positive. MUSCULOSKELETAL: No cyanosis or clubbing. No pitting in the bilateral lower extremities. NEUROLOGIC: Grossly nonfocal. LABORATORY DATA: WBC 11.5, hemoglobin 13.9, platelets 288,000. Basic metabolic profile is completel y unremarkable except for a potassium of 3.3. ASSESSMENT: 1. Acute hypoxic respiratory failure. 2. Chronic obstructive pulmonary disease with acute exacerbation. 3. Acute on chronic systolic and diastolic heart failure. DISCUSSION AND PLAN: We will continue to diurese the patient through time. I will replace her potas sium. I will cautiously reintroduce low dose of Requip and look for dizziness. Lora will be init iated. Ultimately, on discharge from the hospital, she will need to present to her [facility] timing adjuster. I discussed the importance of her taking her Symbicort as directed.
[2018-03-01] MEDS: Potassium Chloride 20 MEQ TAB PO SCH ×2 (13:30→16:13)
[2018-03-01] MEDS: METHENAMINE HIPPURATE 1 GM PO SCH (19:29)
[2018-03-01] MEDS: guaiFENesin ER 600 MG TAB PO SCH (20:04)
[2018-03-01] MEDS: Gabapentin 300 MG CAP PO SCH (20:04)
[2018-03-01] MEDS: traZODone HCl 50 MG TAB PO SCH (20:04)
[2018-03-01] MEDS: rOPINIRole HCl 0.5 MG TAB PO SCH (20:05)
[2018-03-02 04:38] LABS: #Basophils 0.1 thou/uL (0.0-0.2); #Eosinphils 0.1 thou/uL (0.0-0.7); #Lymphocytes 3.6 thou/uL (1.20-3.40); #Neutrophils 5.2 thou/uL (1.40-6.50); %Basophils 0.7 % (0.0-1.0); %Eosinophils 0.6 % (0.0-10.0); %Lymphocytes 36.4 % (21.0-51.0); %Monocytes 9.9 % (0.0-10.0); %Neutrophils 52.5 % (42.0-75.0); Hemoglobin 14.1 g/dL (12.0-16.0); Mean Corpuscular Hemoglobin 30.2 pg (27.0-31.0); Mean Corpuscular Volume 97.5 fL (78.0-98.0); Mean Platelet Volume 7.3 fL (7.4-10.4); Platelet Count 292 thou/uL (130-400); RBC Distribution Width 12.9 % (11.5-14.5); Red Blood Cell (RBC) Count 4.65 mill/uL (4.20-5.40)
[2018-03-02 04:58] LABS: Anion Gap 10 mmol/L (10-20); BUN (Urea Nitrogen) 22 mg/dL (9.8-20.1); Calc. Creatinine Clearance 79 mL/min (70-130); Calcium 8.8 mg/dL (7.8-10.44); Carbon Dioxide 30 mmol/L (23-31); Chloride 105 mmol/L (98-107); Estimated GFR-MDRD 68; Glucose 86 mg/dL (83-110); Magnesium 2.3 mg/dL (1.6-2.6); Potassium 4.1 mmol/L (3.5-5.1); Sodium 141 mmol/L (136-145)
[2018-03-02] MEDS: Furosemide 20 MG/2 ML VIAL SLOW IVP SCH (08:21)
[2018-03-02] MEDS: Enoxaparin Sodium 40 MG/0.4 ML SYRINGE SC SCH (08:22)
[2018-03-02] MEDS: Terbinafine 250 MG TAB PO SCH (08:24)
[2018-03-02] MEDS: Bupropion 150 MG SR TAB PO SCH ×2 (08:24→21:12)
[2018-03-02] MEDS: predniSONE 20 MG TAB PO SCH (08:24)
[2018-03-02] MEDS: Cyclobenzaprine 10 MG TAB PO SCH (08:25)
[2018-03-02] MEDS: Losartan 25 MG TAB PO SCH (08:25)
[2018-03-02] MEDS: Spironolactone 25 MG TAB PO SCH (08:25)
[2018-03-02] MEDS: Doxycycline 100 MG CAP PO SCH ×2 (08:25→21:12)
[2018-03-02] MEDS: Atorvastatin Calcium 40 MG TAB PO SCH (08:25)
[2018-03-02] MEDS: Ferrous Sulfate 325 MG TAB PO SCH (08:28)
[2018-03-02] MEDS: Carvedilol 6.25 MG TAB PO SCH ×2 (08:28→16:36)
[2018-03-02] MEDS: Famotidine 20 MG TAB PO SCH ×2 (08:28→21:11)
[2018-03-02] MEDS: Calcium Carbonate + Vit D 1 TAB PO SCH ×2 (08:28→21:11)
[2018-03-02] MEDS: guaiFENesin ER 600 MG TAB PO SCH ×2 (08:35→21:11)
[2018-03-02] MEDS: Oxybutynin 5 MG TAB PO SCH ×3 (08:35→21:12)
--- NOTE | 2018-03-02 11:27 | PRG ---
DATE OF SERVICE: 03/02/2018 SERVICE: Pulmonary Medicine INTERVAL HISTORY: The patient is doing outstanding from a respiratory standpoint. She denies any cu rrent chest pain, fevers, chills, nausea or vomiting. She is actually breathing quite comfortably. There has been no interval change to her condition. PHYSICAL EXAMINATION: VITAL SIGNS: Afebrile, pulse 70, blood pressure 128/64, respirations 23, saturation 92% on room air. GENERAL: The patient is awake, alert, no apparent distress. LUNGS: Excellent air entry. There is no prolonged expiratory phase today, though I do not hear a li ttle bit of wheezing, and crackling. HEART: Normal rate, regular. ABDOMEN: Soft, nontender, nondistended. Bowel sounds are positive. MUSCULOSKELETAL: No cyanosis or clubbing. Pitting edema has resolved. NEUROLOGIC: Grossly nonfocal. LABORATORY DATA: WBC 10.0, hemoglobin 14.1, platelets 292,000. Basic metabolic profile and magnesiu m are completely unremarkable. ASSESSMENT: 1. Acute hypoxic respiratory failure. 2. Acute on chronic systolic and diastolic heart failure. 3. Chronic obstructive pulmonary disease with acute exacerbation. DISCUSSION AND PLAN: We will continue to provide supportive care including antibiotics, steroids and nebulized medication. From my standpoint, she is stable for transition out of the hospital, and/or transition to the floor. She will need to follow up with her primary horses or mules teamster on discharge from the hospital. I have once again reinforced to her the concept that she needs to take her Symbicort regardless of how she feels.
--- NOTE | 2018-03-02 14:44 | PDOC.PN ---
- Subjective Encounter Start Date: 03/02/18 Encounter Start Time: 14:42 Subjective: nsg notes rev, navi ovn, crying during this visit expresses frustration that -: she was placed on a 1800mL fluid restriction and feels that "it is -: bullshit" - she also feels we are not catching all her UOP bc she is also has episodes of incontinence - Objective Resuscitation Status: Resuscitation Status FULL:Full Resuscitation Vital Signs & Weight: Vital Signs (12 hours) Temp Pulse Resp BP Pulse Ox 03/02/18 12:39 80 16 95 03/02/18 11:05 98.4 F 70 23 H 128/64 92 L 03/02/18 07:26 97.7 F 71 22 H 122/82 93 L 03/02/18 06:53 100 03/02/18 06:51 70 16 100 03/02/18 04:14 98.6 F 70 16 100 Weight Weight 181 lb 8 oz I&O: 03/01/18 03/02/18 03/03/18 06:59 06:59 06:59 Intake Total 1850 2340 Output Total 900 4450 1900 Balance 950 -2110 -1900 Result Diagrams: 03/02/18 04:23 03/02/18 04:23 Phys Exam - Physical Examination tearful, seated in the hospital chair HEENT: moist MMs sobbing but not hypoxic Psychiatric: normal affect, A&O x 3 Dx/Plan - Plan Constitutional: NAD seated in hospital chair on RA, sobbing but not hypoxic Diminished. Scattered rales. Sternum not fused and each side moves independently. + breath sounds b/l Cardiovascular: RRR, no significant murmur Gastrointestinal: soft, non-tender, no distention Musculoskeletal: no edema Dx/Plan (1) COPD exacerbation Code(s): J44.1 - CHRONIC OBSTRUCTIVE PULMONARY DISEASE W (ACUTE) EXACERBATION Status: Acute Comment: oral steroids, bronchodilators and oral antibiotics. Overall improving (2) Chronic systolic heart failure Code(s): I50.22 - CHRONIC SYSTOLIC (CONGESTIVE) HEART FAILURE Status: Chronic Comment: Stable. Not in acute exacerbation. AICD in place, EF 35-40% On carvedilol, Lasix 20mg IV converted to oral regimen continue on fluid restriction of 1800 mL Allergic to Lisinopril (3) Dyslipidemia Code(s): E78.5 - HYPERLIPIDEMIA, UNSPECIFIED Status: Chronic Comment: Statin (4) Hypertension Code(s): I10 - ESSENTIAL (PRIMARY) HYPERTENSION Status: Chronic Qualifiers: Hypertension type: essential hypertension Qualified Code(s): I10 - Essential (primary) hypertension Comment: Stable - Plan cont current plan of care, continue antibiotics, respiratory therapy, out of bed /ambulate, DVT proph w/lovenox * Transfer to floor pending * d/w pts bedside nsg Review of Systems - Medications/Allergies Allergies/Adverse Reactions: Allergies Allergy/AdvReac Type Severity Reaction Status Date / Time levofloxacin [From Levaquin] Allergy Verified 02/27/18 00:54 lisinopril Allergy Verified 02/27/18 00:54 meperidine HCl [From Demerol] Allergy Verified 02/27/18 00:54 Penicillins Allergy Verified 02/27/18 00:54 Medications: Current Medications Albuterol/Ipratropium (Duoneb) 3 ml NEB [id number] [facility] Last Admin: 03/02/18 12:39 Dose: 3 ml Atorvastatin Calcium (Lipitor) 40 mg PO DAILY [facility] Last Admin: 03/02/18 08:25 Dose: 40 mg Bupropion HCl (Wellbutrin Sr) 150 mg PO BID [facility] Last Admin: 03/02/18 08:24 Dose: 150 mg Calcium/Vitamin D (Caltrate 600 + Vit D) 1 tab PO BID [facility] Last Admin: 03/02/18 08:28 Dose: 1 tab Carvedilol (Coreg) 6.25 mg PO BID[facility] Last Admin: 03/02/18 08:28 Dose: 6.25 mg Cyclobenzaprine HCl (Flexeril) 5 mg PO DAILY [facility] Last Admin: 03/02/18 08:25 Dose: 5 mg Doxycycline Hyclate (Vibramycin) 100 mg PO BID [facility] Last Admin: 03/02/18 08:25 Dose: 100 mg Enoxaparin Sodium (Lovenox) 40 mg SC 0900 [facility] Last Admin: 03/02/18 08:22 Dose: 40 mg Famotidine (Pepcid) 20 mg PO BID [facility] Last Admin: 03/02/18 08:28 Dose: 20 mg Ferrous Sulfate (Feosol) 325 mg PO QAM-[facility] Last Admin: 03/02/18 08:28 Dose: 325 mg Furosemide (Lasix) 20 mg SLOW IVP DAILY [facility] Last Admin: 03/02/18 08:21 Dose: 20 mg Gabapentin (Neurontin) 300 mg PO HS [facility] Last Admin: 03/01/18 20:04 Dose: 300 mg Guaifenesin (Mucinex) 1,200 mg PO Q12HR [facility] Last Admin: 03/02/18 08:35 Dose: 1,200 mg Loratadine (Claritin) 10 mg PO DAILY PRN PRN Reason: Sinus Symptoms Losartan Potassium (Cozaar) 12.5 mg PO DAILY [facility] Last Admin: 03/02/18 08:25 Dose: 12.5 mg Oxybutynin Chloride (Ditropan) 5 mg PO TID [facility] Last Admin: 03/02/18 14:26 Dose: 5 mg Pantoprazole Sodium (Protonix) 40 mg PO DAILY [facility] Last Admin: 03/02/18 08:25 Dose: 40 mg Prednisone (Prednisone) 40 mg PO [facility] Stop: 03/13/18 08:01 Last Admin: 03/02/18 08:24 Dose: 40 mg Ropinirole HCl (Requip) 0.5 mg PO [facility] Last Admin: 03/01/18 20:05 Dose: 0.5 mg Sodium Chloride (Flush - Normal Saline) 10 ml IVF Q12HR [facility] Last Admin: 03/02/18 08:28 Dose: 10 ml Sodium Chloride (Flush - Normal Saline) 10 ml IVF PRN PRN PRN Reason: Saline Flush Spironolactone (Aldactone) 25 mg PO [facility] Last Admin: 03/02/18 08:25 Dose: 25 mg Terbinafine HCl (Lamisil) 250 mg PO DAILY [facility] Last Admin: 03/02/18 08:24 Dose: 250 mg Trazodone HCl (Desyrel) 100 mg PO [facility] Last Admin: 03/01/18 20:04 Dose: 100 mg
[2018-03-02] MEDS: traZODone HCl 50 MG TAB PO SCH (21:12)
[2018-03-02] MEDS: Gabapentin 300 MG CAP PO SCH (21:12)
[2018-03-02] MEDS: rOPINIRole HCl 0.5 MG TAB PO SCH (21:12)
[2018-03-03] MEDS: Terbinafine 250 MG TAB PO SCH (09:19)
[2018-03-03] MEDS: Cyclobenzaprine 10 MG TAB PO SCH (09:19)
[2018-03-03] MEDS: Enoxaparin Sodium 40 MG/0.4 ML SYRINGE SC SCH (09:19)
[2018-03-03] MEDS: Losartan 25 MG TAB PO SCH (09:19)
[2018-03-03] MEDS: Calcium Carbonate + Vit D 1 TAB PO SCH ×2 (09:19→20:07)
[2018-03-03] MEDS: Oxybutynin 5 MG TAB PO SCH ×3 (09:19→20:06)
[2018-03-03] MEDS: Furosemide 40 MG TAB PO SCH (09:19)
[2018-03-03] MEDS: Doxycycline 100 MG CAP PO SCH ×2 (09:20→20:07)
[2018-03-03] MEDS: guaiFENesin ER 600 MG TAB PO SCH ×2 (09:20→20:06)
[2018-03-03] MEDS: Atorvastatin Calcium 40 MG TAB PO SCH (09:20)
[2018-03-03] MEDS: Famotidine 20 MG TAB PO SCH ×2 (09:20→20:06)
[2018-03-03] MEDS: Bupropion 150 MG SR TAB PO SCH ×2 (09:20→20:06)
[2018-03-03] MEDS: Ferrous Sulfate 325 MG TAB PO SCH (09:20)
[2018-03-03] MEDS: Spironolactone 25 MG TAB PO SCH (09:20)
[2018-03-03] MEDS: Carvedilol 6.25 MG TAB PO SCH ×2 (09:20→17:19)
[2018-03-03] MEDS: predniSONE 20 MG TAB PO SCH (09:20)
[2018-03-03] MEDS: METHENAMINE HIPPURATE 1 GM PO SCH ×2 (09:59→10:00)
--- NOTE | 2018-03-03 14:21 | PRG ---
DATE OF SERVICE: 03/03/2018 SERVICE: Pulmonary Medicine. INTERVAL HISTORY: The patient is doing great from a respiratory standpoint. She denies any current chest pain, fevers, chills, nausea or vomiting. She is a little bit frustrated by her fluid restrict ion. That being said, she is breathing much better today. She was able to walk in the hallways. It took a lot out of her, but she was able to do it. Overall, she is much improved compared to present ation. PHYSICAL EXAMINATION: VITAL SIGNS: Afebrile, pulse 74, blood pressure 162/78, respirations 18, saturation 92% on room air. GENERAL: The patient is awake and alert, in no apparent distress. LUNGS: Much improved air entry today. Dependent crackles and wheezing are present still. There is less of a prolonged expiratory phase. HEART: Normal rate, regular. ABDOMEN: Soft, nontender, nondistended. Bowel sounds are positive. MUSCULOSKELETAL: No cyanosis or clubbing. There is no pitting in the bilateral lower extremities. NEUROLOGIC: Grossly nonfocal. ASSESSMENT: 1. Acute hypoxic respiratory failure, resolving. 2. Acute on chronic systolic and diastolic heart failure. 3. Chronic obstructive pulmonary disease with acute exacerbation. DISCUSSION AND PLAN: We will continue diuresing the patient to euvolemia. We will continue our anti biotics, nebulized medications and steroids. From my perspective, the patient is fast approaching he r baseline and can be considered for transition out of the hospital. She will need to continue takin g Symbicort in the outpatient basis twice daily, regardless of how she feels. She will need to follo w up with her primary health promoter on discharge.
--- NOTE | 2018-03-03 19:11 | PDOC.PN ---
- Subjective Encounter Start Date: 03/03/18 Encounter Start Time: 16:00 Patient seen and examined for Resp failure. No new complaints. No overnight events - Objective Resuscitation Status: Resuscitation Status FULL:Full Resuscitation MAR Reviewed: Yes Vital Signs & Weight: Vital Signs (12 hours) Temp Pulse Resp BP BP Pulse Ox 03/03/18 18:29 91 L 03/03/18 18:28 91 L 03/03/18 17:19 143/79 H 03/03/18 13:34 76 22 H 92 L 03/03/18 08:00 91 L 03/03/18 07:39 97.4 F L 74 18 162/78 H 91 L 03/03/18 07:14 72 16 94 L Weight Weight 181 lb 8 oz I&O: 03/02/18 03/03/18 03/04/18 06:59 06:59 06:59 Intake Total 2340 1600 1050 Output Total 4450 3300 Balance -2110 -1700 1050 Result Diagrams: 03/02/18 04:23 03/02/18 04:23 Phys Exam - Physical Examination Constitutional: NAD Respiratory: wheezing present Scat rhonchi/rales Cardiovascular: RRR, no rub Gastrointestinal: soft, positive bowel sounds Musculoskeletal: edema present (1+) Neurological: moves all 4 limbs Dx/Plan - Plan DVT proph w/SCDs 1. Acute on chronic hypoxic resp failure/COPD Exacerbation 2. Acute on chronic systolic/diastolic HF 3. Obesity BMI 32 4. HLD 5. HTN 6. Other issues per previous notes PLAN: Cont PO diuretics Cont Nebs Cont Coreg/Losartan/Aldactone Cont Fluid rest AM labs Review of Systems - Review of Systems Cardiovascular: negative: chest pain, palpitations, orthopnea, paroxysmal nocturnal dyspnea, edema, light headedness, other Gastrointestinal: negative: Nausea, Vomiting, Abdominal Pain, Diarrhea, Constipation, Melena, Hematochezia, Other - Medications/Allergies Allergies/Adverse Reactions: Allergies Allergy/AdvReac Type Severity Reaction Status Date / Time levofloxacin [From Levaquin] Allergy Verified 02/27/18 00:54 lisinopril Allergy Verified 02/27/18 00:54 meperidine HCl [From Demerol] Allergy Verified 02/27/18 00:54 Penicillins Allergy Verified 02/27/18 00:54 Medications: Current Medications Albuterol/Ipratropium (Duoneb) 3 ml NEB [id number] [facility] Last Admin: 03/03/18 18:28 Dose: 3 ml Atorvastatin Calcium (Lipitor) 40 mg PO DAILY [facility] Last Admin: 03/03/18 09:20 Dose: 40 mg Bupropion HCl (Wellbutrin Sr) 150 mg PO BID [facility] Last Admin: 03/03/18 09:20 Dose: 150 mg Calcium/Vitamin D (Caltrate 600 + Vit D) 1 tab PO BID [facility] Last Admin: 03/03/18 09:19 Dose: 1 tab Carvedilol (Coreg) 6.25 mg PO BID[facility] Last Admin: 03/03/18 17:19 Dose: 6.25 mg Cyclobenzaprine HCl (Flexeril) 5 mg PO DAILY [facility] Last Admin: 03/03/18 09:19 Dose: 5 mg Doxycycline Hyclate (Vibramycin) 100 mg PO BID [facility] Last Admin: 03/03/18 09:20 Dose: 100 mg Enoxaparin Sodium (Lovenox) 40 mg SC 0900 [facility] Last Admin: 03/03/18 09:19 Dose: 40 mg Famotidine (Pepcid) 20 mg PO BID [facility] Last Admin: 03/03/18 09:20 Dose: 20 mg Ferrous Sulfate (Feosol) 325 mg PO QAM[facility] Last Admin: 03/03/18 09:20 Dose: 325 mg Furosemide (Lasix) 40 mg PO QAM [facility] Last Admin: 03/03/18 09:19 Dose: 40 mg Gabapentin (Neurontin) 300 mg PO HS [facility] Last Admin: 03/02/18 21:12 Dose: 300 mg Guaifenesin (Mucinex) 1,200 mg PO Q12HR [facility] Last Admin: 03/03/18 09:20 Dose: 1,200 mg Loratadine (Claritin) 10 mg PO DAILY PRN PRN Reason: Sinus Symptoms Losartan Potassium (Cozaar) 12.5 mg PO DAILY [facility] Last Admin: 03/03/18 09:19 Dose: 12.5 mg Oxybutynin Chloride (Ditropan) 5 mg PO TID [facility] Last Admin: 03/03/18 15:18 Dose: 5 mg Pantoprazole Sodium (Protonix) 40 mg PO DAILY [facility] Last Admin: 03/03/18 09:19 Dose: 40 mg Prednisone (Prednisone) 40 mg PO QAM[facility] Stop: 03/13/18 08:01 Last Admin: 03/03/18 09:20 Dose: 40 mg Ropinirole HCl (Requip) 0.5 mg PO [facility] Last Admin: 03/02/18 21:12 Dose: 0.5 mg Sodium Chloride (Flush - Normal Saline) 10 ml IVF Q12HR [facility] Last Admin: 03/03/18 09:21 Dose: 10 ml Sodium Chloride (Flush - Normal Saline) 10 ml IVF PRN PRN PRN Reason: Saline Flush Spironolactone (Aldactone) 25 mg PO QAM[facility] Last Admin: 03/03/18 09:20 Dose: 25 mg Terbinafine HCl (Lamisil) 250 mg PO DAILY [facility] Last Admin: 03/03/18 09:19 Dose: 250 mg Trazodone HCl (Desyrel) 100 mg PO [facility] Last Admin: 03/02/18 21:12 Dose: 100 mg
[2018-03-03] MEDS: traZODone HCl 50 MG TAB PO SCH (20:06)
[2018-03-03] MEDS: rOPINIRole HCl 0.5 MG TAB PO SCH (20:07)
[2018-03-03] MEDS: Gabapentin 300 MG CAP PO SCH (20:07)
[2018-03-04 04:55] LABS: #Basophils 0.1 thou/uL (0.0-0.2); #Eosinphils 0.1 thou/uL (0.0-0.7); #Lymphocytes 4.2 thou/uL (1.20-3.40); #Monocytes 0.8 thou/uL (0.11-0.59); %Basophils 0.8 % (0.0-1.0); %Eosinophils 0.6 % (0.0-10.0); %Lymphocytes 37.6 % (21.0-51.0); %Monocytes 7.1 % (0.0-10.0); %Neutrophils 53.8 % (42.0-75.0); Hemoglobin 15.2 g/dL (12.0-16.0); Mean Corpuscular HGB CONC 31.6 g/dL (32.0-36.0); Mean Corpuscular Hemoglobin 30.5 pg (27.0-31.0); Mean Corpuscular Volume 96.5 fL (78.0-98.0); Mean Platelet Volume 7.4 fL (7.4-10.4); Platelet Count 334 thou/uL (130-400); RBC Distribution Width 12.9 % (11.5-14.5); Red Blood Cell (RBC) Count 4.98 mill/uL (4.20-5.40); White Blood Cell (WBC) Count 11.1 thou/uL (4.8-10.8)
[2018-03-04 05:25] LABS: ALT (SGPT) 16 U/L (8-55); AST (SGOT) 9 U/L (5-34); Alkaline Phosphatase 93 U/L (40-150); Anion Gap 10 mmol/L (10-20); BUN (Urea Nitrogen) 22 mg/dL (9.8-20.1); Bilirubin, Total 0.4 mg/dL (0.2-1.2); Calc. Creatinine Clearance 81 mL/min (70-130); Calcium 9.7 mg/dL (7.8-10.44); Carbon Dioxide 34 mmol/L (23-31); Chloride 100 mmol/L (98-107); Estimated GFR-MDRD 70; Globulin 2.4 g/dL (2.4-3.5); Glucose 88 mg/dL (83-110); Magnesium 2.4 mg/dL (1.6-2.6); Potassium 3.8 mmol/L (3.5-5.1); Protein, Total 6.4 g/dL (6.0-8.3); Sodium 140 mmol/L (136-145)
[2018-03-04] MEDS: Carvedilol 6.25 MG TAB PO SCH ×3 (08:38→17:15)
[2018-03-04] MEDS: Furosemide 40 MG TAB PO SCH (08:39)
[2018-03-04] MEDS: Ferrous Sulfate 325 MG TAB PO SCH (08:39)
[2018-03-04] MEDS: Bupropion 150 MG SR TAB PO SCH ×2 (08:39→21:32)
[2018-03-04] MEDS: Terbinafine 250 MG TAB PO SCH (08:39)
[2018-03-04] MEDS: predniSONE 20 MG TAB PO SCH (08:39)
[2018-03-04] MEDS: guaiFENesin ER 600 MG TAB PO SCH ×2 (08:39→21:33)
[2018-03-04] MEDS: Doxycycline 100 MG CAP PO SCH ×2 (08:39→21:32)
[2018-03-04] MEDS: Famotidine 20 MG TAB PO SCH ×2 (08:39→21:33)
[2018-03-04] MEDS: Atorvastatin Calcium 40 MG TAB PO SCH (08:40)
[2018-03-04] MEDS: Spironolactone 25 MG TAB PO SCH (08:40)
[2018-03-04] MEDS: Calcium Carbonate + Vit D 1 TAB PO SCH ×2 (08:40→21:33)
[2018-03-04] MEDS: Losartan 25 MG TAB PO SCH (08:40)
[2018-03-04] MEDS: Cyclobenzaprine 10 MG TAB PO SCH (08:40)
[2018-03-04] MEDS: Enoxaparin Sodium 40 MG/0.4 ML SYRINGE SC SCH (08:41)
[2018-03-04] MEDS: Oxybutynin 5 MG TAB PO SCH ×3 (08:43→21:33)
[2018-03-04] MEDS ORDERED: Diabetic Tussin 200 MG/10 ML UDCUP PO PRN (11:17)
[2018-03-04] MEDS ORDERED: Cepastat Lozenges 1 LOZ PO PRN (11:17)
--- NOTE | 2018-03-04 16:19 | PRG ---
DATE OF SERVICE: 03/04/2018 SERVICE: Pulmonary Medicine. INTERVAL HISTORY: The patient is doing outstanding from a respiratory standpoint. She denies any cu rrent fevers, chills, nausea or vomiting. Her breathing is essentially close to baseline. She is re ally happy with the progress that she has made. Otherwise, there has been no interval change to her condition. Nursing reports no overnight events. PHYSICAL EXAMINATION: VITAL SIGNS: Afebrile, pulse 89, blood pressure 140/81, respirations 16, saturation 92% on room air. GENERAL: The patient is awake, alert, no apparent distress. LUNGS: Much improved air entry. There is a slightly prolonged expiratory phase. Minimal wheezing p resent. Rhonchi have cleared. There are no longer crackles dependently. HEART: Normal rate, regular. ABDOMEN: Soft, nontender, nondistended. Bowel sounds are positive. MUSCULOSKELETAL: No cyanosis or clubbing. Pitting edema is resolved. NEUROLOGIC: Grossly nonfocal. LABORATORY DATA: WBC 11.1, hemoglobin 15.2, platelets 334,000. A pH 7.44, pCO2 of 37, pO2 of 56. B asic metabolic profile and liver function studies are essentially unremarkable. ASSESSMENT: 1. Acute hypoxic respiratory failure, resolved. 2. Acute on chronic systolic and diastolic heart failure. 3. Chronic obstructive pulmonary disease with acute exacerbation, volume mediated. PLAN AND DISCUSSION: The patient has returned to euvolemia. With this, her breathing has resolved t o baseline. She can be considered for transition out of the hospital. She will need to complete her course of antibiotic and steroids. I have counseled her once again on taking her Symbicort on a twi ce daily basis in the outpatient setting. For her restless leg syndrome, I think it is perfectly ligia sonable for her to initiate small dose of ropinirole at night. She will need to follow up with her ricarda harris apparel sales leader on discharge from the hospital. Pulmonary Critical Care will continue to follow if she remains in house, but my suspicion is she will be going home today or tomorrow.
[2018-03-04] MEDS: rOPINIRole HCl 0.5 MG TAB PO SCH (21:32)
[2018-03-04] MEDS: Gabapentin 300 MG CAP PO SCH (21:32)
[2018-03-04] MEDS: traZODone HCl 50 MG TAB PO SCH (21:32)
--- NOTE | 2018-03-04 22:12 | PDOC.PN ---
- Subjective Encounter Start Date: 03/04/18 Encounter Start Time: 11:00 Patient seen and examined. No new complaints. No overnight events - Objective Resuscitation Status: Resuscitation Status FULL:Full Resuscitation Vital Signs & Weight: Vital Signs (12 hours) Pulse Resp BP Pulse Ox 03/04/18 18:57 93 L 03/04/18 18:56 92 L 03/04/18 17:15 107/65 03/04/18 14:10 89 16 92 L Weight Weight 181 lb 8 oz I&O: 03/03/18 03/04/18 03/05/18 06:59 06:59 06:59 Intake Total 1600 1050 1000 Output Total 3300 Balance -1700 1050 1000 Result Diagrams: 03/04/18 04:04 03/04/18 04:04 Phys Exam - Physical Examination Constitutional: NAD Respiratory: no wheezing, no rhonchi few bibasilar rales Cardiovascular: RRR, no rub Gastrointestinal: soft, non-tender, positive bowel sounds Musculoskeletal: no edema Neurological: moves all 4 limbs Dx/Plan - Plan DVT proph w/SCDs 1. Acute on chronic hypoxic resp failure/COPD Exacerbation 2. Acute on chronic systolic/diastolic HF 3. Obesity BMI 32 4. HLD 5. HTN 6. Chronic Resp failure on home O2 / Other issues per previous notes PLAN: Cont Nebs Cont diuretics/Coreg/Losartan/Aldactone Cont Fluid rest DC in AM if ok with Pulmonary Review of Systems - Review of Systems Cardiovascular: negative: chest pain, palpitations, orthopnea, paroxysmal nocturnal dyspnea, edema, light headedness, other Gastrointestinal: negative: Nausea, Vomiting, Abdominal Pain, Diarrhea, Constipation, Melena, Hematochezia, Other - Medications/Allergies Allergies/Adverse Reactions: Allergies Allergy/AdvReac Type Severity Reaction Status Date / Time levofloxacin [From Levaquin] Allergy Verified 02/27/18 00:54 lisinopril Allergy Verified 02/27/18 00:54 meperidine HCl [From Demerol] Allergy Verified 02/27/18 00:54 Penicillins Allergy Verified 02/27/18 00:54 Medications: Current Medications Albuterol/Ipratropium (Duoneb) 3 ml NEB [id number] TRISTAN Last Admin: 03/04/18 18:56 Dose: 3 ml Atorvastatin Calcium (Lipitor) 40 mg PO DAILY [facility] Last Admin: 03/04/18 08:40 Dose: 40 mg Bupropion HCl (Wellbutrin Sr) 150 mg PO BID [facility] Last Admin: 03/04/18 21:32 Dose: 150 mg Calcium/Vitamin D (Caltrate 600 + Vit D) 1 tab PO BID [facility] Last Admin: 03/04/18 21:33 Dose: 1 tab [facility] Last Admin: 03/04/18 17:15 Dose: 6.25 mg Cyclobenzaprine HCl (Flexeril) 5 mg PO DAILY [facility] Last Admin: 03/04/18 08:40 Dose: 5 mg Doxycycline Hyclate (Vibramycin) 100 mg PO BID [facility] Last Admin: 03/04/18 21:32 Dose: 100 mg Famotidine (Pepcid) 20 mg PO BID [facility] Last Admin: 03/04/18 21:33 Dose: 20 mg Ferrous Sulfate (Feosol) 325 mg PO [facility] Last Admin: 03/04/18 08:39 Dose: 325 mg Furosemide (Lasix) 40 mg PO [facility] Last Admin: 03/04/18 08:39 Dose: 40 mg Gabapentin (Neurontin) 300 mg PO [facility] Last Admin: 03/04/18 21:32 Dose: 300 mg Guaifenesin (Mucinex) 1,200 mg PO Q12HR [facility] Last Admin: 03/04/18 21:33 Dose: 1,200 mg Guaifenesin (Robitussin Sf) 200 mg PO Q4H PRN PRN Reason: Cough Loratadine (Claritin) 10 mg PO DAILY PRN PRN Reason: Sinus Symptoms Losartan Potassium (Cozaar) 12.5 mg PO DAILY [facility] Last Admin: 03/04/18 08:40 Dose: 12.5 mg Oxybutynin Chloride (Ditropan) 5 mg PO TID [facility] Last Admin: 03/04/18 21:33 Dose: 5 mg Pantoprazole Sodium (Protonix) 40 mg PO DAILY [facility] Last Admin: 03/04/18 08:40 Dose: 40 mg Prednisone (Prednisone) 40 mg PO [facility] Stop: 03/13/18 08:01 Last Admin: 03/04/18 08:39 Dose: 40 mg Ropinirole HCl (Requip) 0.5 mg PO [facility] Last Admin: 03/04/18 21:32 Dose: 0.5 mg Sodium Chloride (Flush - Normal Saline) 10 ml IVF Q12HR [facility] Last Admin: 03/04/18 21:33 Dose: 10 ml Sodium Chloride (Flush - Normal Saline) 10 ml IVF PRN PRN PRN Reason: Saline Flush Spironolactone (Aldactone) 25 mg PO QAM-WM [facility] Last Admin: 03/04/18 08:40 Dose: 25 mg Terbinafine HCl (Lamisil) 250 mg PO DAILY [facility] Last Admin: 03/04/18 08:39 Dose: 250 mg Throat Lozenges (Cepastat Lozenges) 1 maria eugenia PO Q2H PRN PRN Reason: Sore Throat Trazodone HCl (Desyrel) 100 mg PO HS [facility] Last Admin: 03/04/18 21:32 Dose: 100 mg
[2018-03-05 07:24] VITALS: TEMP 97.6
[2018-03-05] MEDS: guaiFENesin ER 600 MG TAB PO SCH (08:13)
[2018-03-05] MEDS: Losartan 25 MG TAB PO SCH (08:14)
[2018-03-05] MEDS: Atorvastatin Calcium 40 MG TAB PO SCH (08:15)
[2018-03-05] MEDS: Furosemide 40 MG TAB PO SCH (08:15)
[2018-03-05] MEDS: predniSONE 20 MG TAB PO SCH (08:15)
[2018-03-05] MEDS: Spironolactone 25 MG TAB PO SCH (08:15)
[2018-03-05] MEDS: Oxybutynin 5 MG TAB PO SCH (08:15)
[2018-03-05] MEDS: Calcium Carbonate + Vit D 1 TAB PO SCH (08:16)
[2018-03-05] MEDS: Carvedilol 6.25 MG TAB PO SCH (08:16)
[2018-03-05] MEDS: Bupropion 150 MG SR TAB PO SCH (08:16)
[2018-03-05] MEDS: Cyclobenzaprine 10 MG TAB PO SCH (08:17)
[2018-03-05] MEDS: Ferrous Sulfate 325 MG TAB PO SCH (08:17)
[2018-03-05] MEDS: Famotidine 20 MG TAB PO SCH (08:18)
[2018-03-05] MEDS: Doxycycline 100 MG CAP PO SCH (08:22)
[2018-03-05 08:24] VITALS: BP 107/65
[2018-03-05] MEDS: Terbinafine 250 MG TAB PO SCH (08:26)
--- NOTE | 2018-03-05 09:43 | PRG ---
DATE OF SERVICE: 03/05/2018 This morning she is eager to go home. She is less short of breath. She has been in the hospital for about a week. PHYSICAL EXAMINATION: VITAL SIGNS: Blood pressure 107/66, sats are 95 on room air, respiration 16, temperature 97. CHEST: Chest reveals decreased breath sounds, no wheezing. CARDIAC: Normal S1, S2. No gallops. ABDOMEN: Soft, no masses. IMPRESSION: 1. Ongoing tobacco abuse. 2. Chronic obstructive pulmonary disease. 3. Respiratory failure. OBJECTIVE: VITAL SIGNS: Sats are 94 on room air, blood pressure 123/50, respirations 16, temperature ____. CHEST: Chest revealed decreased breath sounds, no wheezing. CARDIAC: Normal S1-S2. No gallops. ABDOMEN: Soft, no masses. IMPRESSION: 1. Chronic obstructive pulmonary disease. 2. Tobacco abuse. DISPOSITION: Home. Follow up with primary napper grinder in [place]. I would be happy to see in the office if she wishes to do so.
--- NOTE | 2018-03-05 21:05 | DIS ---
DATE OF DISCHARGE: 03/05/2018 DISCHARGE DISPOSITION: Home. FOLLOWUP: 1. Follow up with primary care physician at [facility] in 1 week. 2. Follow up with Dr. Rosario as scheduled. 3. Home health care through [facility] was resumed. ALLERGIES: The patient is allergic to PENICILLIN, LEVAQUIN, LISINOPRIL, and DEMEROL. DISCHARGE MEDICATIONS: 1. Doxycycline 100 mg twice a day for the next 5 days. 2. Prednisone 40 mg daily for 3 more days. BRIEF HOSPITAL COURSE: The patient is a 72-year-old female with COPD, presented to the hospital with shortness of breath on 02/26/2018. Please refer to the history and physical dictated by Dr. Titus for further details. The patient was admitted to the hospital with a diagnosis of acute on chronic hypoxic respiratory prudence lure secondary to chronic obstructive pulmonary disease exacerbation along with acute on chronic syst olic/diastolic heart failure exacerbation. She showed good improvement with nebulizer treatment adali g with diuretics. ABG showed pH 7.44 with pCO2 of 37, pO2 of 56.6 with bicarbonate 24.3 on 28% FIO2. BNP on admission was 672. Troponin was negative. Her O2 sats on the day of discharge is 94% on ro om air. She has been cleared by consultants for discharge. Echocardiogram earlier this year showed ejection fraction of 35%-40% with diastolic dysfunction, moderate mitral regurgitation and mild tricu spid regurgitation. The patient was extensively counseled on congestive heart failure as well as imp ortance of fluid restriction. FINAL DIAGNOSES: 1. Acute on chronic hypoxic respiratory failure secondary to chronic obstructive pulmonary disease e xacerbation as well as acute on chronic systolic/diastolic heart failure exacerbation (stage C). 2. Obesity with body mass index of 32. 3. Hyperlipidemia. 4. Hypertension. 5. Hypokalemia. 6. Chronic respiratory failure, on home oxygen, especially at night. 7. Chronic kidney disease stage 2. Plan of care was discussed with the patient in detail. She stated understanding.
--- NOTE | 2018-03-07 16:53 | PQF ---
VIOLA STEVENSON MALIK MD [id number] [facility]- B07 [id number] CLINICAL DOCUMENTATION CLARIFICATION FORM: POST DISCHARGE Addendum to original discharge summary date: ____ Late entry note date: __ DATE: 03/07/2018 ATTN: DR. LEE Please exercise your independent, professional judgment in responding to the clarification form. Clinical indicators are provided on the bottom of this form for your review Please check appropriate box(s): HEART FAILURE: A. TYPE: [ ] Systolic / HFrEF [ ] Diastolic / HFpEF [ x ] Combined Systolic / Diastolic B. ACUITY [ ] Acute [ ] Acute on Chronic [ ] Chronic [ ] Other diagnosis [ ] Unable to determine In addition, please specify: Present on Admission (POA): [ x ] Yes [ ] No [ ] Unable to determine For continuity of documentation, please document condition throughout progress notes and discharge summary. Thank You. CLINICAL INDICATORS - SIGNS / SYMPTOMS / LABS: Ejection Fraction =__35-40____ % Dyspnea, Hypoxia H&P - CHF, Does not appear to be significantly decompensated. PN - Acute on Chronic systolic and diastolic heart failure 03/02 PN - Chronic systolic heart failure, not in acute exacerbation DS - Acute on chronic systolic/diastolic heart failure exacerbation RISKS: AICD CKD 2 Hypertension Dyslipidemia Respiratory failure TREATMENTS: Losartan Coreg Lasix Carvedilol (This form is maintained as a part of the permanent medical record) 2014 [employer]. All Rights Reserved Josefa Escobar, JP, [facility] [email or web address] [phone] CLEVE
--- NOTE | 2018-03-07 17:03 | PQF ---
VIOLA STEVENSON WILTON WOOD [id number] [facility]- [id number] CLINICAL DOCUMENTATION CLARIFICATION FORM: POST DISCHARGE Addendum to original discharge summary date: ____ Late entry note date: __ DATE: 03/07/2018 ATTN: DR. LEE Please exercise your independent, professional judgment in responding to the clarification form. Clinical indicators are provided on the bottom of this form for your review Please check appropriate box(s): [ ] Acute Respiratory Failure: [ ] with Hypoxia[ ] with Hypercapnia [x ] Acute On Chronic Respiratory Failure: [ x ] with Hypoxia [ ] with Hypercapnia [ ] Acute Respiratory Failure due to: (etiology) [ ] Chronic Respiratory Failure only [ ] with Hypoxia [ ] with Hypercapnia [ ] Hypoxia [ ] Other diagnosis [ ] Unable to determine In addition, please specify: Present on Admission (POA): [ x] Yes [ ] No [ ] Unable to determine For continuity of documentation, please document condition throughout progress notes and discharge summary. Thank You. CLINICAL INDICATORS/LAB: Hypoxia 03/05 - PN - Acute on chronic hypoxic respiratory failure 02/28-03/03 PN - Acute hypoxic respiratory failure DS - Acute on chronic hypoxic respiratory failure Chronic respiratory failure, on home oxygen, especially at night RISK FACTORS: COPD exacerbation CHF exacerbation Tobacco Home oxygen TREATMENTS: Oxygen Pulmonary Consult - 02/27 (This form is maintained as a part of the permanent medical record) 2015 [employer] All Rights Reserved Josefa Escobar, JP, ENDOSCOPY REGISTERED NURSE-H [email or web address] [phone] MTDD
== END 2018-03-05 12:37 | disposition home health service (06) | DRG 291 ==
LOC: ERS 20:28 → IMCU/EMU 23:27 → T4-A 03-02 20:21
PROVIDERS: ADMIT Internal Medicine; ATTEND Internal Medicine
DX: I13.0 Hypertensive heart and chronic kidney disease with heart failure and stage 1 through stage 4 chronic kidney disease, or unspecified chronic kidney disease (principal); J96.21 Acute and chronic respiratory failure with hypoxia; I50.43 Acute on chronic combined systolic (congestive) and diastolic (congestive) heart failure; J44.1 Chronic obstructive pulmonary disease with (acute) exacerbation; I42.9 Cardiomyopathy, unspecified; F17.210 Nicotine dependence, cigarettes, uncomplicated; E78.5 Hyperlipidemia, unspecified; Z95.1 Presence of aortocoronary bypass graft; M19.90 Unspecified osteoarthritis, unspecified site; Z88.0 Allergy status to penicillin; E66.9 Obesity, unspecified; Z68.32 Body mass index [BMI] 32.0-32.9, adult; E87.6 Hypokalemia; N18.2 Chronic kidney disease, stage 2 (mild); Z99.81 Dependence on supplemental oxygen; Z95.810 Presence of automatic (implantable) cardiac defibrillator
CPT/HCPCS: 36415; 71045; 80048; 80053; 82553; 82805; 83735; 83880; 84484; 85025; 93005; 93798; 94640; 94660; 94760; 96374; J1650; J1940; J2920; J7506; J7611; J7620

== ENCOUNTER 2018-03-10 11:22 | Emergency (ER) | payer MEDICARE, OTHER ==
[2018-03-10 12:02] LABS: #Basophils 0.1 thou/uL (0.0-0.2); #Eosinphils 0.2 thou/uL (0.0-0.7); #Lymphocytes 1.9 thou/uL (1.20-3.40); #Monocytes 0.9 thou/uL (0.11-0.59); #Neutrophils 15.5 thou/uL (1.40-6.50); %Basophils 0.3 % (0.0-1.0); %Lymphocytes 10.4 % (21.0-51.0); %Monocytes 4.8 % (0.0-10.0); %Neutrophils 83.5 % (42.0-75.0); Hemoglobin 15.6 g/dL (12.0-16.0); Mean Corpuscular HGB CONC 31.9 g/dL (32.0-36.0); Mean Corpuscular Hemoglobin 31.2 pg (27.0-31.0); Mean Corpuscular Volume 97.8 fL (78.0-98.0); Mean Platelet Volume 7.3 fL (7.4-10.4); Platelet Count 302 thou/uL (130-400); RBC Distribution Width 13.3 % (11.5-14.5); Red Blood Cell (RBC) Count 5.01 mill/uL (4.20-5.40); White Blood Cell (WBC) Count 18.6 thou/uL (4.8-10.8)
[2018-03-10 12:20] LABS: ALT (SGPT) 14 U/L (8-55); AST (SGOT) 10 U/L (5-34); Albumin 3.9 g/dL (3.4-4.8); Alkaline Phosphatase 93 U/L (40-150); Anion Gap 11 mmol/L (10-20); BUN (Urea Nitrogen) 9 mg/dL (9.8-20.1); Bilirubin, Total 0.8 mg/dL (0.2-1.2); Calc. Creatinine Clearance 0 mL/min (70-130); Calcium 9.3 mg/dL (7.8-10.44); Carbon Dioxide 28 mmol/L (23-31); Chloride 102 mmol/L (98-107); Estimated GFR-MDRD 59; Globulin 2.3 g/dL (2.4-3.5); Glucose 122 mg/dL (83-110); Potassium 3.4 mmol/L (3.5-5.1); Protein, Total 6.2 g/dL (6.0-8.3); Sodium 138 mmol/L (136-145)
[2018-03-10 12:24] LABS: CKMB 1.8 ng/mL (0-6.6); Troponin I Less than 0.010 ng/mL (< 0.028)
[2018-03-10] MEDS ORDERED: Water For Inject, Bacteriostat 30 ML ONE (12:27)
[2018-03-10] MEDS ORDERED: methylPREDNISolone Sod Succ/PF 125 MG/2 ML VIAL ONE (12:27)
[2018-03-10] MEDS ORDERED: Albuterol Sulfate 2.5 mg/3 ml Neb ONE ×2 (12:34→13:53)
[2018-03-10 12:45] LABS: Actual Bicarbonate (HCO3a) 24.1 mEq/L (22-28); Analyzer IN Cardio ER; Base Excess (BEa) 0.4 mEq/L (-2.0 to +3.0); CO2 Tension 36.2 mmHg (35.0-45.0); Calcium, Ionized 1.18 mmol/L (1.12-1.30); Carboxyhemoglobin (COHb) 4.5 gm% (0.0-3.0); Hemoglobin (Hb) 15.4 g/dL (12.0-16.0); O2 Tension (PaO2) 67.9 mmHg (> 70.0); Potassium - ABG Lab 3.52 mmol/L (3.70-5.30); pH, Arterial 7.44 (7.35-7.45)
[2018-03-10 12:48] LABS: Puncture Site RRA
--- NOTE | 2018-03-10 12:55 | RAD ---
PORTABLE CHEST 1 VIEW: Date: 03/10/18 Time: 1156 hours HISTORY: Shortness of breath. Dyspnea. FINDINGS: Comparison made with exam of 02/26/18. The heart is enlarged. The aorta is tortuous. Left-sided pacemaker device remains in place. No focal areas of consolidation, pneumothorax, or pleural effusions are seen. Bony structures are stable. IMPRESSION: No acute process. POS: [facility]
== END 2018-03-10 15:01 | disposition home or self-care (01) ==
LOC: ERS 11:22
DX: J44.1 Chronic obstructive pulmonary disease with (acute) exacerbation (principal); I11.0 Hypertensive heart disease with heart failure; I50.9 Heart failure, unspecified; E78.5 Hyperlipidemia, unspecified; J44.9 Chronic obstructive pulmonary disease, unspecified; M19.90 Unspecified osteoarthritis, unspecified site; F32.9 Major depressive disorder, single episode, unspecified; F17.210 Nicotine dependence, cigarettes, uncomplicated; Z79.899 Other long term (current) drug therapy
CPT/HCPCS: 71045; 80053; 82553; 82805; 83880; 84484; 85025; 93005; 94640; 96374; J2930; J7611; J7620

== ENCOUNTER 2018-03-12 12:29 | Inpatient (IN) | payer MEDICARE, OTHER ==
[2018-03-12 13:02] LABS: Analyzer IN Cardio ER; Base Excess (BEa) 4.9 mEq/L (-2.0 to +3.0); CO2 Tension 40.8 mmHg (35.0-45.0); Calcium, Ionized 1.16 mmol/L (1.12-1.30); Carboxyhemoglobin (COHb) 1.2 gm% (0.0-3.0); Hemoglobin (Hb) 15.4 g/dL (12.0-16.0); O2 Tension (PaO2) 65.3 mmHg (> 70.0); Potassium - ABG Lab 4.16 mmol/L (3.70-5.30); pH, Arterial 7.47 (7.35-7.45)
[2018-03-12 13:07] LABS: Puncture Site RRA
[2018-03-12] MEDS ORDERED: methylPREDNISolone Sod Succ/PF 125 MG/2 ML VIAL ONE (13:29)
[2018-03-12] MEDS ORDERED: Lorazepam 2 MG/ML VIAL ONE (13:49)
[2018-03-12 14:03] LABS: #Lymphocytes 0.7 thou/uL (1.20-3.40); #Monocytes 0.2 thou/uL (0.11-0.59); #Neutrophils 12.4 thou/uL (1.40-6.50); %Basophils 0.3 % (0.0-1.0); %Eosinophils 0.3 % (0.0-10.0); %Lymphocytes 5.6 % (21.0-51.0); %Monocytes 1.3 % (0.0-10.0); %Neutrophils 92.6 % (42.0-75.0); Hemoglobin 15.6 g/dL (12.0-16.0); Mean Corpuscular HGB CONC 31.9 g/dL (32.0-36.0); Mean Corpuscular Volume 97.1 fL (78.0-98.0); Mean Platelet Volume 7.6 fL (7.4-10.4); Platelet Count 253 thou/uL (130-400); RBC Distribution Width 13.5 % (11.5-14.5); Red Blood Cell (RBC) Count 5.05 mill/uL (4.20-5.40); White Blood Cell (WBC) Count 13.4 thou/uL (4.8-10.8)
[2018-03-12 14:25] LABS: ALT (SGPT) 19 U/L (8-55); AST (SGOT) 13 U/L (5-34); Alkaline Phosphatase 93 U/L (40-150); Anion Gap 12 mmol/L (10-20); BUN (Urea Nitrogen) 11 mg/dL (9.8-20.1); Bilirubin, Total 0.4 mg/dL (0.2-1.2); Calc. Creatinine Clearance 0 mL/min (70-130); Calcium 9.2 mg/dL (7.8-10.44); Carbon Dioxide 28 mmol/L (23-31); Chloride 105 mmol/L (98-107); Estimated GFR-MDRD 61; Globulin 2.7 g/dL (2.4-3.5); Glucose 117 mg/dL (83-110); Protein, Total 6.7 g/dL (6.0-8.3); Sodium 141 mmol/L (136-145)
[2018-03-12 14:28] LABS: CKMB 1.9 ng/mL (0-6.6); Troponin I Less than 0.010 ng/mL (< 0.028)
--- NOTE | 2018-03-12 15:42 | RAD ---
PORTABLE CHEST 1 VIEW: DATE: 03/12/2018. TIME: 12:51 p.m. HISTORY: Shortness of breath. FINDINGS: Comparison is made with the exam of 03/10/2018. The heart size is enlarged. The aorta is tortuous. Left-sided pacemaker device remains in place. T here is a small patchy density in the right medial lower lung which may be a new infiltrate. A calci fied granuloma is seen in the right upper lung. No pneumothoraces or pleural effusions are seen. Th ere is no evidence of geni pulmonary edema. POS: [facility]
[2018-03-12] MEDS ORDERED: Acetaminophen 325 MG TAB PO PRN (19:29)
[2018-03-12 19:36] VITALS: BMI 34.5
[2018-03-12] MEDS: Famotidine 20 MG TAB PO SCH (20:24)
[2018-03-12] MEDS: Furosemide 40 MG/4 ML VIAL SLOW IVP SCH (20:24)
[2018-03-12] MEDS: Nicotine 14 MG PATCH TD SCH (20:24)
[2018-03-12] MEDS ORDERED: Non-Formulary Item 1 EACH (Budesonide-Formoterol [Symbicort 80-4.5] 2 PUFF) INH SCH (21:00)
[2018-03-13] MEDS: Clindamycin/D5W 600 MG in Premix Bag 1 BAG IVPB SCH ×4 (00:43→17:02)
[2018-03-13] MEDS: Phenergan/Codeine 10-6.25mg/5ml UDCUP PO PRN ×2 (00:53→17:02)
--- NOTE | 2018-03-13 00:53 | HP ---
PRIMARY CARE PHYSICIAN: Dr. Cardoso [facility] CHIEF COMPLAINT: Shortness of breath and cough. HISTORY OF PRESENT ILLNESS: Ms. 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 She was in her usual state of health until Monday evening. It is notable, however, she was recently discharged from the hospital just a few days ago for COPD exacerbation. She says that she was doing okay again until Monday evening and then started noticing a scratchy throat as well as coughing again. She says she began to cough harder and harder. She was having difficulty breathing. She began coughing up s ome phlegm, which she describes as a cream color. She denies having any fever or chills, no night sw eats. She also denies any chest pain but has had some sensation of indigestion. As a result of her symptoms, she came to the ER for evaluation. In the ER, she was given continuous nebs and IV steroid s and did not improve and for this reason she was transferred to our facility for further evaluation and treatment. REVIEW OF SYSTEMS: All systems were reviewed and are negative except for that mentioned in the histo ry of present illness. PAST MEDICAL HISTORY: Significant for chronic respiratory failure secondary to chronic obstructive p ulmonary disease, coronary artery disease, hyperlipidemia, hypertension, congestive heart failure. H er last ejection fraction was 35% to 40% and she does have diastolic dysfunction. Also, history of a rrhythmia, and osteoarthritis. PAST SURGICAL HISTORY: She has had a defibrillator placed. She is status post CABG. She has bilate ral cataracts, cholecystectomy, left total knee replacement, tonsillectomy, right elbow surgery, ankl e surgery on the left. ALLERGIES: DEMEROL, LISINOPRIL, PENICILLIN, which causes swelling, MEPERIDINE, and LEVOFLOXACIN. SOCIAL HISTORY: She is a smoker and she smokes at least 30 years. Denies any alcohol use or drug us e and she would like to be a FULL CODE. FAMILY HISTORY: Unknown. CURRENT MEDICATIONS: Include prednisone, albuterol inhaler, doxycycline, carvedilol 6.25 mg twice da idalia, Wellbutrin-SR 150 mg daily, trazodone 100 mg at bedtime, Lamisil 250 mg daily, Aldactone 25 mg d aily, oxybutynin 5 mg t.i.d., spironolactone 25 mg daily, omeprazole 20 mg daily, Nitrostat 0.4 subli ngual as needed, nicotine lozenges p.r.n., losartan 25 mg 1/2 tablet daily, guaifenesin 100 mg daily, gabapentin 300 mg at bedtime, iron sulfate 325 mg daily, Flexeril 5 mg daily, calcium carbonate, Sym bicort 80/4.5 two puffs twice daily, atorvastatin 40 mg daily. PHYSICAL EXAMINATION: GENERAL: She is alert and oriented. She appears to be in some mild distress due to dyspnea. She is well-developed and well-nourished. VITAL SIGNS: Initially in the ER, her blood pressure was 156/92, heart rate 74, respiratory rate of 26, temperature was 99.0. HEENT: Pupils are equal, round, and reactive. Extraocular muscles are intact. Her sclerae anicteri c. Throat no erythema, no exudates. She is edentulous. NECK: There is no jugular venous distention, no bruits. LUNGS: She has got bilateral wheezing, fairly tight throughout the lung patricia. There was no rales. CARDIOVASCULAR: She has a normal S1 and S2. I did not appreciate any S3 or S4. No murmurs, clicks, no rubs. ABDOMEN: Obese, it is soft, it is nontender, nondistended. Positive for bowel sounds. There is no rebound, no guarding, no organomegaly. EXTREMITIES: There is no clubbing, cyanosis. There is no edema. There is no calf tenderness. NEUROLOGIC: Muscle strength is 5/5 in both her upper and lower extremities and her cranial nerves ar e intact. SKIN AND INTEGUMENT: No skin changes. No rash. IMAGING: On her x-ray, she has got some cardiomegaly and can see the defibrillator and defibrillator wires are in place and kind of a plate-like atelectasis or infiltrate in the right base it is by my reading. LABORATORY DATA: Sodium was 141, potassium 4.0, chloride is 105, CO2 is 28, BUN of 11, creatinine 0. 91, glucose is 117. Natriuretic peptide is 412. Troponin is less than 0.010. White blood cell coun t 13.4, hemoglobin 15.6, hematocrit is 49, platelet count is 253. ASSESSMENT AND PLAN: 1. This is a pleasant 72-year-old female that presents to the emergency room with shortness of dinorah th and cough. She had a chest x-ray, which shows a possible new infiltrate from even the time that s he was here just a few days ago. Her BNP is also elevated and pulmonary edema cannot be entirely exc luded from the chest x-ray. Therefore, it is possible that she may have both a chronic obstructive pulmonary disease exacerbation due to pneumonia, which is a healthcare-associated pneumonia as well as a possible mild congestive h eart failure exacerbation. She will need to be admitted to the medical floor. I suspect that she wi ll require at least 2 midnights to improve, we will start her on IV antibiotics. Unfortunately, give n her multiple antibiotic allergies were limited in our choices. We can try Cleocin and doxycycline to start. We will consult her overnight stocker for further recommendations, give her a dose of IV magne sium. We will also continue her long-acting beta agonist. 2. Acute on chronic combined heart failure. She will be given a dose of IV Lasix x1. We will need to readdress and see how she responds clinically, continued diuretic use will be based on the clinica l indication. 3. For hypertension, we will continue her usual blood pressure medications plus p.r.n.
[2018-03-13] MEDS: Furosemide 40 MG/4 ML VIAL SLOW IVP SCH (04:57)
[2018-03-13 05:01] LABS: #Lymphocytes 0.8 thou/uL (1.20-3.40); #Monocytes 0.4 thou/uL (0.11-0.59); #Neutrophils 9.5 thou/uL (1.40-6.50); %Basophils 0.1 % (0.0-1.0); %Eosinophils 0.2 % (0.0-10.0); %Lymphocytes 7.1 % (21.0-51.0); %Monocytes 3.8 % (0.0-10.0); %Neutrophils 88.9 % (42.0-75.0); Hemoglobin 14.8 g/dL (12.0-16.0); Mean Corpuscular HGB CONC 31.3 g/dL (32.0-36.0); Mean Corpuscular Hemoglobin 30.3 pg (27.0-31.0); Mean Corpuscular Volume 96.9 fL (78.0-98.0); Mean Platelet Volume 7.6 fL (7.4-10.4); Platelet Count 238 thou/uL (130-400); RBC Distribution Width 13.4 % (11.5-14.5); Red Blood Cell (RBC) Count 4.88 mill/uL (4.20-5.40); White Blood Cell (WBC) Count 10.6 thou/uL (4.8-10.8)
[2018-03-13 05:09] LABS: Anion Gap 13 mmol/L (10-20); BUN (Urea Nitrogen) 17 mg/dL (9.8-20.1); Calc. Creatinine Clearance 85 mL/min (70-130); Calcium 8.7 mg/dL (7.8-10.44); Carbon Dioxide 29 mmol/L (23-31); Chloride 104 mmol/L (98-107); Estimated GFR-MDRD 68; Glucose 198 mg/dL (83-110); Potassium 4.1 mmol/L (3.5-5.1); Sodium 142 mmol/L (136-145)
[2018-03-13] MEDS ORDERED: Mometasone/Formoterol 120 PUFF INHALER INH SCH (06:30)
[2018-03-13] MEDS: Enoxaparin Sodium 40 MG/0.4 ML SYRINGE SC SCH (09:22)
[2018-03-13] MEDS: Famotidine 20 MG TAB PO SCH ×2 (09:23→22:54)
--- NOTE | 2018-03-13 11:24 | CON ---
DATE OF SERVICE: 03/13/2018 This encompasses 70 minutes time. Of that time, greater than 50% was spent with the patient and/or i n the patient's unit in the hospital. REASON FOR CONSULTATION: COPD exacerbation. HISTORY OF PRESENT ILLNESS: The patient is a 72-year-old female who has been in and out of the [facility] several times in the last month. She was just discharged to home the other day after staying for COPD exacerbation. She had an ER visit here over the weekend. She was sent back home, but she came back yesterday with increasing shortness of breath and cough. She states that she feels like she tia dawson is unable to "cough it up." She has been on IV steroids and nebulization treatments without impro vement. PAST MEDICAL HISTORY: 1. Severe COPD requiring home O2 at night. She has seen Dr. Rosario in the past and also follows with a financial operations analyst at the OR in [place]. 2. Coronary artery disease. 3. Ischemic cardiomyopathy with EF 35%-40%. 4. Hypertension. PAST SURGICAL HISTORY: 1. Defibrillator placement. 2. Coronary artery bypass grafting surgery. 3. Cataract surgery. 4. Cholecystectomy. 5. Left total knee replacement. 6. Tonsillectomy. 7. Right elbow surgery. ALLERGIES: DEMEROL, LISINOPRIL, PENICILLIN, MEPERIDINE, LEVOFLOXACIN. SOCIAL HISTORY: She continues to smoke about a pack per day, smoked for over 30 years. Does not con sume alcohol. FAMILY MEDICAL HISTORY: Unknown. MEDICATIONS: 1. Prior to admission, prednisone unknown dose daily, albuterol metered dose inhaler as needed, doxy cycline, carvedilol 6.25 mg twice daily, Wellbutrin 150 mg daily, trazodone 100 mg nightly, Lamisil 2 50 mg daily. 2. Aldactone 25 mg daily. 3. Oxybutynin 5 mg t.i.d. 4. Omeprazole 20 mg daily. 5. Guaifenesin as needed. 6. Symbicort 80/4.5 two puffs twice daily. 7. Atorvastatin 40 mg daily. 8. Flexeril 5 mg daily. REVIEW OF SYSTEMS: Twelve point review of systems otherwise negative. PHYSICAL EXAMINATION: VITAL SIGNS: Temperature 97.9, pulse 75, respirations 20, O2 saturation 97%, blood pressure 143/84. GENERAL: She is 5 foot 3, weight 194 pounds, does not appear to be in any overt respiratory distress . HEENT: Pupils react, sclerae are anicteric. Oropharynx clear. NECK: No adenopathy or JVD. LUNGS: She has soft bilateral expiratory wheezes with slightly prolonged expiratory phase. CARDIAC: S1, S2 regular without audible murmur. ABDOMEN: Soft, obese, nontender, nondistended. EXTREMITIES: No clubbing, cyanosis, or edema. LABORATORY DATA: White blood cell count 10.4, hematocrit 47.3, platelet count 238. PH 7.47, pCO2 of 40, pO2 of 65. Sodium 142, potassium 4.1, chloride 104, CO2 29, BUN 17, creatinine 0.8, glucose 198 . BNP was 412. X-RAY FINDINGS: Chest x-ray demonstrates cardiomegaly, perhaps an infiltrate, but this is probably p ulmonary edema. ASSESSMENT: 1. Chronic obstructive pulmonary disease exacerbation. 2. Suspect some degree of concurrent congestive heart failure that is aggravating the situation. 3. Continue tobacco abuse. PLAN: 1. I will change her nebs to EzPAP to see if this will help her cough up secretions. 2. Continue with IV steroids. 3. We would restart the IV diuretics and give her 40 mg of Lasix a day. 4. Continue the antibiotics. 5. I will inform Dr. Rosario about the patient's hospitalization.
--- NOTE | 2018-03-13 12:48 | PDOC.PN ---
- Subjective Encounter Start Date: 03/13/18 Encounter Start Time: 12:46 Ms. Tapia was seen today in follow-up of COPD exacerbation. She is breathing some better today. She is still wheezing. - Objective Resuscitation Status: Resuscitation Status FULL:Full Resuscitation MAR Reviewed: Yes Vital Signs & Weight: Vital Signs (12 hours) Temp Pulse Resp BP Pulse Ox 03/13/18 10:17 80 14 03/13/18 07:48 97.9 F 75 20 143/84 H 97 03/13/18 07:05 80 16 03/13/18 05:00 98.0 F 80 20 156/80 H 93 L Weight Weight 194 lb 1.6 oz I&O: 03/12/18 03/13/18 03/14/18 06:59 06:59 06:59 Intake Total 920 Balance 920 Result Diagrams: 03/13/18 03:13 03/13/18 03:13 Phys Exam - Physical Examination HEENT: PERRLA Respiratory: wheezing present + wheezing bilaterally, and rhonchi, no rales Cardiovascular: RRR, no significant murmur, no rub Gastrointestinal: soft, non-tender, no distention, positive bowel sounds Musculoskeletal: edema present trace non-pitting edema Neurological: non-focal, moves all 4 limbs Dx/Plan (1) Acute on chronic combined systolic and diastolic CHF, NYHA class 2 Code(s): I50.43 - ACUTE ON CHRONIC COMBINED SYSTOLIC AND DIASTOLIC HRT FAIL Status: Acute (2) Acute on chronic respiratory failure with hypoxia Code(s): J96.21 - ACUTE AND CHRONIC RESPIRATORY FAILURE WITH HYPOXIA Status: Acute Comment: Improving (3) COPD exacerbation Code(s): J44.1 - CHRONIC OBSTRUCTIVE PULMONARY DISEASE W (ACUTE) EXACERBATION Status: Acute Comment: oral steroids, bronchodilators and oral antibiotics. (4) CAD (coronary artery disease) Code(s): I25.10 - ATHSCL HEART DISEASE OF [place] CORONARY ARTERY W/O ANG PCTRS Status: Chronic Qualifiers: Coronary Disease-Associated Artery/Lesion type: [place] artery [place] vs. transplanted heart: [place] heart Associated angina: without angina Qualified Code(s): I25.10 - Atherosclerotic heart disease of [place] coronary artery without angina pectoris Comment: stable (5) Hypertension Code(s): I10 - ESSENTIAL (PRIMARY) HYPERTENSION Status: Chronic Qualifiers: Hypertension type: essential hypertension Qualified Code(s): I10 - Essential (primary) hypertension Comment: Stable - Plan * COPD exacerbation- continue current treatment with steroids, duonebs, and antibiotics * PCCM input appreciated- and nebs have been changed to EZ PAP, and Singulair has been added * CAD- stable * Acute on chronic combined heart failure- continue IV Lasix, and will re- assess in the AM.
[2018-03-13] MEDS: Arformoterol 15 MCG/2 ML NEB NEB SCH (18:53)
[2018-03-13] MEDS: Budesonide 0.5 MG/2 ML NEB INH SCH (18:53)
[2018-03-13] MEDS ORDERED: Calcium Carbonate + Vit D 250 MG TAB PO SCH (21:15)
[2018-03-13] MEDS ORDERED: Atorvastatin Calcium 40 MG TAB PO SCH (21:15)
[2018-03-13] MEDS ORDERED: Bupropion 150 MG SR TAB PO SCH (21:15)
[2018-03-13] MEDS ORDERED: Loratadine 10 MG TAB PO PRN (21:16)
[2018-03-13] MEDS ORDERED: Diabetic Tussin 200 MG/10 ML UDCUP PO SCH (21:30)
[2018-03-13] MEDS ORDERED: Gabapentin 300 MG CAP PO SCH (21:30)
[2018-03-13] MEDS ORDERED: Carvedilol 6.25 MG TAB PO SCH (21:30)
[2018-03-13] MEDS ORDERED: traZODone HCl 50 MG TAB PO SCH (21:30)
[2018-03-13] MEDS ORDERED: Oxybutynin 5 MG TAB PO SCH (21:30)
[2018-03-13] MEDS: Montelukast Sodium 10 mg Tablet PO SCH (22:53)
[2018-03-13] MEDS: Nicotine 14 MG PATCH TD SCH (22:55)
[2018-03-14] MEDS: Clindamycin/D5W 600 MG in Premix Bag 1 BAG IVPB SCH ×2 (00:40→06:12)
[2018-03-14] MEDS: Arformoterol 15 MCG/2 ML NEB NEB SCH ×2 (07:24→18:15)
[2018-03-14] MEDS: Budesonide 0.5 MG/2 ML NEB INH SCH ×2 (07:26→18:15)
--- NOTE | 2018-03-14 09:10 | PRG ---
DATE OF SERVICE: 03/14/2018 Brenna Tapia was readmitted to the hospital. She went home and developed significant shortnes s of breath, coughing and wheezing. She said she only smoked three cigarettes. She is now on easy EzPAP to which she says she is able to cough up her sputum much more easy. Chest x-ray shows a questionable right-sided infiltrate. Pacemaker in place. PHYSICAL EXAMINATION: VITAL SIGNS: Blood pressure is 154/76, sats 94, respirations 18, temperature 98, pulse 69. CHEST: Chest reveals decreased breath sounds with prolonged expiration and wheezing. CARDIAC: Normal S1-S2. No gallops. ABDOMEN: Soft, no masses. IMPRESSION: 1. Chronic obstructive pulmonary disease exacerbation. 2. Bronchitis. 3. Ongoing tobacco abuse. I do not see any obvious big infiltrates on her chest x-ray. White count is essentially unremarkable . A big shift. PLAN: Switch her to oral antibiotics.
[2018-03-14] MEDS: Bupropion 150 MG SR TAB PO SCH ×2 (09:36→20:09)
[2018-03-14] MEDS: Calcium Carbonate + Vit D 250 MG TAB PO SCH ×2 (09:37→20:09)
[2018-03-14] MEDS: Oxybutynin 5 MG TAB PO SCH ×3 (09:38→20:08)
[2018-03-14] MEDS: Cyclobenzaprine 10 MG TAB PO SCH (09:38)
[2018-03-14] MEDS: Famotidine 20 MG TAB PO SCH ×2 (09:38→20:09)
[2018-03-14] MEDS: Diabetic Tussin 200 MG/10 ML UDCUP PO SCH ×2 (09:38→20:09)
[2018-03-14] MEDS: Losartan 25 MG TAB PO SCH (09:39)
[2018-03-14] MEDS: Ferrous Sulfate 325 MG TAB PO SCH (09:39)
[2018-03-14] MEDS: Spironolactone 25 MG TAB PO SCH (09:39)
[2018-03-14] MEDS: Carvedilol 6.25 MG TAB PO SCH ×2 (09:39→16:54)
[2018-03-14] MEDS: Furosemide 40 MG/4 ML VIAL SLOW IVP SCH (09:40)
[2018-03-14] MEDS: Doxycycline 100 MG CAP PO SCH ×2 (10:40→20:09)
[2018-03-14] MEDS: Enoxaparin Sodium 40 MG/0.4 ML SYRINGE SC SCH (10:41)
--- NOTE | 2018-03-14 11:44 | PDOC.PN ---
- Subjective Encounter Start Date: 03/14/18 Encounter Start Time: 11:42 Ms. Tapia was seen today in follow-up of COPD exacerbation. She says she still feels very tired. She is breathing better. - Objective Resuscitation Status: Resuscitation Status FULL:Full Resuscitation MAR Reviewed: Yes Vital Signs & Weight: Vital Signs (12 hours) Temp Pulse Resp BP BP Pulse Ox 03/14/18 10:08 75 24 H 95 03/14/18 09:39 154/76 H 03/14/18 08:00 98.6 F 69 18 154/76 H 95 03/14/18 07:26 90 20 95 03/14/18 07:24 90 20 95 03/14/18 04:22 97.5 F L 69 16 132/69 93 L 03/14/18 02:40 78 18 96 03/14/18 00:00 97.7 F 72 18 145/68 H 93 L Weight Weight 192 lb 10.944 oz I&O: 03/13/18 03/14/18 03/15/18 06:59 06:59 06:59 Intake Total 920 240 240 Balance 920 240 240 Result Diagrams: 03/13/18 03:13 03/13/18 03:13 Phys Exam - Physical Examination HEENT: PERRLA Respiratory: no rales, wheezing present + bilaterally wheezing and rhonchi Cardiovascular: RRR, no significant murmur, no rub Gastrointestinal: soft, non-tender, no distention, positive bowel sounds Musculoskeletal: no edema Dx/Plan (1) COPD exacerbation Code(s): J44.1 - CHRONIC OBSTRUCTIVE PULMONARY DISEASE W (ACUTE) EXACERBATION Status: Acute Comment: oral steroids, bronchodilators and oral antibiotics. (2) Acute on chronic combined systolic and diastolic CHF, NYHA class 2 Code(s): I50.43 - ACUTE ON CHRONIC COMBINED SYSTOLIC AND DIASTOLIC HRT FAIL Status: Acute (3) Acute on chronic respiratory failure with hypoxia Code(s): J96.21 - ACUTE AND CHRONIC RESPIRATORY FAILURE WITH HYPOXIA Status: Acute Comment: Improving (4) CAD (coronary artery disease) Code(s): I25.10 - ATHSCL HEART DISEASE OF [place] CORONARY ARTERY W/O ANG PCTRS Status: Chronic Qualifiers: Coronary Disease-Associated Artery/Lesion type: [place] artery [place] vs. transplanted heart: [place] heart Associated angina: without angina Qualified Code(s): I25.10 - Atherosclerotic heart disease of [place] coronary artery without angina pectoris Comment: stable (5) Hypertension Code(s): I10 - ESSENTIAL (PRIMARY) HYPERTENSION Status: Chronic Qualifiers: Hypertension type: essential hypertension Qualified Code(s): I10 - Essential (primary) hypertension Comment: Stable - Plan * COPD exacerbation- improving * Acute on chronic combined heart failure- improving- will need to monitor volume status carefully, continue Lasix IV * HTN- blood pressure is stable * CAD- stable.
[2018-03-14] MEDS: Atorvastatin Calcium 40 MG TAB PO SCH (20:08)
[2018-03-14] MEDS: Montelukast Sodium 10 mg Tablet PO SCH (20:09)
[2018-03-14] MEDS: traZODone HCl 50 MG TAB PO SCH (20:09)
[2018-03-14] MEDS: Gabapentin 300 MG CAP PO SCH (20:09)
[2018-03-14] MEDS: Nicotine 14 MG PATCH TD SCH (20:11)
[2018-03-15] MEDS: Arformoterol 15 MCG/2 ML NEB NEB SCH ×2 (07:06→17:55)
[2018-03-15] MEDS: Budesonide 0.5 MG/2 ML NEB INH SCH ×2 (07:11→17:55)
[2018-03-15] MEDS: Carvedilol 6.25 MG TAB PO SCH ×2 (10:00→16:21)
[2018-03-15] MEDS: Calcium Carbonate + Vit D 250 MG TAB PO SCH ×2 (10:00→20:48)
[2018-03-15] MEDS: Bupropion 150 MG SR TAB PO SCH ×2 (10:00→20:48)
[2018-03-15] MEDS: Spironolactone 25 MG TAB PO SCH (10:00)
[2018-03-15] MEDS: Cyclobenzaprine 10 MG TAB PO SCH (10:01)
[2018-03-15] MEDS: Doxycycline 100 MG CAP PO SCH ×2 (10:10→20:49)
[2018-03-15] MEDS: Famotidine 20 MG TAB PO SCH ×2 (10:11→20:49)
[2018-03-15] MEDS: Losartan 25 MG TAB PO SCH (10:11)
[2018-03-15] MEDS: Enoxaparin Sodium 40 MG/0.4 ML SYRINGE SC SCH (10:11)
[2018-03-15] MEDS: Furosemide 40 MG/4 ML VIAL SLOW IVP SCH (10:11)
[2018-03-15] MEDS: Ferrous Sulfate 325 MG TAB PO SCH (10:11)
[2018-03-15] MEDS: Diabetic Tussin 200 MG/10 ML UDCUP PO SCH ×2 (10:11→20:48)
[2018-03-15] MEDS: Oxybutynin 5 MG TAB PO SCH ×3 (10:12→20:49)
--- NOTE | 2018-03-15 11:30 | PRG ---
DATE OF SERVICE: 03/15/2018 SUBJECTIVE: This morning, she is better, but she is still coughing and wheezing. OBJECTIVE: VITAL SIGNS: Blood pressure is 149/84, temperature 98, respirations 18, sats are 100% on 3 liters. CHEST: Bilateral rhonchi. CARDIAC: Normal S1, S2. No gallops. ABDOMEN: Soft, no masses. IMPRESSION: 1. Chronic obstructive pulmonary disease exacerbation. 2. Bronchitis. 3. Ongoing tobacco abuse. PLAN: Switch her to oral prednisone. I do not think she is ready to go home. I am going to try and arrange for home ventilation early next week.
--- NOTE | 2018-03-15 12:47 | PDOC.PN ---
- Subjective Encounter Start Date: 03/15/18 Encounter Start Time: 12:45 Subjective: Continued SOB, USING ACCESSORY MUSCLES FOR BREATHING, COUGH+ - Objective Resuscitation Status: Resuscitation Status FULL:Full Resuscitation MAR Reviewed: Yes Vital Signs & Weight: Vital Signs (12 hours) Temp Pulse Resp BP BP Pulse Ox 03/15/18 10:34 72 18 100 03/15/18 10:00 149/84 H 03/15/18 08:00 95 03/15/18 07:45 98.1 F 67 16 149/84 H 95 03/15/18 07:12 68 16 100 03/15/18 07:11 68 16 100 03/15/18 07:06 68 16 100 03/15/18 02:30 71 18 97 Weight Weight 195 lb 12.328 oz I&O: 03/14/18 03/15/18 03/16/18 06:59 06:59 06:59 Intake Total 240 1250 Balance 240 1250 Result Diagrams: 03/13/18 03:13 03/13/18 03:13 Phys Exam - Physical Examination HEENT: PERRLA, moist MMs, sclera anicteric, TM's clear, oral pharynx no lesions , 2+ tonsils Neck: no nodes, no JVD, supple, full ROM RALES +++ Cardiovascular: RRR, no significant murmur, no rub, gallop, irregular Gastrointestinal: soft, non-tender, no distention, positive bowel sounds Musculoskeletal: no edema, pulses present Neurological: non-focal, normal sensation, moves all 4 limbs Dx/Plan (1) Acute on chronic respiratory failure with hypoxia Code(s): J96.21 - ACUTE AND CHRONIC RESPIRATORY FAILURE WITH HYPOXIA Status: Acute Comment: Continue NC oxygen, prednisone, nebs (2) Acute on chronic combined systolic and diastolic CHF, NYHA class 2 Code(s): I50.43 - ACUTE ON CHRONIC COMBINED SYSTOLIC AND DIASTOLIC HRT FAIL Status: Acute Comment: Lasix, Spiranolactone, Carvedilol and lisinopril (3) COPD exacerbation Code(s): J44.1 - CHRONIC OBSTRUCTIVE PULMONARY DISEASE W (ACUTE) EXACERBATION Status: Acute Comment: oral steroids, bronchodilators and oral antibiotics. (4) Chronic systolic heart failure Code(s): I50.22 - CHRONIC SYSTOLIC (CONGESTIVE) HEART FAILURE Status: Chronic Comment: Stable. Not in acute exacerbation. AICD in place, EF 35-40% On carvedilol, Lasix 40mg daily. Allergic to Lisinopril (5) Hypertension Code(s): I10 - ESSENTIAL (PRIMARY) HYPERTENSION Status: Chronic Qualifiers: Hypertension type: essential hypertension Qualified Code(s): I10 - Essential (primary) hypertension Comment: Stable - Plan cont current plan of care, DVT proph w/lovenox * .
[2018-03-15] MEDS: Nicotine 14 MG PATCH TD SCH (20:48)
[2018-03-15] MEDS: Atorvastatin Calcium 40 MG TAB PO SCH (20:48)
[2018-03-15] MEDS: traZODone HCl 50 MG TAB PO SCH (20:49)
[2018-03-15] MEDS: Gabapentin 300 MG CAP PO SCH (20:49)
[2018-03-15] MEDS: Montelukast Sodium 10 mg Tablet PO SCH (20:49)
[2018-03-16] MEDS: Budesonide 0.5 MG/2 ML NEB INH SCH ×2 (05:53→18:37)
[2018-03-16] MEDS: Arformoterol 15 MCG/2 ML NEB NEB SCH ×2 (05:57→18:37)
[2018-03-16] MEDS: Famotidine 20 MG TAB PO SCH ×2 (08:14→20:19)
[2018-03-16] MEDS: Oxybutynin 5 MG TAB PO SCH ×3 (08:14→20:19)
[2018-03-16] MEDS: Carvedilol 6.25 MG TAB PO SCH ×2 (08:14→16:00)
[2018-03-16] MEDS: predniSONE 20 MG TAB PO SCH (08:14)
[2018-03-16] MEDS: Losartan 25 MG TAB PO SCH (08:15)
[2018-03-16] MEDS: Spironolactone 25 MG TAB PO SCH (08:15)
[2018-03-16] MEDS: Cyclobenzaprine 10 MG TAB PO SCH (08:15)
[2018-03-16] MEDS: Diabetic Tussin 200 MG/10 ML UDCUP PO SCH (08:16)
[2018-03-16] MEDS: Doxycycline 100 MG CAP PO SCH ×2 (08:16→20:19)
[2018-03-16] MEDS: Bupropion 150 MG SR TAB PO SCH ×2 (08:16→20:18)
[2018-03-16] MEDS: Ferrous Sulfate 325 MG TAB PO SCH (08:16)
[2018-03-16] MEDS: Furosemide 40 MG/4 ML VIAL SLOW IVP SCH (08:16)
[2018-03-16] MEDS: Calcium Carbonate + Vit D 250 MG TAB PO SCH ×2 (08:16→20:18)
[2018-03-16] MEDS: Enoxaparin Sodium 40 MG/0.4 ML SYRINGE SC SCH (08:16)
--- NOTE | 2018-03-16 14:50 | PDOC.PN ---
- Subjective Encounter Start Date: 03/16/18 Encounter Start Time: 10:00 Subjective: pt up in bed still feels mild sob - Objective Resuscitation Status: Resuscitation Status FULL:Full Resuscitation Vital Signs & Weight: Vital Signs (12 hours) Temp Pulse Resp BP BP Pulse Ox 03/16/18 13:29 79 18 92 L 03/16/18 09:25 74 16 96 03/16/18 08:26 93 L 03/16/18 08:14 124/71 03/16/18 08:00 98.2 F 74 18 124/71 93 L 03/16/18 05:57 68 16 96 03/16/18 05:53 68 16 96 Weight Weight 199 lb 12.8 oz I&O: 03/15/18 03/16/18 03/17/18 06:59 06:59 06:59 Intake Total 1250 3910 Balance 1250 3910 Result Diagrams: 03/13/18 03:13 03/13/18 03:13 Phys Exam - Physical Examination Neck: no nodes, no JVD, supple, full ROM Respiratory: wheezing present Cardiovascular: RRR, no significant murmur, no rub, gallop, irregular Gastrointestinal: soft, non-tender, no distention, positive bowel sounds Musculoskeletal: no edema, pulses present, edema present Dx/Plan (1) Acute on chronic respiratory failure with hypoxia Code(s): J96.21 - ACUTE AND CHRONIC RESPIRATORY FAILURE WITH HYPOXIA Status: Acute (2) Community acquired bacterial pneumonia Code(s): J15.9 - UNSPECIFIED BACTERIAL PNEUMONIA Status: Acute (3) Chronic systolic heart failure Code(s): I50.22 - CHRONIC SYSTOLIC (CONGESTIVE) HEART FAILURE Status: Chronic Comment: Stable. Not in acute exacerbation. AICD in place, EF 35-40% On carvedilol, Lasix 40mg daily. Allergic to Lisinopril (4) Hypertension Code(s): I10 - ESSENTIAL (PRIMARY) HYPERTENSION Status: Chronic Qualifiers: Hypertension type: essential hypertension Qualified Code(s): I10 - Essential (primary) hypertension Comment: Stable (5) Obesity (BMI 30-39.9) Code(s): E66.9 - OBESITY, UNSPECIFIED Status: Chronic - Plan will continue abx/steroids/neb for now -: possible discharge in 48h * . Review of Systems - Review of Systems Respiratory: Shortness of Breath Cardiovascular: negative: chest pain, palpitations, orthopnea, paroxysmal nocturnal dyspnea, edema, light headedness, other Gastrointestinal: negative: Nausea, Vomiting, Abdominal Pain, Diarrhea, Constipation, Melena, Hematochezia, Other - Medications/Allergies Allergies/Adverse Reactions: Allergies Allergy/AdvReac Type Severity Reaction Status Date / Time levofloxacin [From Levaquin] Allergy Verified 02/27/18 00:54 lisinopril Allergy Verified 02/27/18 00:54 meperidine HCl [From Demerol] Allergy Verified 02/27/18 00:54 Penicillins Allergy Verified 02/27/18 00:54 Medications: Current Medications Acetaminophen (Tylenol) 650 mg PO Q4H PRN PRN Reason: Headache/Fever/Mild Pain (1-3) Albuterol/Ipratropium (Duoneb) 3 ml EZPAP [id number] [facility] Last Admin: 03/16/18 13:29 Dose: 3 ml Arformoterol Tartrate (Brovana) 15 mcg NEB BID-RT [facility] Last Admin: 03/16/18 05:57 Dose: 15 mcg Atorvastatin Calcium (Lipitor) 40 mg PO HS [facility] Last Admin: 03/15/18 20:48 Dose: 40 mg Budesonide (Pulmicort Neb Solution) 0.5 mg INH BID-RT [facility] Last Admin: 03/16/18 05:53 Dose: 0.5 mg Bupropion HCl (Wellbutrin Sr) 150 mg PO BID [facility] Last Admin: 03/16/18 08:16 Dose: 150 mg Calcium/Vitamin D (Oscal + Vit D) 500 mg PO BID [facility] Last Admin: 03/16/18 08:16 Dose: 500 mg Carvedilol (Coreg) 6.25 mg PO BID-WM [facility] Last Admin: 03/16/18 08:14 Dose: 6.25 mg Cyclobenzaprine HCl (Flexeril) 5 mg PO DAILY [facility] Last Admin: 03/16/18 08:15 Dose: 5 mg Doxycycline Hyclate (Vibramycin) 100 mg PO BID [facility] Last Admin: 03/16/18 08:16 Dose: 100 mg Enoxaparin Sodium (Lovenox) 40 mg SC 0900 [facility] Last Admin: 03/16/18 08:16 Dose: 40 mg Famotidine (Pepcid) 20 mg PO BID [facility] Last Admin: 03/16/18 08:14 Dose: 20 mg Ferrous Sulfate (Feosol) 325 mg PO DAILY [facility] Last Admin: 03/16/18 08:16 Dose: 325 mg Furosemide (Lasix) 40 mg SLOW IVP DAILY [facility] Last Admin: 03/16/18 08:16 Dose: 40 mg Gabapentin (Neurontin) 300 mg PO HS [facility] Last Admin: 03/15/18 20:49 Dose: 300 mg Guaifenesin (Mucinex) 1,200 mg PO Q12HR [facility] Loratadine (Claritin) 10 mg PO DAILYPRN PRN PRN Reason: ALLERGIES Losartan Potassium (Cozaar) 12.5 mg PO DAILY [facility] Last Admin: 03/16/18 08:15 Dose: 12.5 mg Montelukast Sodium (Singulair) 10 mg PO QPM [facility] Last Admin: 03/15/18 20:49 Dose: 10 mg Nicotine (Nicoderm Patch) 14 mg TD Q24HR [facility] Last Admin: 03/15/18 20:48 Dose: Not Given Oxybutynin Chloride (Ditropan) 5 mg PO TID [facility] Last Admin: 03/16/18 08:14 Dose: 5 mg Pantoprazole Sodium (Protonix) 40 mg PO DAILY [facility] Last Admin: 03/16/18 08:15 Dose: 40 mg Prednisone (Prednisone) 40 mg PO QA-[facility] Last Admin: 03/16/18 08:14 Dose: 40 mg Promethazine HCl/Codeine (Phenergan/Codeine Syrup) 5 ml PO Q4H PRN PRN Reason: Cough Last Admin: 03/13/18 17:02 Dose: 5 ml Sodium Chloride (Flush - Normal Saline) 10 ml IVF Q12HR [facility] Last Admin: 03/16/18 08:17 Dose: 10 ml Sodium Chloride (Flush - Normal Saline) 10 ml IVF PRN PRN PRN Reason: Saline Flush Spironolactone (Aldactone) 25 mg PO QAM-[facility] Last Admin: 03/16/18 08:15 Dose: 25 mg Trazodone HCl (Desyrel) 100 mg PO HS [facility] Last Admin: 03/15/18 20:49 Dose: 100 mg
--- NOTE | 2018-03-16 17:36 | PRG ---
DATE OF SERVICE: 03/16/2018 SUBJECTIVE: Ms. Tapia says she is feeling better, but does not feel that she is anywhere near to going home. OBJECTIVE: VITAL SIGNS: She is afebrile, heart rate is in the 70s. Blood pressure 124/71, respiratory rates in the teens, oximetry is 92-96 on 3 liters. LUNGS: Remarkable for diffuse coarse wheezes. HEART: Regular rhythm. ABDOMEN: Soft and nontender. EXTREMITIES: Without edema. LABORATORY: There is no new lab. IMPRESSION: 1. Chronic obstructive pulmonary disease exacerbation. 2. Bronchitis. 3. Ongoing tobacco use. PLAN: Continue current supportive care measures with respiratory therapy, steroids, Singulair and mu colytics.
[2018-03-16] MEDS: Nicotine 14 MG PATCH TD SCH (20:16)
[2018-03-16] MEDS: Atorvastatin Calcium 40 MG TAB PO SCH (20:18)
[2018-03-16] MEDS: Montelukast Sodium 10 mg Tablet PO SCH (20:19)
[2018-03-16] MEDS: Gabapentin 300 MG CAP PO SCH (20:19)
[2018-03-16] MEDS: guaiFENesin ER 600 MG TAB PO SCH (20:19)
[2018-03-16] MEDS: traZODone HCl 50 MG TAB PO SCH (20:20)
[2018-03-17] MEDS: Budesonide 0.5 MG/2 ML NEB INH SCH ×2 (05:58→19:19)
[2018-03-17] MEDS: Arformoterol 15 MCG/2 ML NEB NEB SCH ×2 (06:02→19:19)
[2018-03-17] MEDS: Cyclobenzaprine 10 MG TAB PO SCH (08:51)
[2018-03-17] MEDS: Losartan 25 MG TAB PO SCH (08:51)
[2018-03-17] MEDS: Carvedilol 6.25 MG TAB PO SCH ×2 (08:51→17:02)
[2018-03-17] MEDS: Oxybutynin 5 MG TAB PO SCH ×3 (08:51→21:08)
[2018-03-17] MEDS: Bupropion 150 MG SR TAB PO SCH ×2 (08:52→21:07)
[2018-03-17] MEDS: predniSONE 20 MG TAB PO SCH (08:53)
[2018-03-17] MEDS: Famotidine 20 MG TAB PO SCH ×2 (08:53→21:08)
[2018-03-17] MEDS: Spironolactone 25 MG TAB PO SCH (08:53)
[2018-03-17] MEDS: guaiFENesin ER 600 MG TAB PO SCH ×2 (08:53→21:08)
[2018-03-17] MEDS: Ferrous Sulfate 325 MG TAB PO SCH (08:53)
[2018-03-17] MEDS: Calcium Carbonate + Vit D 250 MG TAB PO SCH ×2 (08:53→21:07)
[2018-03-17] MEDS: Doxycycline 100 MG CAP PO SCH ×2 (08:53→21:06)
[2018-03-17] MEDS: Furosemide 40 MG/4 ML VIAL SLOW IVP SCH (08:54)
[2018-03-17] MEDS: Enoxaparin Sodium 40 MG/0.4 ML SYRINGE SC SCH (08:54)
--- NOTE | 2018-03-17 12:01 | PDOC.PN ---
- Subjective Encounter Start Date: 03/17/18 Encounter Start Time: 11:15 Subjective: pt up in bed feels a bit better today - Objective Resuscitation Status: Resuscitation Status FULL:Full Resuscitation Vital Signs & Weight: Vital Signs (12 hours) Temp Pulse Resp BP BP Pulse Ox 03/17/18 09:55 63 16 95 03/17/18 08:51 131/79 03/17/18 08:00 98.1 F 63 16 131/79 95 03/17/18 07:02 95 03/17/18 06:02 80 16 94 L 03/17/18 05:58 80 16 94 L 03/17/18 02:21 93 L 03/17/18 02:19 84 16 93 L Weight Weight 203 lb 4.259 oz I&O: 03/16/18 03/17/18 03/18/18 06:59 06:59 06:59 Intake Total 3910 1500 Balance 3910 1500 Result Diagrams: 03/13/18 03:13 03/13/18 03:13 Phys Exam - Physical Examination Neck: no nodes, no JVD, supple, full ROM mild wheezing to both lungs improved since yest Cardiovascular: RRR, no significant murmur, no rub, gallop, irregular Dx/Plan (1) Acute on chronic respiratory failure with hypoxia Code(s): J96.21 - ACUTE AND CHRONIC RESPIRATORY FAILURE WITH HYPOXIA Status: Acute (2) Community acquired bacterial pneumonia Code(s): J15.9 - UNSPECIFIED BACTERIAL PNEUMONIA Status: Acute (3) Chronic systolic heart failure Code(s): I50.22 - CHRONIC SYSTOLIC (CONGESTIVE) HEART FAILURE Status: Chronic Comment: Stable. Not in acute exacerbation. AICD in place, EF 35-40% On carvedilol, Lasix 40mg daily. Allergic to Lisinopril (4) Hypertension Code(s): I10 - ESSENTIAL (PRIMARY) HYPERTENSION Status: Chronic Qualifiers: Hypertension type: essential hypertension Qualified Code(s): I10 - Essential (primary) hypertension Comment: Stable (5) Obesity (BMI 30-39.9) Code(s): E66.9 - OBESITY, UNSPECIFIED Status: Chronic - Plan will continue current tx -: possible discharge 24-48h if ok with pulmonary * . Review of Systems - Review of Systems Respiratory: Cough, Shortness of Breath Cardiovascular: negative: chest pain, palpitations, orthopnea, paroxysmal nocturnal dyspnea, edema, light headedness, other Gastrointestinal: negative: Nausea, Vomiting, Abdominal Pain, Diarrhea, Constipation, Melena, Hematochezia, Other - Medications/Allergies Allergies/Adverse Reactions: Allergies Allergy/AdvReac Type Severity Reaction Status Date / Time levofloxacin [From Levaquin] Allergy Verified 02/27/18 00:54 lisinopril Allergy Verified 02/27/18 00:54 meperidine HCl [From Demerol] Allergy Verified 02/27/18 00:54 Penicillins Allergy Verified 02/27/18 00:54 Medications: Current Medications Acetaminophen (Tylenol) 650 mg PO Q4H PRN PRN Reason: Headache/Fever/Mild Pain (1-3) Albuterol/Ipratropium (Duoneb) 3 ml EZPAP [id number] [facility] Last Admin: 03/17/18 09:55 Dose: 3 ml Arformoterol Tartrate (Brovana) 15 mcg NEB BID-RT [facility] Last Admin: 03/17/18 06:02 Dose: 15 mcg Atorvastatin Calcium (Lipitor) 40 mg PO HS [facility] Last Admin: 03/16/18 20:18 Dose: 40 mg Budesonide (Pulmicort Neb Solution) 0.5 mg INH BID-RT [facility] Last Admin: 03/17/18 05:58 Dose: 0.5 mg Bupropion HCl (Wellbutrin Sr) 150 mg PO BID [facility] Last Admin: 03/17/18 08:52 Dose: 150 mg Calcium/Vitamin D (Oscal + Vit D) 500 mg PO BID [facility] Last Admin: 03/17/18 08:53 Dose: 500 mg Carvedilol (Coreg) 6.25 mg PO BID-WM [facility] Last Admin: 03/17/18 08:51 Dose: 6.25 mg Cyclobenzaprine HCl (Flexeril) 5 mg PO DAILY [facility] Last Admin: 03/17/18 08:51 Dose: 5 mg Doxycycline Hyclate (Vibramycin) 100 mg PO BID [facility] Last Admin: 03/17/18 08:53 Dose: 100 mg Enoxaparin Sodium (Lovenox) 40 mg SC 0900 [facility] Last Admin: 03/17/18 08:54 Dose: 40 mg Famotidine (Pepcid) 20 mg PO BID [facility] Last Admin: 03/17/18 08:53 Dose: 20 mg Ferrous Sulfate (Feosol) 325 mg PO DAILY [facility] Last Admin: 03/17/18 08:53 Dose: 325 mg Furosemide (Lasix) 40 mg SLOW IVP DAILY [facility] Last Admin: 03/17/18 08:54 Dose: 40 mg Gabapentin (Neurontin) 300 mg PO HS [facility] Last Admin: 03/16/18 20:19 Dose: 300 mg Guaifenesin (Mucinex) 1,200 mg PO Q12HR [facility] Last Admin: 03/17/18 08:53 Dose: 1,200 mg Loratadine (Claritin) 10 mg PO DAILYPRN PRN PRN Reason: ALLERGIES Losartan Potassium (Cozaar) 12.5 mg PO DAILY [facility] Last Admin: 03/17/18 08:51 Dose: 12.5 mg Montelukast Sodium (Singulair) 10 mg PO QPM [facility] Last Admin: 03/16/18 20:19 Dose: 10 mg Nicotine (Nicoderm Patch) 14 mg TD Q24HR [facility] Last Admin: 03/16/18 20:16 Dose: Not Given Oxybutynin Chloride (Ditropan) 5 mg PO TID [facility] Last Admin: 03/17/18 08:51 Dose: 5 mg Pantoprazole Sodium (Protonix) 40 mg PO DAILY [facility] Last Admin: 03/17/18 08:53 Dose: 40 mg Prednisone (Prednisone) 40 mg PO QA-[facility] Last Admin: 03/17/18 08:53 Dose: 40 mg Promethazine HCl/Codeine (Phenergan/Codeine Syrup) 5 ml PO Q4H PRN PRN Reason: Cough Last Admin: 03/13/18 17:02 Dose: 5 ml Sodium Chloride (Flush - Normal Saline) 10 ml IVF Q12HR [facility] Last Admin: 03/17/18 08:54 Dose: 10 ml Sodium Chloride (Flush - Normal Saline) 10 ml IVF PRN PRN PRN Reason: Saline Flush Spironolactone (Aldactone) 25 mg PO QAM-[facility] Last Admin: 03/17/18 08:53 Dose: 25 mg Trazodone HCl (Desyrel) 100 mg PO HS [facility] Last Admin: 03/16/18 20:20 Dose: 100 mg
--- NOTE | 2018-03-17 16:35 | PRG ---
DATE OF SERVICE: 03/17/2018 SUBJECTIVE: Ms. Tapia is feeling better. She is a little tearful about having to be in the [facility], but she also recognizes if she goes home quickly, she will be right back here. OBJECTIVE: VITAL SIGNS: Heart rate 67, respiratory rate 16, oximetry is 95, blood pressure 131/79. LUNGS: She still has coarse wheezes diffusely. HEART: Regular rhythm. ABDOMEN: Soft. She has not had lab in 4 days. We will order a CBC and a Chem-7 in the morning. IMPRESSION: Chronic obstructive pulmonary disease exacerbation, slowly improving. PLAN: Continue current care. She is not ready for discharge. We have encouraged her to spend more time out of bed and hopefully start walking in the [place] a little bit. I will continue to follow.
[2018-03-17] MEDS: Nicotine 14 MG PATCH TD SCH (20:30)
[2018-03-17] MEDS: traZODone HCl 50 MG TAB PO SCH (21:06)
[2018-03-17] MEDS: Montelukast Sodium 10 mg Tablet PO SCH (21:07)
[2018-03-17] MEDS: Atorvastatin Calcium 40 MG TAB PO SCH (21:08)
[2018-03-17] MEDS: Gabapentin 300 MG CAP PO SCH (21:08)
[2018-03-18 05:32] LABS: Anion Gap 13 mmol/L (10-20); BUN (Urea Nitrogen) 23 mg/dL (9.8-20.1); Calc. Creatinine Clearance 98 mL/min (70-130); Calcium 8.7 mg/dL (7.8-10.44); Carbon Dioxide 30 mmol/L (23-31); Chloride 99 mmol/L (98-107); Estimated GFR-MDRD 78; Glucose 90 mg/dL (83-110); Potassium 4.2 mmol/L (3.5-5.1); Sodium 138 mmol/L (136-145)
[2018-03-18 05:51] LABS: Hemoglobin 14.5 g/dL (12.0-16.0); Mean Corpuscular HGB CONC 32.6 g/dL (32.0-36.0); Mean Corpuscular Hemoglobin 31.3 pg (27.0-31.0); Mean Platelet Volume 7.4 fL (7.4-10.4); Platelet Count 209 thou/uL (130-400); RBC Distribution Width 13.2 % (11.5-14.5); Red Blood Cell (RBC) Count 4.64 mill/uL (4.20-5.40); White Blood Cell (WBC) Count 10.8 thou/uL (4.8-10.8)
[2018-03-18 05:52] LABS: PLT Morphology Comment Appears Adequate
[2018-03-18 06:01] LABS: Lymphocytes 33 % (21-51); Monocytes 5 % (0-10); Reactive Lymphocytes 2 % (0-10)
[2018-03-18 06:07] LABS: MDiff Complete? YES; Neutrophil 60 % (42-75)
[2018-03-18] MEDS: Budesonide 0.5 MG/2 ML NEB INH SCH ×2 (06:45→18:33)
[2018-03-18] MEDS: Arformoterol 15 MCG/2 ML NEB NEB SCH ×2 (06:45→18:33)
[2018-03-18] MEDS: predniSONE 20 MG TAB PO SCH (08:43)
[2018-03-18] MEDS: Enoxaparin Sodium 40 MG/0.4 ML SYRINGE SC SCH (08:43)
[2018-03-18] MEDS: Losartan 25 MG TAB PO SCH (08:43)
[2018-03-18] MEDS: Ferrous Sulfate 325 MG TAB PO SCH (08:44)
[2018-03-18] MEDS: Oxybutynin 5 MG TAB PO SCH ×3 (08:44→21:23)
[2018-03-18] MEDS: Carvedilol 6.25 MG TAB PO SCH ×2 (08:44→17:27)
[2018-03-18] MEDS: Cyclobenzaprine 10 MG TAB PO SCH (08:44)
[2018-03-18] MEDS: Spironolactone 25 MG TAB PO SCH (08:45)
[2018-03-18] MEDS: guaiFENesin ER 600 MG TAB PO SCH ×2 (08:45→21:22)
[2018-03-18] MEDS: Famotidine 20 MG TAB PO SCH ×2 (08:45→21:23)
[2018-03-18] MEDS: Calcium Carbonate + Vit D 250 MG TAB PO SCH ×2 (08:45→21:24)
[2018-03-18] MEDS: Bupropion 150 MG SR TAB PO SCH ×2 (08:46→21:24)
[2018-03-18] MEDS: Doxycycline 100 MG CAP PO SCH ×2 (08:46→21:25)
[2018-03-18] MEDS: Furosemide 40 MG/4 ML VIAL SLOW IVP SCH (08:46)
[2018-03-18] MEDS ORDERED: Furosemide 40 MG/4 ML VIAL SLOW IVP SCH (09:30)
--- NOTE | 2018-03-18 21:10 | PRG ---
DATE OF SERVICE: 03/18/2018 SUBJECTIVE: She says she still feels a little bit better today. She still does not feel strong enou gh to go home. PHYSICAL EXAMINATION: VITAL SIGNS: She is in no distress. LUNGS: She still has diffuse wheezes, but they are mild. HEART: Regular rhythm. ABDOMEN: Soft and nontender. EXTREMITIES: Without edema. I did watch her ambulating in the [place] and she does well, she moves slowly. IMPRESSION: Chronic obstructive pulmonary disease exacerbation, slowly improving. She really needs to find a local pulmonary physician to see her more frequently than 6-month intervals, I believe she has at the [facility]. We will continue to follow while she is in the hospital, and I will be happy to follow her as an outp atient as well as I have explained to her.
[2018-03-18] MEDS: Nicotine 14 MG PATCH TD SCH (21:21)
[2018-03-18] MEDS: Gabapentin 300 MG CAP PO SCH (21:22)
[2018-03-18] MEDS: Atorvastatin Calcium 40 MG TAB PO SCH (21:22)
[2018-03-18] MEDS: traZODone HCl 50 MG TAB PO SCH (21:23)
[2018-03-18] MEDS: Montelukast Sodium 10 mg Tablet PO SCH (21:23)
[2018-03-19] MEDS: Arformoterol 15 MCG/2 ML NEB NEB SCH (06:10)
[2018-03-19] MEDS: Budesonide 0.5 MG/2 ML NEB INH SCH (06:13)
[2018-03-19 06:26] LABS: Anion Gap 14 mmol/L (10-20); BUN (Urea Nitrogen) 25 mg/dL (9.8-20.1); Calc. Creatinine Clearance 92 mL/min (70-130); Calcium 8.3 mg/dL (7.8-10.44); Carbon Dioxide 29 mmol/L (23-31); Chloride 98 mmol/L (98-107); Estimated GFR-MDRD 73; Glucose 125 mg/dL (83-110); Potassium 3.6 mmol/L (3.5-5.1); Sodium 137 mmol/L (136-145)
[2018-03-19 06:30] LABS: Band 10 % (5-11); Hemoglobin 14.5 g/dL (12.0-16.0); Lymphocytes 21 % (21-51); MDiff Complete? YES; Mean Corpuscular HGB CONC 31.8 g/dL (32.0-36.0); Mean Corpuscular Hemoglobin 30.6 pg (27.0-31.0); Mean Corpuscular Volume 96.3 fL (78.0-98.0); Mean Platelet Volume 7.5 fL (7.4-10.4); Monocytes 4 % (0-10); Neutrophil 65 % (42-75); Platelet Count 230 thou/uL (130-400); RBC Distribution Width 13.3 % (11.5-14.5); Red Blood Cell (RBC) Count 4.72 mill/uL (4.20-5.40); White Blood Cell (WBC) Count 13.3 thou/uL (4.8-10.8)
[2018-03-19 07:10] VITALS: BP 132/75; TEMP 98
--- NOTE | 2018-03-19 07:56 | PRG ---
DATE OF SERVICE: 03/19/2018 Brenna Tapia is better, she is ready to go home. PHYSICAL EXAMINATION: V VITAL SIGNS: Sats are 97 on 1 liter, respiration is 20, temperature 98, blood pressure 130/75. CHEST: Decreased breath sounds, no wheezing. CARDIAC: Normal S1, normal S2. ABDOMEN: Soft, no masses. IMPRESSION: 1. Chronic obstructive pulmonary disease, end-stage. 2. Ongoing tobacco abuse. Much improved. PLAN: She will be discharged home. Follow up with a physician in [place]. [facility].
--- NOTE | 2018-03-19 07:56 | PDOC.PN ---
- Subjective Encounter Start Date: 03/19/18 Encounter Start Time: 11:15 Subjective: pt up in chair no complains - Objective Resuscitation Status: Resuscitation Status FULL:Full Resuscitation Vital Signs & Weight: Vital Signs (12 hours) Temp Pulse Resp BP BP Pulse Ox 03/19/18 07:07 98 F 69 20 132/75 97 03/19/18 06:10 74 18 97 03/19/18 01:54 69 18 93 L 03/19/18 01:19 96 03/18/18 21:48 68 20 96 03/18/18 20:00 97.9 F 83 20 101/62 94 L Weight Weight 198 lb 8 oz I&O: 03/18/18 03/19/18 03/20/18 06:59 06:59 06:59 Intake Total 1610 720 Balance 1610 720 Result Diagrams: 03/19/18 04:08 03/19/18 04:08 Phys Exam - Physical Examination Neck: no nodes, no JVD, supple, full ROM Respiratory: wheezing present mild Cardiovascular: RRR, no significant murmur, no rub, gallop, irregular Gastrointestinal: soft, non-tender, no distention, positive bowel sounds Dx/Plan (1) Acute on chronic respiratory failure with hypoxia Code(s): J96.21 - ACUTE AND CHRONIC RESPIRATORY FAILURE WITH HYPOXIA Status: Acute (2) Community acquired bacterial pneumonia Code(s): J15.9 - UNSPECIFIED BACTERIAL PNEUMONIA Status: Acute (3) Chronic systolic heart failure Code(s): I50.22 - CHRONIC SYSTOLIC (CONGESTIVE) HEART FAILURE Status: Chronic Comment: Stable. Not in acute exacerbation. AICD in place, EF 35-40% On carvedilol, Lasix 40mg daily. Allergic to Lisinopril (4) Hypertension Code(s): I10 - ESSENTIAL (PRIMARY) HYPERTENSION Status: Chronic Qualifiers: Hypertension type: essential hypertension Qualified Code(s): I10 - Essential (primary) hypertension Comment: Stable (5) Obesity (BMI 30-39.9) Code(s): E66.9 - OBESITY, UNSPECIFIED Status: Chronic - Plan pt states she feels better, still has mild wheezing -: lasix given -: possible dischage in next 24-48h * . Review of Systems - Review of Systems Respiratory: negative: Cough, Dry, Shortness of Breath, Hemoptysis, SOB with Excertion, Pleuritic Pain, Sputum, Wheezing Cardiovascular: negative: chest pain, palpitations, orthopnea, paroxysmal nocturnal dyspnea, edema, light headedness, other Gastrointestinal: negative: Nausea, Vomiting, Abdominal Pain, Diarrhea, Constipation, Melena, Hematochezia, Other - Medications/Allergies Allergies/Adverse Reactions: Allergies Allergy/AdvReac Type Severity Reaction Status Date / Time levofloxacin [From Levaquin] Allergy Verified 02/27/18 00:54 lisinopril Allergy Verified 02/27/18 00:54 meperidine HCl [From Demerol] Allergy Verified 02/27/18 00:54 Penicillins Allergy Verified 02/27/18 00:54 Medications: Current Medications Acetaminophen (Tylenol) 650 mg PO Q4H PRN PRN Reason: Headache/Fever/Mild Pain (1-3) Albuterol/Ipratropium (Duoneb) 3 ml EZPAP [id number] [facility] Last Admin: 03/19/18 06:13 Dose: 3 ml Arformoterol Tartrate (Brovana) 15 mcg NEB BID-RT [facility] Last Admin: 03/19/18 06:10 Dose: 15 mcg Atorvastatin Calcium (Lipitor) 40 mg PO HS [facility] Last Admin: 03/18/18 21:22 Dose: 40 mg Budesonide (Pulmicort Neb Solution) 0.5 mg INH BID-RT [facility] Last Admin: 03/19/18 06:13 Dose: 0.5 mg Bupropion HCl (Wellbutrin Sr) 150 mg PO BID [facility] Last Admin: 03/18/18 21:24 Dose: 150 mg Calcium/Vitamin D (Oscal + Vit D) 500 mg PO BID [facility] Last Admin: 03/18/18 21:24 Dose: 500 mg Carvedilol (Coreg) 6.25 mg PO BID-WM [facility] Last Admin: 03/18/18 17:27 Dose: 6.25 mg Cyclobenzaprine HCl (Flexeril) 5 mg PO DAILY [facility] Last Admin: 03/18/18 08:44 Dose: 5 mg Doxycycline Hyclate (Vibramycin) 100 mg PO BID [facility] Last Admin: 03/18/18 21:25 Dose: 100 mg Enoxaparin Sodium (Lovenox) 40 mg SC 0900 [facility] Last Admin: 03/18/18 08:43 Dose: 40 mg Famotidine (Pepcid) 20 mg PO BID [facility] Last Admin: 03/18/18 21:23 Dose: 20 mg Ferrous Sulfate (Feosol) 325 mg PO DAILY [facility] Last Admin: 03/18/18 08:44 Dose: 325 mg Furosemide (Lasix) 40 mg SLOW IVP DAILY [facility] Last Admin: 03/18/18 08:46 Dose: 40 mg Gabapentin (Neurontin) 300 mg PO HS [facility] Last Admin: 03/18/18 21:22 Dose: 300 mg Guaifenesin (Mucinex) 1,200 mg PO Q12HR [facility] Last Admin: 03/18/18 21:22 Dose: 1,200 mg Loratadine (Claritin) 10 mg PO DAILYPRN PRN PRN Reason: ALLERGIES Losartan Potassium (Cozaar) 12.5 mg PO DAILY [facility] Last Admin: 03/18/18 08:43 Dose: 12.5 mg Montelukast Sodium (Singulair) 10 mg PO QPM [facility] Last Admin: 03/18/18 21:23 Dose: 10 mg Nicotine (Nicoderm Patch) 14 mg TD Q24HR [facility] Last Admin: 03/18/18 21:21 Dose: Not Given Oxybutynin Chloride (Ditropan) 5 mg PO TID [facility] Last Admin: 03/18/18 21:23 Dose: 5 mg Pantoprazole Sodium (Protonix) 40 mg PO DAILY [facility] Last Admin: 03/18/18 08:45 Dose: 40 mg Prednisone (Prednisone) 40 mg PO QA-[facility] Last Admin: 03/18/18 08:43 Dose: 40 mg Promethazine HCl/Codeine (Phenergan/Codeine Syrup) 5 ml PO Q4H PRN PRN Reason: Cough Last Admin: 03/13/18 17:02 Dose: 5 ml Sodium Chloride (Flush - Normal Saline) 10 ml IVF Q12HR [facility] Last Admin: 03/18/18 21:27 Dose: 10 ml Sodium Chloride (Flush - Normal Saline) 10 ml IVF PRN PRN PRN Reason: Saline Flush Spironolactone (Aldactone) 25 mg PO QAM-[facility] Last Admin: 03/18/18 08:45 Dose: 25 mg Trazodone HCl (Desyrel) 100 mg PO HS [facility] Last Admin: 03/18/18 21:23 Dose: 100 mg
[2018-03-19] MEDS: Doxycycline 100 MG CAP PO SCH (08:34)
[2018-03-19] MEDS: Losartan 25 MG TAB PO SCH (08:34)
[2018-03-19] MEDS: Enoxaparin Sodium 40 MG/0.4 ML SYRINGE SC SCH (08:34)
[2018-03-19] MEDS: Calcium Carbonate + Vit D 250 MG TAB PO SCH (08:34)
[2018-03-19] MEDS: Bupropion 150 MG SR TAB PO SCH (08:35)
[2018-03-19] MEDS: Furosemide 40 MG/4 ML VIAL SLOW IVP SCH (08:35)
[2018-03-19] MEDS: Cyclobenzaprine 10 MG TAB PO SCH (08:35)
[2018-03-19] MEDS: predniSONE 20 MG TAB PO SCH (08:35)
[2018-03-19] MEDS: guaiFENesin ER 600 MG TAB PO SCH (08:36)
[2018-03-19] MEDS: Oxybutynin 5 MG TAB PO SCH (08:36)
[2018-03-19] MEDS: Famotidine 20 MG TAB PO SCH (08:36)
[2018-03-19] MEDS: Carvedilol 6.25 MG TAB PO SCH (08:37)
[2018-03-19] MEDS: Ferrous Sulfate 325 MG TAB PO SCH (08:37)
[2018-03-19] MEDS: Spironolactone 25 MG TAB PO SCH (08:37)
--- NOTE | 2018-03-19 23:45 | DIS ---
DATE OF ADMISSION: 03/12/2018 DATE OF DISCHARGE: 03/19/2018 DISCHARGE DIAGNOSES: As followin. Acute on chronic respiratory failure with hypoxemic. 2. Community-acquired pneumonia. 3. Chronic systolic heart failure. 4. Hypertension. 5. Obesity. HOSPITAL COURSE: The patient is a very pleasant 72-year-old female who initially presented to the [facility] for shortness of breath. She was started initially on IV diuretics and also due to her shortn ess of breath and sputum production, she was put on antibiotics. Patient was put on IV antibiotics, which was changed to oral. The patient was also seen by Pulmonology. The patient continued to impro ve throughout the hospital stay. Her current admission was most likely secondary to a combination of mild heart failure, also, in addition to COPD exacerbation. She will follow up with the pulmonologi st as outpatient. The patient feels really well upon discharge. Her home medications are as of the following: She is on omeprazole 20 mg daily, Flexeril 5 mg daily, Zyrtec 10 mg b.i.d. p.r.n., Coreg 6.25 mg b.i.d., bupropion, Wellbutrin 150 b.i.d., , losartan 0.5 daily, gabapentin 300 mg at bedtime, ferrous sulfate 325 daily, guaifenesin 100 mg b.i.d., spiron olactone 25 mg daily, oxybutynin 5 mg t.i.d., trazodone 100 mg at bedtime, Symbicort 2 puffs b.i.d. I did give her a Medrol Dosepak, Iron 325 daily, Pepcid which I will discontinue and doxycycline 100 mg b.i.d. PHYSICAL EXAMINATION: VITAL SIGNS: Temperature of 97.8, 79, 18, 97% room air, 132/75. GENERAL: She is awake, alert, and oriented x3, does not appear in distress. CARDIOVASCULAR: S1, S2 present. No murmurs, rubs or gallops. ABDOMEN: Soft, nontender. Bowel sounds are present. EXTREMITIES: No edema. Pedal pulses are present x2.
== END 2018-03-19 14:58 | disposition home or self-care (01) | DRG 291 ==
LOC: ERS 12:29 → T4-A 18:35 → OBSVTOIN 18:35
PROVIDERS: ADMIT Internal Medicine; ATTEND Internal Medicine
DX: I11.0 Hypertensive heart disease with heart failure (principal); J96.21 Acute and chronic respiratory failure with hypoxia; J15.9 Unspecified bacterial pneumonia; J44.1 Chronic obstructive pulmonary disease with (acute) exacerbation; I50.43 Acute on chronic combined systolic (congestive) and diastolic (congestive) heart failure; E78.5 Hyperlipidemia, unspecified; Z95.1 Presence of aortocoronary bypass graft; F17.210 Nicotine dependence, cigarettes, uncomplicated; I25.10 Atherosclerotic heart disease of native coronary artery without angina pectoris; M19.90 Unspecified osteoarthritis, unspecified site; Z95.810 Presence of automatic (implantable) cardiac defibrillator; Z96.652 Presence of left artificial knee joint; Z88.0 Allergy status to penicillin; Z88.8 Allergy status to other drugs, medicaments and biological substances; Z88.1 Allergy status to other antibiotic agents; E66.9 Obesity, unspecified; Z68.34 Body mass index [BMI] 34.0-34.9, adult; I25.5 Ischemic cardiomyopathy
CPT/HCPCS: 36415; 71045; 80048; 80053; 82553; 82805; 83880; 84484; 85007; 85025; 85027; 87070; 87205; 93005; 93798; 94640; 96374; 96375; J1650; J1940; J2060; J2920; J2930; J3475; J3490; J7050; J7506; J7611; J7620; J7626

== ENCOUNTER 2018-07-14 19:01 | Emergency (ER) | payer MEDICARE, OTHER ==
[2018-07-14 19:38] LABS: #Basophils 0.1 thou/uL (0.0-0.2); #Eosinphils 0.1 thou/uL (0.0-0.7); #Lymphocytes 2.2 thou/uL (1.20-3.40); #Monocytes 0.7 thou/uL (0.11-0.59); #Neutrophils 5.2 thou/uL (1.40-6.50); %Basophils 0.8 % (0.0-1.0); %Eosinophils 1.2 % (0.0-10.0); %Lymphocytes 27.1 % (21.0-51.0); %Monocytes 8.1 % (0.0-10.0); %Neutrophils 62.8 % (42.0-75.0); Hemoglobin 15.8 g/dL (12.0-16.0); Mean Corpuscular HGB CONC 32.8 g/dL (32.0-36.0); Mean Corpuscular Hemoglobin 31.6 pg (27.0-31.0); Mean Corpuscular Volume 96.3 fL (78.0-98.0); Mean Platelet Volume 7.3 fL (7.4-10.4); Platelet Count 238 thou/uL (130-400); RBC Distribution Width 12.7 % (11.5-14.5); White Blood Cell (WBC) Count 8.3 thou/uL (4.8-10.8)
[2018-07-14 20:03] LABS: ALT (SGPT) 13 U/L (8-55); AST (SGOT) 17 U/L (5-34); Albumin 4.1 g/dL (3.4-4.8); Alkaline Phosphatase 106 U/L (40-150); Anion Gap 11 mmol/L (10-20); BUN (Urea Nitrogen) 8 mg/dL (9.8-20.1); Bilirubin, Total 0.5 mg/dL (0.2-1.2); CK (CPK) 58 U/L (29-168); Calc. Creatinine Clearance 0 mL/min (70-130); Calcium 9.6 mg/dL (7.8-10.44); Carbon Dioxide 25 mmol/L (23-31); Chloride 98 mmol/L (98-107); Estimated GFR-MDRD 55; Globulin 2.9 g/dL (2.4-3.5); Glucose 93 mg/dL (83-110); Potassium 3.4 mmol/L (3.5-5.1); Sodium 131 mmol/L (136-145)
[2018-07-14] MEDS ORDERED: methylPREDNISolone Sod Succ/PF 125 MG/2 ML VIAL ONE (20:05)
[2018-07-15 01:13] LABS: Troponin I Less than 0.010 ng/mL (< 0.028)
--- NOTE | 2018-07-15 09:31 | RAD ---
PORTABLE UPRIGHT FRONTAL CHEST RADIOGRAPH 07/14/18 COMPARISON: 03/12/18 HISTORY: Short of breath. FINDINGS: Stable prominence of the cardiac silhouette. Stable dual lead AICD inserted via left subclavian appro ach. Old lateral right rib fracture noted. No pneumothorax or pleural fluid is seen and there is no f ocal consolidation, or alveolar edema. IMPRESSION: No acute findings. Stable appearance of the chest. POS: [facility]
== END 2018-07-14 20:35 | disposition home or self-care (01) ==
LOC: ERS 19:01
DX: J44.1 Chronic obstructive pulmonary disease with (acute) exacerbation (principal); E78.5 Hyperlipidemia, unspecified; M19.90 Unspecified osteoarthritis, unspecified site; I50.9 Heart failure, unspecified; I49.9 Cardiac arrhythmia, unspecified; F32.9 Major depressive disorder, single episode, unspecified; F17.210 Nicotine dependence, cigarettes, uncomplicated; Z79.899 Other long term (current) drug therapy; Z79.891 Long term (current) use of opiate analgesic
CPT/HCPCS: 36415; 71045; 80053; 82550; 84484; 85025; 93005; 94644; 96374; J2930

== ENCOUNTER 2018-09-16 21:04 | Emergency (ER) | payer MEDICARE, OTHER ==
[2018-09-16 21:36] LABS: #Basophils 0.1 thou/uL (0.0-0.2); #Eosinphils 0.3 thou/uL (0.0-0.7); #Lymphocytes 3.8 thou/uL (1.20-3.40); #Monocytes 1.1 thou/uL (0.11-0.59); #Neutrophils 7.2 thou/uL (1.40-6.50); %Basophils 0.6 % (0.0-1.0); %Eosinophils 2.3 % (0.0-10.0); %Lymphocytes 30.2 % (21.0-51.0); %Neutrophils 57.9 % (42.0-75.0); Hemoglobin 14.7 g/dL (12.0-16.0); Mean Corpuscular HGB CONC 32.7 g/dL (32.0-36.0); Mean Corpuscular Hemoglobin 31.1 pg (27.0-31.0); Mean Corpuscular Volume 94.9 fL (78.0-98.0); Mean Platelet Volume 7.1 fL (7.4-10.4); Platelet Count 327 thou/uL (130-400); RBC Distribution Width 12.6 % (11.5-14.5); Red Blood Cell (RBC) Count 4.73 mill/uL (4.20-5.40); White Blood Cell (WBC) Count 12.5 thou/uL (4.8-10.8)
--- NOTE | 2018-09-16 21:57 | RAD ---
AP view chest. HISTORY: Dyspnea. AP view chest is obtained. Cardiomegaly noted. There is a dual-lead intracardiac defibrillator. Pulmo nary vascular congestion seen. Areas of patchy density seen in the left lung base compatible with areas of left lower lobe atelectas is or pneumonia. IMPRESSION: Left lower lobe atelectasis or pneumonia.
[2018-09-16 22:00] LABS: ALT (SGPT) 8 U/L (8-55); AST (SGOT) 9 U/L (5-34); Albumin 4.1 g/dL (3.4-4.8); Alkaline Phosphatase 101 U/L (40-150); Anion Gap 14 mmol/L (10-20); BUN (Urea Nitrogen) 12 mg/dL (9.8-20.1); Bilirubin, Total 0.5 mg/dL (0.2-1.2); CK (CPK) 51 U/L (29-168); Calc. Creatinine Clearance 0 mL/min (70-130); Calcium 9.7 mg/dL (7.8-10.44); Carbon Dioxide 25 mmol/L (23-31); Chloride 104 mmol/L (98-107); Estimated GFR-MDRD 64; Globulin 2.6 g/dL (2.4-3.5); Glucose 93 mg/dL (83-110); Potassium 4.2 mmol/L (3.5-5.1); Protein, Total 6.7 g/dL (6.0-8.3); Sodium 139 mmol/L (136-145)
== END 2018-09-16 23:08 | disposition home or self-care (01) ==
LOC: ERS 21:04
DX: J44.1 Chronic obstructive pulmonary disease with (acute) exacerbation (principal); Z71.6 Tobacco abuse counseling; E78.5 Hyperlipidemia, unspecified; I11.0 Hypertensive heart disease with heart failure; I50.9 Heart failure, unspecified; F32.9 Major depressive disorder, single episode, unspecified; F17.210 Nicotine dependence, cigarettes, uncomplicated; Z79.899 Other long term (current) drug therapy; Z79.51 Long term (current) use of inhaled steroids
CPT/HCPCS: 36415; 71045; 80053; 82550; 83880; 84484; 85025; 93005; 94640; 96360; 99406; J7620

== ENCOUNTER 2018-09-27 22:03 | Inpatient (IN) | payer MEDICARE ==
[2018-09-27] MEDS ORDERED: Magnesium 2 GM/50 ML BAG (IN WATER) ONE (22:27)
[2018-09-27] MEDS ORDERED: cefTRIAXone\\ROCEPHIN 2 GM VIAL ONE (22:27)
[2018-09-27] MEDS ORDERED: Azithromycin 500 MG VIAL ONE (22:30)
[2018-09-27 22:48] LABS: #Basophils 0.1 thou/uL (0.0-0.2); #Eosinphils 0.3 thou/uL (0.0-0.7); #Lymphocytes 2.2 thou/uL (1.20-3.40); #Monocytes 0.6 thou/uL (0.11-0.59); #Neutrophils 7.7 thou/uL (1.40-6.50); %Basophils 0.5 % (0.0-1.0); %Eosinophils 2.4 % (0.0-10.0); %Lymphocytes 20.2 % (21.0-51.0); %Monocytes 5.9 % (0.0-10.0); %Neutrophils 71.1 % (42.0-75.0); Hemoglobin 13.1 g/dL (12.0-16.0); Mean Corpuscular HGB CONC 33.5 g/dL (32.0-36.0); Mean Corpuscular Hemoglobin 31.3 pg (27.0-31.0); Mean Corpuscular Volume 93.5 fL (78.0-98.0); Mean Platelet Volume 6.9 fL (7.4-10.4); Platelet Count 278 thou/uL (130-400); RBC Distribution Width 12.4 % (11.5-14.5); Red Blood Cell (RBC) Count 4.18 mill/uL (4.20-5.40); White Blood Cell (WBC) Count 10.9 thou/uL (4.8-10.8)
[2018-09-27 23:06] LABS: ALT (SGPT) 8 U/L (8-55); AST (SGOT) 8 U/L (5-34); Albumin 3.5 g/dL (3.4-4.8); Alkaline Phosphatase 98 U/L (40-150); Anion Gap 11 mmol/L (10-20); BUN (Urea Nitrogen) 9 mg/dL (9.8-20.1); Bilirubin, Total 0.3 mg/dL (0.2-1.2); Calc. Creatinine Clearance 0 mL/min (70-130); Calcium 8.6 mg/dL (7.8-10.44); Carbon Dioxide 23 mmol/L (23-31); Chloride 108 mmol/L (98-107); Estimated GFR-MDRD 68; Globulin 2.7 g/dL (2.4-3.5); Glucose 145 mg/dL (83-110); Potassium 3.2 mmol/L (3.5-5.1); Protein, Total 6.2 g/dL (6.0-8.3); Sodium 139 mmol/L (136-145)
--- NOTE | 2018-09-27 23:06 | RAD ---
PORTABLE AP CHEST X-RAY 09/27/18 HISTORY: Shortness of breath. COMPARISON: 09/16/18. FINDINGS: A dual lead left subclavian AICD device remains in place. Cardiac silhouette is magnified by projecti on but stable in size. The pulmonary vasculature is within normal limits. There is question of linear and patchy density at the left lung base which could be related to atelectasis or focal area of pneu monitis. The lungs are otherwise clear. Remote right sided rib fractures are seen. IMPRESSION: Minimal patchy density retrocardiac region left lung base which could be related to either atelectasi s or developing area of pneumonitis. Follow-up chest x-ray is recommended. POS: [facility]
[2018-09-27 23:10] LABS: Base Excess-Venous -2.1 mmol/L (-2.0 to 3.0); Bicarbonate (HCO3v) 23.7 mmol/L (22.0-28.0); CO2 Tension (PvCO2) 43.2 mmHg (40.0-50.0); Calcium, Ionized 1.15 mmol/L (See Comments:); Chloride 108 mmol/L (98-107); Hemoglobin - Calc 14.2 g/dL (12.0-16.0); O2 Tension (PvO2) 74.9 mmHg (35.0-45.0); Potassium 3.2 mmol/L (3.5-5.1); Sodium 142 mmol/L (138-145); pH (Venous) 7.347 (7.320-7.430)
[2018-09-27] MEDS ORDERED: Furosemide 40 MG/4 ML VIAL ONE (23:21)
[2018-09-27] MEDS ORDERED: Albuterol Sulfate 2.5 mg/0.5 ml Neb ONE (23:24)
[2018-09-27] MEDS ORDERED: Albuterol Sulfate 2.5 mg/3 ml Neb ONE (23:24)
[2018-09-27 23:29] LABS: Bilirubin Negative (Negative); Blood, Urine Negative (Negative); Clarity CLEAR (Clear); Glucose, Urine (Dipstick) Negative (Negative); Leukocyte Moderate (Negative); Nitrite Negative (Negative); Protein, Urine (Dipstick) Negative (Neg-Trace); Specific Gravity, Urine 1.005 (1.002-1.036); Urobilinogen 0.2 mg/dL (0.2-1.0); pH, Urine 6.5 (5.0-9.0)
[2018-09-27 23:32] LABS: Bacteria/HPF Rare-Few HPF (None Seen); Hyaline Casts/LPF 0-3 HYALINE CAST LPF (0-3 Hyaline); RBC/HPF None Seen HPF (0-3); Squamous Epithelial None Seen HPF (0-3)
[2018-09-28] MEDS ORDERED: Ondansetron ODT 4 MG TAB SL PRN (01:50)
[2018-09-28] MEDS ORDERED: Ondansetron PF 4 MG/2 ML Vial IVP PRN (01:50)
[2018-09-28 01:53] VITALS: BMI 33.0
[2018-09-28 02:57] LABS: Actual Bicarbonate (HCO3a) 21.3 mEq/L (22-28); Base Excess (BEa) 2.5 mEq/L (-2.0 to +3.0); O2 Tension (PaO2) 60.5 mmHg (> 70.0); pH, Arterial 7.42 (7.35-7.45)
[2018-09-28 02:58] LABS: Calcium, Ionized 1.17 mmol/L (1.12-1.30); Carboxyhemoglobin (COHb) 1.9 gm% (0.0-3.0); Hemoglobin (Hb) 13.6 g/dL (12.0-16.0); Potassium - ABG Lab 3.46 mmol/L (3.70-5.30); Puncture Site RRA
[2018-09-28] MEDS ORDERED: methylPREDNISolone Sod Succ 40 MG VIAL IVP SCH (06:00)
[2018-09-28] MEDS ORDERED: Acetaminophen 325 MG TAB PO PRN (07:48)
[2018-09-28] MEDS ORDERED: Acyclovir 400 mg Tablet PO PRN (07:52)
--- NOTE | 2018-09-28 08:13 | PDOC.EVN ---
Event Note - Event Note Event Note: Clarified she does take ASA 325 po q day. She also says she takes atorvastatin , but does not know the dose. Her nephew Beny Louis would be her surrogate decision maker if that should become necessary.
[2018-09-28] MEDS ORDERED: VITAMIN D3 PO SCH (09:00)
[2018-09-28] MEDS ORDERED: [UNRECOGNIZED DRUG - OTHER] PO SCH (09:00)
[2018-09-28] MEDS ORDERED: Non-Formulary Item 1 EACH (Cetirizine Hcl [Zyrtec] 10 MG) PO SCH (09:00)
[2018-09-28] MEDS ORDERED: Losartan 25 MG TAB PO SCH (09:00)
[2018-09-28] MEDS ORDERED: CALCIUM CARBONATE PO SCH (09:00)
[2018-09-28] MEDS: Spironolactone 25 MG TAB PO SCH (09:29)
[2018-09-28] MEDS: Enoxaparin Sodium 40 MG/0.4 ML SYRINGE SC SCH (09:29)
[2018-09-28] MEDS: Calcium Carbonate + Vit D 1 TAB PO SCH ×2 (09:30→21:10)
[2018-09-28] MEDS: Oxybutynin 5 MG TAB PO SCH ×3 (09:30→21:10)
[2018-09-28] MEDS: Potassium Chloride 20 MEQ TAB PO SCH (09:30)
[2018-09-28] MEDS: Furosemide 20 MG TAB PO SCH (09:30)
[2018-09-28] MEDS: Aspirin 325 MG TAB PO SCH (09:30)
[2018-09-28] MEDS: Loratadine 10 MG TAB PO SCH (09:30)
[2018-09-28] MEDS: guaiFENesin ER 600 MG TAB PO SCH ×2 (09:30→21:10)
[2018-09-28] MEDS: Carvedilol 6.25 MG TAB PO SCH ×2 (09:31→16:59)
[2018-09-28] MEDS: Losartan 25 MG TAB PO SCH (09:31)
[2018-09-28] MEDS: Nicotine 14 MG PATCH TD SCH (09:32)
[2018-09-28] MEDS: methylPREDNISolone Sod Succ 40 MG VIAL IVP SCH ×3 (13:04→23:53)
--- NOTE | 2018-09-28 14:23 | HP ---
CHIEF COMPLAINT: Shortness of breath. HISTORY OF PRESENT ILLNESS: This patient is a 72-year-old female with a history of severe COPD with multiple prior admissions for COPD related complications. The patient reports that over the past 3 days, she has had increasing shortness of breath above her baseline. She reports that she has had some cough that has been productive of some discolored sputum. She denies any chest pain. She has reported some low-grade fever. She said she measured it and it has been in the 99 range. Of note, the patient just recently completed a [facility] and had been seen here in the emergency department for shortness of breath on 09/16/2018. The patient continues to have some progressive shortness of breath now. She has been using her usual home medications without significant relief. REVIEW OF SYSTEMS: All systems were reviewed, all pertinent positives and negatives noted in the history of present illness. Specifically, the patient reported no chest pain, no peripheral edema, no change in the bowel or bladder habits. She has been voiding well with her diuretics. PAST MEDICAL HISTORY: Notable for severe COPD with chronic respiratory failure, coronary artery disease, hypertension, hyperlipidemia, history of congestive heart failure with an EF of 35% to 40% with diastolic dysfunction. She has osteoarthritis. She has a history of some type of arrhythmia, it is unclear what the arrhythmia is, but the patient reports having had an ablation and defibrillator placed. PAST SURGICAL HISTORY: Pacemaker defibrillator placement, history of coronary artery bypass grafting, bilateral cataract ectomy, cholecystectomy, left knee replacement, tonsillectomy, right elbow surgery, left ankle surgery, cardiac ablation. She also had a ventral herniorrhaphy which was initially performed with the use of a mesh and she reports that she rejected the mesh and subsequently got MRSA infection and required followup surgery, but her hernia has recurred nonetheless. FAMILY HISTORY: Father of "hardening of the arteries." Her mother of an aortic aneurysm. She has a sister with diabetes and a brother with whom she does not have significant contact, but believes he of myocardial infarction. SOCIAL HISTORY: The patient continues to smoke and has smoked for 30 years. Denies alcohol or drugs. She is single. She is full code. ALLERGIES: LEVAQUIN, LISINOPRIL, MEPERIDINE, AND PENICILLINS. CURRENT MEDICATIONS: 1. Acetaminophen. 2. Guaifenesin. 3. Dextromethorphan. 4. Cetirizine. 5. Acyclovir 400 p.o. b.i.d. 6. Lasix 20 mg daily. 7. Potassium 20 mEq daily. 8. Proventil HFA 2 puffs q.6 hours p.r.n. 9. Calcium with vitamin D one p.o. b.i.d. 10. Carvedilol 6.25 one p.o. b.i.d. 11. DuoNebs b.i.d. 12. Neurontin 300 mg p.o. at bedtime. 13. tablets one p.o. daily. 14. Spironolactone 25 mg daily. 15. Ditropan 5 mg t.i.d. 16. Omeprazole 20 mg daily. 17. Trazodone 50 mg at bedtime. PHYSICAL EXAMINATION: VITAL SIGNS: Temperature is 97.9, pulse 70, respirations 20, O2 saturation 90% to 93% on 2 to 3 L nasal cannula, BP is 116/58. GENERAL APPEARANCE: Age-appropriate female, may be slightly older appearing than her stated age. She is tachypneic, but not otherwise significantly distressed. HEENT: PERRL. She has no OP lesions. Denture is in place. NECK: Supple and symmetric with no lymphadenopathy, JVD, or bruits. HEART: Regular rate and rhythm without murmurs, gallops, or rubs. LUNGS: Clear to auscultation bilaterally with good chest wall expansion and air exchange. ABDOMEN: Soft, nontender, and nondistended. Positive bowel sounds. No masses. No organomegaly. She does have a large ventral hernia which distends with her attempts at coughing, likely making her cough less effective. EXTREMITIES: There is no cyanosis, clubbing, or edema. Peripheral pulses are palpable. PSYCH: The patient has normal affect and behavior. NEURO: The patient has no focal deficits, cognitively intact and moves all extremities spontaneously. LABORATORY DATA: White count 10.9, hemoglobin 13.1, platelets 278. D-dimer 0.66. Sodium 139, potassium 3.2, chloride 108, CO2 is 23, BUN 9, creatinine 0.82, glucose 145, calcium 8.6. LFTs normal. BNP is 153. Urinalysis shows 11 to 20 white cells, no red cells, moderate leukocyte esterase, negative nitrites. ABG; pH is 7.42, pCO2 is 34, PO2 of 60. Chest x-ray shows minimal patchy density in the retrocardiac area, which could be related to atelectasis or developing pneumonia. EKG shows sinus rhythm with some nonspecific ST wave changes. Troponin was 0.014. IMPRESSION AND PLAN: 1. Acute hypoxic respiratory failure likely secondary to chronic obstructive pulmonary disease exacerbation, possibly some underlying pneumonia. We will give oxygen support as needed. While addressing the underlying issues, this is on top of her chronic respiratory failure from chronic obstructive pulmonary disease. 2. Pneumonia. Witnessed the patient produce some very thick brown sputum with cough during the time of my exam, supports the possibility that she has pneumonia based on the patchy infiltrates on her chest x-ray, mild leukocytosis, and possibly some low-grade fever at home. Given that the patient is allergy to Levaquin and penicillins and her recent usage of [facility], we will give her Rocephin and doxycycline to cover community-acquired pneumonia and atypicals. 3. Coronary artery disease, appears to be stable. We will continue with her usual home regimen. The patient does not appear to be on daily aspirin, we will need to get some clarity on that from the patient as it would appear to be indicated. 4. Cardiomyopathy with ejection fraction of 35% to 40% with diastolic dysfunction. Currently, the patient appears to be at her baseline. Her BNP is close to her baseline. She has no evidence of decompensation. We will continue with her usual beta lyla and diuretics. 5. Hypertension. Continue with her usual home regimen. 6. Abnormal EKG, appears to be some very nonspecific T wave changes. The patient will remain on telemetry and get serial troponins. Job ID: [id number] [facility]
[2018-09-28] MEDS: Arformoterol 15 MCG/2 ML NEB NEB SCH (19:23)
[2018-09-28] MEDS ORDERED: Non-Formulary Item 1 EACH (Trazodone Hcl [Trazodone Hcl] 50 MG) PO SCH (21:00)
[2018-09-28] MEDS: cefTRIAXone\\ROCEPHIN 2 GM in Sodium Chloride 0.9% 100 ML IVPB SCH (21:07)
[2018-09-28] MEDS: traZODone HCl 50 MG TAB PO SCH (21:10)
[2018-09-28] MEDS: Gabapentin 300 MG CAP PO SCH (21:10)
[2018-09-29] MEDS: ALPRAZolam 0.25 MG TAB PO PRN ×2 (00:48→20:05)
[2018-09-29 02:07] LABS: Troponin I Less than 0.010 ng/mL (< 0.028)
[2018-09-29] MEDS: methylPREDNISolone Sod Succ 40 MG VIAL IVP SCH ×3 (05:50→17:45)
[2018-09-29 05:51] LABS: Troponin I Less than 0.010 ng/mL (< 0.028)
[2018-09-29 05:52] LABS: ALT (SGPT) 8 U/L (8-55); AST (SGOT) 10 U/L (5-34); Albumin 3.4 g/dL (3.4-4.8); Alkaline Phosphatase 98 U/L (40-150); Anion Gap 13 mmol/L (10-20); BUN (Urea Nitrogen) 13 mg/dL (9.8-20.1); Bilirubin, Total 0.2 mg/dL (0.2-1.2); Calc. Creatinine Clearance 89 mL/min (70-130); Calcium 9.3 mg/dL (7.8-10.44); Carbon Dioxide 24 mmol/L (23-31); Chloride 105 mmol/L (98-107); Estimated GFR-MDRD 76; Globulin 2.8 g/dL (2.4-3.5); Glucose 141 mg/dL (83-110); Potassium 3.6 mmol/L (3.5-5.1); Protein, Total 6.2 g/dL (6.0-8.3); Sodium 138 mmol/L (136-145)
[2018-09-29 06:08] LABS: Band 9 % (5-11); Hemoglobin 12.7 g/dL (12.0-16.0); Lymphocytes 9 % (21-51); MDiff Complete? YES; Mean Corpuscular HGB CONC 33.2 g/dL (32.0-36.0); Mean Corpuscular Hemoglobin 31.3 pg (27.0-31.0); Mean Corpuscular Volume 94.4 fL (78.0-98.0); Mean Platelet Volume 7.1 fL (7.4-10.4); Monocytes 2 % (0-10); Neutrophil 80 % (42-75); Platelet Count 302 thou/uL (130-400); Platelet Morphology Comment Appears Adequate; RBC Distribution Width 12.4 % (11.5-14.5); Red Blood Cell (RBC) Count 4.07 mill/uL (4.20-5.40); White Blood Cell (WBC) Count 13.6 thou/uL (4.8-10.8)
[2018-09-29] MEDS ORDERED: Spiriva 18 MCG CAP (Box of 5 Caps) INH SCH (07:00)
[2018-09-29] MEDS: Arformoterol 15 MCG/2 ML NEB NEB SCH ×2 (07:27→19:05)
[2018-09-29] MEDS: Carvedilol 6.25 MG TAB PO SCH ×2 (08:40→16:50)
[2018-09-29] MEDS: Furosemide 20 MG TAB PO SCH (08:41)
[2018-09-29] MEDS: Calcium Carbonate + Vit D 1 TAB PO SCH ×2 (08:41→20:05)
[2018-09-29] MEDS: guaiFENesin ER 600 MG TAB PO SCH ×2 (08:41→20:03)
[2018-09-29] MEDS: Loratadine 10 MG TAB PO SCH (08:41)
[2018-09-29] MEDS: Enoxaparin Sodium 40 MG/0.4 ML SYRINGE SC SCH (08:41)
[2018-09-29] MEDS: Aspirin 325 MG TAB PO SCH (08:41)
[2018-09-29] MEDS: Losartan 25 MG TAB PO SCH (08:41)
[2018-09-29] MEDS: Spironolactone 25 MG TAB PO SCH (08:42)
[2018-09-29] MEDS: Potassium Chloride 20 MEQ TAB PO SCH (08:42)
[2018-09-29] MEDS: Oxybutynin 5 MG TAB PO SCH ×3 (08:42→20:05)
[2018-09-29] MEDS: Nicotine 14 MG PATCH TD SCH (09:25)
--- NOTE | 2018-09-29 11:39 | RAD ---
XR Chest Pa Lat STANDARD History: [Pneumonia] Comparison: Radiograph September 27, 2018 Findings: Heart size mildly enlarged. Mild scarring in both lower lobes. Mild increased right periphe ral extrapleural fat. Cardiac device is similar. No effusion or pneumothorax. Dense vascular calcifications. Impression: Cardiomegaly. No acute intrathoracic abnormality.
--- NOTE | 2018-09-29 13:39 | PDOC.PN ---
- Subjective Encounter Start Date: 09/29/18 Encounter Start Time: 08:35 Feeling better. Concerned because she heard she had an infection in her blood. Breathing is improved. - Objective Resuscitation Status - Order Detail: 09/28/18 07:48 Resuscitation Status Routine Resuscitation Status: FULL: Full Resuscitation Vital Signs & Weight: Vital Signs (12 hours) Temp Pulse Resp BP BP BP Pulse Ox 09/29/18 11:40 98.2 F 71 24 H 139/65 97 09/29/18 08:40 115/57 L 09/29/18 08:27 98.3 F 81 20 115/57 L 95 09/29/18 08:00 97 09/29/18 07:15 70 16 92 L 09/29/18 03:35 98.2 F 70 22 H 126/58 L 93 L 09/29/18 03:24 72 18 91 L Weight Weight 186 lb 9.6 oz I&O: 09/28/18 09/29/18 09/30/18 06:59 06:59 06:59 Intake Total 480 960 Output Total 100 900 Balance 380 60 Result Diagrams: 09/29/18 04:24 09/29/18 04:24 Radiology Reviewed by me: Yes Phys Exam - Physical Examination Constitutional: NAD Neck: no JVD Respiratory: no wheezing, no rales, no rhonchi Diminished Cardiovascular: RRR, no significant murmur, no rub Gastrointestinal: soft, non-tender, no distention, positive bowel sounds Musculoskeletal: no edema Neurological: non-focal, moves all 4 limbs Has constant movement. Slightly dyskinetic. Lymphatic: no nodes Psychiatric: normal affect, A&O x 3 Skin: no rash, normal turgor, cap refill <2 seconds Dx/Plan (1) COPD exacerbation Code(s): J44.1 - CHRONIC OBSTRUCTIVE PULMONARY DISEASE W (ACUTE) EXACERBATION Status: Acute Comment: oral steroids, bronchodilators and oral antibiotics. (2) Community acquired bacterial pneumonia Code(s): J15.9 - UNSPECIFIED BACTERIAL PNEUMONIA Status: Acute (3) Anxiety and depression Code(s): F41.8 - OTHER SPECIFIED ANXIETY DISORDERS Status: Chronic Comment: stable (4) CAD (coronary artery disease) Code(s): I25.10 - ATHSCL HEART DISEASE OF [place] CORONARY ARTERY W/O ANG PCTRS Status: Chronic Qualifiers: Coronary Disease-Associated Artery/Lesion type: [place] artery [place] vs. transplanted heart: [place] heart Associated angina: without angina Qualified Code(s): I25.10 - Atherosclerotic heart disease of [place] coronary artery without angina pectoris Comment: stable (5) Chronic systolic heart failure Code(s): I50.22 - CHRONIC SYSTOLIC (CONGESTIVE) HEART FAILURE Status: Chronic Comment: Stable. Not in acute exacerbation. AICD in place, EF 35-40% On carvedilol, Lasix 40mg daily. Allergic to Lisinopril (6) Dyslipidemia Code(s): E78.5 - HYPERLIPIDEMIA, UNSPECIFIED Status: Chronic Comment: Statin (7) Hypertension Code(s): I10 - ESSENTIAL (PRIMARY) HYPERTENSION Status: Chronic Qualifiers: Hypertension type: essential hypertension Qualified Code(s): I10 - Essential (primary) hypertension Comment: Stable (8) Obesity (BMI 30-39.9) Code(s): E66.9 - OBESITY, UNSPECIFIED Status: Chronic - Plan * Has E. coli in urine culture, but low colony count. Susceptible to current abx. * Has positive blood culture, but likely a contaminant. Await final. * Continue Rocephin and Doxycycline. * Continue steroids and nebs. * Requests cough meds (dextromethorphan). Trying to get that ordered. * Follow up CXR improved with no infiltrate.
[2018-09-29] MEDS: Dextromethorphan Polistirex 30 MG/5 ML (89 ML BOTTLE) PO PRN (20:02)
[2018-09-29] MEDS: traZODone HCl 50 MG TAB PO SCH (20:05)
[2018-09-29] MEDS: Atorvastatin Calcium 40 MG TAB PO SCH (20:05)
[2018-09-29] MEDS: Gabapentin 300 MG CAP PO SCH (20:05)
[2018-09-29] MEDS: cefTRIAXone\\ROCEPHIN 2 GM in Sodium Chloride 0.9% 100 ML IVPB SCH (20:06)
[2018-09-30] MEDS: methylPREDNISolone Sod Succ 40 MG VIAL IVP SCH ×4 (00:13→17:51)
[2018-09-30] MEDS: Acetaminophen/Codeine 30-300mg Tablet PO PRN ×2 (03:40→16:02)
[2018-09-30] MEDS: Arformoterol 15 MCG/2 ML NEB NEB SCH ×2 (06:53→19:14)
[2018-09-30] MEDS: Carvedilol 6.25 MG TAB PO SCH ×2 (09:10→15:06)
[2018-09-30] MEDS: Aspirin 325 MG TAB PO SCH (09:10)
[2018-09-30] MEDS: Calcium Carbonate + Vit D 1 TAB PO SCH ×2 (09:10→20:41)
[2018-09-30] MEDS: Enoxaparin Sodium 40 MG/0.4 ML SYRINGE SC SCH (09:10)
[2018-09-30] MEDS: Furosemide 20 MG TAB PO SCH (09:11)
[2018-09-30] MEDS: Loratadine 10 MG TAB PO SCH (09:11)
[2018-09-30] MEDS: Losartan 25 MG TAB PO SCH (09:11)
[2018-09-30] MEDS: Oxybutynin 5 MG TAB PO SCH ×3 (09:12→20:42)
[2018-09-30] MEDS: Potassium Chloride 20 MEQ TAB PO SCH (09:13)
[2018-09-30] MEDS: Spironolactone 25 MG TAB PO SCH (09:13)
[2018-09-30] MEDS: guaiFENesin ER 600 MG TAB PO SCH ×2 (09:22→20:41)
[2018-09-30] MEDS: Nicotine 14 MG PATCH TD SCH (09:23)
[2018-09-30] MEDS: Dextromethorphan Polistirex 30 MG/5 ML (89 ML BOTTLE) PO PRN ×2 (10:06→20:18)
--- NOTE | 2018-09-30 12:14 | PDOC.PN ---
- Subjective Encounter Start Date: 09/30/18 Encounter Start Time: 11:40 Feeling better in general. Still not at baseline. Cough better with Dextromethorphan. - Objective Resuscitation Status - Order Detail: 09/28/18 07:48 Resuscitation Status Routine Resuscitation Status: FULL: Full Resuscitation Vital Signs & Weight: Vital Signs (12 hours) Temp Pulse Resp BP BP BP Pulse Ox 09/30/18 11:08 97.6 F 70 22 H 126/60 96 09/30/18 09:10 147/67 H 09/30/18 08:58 98.4 F 70 23 H 147/67 H 94 L 09/30/18 08:55 94 L 09/30/18 06:56 92 L 09/30/18 06:55 70 16 92 L 09/30/18 06:53 70 16 92 L 09/30/18 03:39 98.0 F 70 17 133/67 94 L Weight Weight 186 lb 9.6 oz I&O: 09/29/18 09/30/18 10/01/18 06:59 06:59 06:59 Intake Total 960 1200 Output Total 900 1150 401 Balance 60 50 -401 Result Diagrams: 09/29/18 04:24 09/29/18 04:24 Phys Exam - Physical Examination Constitutional: NAD Respiratory: no wheezing, no rhonchi, clear to auscultation bilateral Cardiovascular: RRR, no significant murmur Gastrointestinal: soft, non-tender, no distention Large ventral hernia Musculoskeletal: no edema Neurological: non-focal, moves all 4 limbs Lymphatic: no nodes Psychiatric: normal affect, A&O x 3 Skin: no rash, normal turgor Dx/Plan (1) COPD exacerbation Code(s): J44.1 - CHRONIC OBSTRUCTIVE PULMONARY DISEASE W (ACUTE) EXACERBATION Status: Acute Comment: oral steroids, bronchodilators and oral antibiotics. (2) Community acquired bacterial pneumonia Code(s): J15.9 - UNSPECIFIED BACTERIAL PNEUMONIA Status: Resolved (3) Anxiety and depression Code(s): F41.8 - OTHER SPECIFIED ANXIETY DISORDERS Status: Chronic Comment: stable (4) CAD (coronary artery disease) Code(s): I25.10 - ATHSCL HEART DISEASE OF [place] CORONARY ARTERY W/O ANG PCTRS Status: Chronic Qualifiers: Coronary Disease-Associated Artery/Lesion type: [place] artery [place] vs. transplanted heart: [place] heart Associated angina: without angina Qualified Code(s): I25.10 - Atherosclerotic heart disease of [place] coronary artery without angina pectoris Comment: stable (5) Chronic systolic heart failure Code(s): I50.22 - CHRONIC SYSTOLIC (CONGESTIVE) HEART FAILURE Status: Chronic Comment: Stable. Not in acute exacerbation. AICD in place, EF 35-40% On carvedilol, Lasix 40mg daily. Allergic to Lisinopril (6) Dyslipidemia Code(s): E78.5 - HYPERLIPIDEMIA, UNSPECIFIED Status: Chronic Comment: Statin (7) Hypertension Code(s): I10 - ESSENTIAL (PRIMARY) HYPERTENSION Status: Chronic Qualifiers: Hypertension type: essential hypertension Qualified Code(s): I10 - Essential (primary) hypertension Comment: Stable (8) Obesity (BMI 30-39.9) Code(s): E66.9 - OBESITY, UNSPECIFIED Status: Chronic (9) Ventral hernia Code(s): K43.9 - VENTRAL HERNIA WITHOUT OBSTRUCTION OR GANGRENE Status: Acute - Plan * Doing better overall. * Will change to po steroids. * Continue nebs, oxygen. * Suspect her ventral hernia is a challenge for her breathing when she gets more SOB. * Blood cultures with Gram Variable Rods in chains. * Suspect contaminant, but fastidious, so may be another day or two for ID. * Continue abx until ID known. * Discussed ACP.
--- NOTE | 2018-09-30 13:23 | PDOC.EVN ---
Event Note - Event Note Event Note: Had a discussion with the patient regarding advanced care planning. The patient had good questions regarding the extent of her COPD and the prognosis. She has been urged by her nephew to go on Hospice. She does not feel as though she is ready for hospice services. She still feels good most of the time and has a reasonable quality of life. She had a sister on hospice and was actually surprised when she found out what hospice really was. She does not know how to tell her nephew no. Ultimately, she was reassured that she is in control of her medical decision making and that only changes if she is incapacitated. Then it would go to a designee or family member. She will work with the Palliative Care Team to have the conversation with her nephew. Time: 16 minutes.
[2018-09-30] MEDS: cefTRIAXone\\ROCEPHIN 2 GM in Sodium Chloride 0.9% 100 ML IVPB SCH (20:17)
[2018-09-30] MEDS: Atorvastatin Calcium 40 MG TAB PO SCH (20:41)
[2018-09-30] MEDS: Gabapentin 300 MG CAP PO SCH (20:42)
[2018-09-30] MEDS: ALPRAZolam 0.25 MG TAB PO PRN (20:42)
[2018-09-30] MEDS: traZODone HCl 50 MG TAB PO SCH (20:42)
[2018-10-01] MEDS: Arformoterol 15 MCG/2 ML NEB NEB SCH ×2 (07:24→19:20)
[2018-10-01] MEDS: Carvedilol 6.25 MG TAB PO SCH ×2 (08:29→18:09)
[2018-10-01] MEDS: Spironolactone 25 MG TAB PO SCH (08:29)
[2018-10-01] MEDS: guaiFENesin ER 600 MG TAB PO SCH ×2 (08:29→20:29)
[2018-10-01] MEDS: Oxybutynin 5 MG TAB PO SCH ×3 (08:29→20:30)
[2018-10-01] MEDS: Aspirin 325 MG TAB PO SCH (08:29)
[2018-10-01] MEDS: predniSONE 20 MG TAB PO SCH (08:30)
[2018-10-01] MEDS: Calcium Carbonate + Vit D 1 TAB PO SCH ×2 (08:30→20:28)
[2018-10-01] MEDS: Loratadine 10 MG TAB PO SCH (08:30)
[2018-10-01] MEDS: Losartan 25 MG TAB PO SCH (08:30)
[2018-10-01] MEDS: Potassium Chloride 20 MEQ TAB PO SCH (08:30)
[2018-10-01] MEDS: Furosemide 20 MG TAB PO SCH (08:31)
[2018-10-01] MEDS: Enoxaparin Sodium 40 MG/0.4 ML SYRINGE SC SCH (08:31)
[2018-10-01] MEDS: Nicotine 14 MG PATCH TD SCH (08:41)
[2018-10-01] MEDS: Dextromethorphan Polistirex 30 MG/5 ML (89 ML BOTTLE) PO PRN ×2 (09:45→22:25)
[2018-10-01] MEDS: Acetaminophen/Codeine 30-300mg Tablet PO PRN (14:31)
--- NOTE | 2018-10-01 15:50 | PDOC.PN ---
- Subjective Encounter Start Date: 10/01/18 Encounter Start Time: 13:20 Continues to improve. Does not quite feel like she could manage at home. Cough spasms are still occasionally problematic. - Objective Resuscitation Status - Order Detail: 09/28/18 07:48 Resuscitation Status Routine Resuscitation Status: FULL: Full Resuscitation Vital Signs & Weight: Vital Signs (12 hours) Temp Pulse Resp BP Pulse Ox 10/01/18 15:37 98.1 F 71 18 151/72 H 95 10/01/18 12:00 97.5 F L 70 17 148/72 H 95 10/01/18 08:00 97.8 F 69 19 153/73 H 96 10/01/18 07:24 67 18 92 L 10/01/18 04:43 97.7 F 69 18 140/69 94 L Weight Weight 186 lb 9.6 oz I&O: 09/30/18 10/01/18 10/02/18 06:59 06:59 06:59 Intake Total 1200 1440 Output Total 1150 1951 Balance 50 -511 Result Diagrams: 09/29/18 04:24 09/29/18 04:24 Phys Exam - Physical Examination Constitutional: NAD Respiratory: no wheezing, no rhonchi, clear to auscultation bilateral Scattered rales. Cardiovascular: RRR, no significant murmur, no rub Gastrointestinal: soft, non-tender, no distention Ventral hernia Musculoskeletal: no edema Psychiatric: normal affect, A&O x 3 Skin: normal turgor Dx/Plan (1) COPD exacerbation Code(s): J44.1 - CHRONIC OBSTRUCTIVE PULMONARY DISEASE W (ACUTE) EXACERBATION Status: Acute Comment: oral steroids, bronchodilators and IV abx. (2) Community acquired bacterial pneumonia Code(s): J15.9 - UNSPECIFIED BACTERIAL PNEUMONIA Status: Resolved (3) Anxiety and depression Code(s): F41.8 - OTHER SPECIFIED ANXIETY DISORDERS Status: Chronic Comment: stable (4) CAD (coronary artery disease) Code(s): I25.10 - ATHSCL HEART DISEASE OF [place] CORONARY ARTERY W/O ANG PCTRS Status: Chronic Qualifiers: Coronary Disease-Associated Artery/Lesion type: [place] artery [place] vs. transplanted heart: [place] heart Associated angina: without angina Qualified Code(s): I25.10 - Atherosclerotic heart disease of [place] coronary artery without angina pectoris Comment: stable (5) Chronic systolic heart failure Code(s): I50.22 - CHRONIC SYSTOLIC (CONGESTIVE) HEART FAILURE Status: Chronic Comment: Stable. Not in acute exacerbation. AICD in place, EF 35-40% On carvedilol, Lasix 40mg daily. Allergic to Lisinopril (6) Dyslipidemia Code(s): E78.5 - HYPERLIPIDEMIA, UNSPECIFIED Status: Chronic Comment: St[place] (7) Hypertension Code(s): I10 - ESSENTIAL (PRIMARY) HYPERTENSION Status: Chronic Qualifiers: Hypertension type: essential hypertension Qualified Code(s): I10 - Essential (primary) hypertension Comment: Stable (8) Obesity (BMI 30-39.9) Code(s): E66.9 - OBESITY, UNSPECIFIED Status: Chronic (9) Ventral hernia Code(s): K43.9 - VENTRAL HERNIA WITHOUT OBSTRUCTION OR GANGRENE Status: Acute - Plan * Blood culture appears to be a contaminant. * Will continue IV abx for now. * Anticipate discharge in am on po steroids. * Low colony counts of E. coli in urine. Should be adequately treated with the Rocephin. Do not see an indication to continue treatment at the time of discharge.
[2018-10-01] MEDS: Atorvastatin Calcium 40 MG TAB PO SCH (20:28)
[2018-10-01] MEDS: cefTRIAXone\\ROCEPHIN 2 GM in Sodium Chloride 0.9% 100 ML IVPB SCH (20:28)
[2018-10-01] MEDS: Gabapentin 300 MG CAP PO SCH (20:29)
[2018-10-01] MEDS: traZODone HCl 50 MG TAB PO SCH (20:30)
--- NOTE | 2018-10-01 21:48 | DIS ---
DATE OF ADMISSION: 09/28/2018 DATE OF DISCHARGE: 10/01/2018 DISCHARGE DIAGNOSES: 1. Chronic obstructive pulmonary disease exacerbation. 2. Acute hypoxic respiratory failure. 3. Community-acquired pneumonia. 4. Anxiety and depression. 5. Coronary artery disease. 6. Dyslipidemia. 7. Hypertension. 8. Obesity. 9. Ventral hernia. HISTORY OF PRESENT ILLNESS: This patient is a 72-year-old female with severe COPD with prior admissions for exacerbations. The patient presented via the emergency department reporting increased shortness of breath and a productive cough. She was noted to be somewhat hypoxic, requiring increased demands for oxygen. Her chest x-ray initially was concerning for the possibility of some pneumonia. She had mild leukocytosis and low-grade fever subjectively and she was diagnosed with pneumonia and started on antibiotics there. She has had a history of coronary artery disease and cardiomyopathy with an EF of 35% to 40% and diastolic dysfunction, but did not have evidence of acute decompensation. HOSPITAL COURSE: The patient was admitted, started on broad-spectrum antibiotics, IV steroids, oxygen and nebulizer treatments. She had thick discolored sputum noted. However, sputum cultures remained negative. She had blood cultures obtained, which ultimately returned one of two positive growing Granulicatella adiacens, which was felt to be contaminant. She also had a urine culture obtained in the emergency department and ultimately grew low colony counts of E coli. The patient's respiratory status improved significantly over the first 48 hours, continued to treat until she was able to be a bit more mobile. The patient had a large ventral hernia which makes it difficult for her to generate significant cough and she was on cough suppressants and mucolytics throughout. Also of note, the patient reported that she has a nephew who is trying to tell her she needs to go on hospice because of her respiratory issues. However, she stated she actually felt good most of the time and had not been in the hospital over 6 months, did not feel like she was ready for it. She was seen by the Palliative Care Service and counseled the patient regarding the fact these are ultimately her decisions and she appeared to be doing well in general. On the day of discharge, the patient was feeling better. Initially felt like she might need to stay an additional day, but ultimately felt adequate for discharge and was able to get transportation at this time. PHYSICAL EXAMINATION: VITAL SIGNS: Her temperature was 98.1, pulse 71, respirations 18, O2 saturation 95% on 2.5 L nasal cannula, BP 151/72. HEART: Regular rate and rhythm. No murmurs. LUNGS: Minimal scattered rales and diminished breath sounds. ABDOMEN: Revealed significantly larger ventral hernia. EXTREMITIES: No edema. Please see full progress note dated the same day of discharge summary. DISPOSITION: The patient is discharged to home. She will continue her usual home regimen and also be on aspirin 81 mg daily, prednisone 20 mg two p.o. daily for two days, then one p.o. daily. Please see the full medication list for further details. FOLLOWUP: She is to follow up with the belt turner at [place] and Janae Fernandes, her primary care provider, in 7 days. Her activity is as tolerated. She should remain on a heart healthy diet. She can return to the hospital should she have any problems prior to that time. Time spent in discharge activities, including face to face time with the patient was 32 min. Job ID: [id number] MTDD
[2018-10-01] MEDS: ALPRAZolam 0.25 MG TAB PO PRN (22:29)
[2018-10-02] MEDS: Arformoterol 15 MCG/2 ML NEB NEB SCH (07:35)
[2018-10-02] MEDS: Aspirin 325 MG TAB PO SCH (09:06)
[2018-10-02] MEDS: Carvedilol 6.25 MG TAB PO SCH (09:07)
[2018-10-02] MEDS: Potassium Chloride 20 MEQ TAB PO SCH (09:07)
[2018-10-02] MEDS: Oxybutynin 5 MG TAB PO SCH (09:07)
[2018-10-02] MEDS: guaiFENesin ER 600 MG TAB PO SCH (09:07)
[2018-10-02] MEDS: Losartan 25 MG TAB PO SCH (09:07)
[2018-10-02] MEDS: Calcium Carbonate + Vit D 1 TAB PO SCH (09:07)
[2018-10-02] MEDS: predniSONE 20 MG TAB PO SCH (09:08)
[2018-10-02] MEDS: Furosemide 20 MG TAB PO SCH (09:08)
[2018-10-02] MEDS: Loratadine 10 MG TAB PO SCH (09:08)
[2018-10-02] MEDS: Enoxaparin Sodium 40 MG/0.4 ML SYRINGE SC SCH (09:08)
[2018-10-02] MEDS: Spironolactone 25 MG TAB PO SCH (09:08)
[2018-10-02] MEDS: Nicotine 14 MG PATCH TD SCH (09:09)
[2018-10-02] MEDS: Dextromethorphan Polistirex 30 MG/5 ML (89 ML BOTTLE) PO PRN (10:47)
[2018-10-02] MEDS: ALPRAZolam 0.25 MG TAB PO PRN (10:50)
[2018-10-02 13:42] VITALS: BP 134/72; TEMP 97.9
== END 2018-10-02 14:55 | disposition home or self-care (01) | DRG 193 ==
LOC: ERS 22:03 → 2NO 09-28 00:18
PROVIDERS: ADMIT Hospitalist; ATTEND Hospitalist
DX: J18.9 Pneumonia, unspecified organism (principal); J96.21 Acute and chronic respiratory failure with hypoxia; I50.32 Chronic diastolic (congestive) heart failure; J44.1 Chronic obstructive pulmonary disease with (acute) exacerbation; J44.0 Chronic obstructive pulmonary disease with (acute) lower respiratory infection; I42.9 Cardiomyopathy, unspecified; E78.00 Pure hypercholesterolemia, unspecified; I25.10 Atherosclerotic heart disease of native coronary artery without angina pectoris; I11.0 Hypertensive heart disease with heart failure; M19.90 Unspecified osteoarthritis, unspecified site; F41.9 Anxiety disorder, unspecified; E66.9 Obesity, unspecified; K43.9 Ventral hernia without obstruction or gangrene; F32.9 Major depressive disorder, single episode, unspecified; Z68.32 Body mass index [BMI] 32.0-32.9, adult; Z90.49 Acquired absence of other specified parts of digestive tract; Z88.0 Allergy status to penicillin; Z95.1 Presence of aortocoronary bypass graft; Z88.1 Allergy status to other antibiotic agents; Z88.8 Allergy status to other drugs, medicaments and biological substances; Z79.51 Long term (current) use of inhaled steroids; Z79.899 Other long term (current) drug therapy; Z96.652 Presence of left artificial knee joint; Z95.810 Presence of automatic (implantable) cardiac defibrillator
CPT/HCPCS: 36415; 71045; 71046; 80053; 81003; 81015; 82330; 82803; 82805; 83880; 84484; 85007; 85025; 85027; 85379; 87040; 87070; 87077; 87086; 87186; 87205; 94640; 96365; 96367; 96368; 96375; J0456; J0696; J1650; J1940; J2920; J3475; J3490; J7512; J7611; J7620

== ENCOUNTER 2019-06-20 18:59 | Inpatient (IN) | payer MEDICARE ==
[2019-06-20] MEDS ORDERED: Morphine 4 MG/ML VIAL ONE (19:36)
--- NOTE | 2019-06-20 19:53 | RAD ---
4 views right knee: 06/20/2019 COMPARISON: None available HISTORY: Fall, trauma, pain FINDINGS: There is atherosclerotic calcification posterior to the distal femur and proximal tibia. Th ere is moderate patellofemoral joint space narrowing with posterior patellar osteophyte formation. No knee joint effusion. There is severe medial compartment narrowing with subchondral sclerosis and o steophyte formation. IMPRESSION: Multi compartment degenerative joint disease. No acute fracture or dislocation.
[2019-06-20 20:15] LABS: #Basophils 0.1 thou/uL (0.0-0.2); #Eosinphils 0.2 thou/uL (0.0-0.7); #Lymphocytes 3.3 thou/uL (1.20-3.40); #Monocytes 1.2 thou/uL (0.11-0.59); #Neutrophils 9.3 thou/uL (1.40-6.50); %Basophils 0.5 % (0.0-1.0); %Eosinophils 1.3 % (0.0-10.0); %Lymphocytes 23.6 % (21.0-51.0); %Monocytes 8.3 % (0.0-10.0); %Neutrophils 66.4 % (42.0-75.0); Hemoglobin 14.8 g/dL (12.0-16.0); Mean Corpuscular HGB CONC 33.5 g/dL (32.0-36.0); Mean Corpuscular Hemoglobin 32.4 pg (27.0-31.0); Mean Corpuscular Volume 96.6 fL (78.0-98.0); Platelet Count 283 thou/uL (130-400); RBC Distribution Width 12.9 % (11.5-14.5); Red Blood Cell (RBC) Count 4.59 mill/uL (4.20-5.40)
[2019-06-20 20:34] LABS: ALT (SGPT) 11 U/L (8-55); AST (SGOT) 12 U/L (5-34); Albumin 3.8 g/dL (3.4-4.8); Alkaline Phosphatase 125 U/L (40-110); Anion Gap 12 mmol/L (10-20); BUN (Urea Nitrogen) 9 mg/dL (9.8-20.1); Bilirubin, Total 0.5 mg/dL (0.2-1.2); Calc. Creatinine Clearance 0 mL/min (70-130); Carbon Dioxide 28 mmol/L (23-31); Chloride 104 mmol/L (98-107); Estimated GFR-MDRD 65; Globulin 2.8 g/dL (2.4-3.5); Glucose 83 mg/dL (83-110); Potassium 3.5 mmol/L (3.5-5.1); Protein, Total 6.6 g/dL (6.0-8.3); Sodium 140 mmol/L (136-145)
--- NOTE | 2019-06-20 20:45 | RAD ---
Portable frontal chest radiograph: 06/20/2019 COMPARISON: 09/27/2018 HISTORY: Preoperative patient FINDINGS: Stable enlargement of the cardiac silhouette, atherosclerotic calcification of aortic arch, and transvenous pacing device. Stable old lateral right-sided rib fractures. No pneumothorax or pleural fluid. No focal consolidation or alveolar edema. There is increased linear interstitial densi ty and pulmonary hyperinflation, stable when compared to the prior exam. There is a single midline sternotomy wires are present. IMPRESSION: Stable appearance of the chest as above.
[2019-06-20] MEDS ORDERED: Ondansetron PF 4 MG/2 ML Vial IVP PRN (21:08)
[2019-06-20] MEDS ORDERED: Dextrose 50% Abboject 50 ML SYRINGE SLOW IVP PRN (21:08)
[2019-06-20] MEDS ORDERED: Dextrose 5% in Water 1,000 ML IV PRN (21:08)
[2019-06-20] MEDS ORDERED: hydrALAZINE 20 MG/ML VIAL SLOW IVP PRN (21:08)
[2019-06-20] MEDS ORDERED: Acetaminophen 500 MG TAB ONE (21:09)
[2019-06-20] MEDS ORDERED: traMADol HCl 50 MG TAB ONE (21:09)
[2019-06-20] MEDS ORDERED: traMADol HCl 50 MG TAB PO PRN ×2 (21:13)
[2019-06-20] MEDS ORDERED: Acetaminophen 500 MG TAB PO SCH (21:15)
[2019-06-20] MEDS ORDERED: Acetaminophen/Codeine 30-300mg Tablet PO PRN (21:18)
[2019-06-20] MEDS ORDERED: Morphine 2 MG/ML SYRINGE ONE (21:44)
--- NOTE | 2019-06-20 22:09 | HP ---
TRAUMA SURGEON: Yony Bauman MD. CONSULTING PHYSICIAN: Dr. Archibald. HISTORY OF PRESENT ILLNESS: The patient is a 73-year-old female who presented to the emergency department in [place] after a mechanical fall from standing where she forgot there was a step down from a curb subsequently causing her to fall onto her left side. She was transferred to this hospital for Orthopedic Surgery consultation. Upon my evaluation, the patient complained of left buttock and right knee pain. She has a significant medical history including COPD, CHF with diastolic dysfunction, including a pacemaker and defibrillator. She is on 2 L nasal cannula as I am speaking to her. She wears 2 L of O2 at night when she sleeps. Otherwise, she gets around okay without oxygen. Orthopedic Surgery evaluated the patient's imaging and reported that she could be discharged home or to acute rehab facility if she was not able to ambulate. Acute Rehab Facility was consulted by the Emergency Department. They denied taking the patient due to insurance reasons. Orthopedic Surgery asked us to admit the patient for pain control, physical therapy, and placement. REVIEW OF SYSTEMS: All additional 10-point review of systems negative except as indicated above. PAST MEDICAL HISTORY: COPD, CHF with diastolic dysfunction, pacemaker defibrillator, osteoarthritis, hypertension, and hyperlipidemia. PAST SURGICAL HISTORY: CABG, abdominal hernia repair with subsequent mesh infection with MRSA, so mesh was removed. She has had carpal tunnel release surgery and surgery of tendons of the right elbow. She has also had an appendectomy and a cholecystectomy. SOCIAL HISTORY: The patient lives at home. Her nephew lives with her. She smokes about 1 pack of cigarettes per day. She denies alcohol or drug use. MEDICATIONS: The patient is a poor historian, but was able to tell me that [facility] and include; 1. Full dose aspirin. 2. Rescue inhaler. 3. DuoNebs p.r.n. 4. Carvedilol. 5. Lisinopril. 6. Bupropion. 7. Losartan. 8. Lasix. She does not know the doses. She reports taking her medications as prescribed. ALLERGIES: LEVOFLOXACIN, LISINOPRIL, MEPERIDINE, PENICILLIN, AND DEMEROL. PHYSICAL EXAMINATION: VITAL SIGNS: Temperature 98.5, pulse 70, respirations 18, oxygen saturation 95% on 2 L nasal cannula, blood pressure 129/64. PRIMARY SURVEY: Airway intact. Adequate breath sounds bilaterally. There are wheezing in the upper lung patricia on expiration. No crackles noted. 2+ pulses in the bilateral radials, femorals, and DPs. GCS 15. Gross motor and sensation intact. No lacerations bruising or external bleeding. SECONDARY SURVEY: HEAD: Normocephalic and atraumatic. No gross palpable skull deformities. EYES: Pupils 3-2, equal, round, reactive to light bilaterally. ENT: No signs of trauma. C-SPINE: No step-offs or deformities, nontender, C-collar not in place. CHEST: Nontender. No crepitus. No abrasions or ecchymosis noted. Equal chest movement. The patient's midsternum is moving dyssynchronous as she reports her sternotomy wires were removed due to infection previously. ABDOMEN: Soft, nontender, distended due to large ventral hernia, this is not new. PELVIS: Stable to palpation, nontender. No abrasions or ecchymosis. RECTAL: Deferred. GENITALIA: Deferred. EXTREMITIES: No gross deformities. No abrasions or ecchymosis noted. 2+ pulses in bilateral radials, femorals, and DPs. Left-sided lateral thigh tenderness as well as right knee tenderness. BACK/SPINE: No step-offs or deformities. Aviation Electrical Technician tenderness to palpation of thoracic and lumbar spine. No abrasions or ecchymosis. NEUROLOGIC: 5/5 strength in bilateral homicide squad captain, plantar flexion, dorsiflexion. Gross normal sensation x4 extremities. LABORATORY FINDINGS: White count 14.0, hemoglobin 14.8, hematocrit 44.3, platelets 283. Sodium 140, potassium 3.5, chloride 104, bicarb 28, BUN 9, creatinine 0.86, glucose 83. DIAGNOSTIC FINDINGS: X-ray of the left femur demonstrates no acute osseous abnormalities identified, left total knee replacement, irregular area of sclerosis, distal left femur metaphysis which does not have the appearance suggestive of postsurgical changes. This may represent a low-grade chondroid lesion osteopenia. X-ray of the left hip demonstrates no acute osseous abnormality is identified. CT of the pelvis demonstrates nondisplaced fracture at the base of the left greater trochanter. Additional findings as above. X-ray of the right knee demonstrates multicompartment degenerative joint disease. No acute fracture or dislocation. Chest x-ray demonstrates stable appearance of the chest as above. ASSESSMENT: 1. Status post mechanical fall from standing. 2. Left femur greater trochanter fracture, nonoperative. 3. History of chronic obstructive pulmonary disease, congestive heart failure with diastolic dysfunction, O2 use at night, pacemaker/defibrillator, osteoarthritis, hypertension, and hyperlipidemia. PLAN: The patient will be admitted to the Trauma Service, under observation. She will go to the surgical nursing floor. She will have a regular diet and p.o. pain medications. She will be evaluated formally by Orthopedic Surgery tomorrow and until that time she will be on bedrest. After the evaluation, the patient will work with Physical and Occupational Therapy and will likely be discharged to acute rehab facility. We will ask nursing to complete the med rec and we will start her home medications at that time. She is also to receive a DuoNeb in the emergency department as she has a little bit of wheezing and reports that she feels a neb treatment would be helpful for her. Emergency Department is also to send a UA as they were concerned about her mildly elevated white blood cell count of 14. We will follow up the UA results. This patient was discussed with Dr. Bauman before this dictation. Job ID: [id number]
[2019-06-20] MEDS: Acetaminophen/Codeine 30-300mg Tablet PO PRN (23:09)
[2019-06-21] MEDS ORDERED: PROVENTIL INHALER 6.7 G (200 INHALATIONS) INH PRN (00:11)
[2019-06-21] MEDS ORDERED: Acyclovir 400 mg Tablet PO PRN (00:11)
[2019-06-21 00:37] VITALS: BMI 32.3
[2019-06-21] MEDS: Acetaminophen 325 MG TAB PO SCH ×5 (00:40→23:28)
[2019-06-21] MEDS: Acetaminophen/Codeine 30-300mg Tablet PO PRN (05:42)
[2019-06-21 06:54] LABS: Bacteria/HPF 4+ HPF (None Seen); Bilirubin Negative (Negative); Blood, Urine Negative (Negative); Clarity Turbid (Clear); Glucose, Urine (Dipstick) Normal (Negative); Leukocyte 500 Leu/uL (Negative); Nitrite Negative (Negative); Protein, Urine (Dipstick) Negative (Neg-Trace); RBC/HPF 0-3 HPF (0-3); Squamous Epithelial None Seen HPF (0-3); Urobilinogen Normal mg/dL (Less than 2); WBC/HPF Greater than 50 HPF (0-3)
[2019-06-21 06:56] LABS: Urine Culture Reflex Yes Yes
--- NOTE | 2019-06-21 08:46 | CON ---
DATE OF CONSULTATION: 06/21/2019 This is Maureen Doyle PA-C dictating a report for Michael Archibald MD. REQUESTING PHYSICIAN: Trauma Services. CONSULTING PHYSICIAN: Dr. Archibald. HISTORY OF PRESENT ILLNESS: This is a 73-year-old female, who presented to the emergency department in [place] after a mechanical fall from standing, where she forgot to step down from a curb, subsequently causing her to fall and land on her left side. She was transferred to our facility for Orthopedic Surgery consultation. On initial evaluation, the patient had complaints of left buttock and right knee pain. X-ray evaluation was not significant for any sort of displaced hip fracture. Further evaluation with a CT showed a nondisplaced left greater trochanter fracture. She was indicated for possible rehab transfer from the emergency department, but for some reason, this was not completed and she has been admitted for pain control, physical therapy and placement. Currently at bedside, the patient denies any pain other than that related to her left hip. She denies any head injury or trauma. She denies any numbness or tingling. There is currently no family at bedside. PAST MEDICAL HISTORY: Significant for COPD, CHF with diastolic dysfunction, pacemaker defibrillator, osteoarthritis, hypertension, and hyperlipidemia. PAST SURGICAL HISTORY: CABG, abdominal hernia repair with subsequent mesh infection with MRSA with mesh removal. Also had carpal tunnel surgery and some sort of tendon surgery to the right elbow. Appendectomy and cholecystectomy. The patient lives at home with her nephew. He is blind and disabled. She smokes one pack of cigarettes per day. She denies any alcohol or drug use. REVIEW OF SYSTEMS: Conducted and otherwise negative except for stated above. ALLERGIES: LEVAQUIN, LISINOPRIL, MEPERIDINE, PENICILLIN, AND DEMEROL. PHYSICAL EXAMINATION: VITAL SIGNS: Current vital signs including temperature of 97.5, pulse of 69, respiratory rate of 18, O2 saturation 98% on room air, blood pressure 102/62. GENERAL: The patient is awake and alert. She is in no apparent distress. She is sitting up in bed, eating breakfast at this time. No family currently at bedside. HEENT: Head is normocephalic and atraumatic. NECK: Supple. Trachea midline. LUNGS: Breathing nonlabored. EXTREMITIES: The left lower extremity was evaluated. I did not assess her range of motion secondary to her pain level at this time. She is able to move her foot and her toes. This area is nontender. There is no significant soft tissue swelling noted. No acute injury to the left knee. She is tender to palpation along the lateral aspect of the left hip. Other 3 extremities were evaluated. No acute deformities were noted. IMAGING: Reviewed plain film x-rays as well as a CT of the left hip, which shows a nondisplaced greater trochanteric femur fracture. ASSESSMENT: Left greater trochanteric femur fracture, nondisplaced. PLAN: At this time, the patient will work with Physical Therapy today. She will receive pain control. She is admitted to Trauma. halfway versus rehab will be assessed for her by Case Management. No surgical intervention anticipated at this time. Job ID: [id number]
[2019-06-21] MEDS: Polyethylene Glycol 3350 17 GM Packet PO SCH (09:25)
[2019-06-21] MEDS: Senokot S 8.6-50 MG TAB PO SCH ×2 (09:25→20:13)
[2019-06-21] MEDS: Losartan 25 MG TAB PO SCH (09:25)
[2019-06-21] MEDS: Carvedilol 6.25 MG TAB PO SCH ×2 (09:26→17:00)
[2019-06-21] MEDS: Gabapentin 300 MG CAP PO SCH ×3 (09:26→20:13)
[2019-06-21] MEDS: Spironolactone 25 MG TAB PO SCH (09:26)
[2019-06-21] MEDS: Furosemide 20 MG TAB PO SCH (09:26)
[2019-06-21] MEDS: Loratadine 10 MG TAB PO SCH (09:26)
[2019-06-21] MEDS: Nitrofurantoin Monohyd/M-Cryst 100 MG CAP PO SCH ×2 (09:32→20:13)
[2019-06-21] MEDS: Aspirin 325 mg Enteric Coated Tablet PO SCH (09:32)
[2019-06-21] MEDS ORDERED: Acetaminophen/Codeine 30-300mg Tablet PO SCH (11:15)
[2019-06-21] MEDS: Ibuprofen 600 MG TAB PO SCH ×2 (11:22→20:13)
[2019-06-21] MEDS: Acetaminophen/Codeine 30-300mg Tablet PO SCH ×3 (11:23→23:28)
--- NOTE | 2019-06-21 12:19 | PDOC.GSPN ---
Surgery Progress Note: Subj - Subjective Narrative: Patient is a 73 yo F s/p mechanical fall from standing resulting in non- operative L femur greater trochanter fx. She did well overnight, however reports uncontrolled pain and difficulty with initiating urination, likely due to her pain. She states she has not asked for PRN pain medications ordered, and does not wish to urinate in the bed. She is tolerating a regular diet and will work with PT today. She denies n/v, pain or burning on urination. Surgery Progress Note: Obj - Vital signs Vital signs: Vital Signs - Most Recent Temp Pulse Resp BP Pulse Ox 97.6 F 70 20 132/64 95 06/21/19 11:38 06/21/19 11:38 06/21/19 11:38 06/21/19 11:38 06/21/19 11:38 - Physical Exam General: moderate distress (reports high pain levels), well developed, well nourished Respiratory: normal expansion, normal respiratory effort Abdomen: soft, non tender, nondistended Psychiatric: memory intact, oriented to time, oriented to person, oriented to place, speech is normal Surgery Progress Note: Results - Labs Result Diagrams: 06/23/19 04:59 06/23/19 04:59 Lab results: Laboratory Results - last 24 hr 06/20/19 05:52 Urine Color Yellow Urine Clarity Turbid A Urine pH 6.0 Ur Specific [place] 1.011 Urine Protein Negative Urine Glucose (UA) Normal Urine Ketones Negative Urine Blood Negative Urine Nitrite Negative Urine Bilirubin Negative Urine Urobilinogen Normal Ur Leukocyte Esterase 500 A Urine RBC 0-3 Urine WBC Greater than 50 A Ur Squamous Epith Cells None Seen Urine Bacteria 4+ A Hyaline Casts 4-6 A Urine Culture Reflexed Yes A Surgery Progress Note: A/P - Plan Plan: Assessment: 1. S/P mechanical fall from standing 2. L Femur greater trochanteric fx, nonoperative 3. UTI, uncomplicated 4. Hx of COPD, CHF, O2 use at night, pacemaker/defibrillator, osteoarthritis, HTN, and HLD Plan: Will work today to optimize patient's pain management. Will schedule tylenol #3 and add Motrin 400mg Q6H. Patient will be started on macrobid for her uncomplicated UTI. We will get a bladder scan and encourage use of a bedpan while patient is relatively immobile due to injury. Adequate pain management may allow her to relax in order to urinate. Will encourage work with PT and await placement into a SNF or rehab facility for discharge. Patient was seen on morning rounds with Dr De Los Santos. Plan was discussed with him and patient and all are in agreement Addendum - Physician - Physician Attestation Date/Time: 06/23/19 0161 I personally performed or re-performed the physical examination and medical decision making. I have verified all student documentation or findings, including history, physical exam and/or medical decision making.
[2019-06-21] MEDS: traZODone HCl 50 MG TAB PO SCH (20:13)
[2019-06-21] MEDS: Atorvastatin Calcium 40 MG TAB PO SCH (20:13)
--- NOTE | 2019-06-21 22:37 | PRG ---
DATE OF SERVICE: 06/21/2019 SUBJECTIVE: The patient was seen this evening. She was lying in bed with no signs of acute distress. She reported her pain was much better controlled this evening after adjustments made by the daytime team. She is tolerating a regular diet. She was able to get up out of the bed. She did use the bedside commode and is now voiding without issues. OBJECTIVE: VITAL SIGNS: Temperature 98.3, pulse 69, respirations 16, oxygen saturation 97% on room air, and blood pressure 106/57. GENERAL: Well-appearing elderly female, lying in bed with no signs of acute distress. PULMONARY: Equal chest rise and fall. No signs of acute respiratory distress. ASSESSMENT: 1. Status post mechanical fall from standing. 2. Left greater trochanter fracture of the femur. 3. Urinary tract infection, uncomplicated. Present on admission. 4. History of chronic obstructive pulmonary disease, congestive heart failure with diastolic dysfunction, coronary artery bypass grafting, pacemaker and ICD, home O2 at night, hypertension, osteoarthritis, hyperlipidemia, and methicillin-resistant Staphylococcus aureus. PLAN: Continue current diet and pain regimen. Continue home medications. Continue five days of Macrobid for UTI. We will follow up urine cultures. The patient to continue physical therapy and likely placement at rehab versus skilled facility. We will repeat blood work in the morning as patient had a mild rise in her white count on admission and she does have some lower blood pressures this evening. We will continue to monitor that closely and look for additional affects due to hypotension. Job ID: [id number]
[2019-06-21 22:50] LABS: #Basophils 0.1 thou/uL (0.0-0.2); #Eosinphils 0.3 thou/uL (0.0-0.7); #Monocytes 0.9 thou/uL (0.11-0.59); #Neutrophils 6.2 thou/uL (1.40-6.50); %Basophils 0.8 % (0.0-1.0); %Eosinophils 3.1 % (0.0-10.0); %Lymphocytes 28.9 % (21.0-51.0); %Monocytes 8.1 % (0.0-10.0); %Neutrophils 59.1 % (42.0-75.0); Hemoglobin 13.5 g/dL (12.0-16.0); Mean Corpuscular HGB CONC 33.1 g/dL (32.0-36.0); Mean Corpuscular Hemoglobin 31.8 pg (27.0-31.0); Mean Platelet Volume 7.3 fL (7.4-10.4); Platelet Count 253 thou/uL (130-400); RBC Distribution Width 12.9 % (11.5-14.5); Red Blood Cell (RBC) Count 4.25 mill/uL (4.20-5.40); White Blood Cell (WBC) Count 10.5 thou/uL (4.8-10.8)
[2019-06-22] MEDS: Acetaminophen 325 MG TAB PO SCH ×4 (05:39→23:22)
[2019-06-22] MEDS: Ibuprofen 600 MG TAB PO SCH ×3 (05:39→20:09)
[2019-06-22] MEDS: Acetaminophen/Codeine 30-300mg Tablet PO SCH ×4 (05:40→23:22)
[2019-06-22 06:41] LABS: Anion Gap 13 mmol/L (10-20); BUN (Urea Nitrogen) 14 mg/dL (9.8-20.1); Calc. Creatinine Clearance 77 mL/min (70-130); Calcium 8.8 mg/dL (7.8-10.44); Carbon Dioxide 25 mmol/L (23-31); Chloride 104 mmol/L (98-107); Estimated GFR-MDRD 69; Glucose 88 mg/dL (83-110); Phosphorus 3.4 mg/dL (2.3-4.7); Potassium 4.3 mmol/L (3.5-5.1); Sodium 138 mmol/L (136-145)
[2019-06-22] MEDS: Furosemide 20 MG TAB PO SCH (08:23)
[2019-06-22] MEDS: Carvedilol 6.25 MG TAB PO SCH ×2 (08:23→17:12)
[2019-06-22] MEDS: Spironolactone 25 MG TAB PO SCH (08:23)
[2019-06-22] MEDS: Gabapentin 300 MG CAP PO SCH ×3 (08:23→20:09)
[2019-06-22] MEDS: Nitrofurantoin Monohyd/M-Cryst 100 MG CAP PO SCH ×2 (08:23→20:08)
[2019-06-22] MEDS: Senokot S 8.6-50 MG TAB PO SCH ×2 (08:23→20:07)
[2019-06-22] MEDS: Aspirin 325 mg Enteric Coated Tablet PO SCH (08:23)
[2019-06-22] MEDS: Polyethylene Glycol 3350 17 GM Packet PO SCH (08:23)
[2019-06-22] MEDS: Loratadine 10 MG TAB PO SCH (08:24)
[2019-06-22] MEDS: Losartan 25 MG TAB PO SCH (08:24)
--- NOTE | 2019-06-22 14:39 | PRG ---
DATE OF SERVICE: 06/22/2019 SUBJECTIVE: The patient was seen this morning during rounds, sitting up in hospital bed, in no acute distress. The patient does have a chronic cough. The patient uses home O2 mainly at night. The patient denies any difficulty breathing. The patient states that she had just gotten up to the restroom, which exertion typically makes her a little short of breath. The patient continues to tolerate a regular diet. The patient has moderate pain with ambulating using a walker. The patient is requesting Symbicort be restarted. The patient has not been running a fever and does not have a productive cough at this time. The patient had a chest x-ray on admission, which did not show any infiltrates. OBJECTIVE: VITAL SIGNS: Temperature 97.6, pulse 69, respirations 20, SpO2 of 94% on room air, blood pressure 134/73. GENERAL: Elderly female, sitting up in hospital bed, mildly tachypneic after walking to the restroom. PULMONARY: Equal chest rise and fall, mildly tachypneic, nonlabored. Breath sounds clear. ABDOMEN: Soft, nontender, nondistended. EXTREMITIES: Moves all extremities. No focal deficits. LABORATORY DATA: Urine culture positive for E coli, pending sensitivities. DIAGNOSTIC DATA: There are no new diagnostics to review today. ASSESSMENT: 1. Status post mechanical fall from standing. 2. Left greater trochanter fracture of femur. 3. Urinary tract infection on admission, uncomplicated. 4. History of chronic obstructive pulmonary disease, on home O2 at night. 5. Congestive heart failure with diastolic dysfunction. 6. Coronary artery bypass grafting. 7. Pacemaker and implantable cardioverter-defibrillator. 8. Hypertension. 9. Osteoarthritis. 10. Hyperlipidemia. 11. Methicillin-resistant Staphylococcus aureus. PLAN: Continue current diet regimen and pain regimen. Continue scheduled neb treatment and p.r.n. neb treatments. We will start the patient's home Symbicort. We will continue the patient's Macrobid for 5 days and await for sensitivities. The patient is pending placement to [facility] versus inpatient rehab. We will repeat a chest x-ray if the patient develops a fever or any concerns for pneumonia. The plan was discussed with the attending. Job ID: [id number]
[2019-06-22] MEDS: Mometasone/Formoterol 120 PUFF INHALER INH SCH (19:46)
[2019-06-22] MEDS ORDERED: Labetalol HCl 100 MG/20 ML VIAL ONE (19:55)
[2019-06-22] MEDS: Atorvastatin Calcium 40 MG TAB PO SCH (20:09)
[2019-06-22] MEDS: traZODone HCl 50 MG TAB PO SCH (20:09)
--- NOTE | 2019-06-23 03:08 | PRG ---
DATE OF SERVICE: 06/22/2019 SUBJECTIVE: The patient was seen this evening during rounds. She was resting in bed comfortably and asleep with no signs of acute distress. Nursing reported the patient complained of a productive cough this afternoon. Also, her oxygen requirements have increased. She has not been performing her incentive spirometer very much. We will complete a chest x-ray in the morning to further evaluate. OBJECTIVE: VITAL SIGNS: Temperature 98, pulse 65, respirations 16, oxygen saturation 91% on room air, and blood pressure 111/68. GENERAL: Well-appearing elderly female, lying in bed, asleep, in no signs of acute distress. PULMONARY: Equal chest rise and fall. No signs of acute respiratory distress. ASSESSMENT: 1. Status post mechanical fall on aspirin. 2. Left greater trochanteric femur fracture. 3. Urinary tract infection, present on admission. 4. History of chronic obstructive pulmonary disease, congestive heart failure with diastolic dysfunction, coronary artery bypass grafting, pacemaker and ICD, home O2 at night, hypertension, osteoarthritis, hyperlipidemia, and methicillin-resistant Staphylococcus aureus wound infections. 5. Productive cough. PLAN: Continue current diet and pain regimen. Continue all home medications. Continue Macrobid for urinary tract infection. We will complete a chest x-ray in the morning for further evaluation of possible pneumonia. The patient is afebrile now. We will complete blood work as well. Her leukocytosis on admission had previously resolved. If there is concern for pneumonia, we will start treatment in the morning and collect sputum culture. Job ID: [id number]
[2019-06-23] MEDS: Ibuprofen 600 MG TAB PO SCH ×3 (05:05→22:55)
[2019-06-23] MEDS: Acetaminophen 325 MG TAB PO SCH ×4 (05:06→22:59)
[2019-06-23] MEDS: Acetaminophen/Codeine 30-300mg Tablet PO SCH ×4 (05:06→23:00)
[2019-06-23 05:40] LABS: Hemoglobin 13.7 g/dL (12.0-16.0); Mean Corpuscular HGB CONC 32.9 g/dL (32.0-36.0); Mean Corpuscular Hemoglobin 31.8 pg (27.0-31.0); Mean Corpuscular Volume 96.8 fL (78.0-98.0); Mean Platelet Volume 7.7 fL (7.4-10.4); Platelet Count 240 thou/uL (130-400); RBC Distribution Width 12.9 % (11.5-14.5); Red Blood Cell (RBC) Count 4.31 mill/uL (4.20-5.40); White Blood Cell (WBC) Count 9.3 thou/uL (4.8-10.8)
[2019-06-23 05:55] LABS: Anion Gap 9 mmol/L (10-20); BUN (Urea Nitrogen) 14 mg/dL (9.8-20.1); Calc. Creatinine Clearance 76 mL/min (70-130); Calcium 8.8 mg/dL (7.8-10.44); Carbon Dioxide 30 mmol/L (23-31); Chloride 103 mmol/L (98-107); Estimated GFR-MDRD 68; Glucose 102 mg/dL (83-110); Magnesium 2.1 mg/dL (1.6-2.6); Phosphorus 3.5 mg/dL (2.3-4.7); Potassium 4.3 mmol/L (3.5-5.1); Sodium 138 mmol/L (136-145)
[2019-06-23 06:24] LABS: Eosinophils 1 % (0-10); Lymphocytes 33 % (21-51); MDiff Complete? YES; Monocytes 9 % (0-10); Neutrophil 57 % (42-75); Platelet Morphology Comment Appears Adequate; RBC Morphology Normal
[2019-06-23] MEDS: Mometasone/Formoterol 120 PUFF INHALER INH SCH ×2 (06:46→19:21)
[2019-06-23] MEDS: Furosemide 20 MG TAB PO SCH (09:02)
[2019-06-23] MEDS: Carvedilol 6.25 MG TAB PO SCH ×2 (09:02→16:21)
[2019-06-23] MEDS: Polyethylene Glycol 3350 17 GM Packet PO SCH (09:02)
[2019-06-23] MEDS: Loratadine 10 MG TAB PO SCH (09:04)
[2019-06-23] MEDS: Senokot S 8.6-50 MG TAB PO SCH ×2 (09:04→20:42)
[2019-06-23] MEDS: Losartan 25 MG TAB PO SCH (09:04)
[2019-06-23] MEDS: Aspirin 325 mg Enteric Coated Tablet PO SCH (09:04)
[2019-06-23] MEDS: Gabapentin 300 MG CAP PO SCH ×3 (09:04→20:43)
[2019-06-23] MEDS: Spironolactone 25 MG TAB PO SCH (09:04)
[2019-06-23] MEDS: Nitrofurantoin Monohyd/M-Cryst 100 MG CAP PO SCH ×2 (09:05→20:43)
--- NOTE | 2019-06-23 09:17 | RAD ---
PORTABLE CHEST: Date: 06/23/2019 HISTORY: Cough. COMPARISON: 06/20/2019. FINDINGS: Patchy infiltrate in the right lung base is more prominent today. There is also suggestion of streaky atelectasis and/or infiltrate in the left lung base. Cardiomegaly with mild vascular congestion again noted. IMPRESSION: New bibasilar infiltrates. POS: [facility]
[2019-06-23] MEDS: Acetaminophen/Codeine 30-300mg Tablet PO PRN (13:46)
[2019-06-23] MEDS ORDERED: predniSONE 20 MG TAB PO SCH (14:30)
--- NOTE | 2019-06-23 14:49 | PRG ---
DATE OF SERVICE: 06/23/2019 SUBJECTIVE: The patient remains on the surgical floor, sitting up in the hospital bed, awake, alert, in no distress. The patient is currently tolerating her regular diet. The patient has a productive cough. The patient denies any shortness of breath at this time. The patient states her breathing and cough are normal. The patient's pain is controlled at this time. The patient reports increased sputum production today. OBJECTIVE: VITAL SIGNS: Temperature 97.7, pulse 69, respirations 14, SpO2 of 92% on room air, and blood pressure 117/65. GENERAL: Elderly female, sitting up in the hospital bed, in no acute distress. RESPIRATORY: Respirations are even and nonlabored, bilateral breath sounds clear in the upper lobes, very diminished breath sounds in the lower lobes. No wheezing or rhonchi noted. CARDIOVASCULAR: Regular rate. Regular rhythm. EXTREMITIES: Moves all extremities, no focal deficits, distal pulses intact, no pedal edema. LABORATORY DATA: WBC 9.3, RBC 4.31, hemoglobin 13.7, hematocrit 41.7, and platelets 240. Sodium 138, potassium 4.3, chloride 103, carbon dioxide 30, BUN 14, creatinine 0.82, estimated GFR 68, glucose 102, calcium 8.2, phosphorus 3.5, and magnesium 2.1. BNP 190.5. DIAGNOSTICS: Chest x-ray, impression, new bibasilar infiltrates. IMPRESSION: 1. Status post mechanical fall from standing. 2. Left greater trochanter fracture of femur, nonoperative. 3. Urinary tract infection on admission, positive for Escherichia coli on appropriate antibiotics for sensitivity. 4. Chronic obstructive pulmonary disease exacerbation. 5. Worsening right lung base infiltrate, present on admission. 6. New bibasilar infiltrates. 7. Community-acquired pneumonia, likely bacterial. PLAN: We will start the patient on empiric antibiotics. We will send a sputum culture. We will monitor respiratory status. The patient is only requiring oxygen at night at this time. Continue scheduled neb treatments. We will consider steroid treatment. We will continue physical and occupational therapy. Continue pain control. The patient is pending placement to inpatient rehab versus halfway facility for continued physical therapy. We will continue to encourage patient to use her incentive spirometer frequently and aggressive pulmonary toilet. The plan was discussed with the attending. Job ID: [id number]
[2019-06-23] MEDS: Azithromycin 250 MG TAB PO SCH (15:21)
[2019-06-23] MEDS: Atorvastatin Calcium 40 MG TAB PO SCH (20:42)
[2019-06-23] MEDS: traZODone HCl 50 MG TAB PO SCH (20:42)
--- NOTE | 2019-06-23 23:19 | PRG ---
DATE OF SERVICE: 06/23/2019 SUBJECTIVE: The patient was seen this evening during rounds. She was sitting up in bed, resting comfortably and asleep with no signs of acute distress. Nursing reported no acute events. The patient did start treatment for COPD exacerbation and associated possible pneumonia today. She did not appear to have any signs of respiratory distress upon my evaluation. OBJECTIVE: VITAL SIGNS: Temperature 98.2, pulse 70, respirations 18, oxygen saturation 96% on 2 L nasal cannula, blood pressure 100/64. GENERAL: Well-appearing elderly female, sitting up in bed, asleep with no signs of acute distress. PULMONARY: Equal chest rise and fall. No signs of acute respiratory distress. ASSESSMENT: 1. Status post mechanical fall from standing. 2. Left femur greater trochanter fracture, nonoperative. 3. Urinary tract infection, uncomplicated, and present on admission. 4. Chronic obstructive pulmonary disease exacerbation with suspected associated pneumonia, currently under treatment and pending culture results. 5. History of chronic obstructive pulmonary disease, congestive heart failure with diastolic dysfunction, coronary artery bypass grafting, pacemaker and ICD, home O2 use at night, hypertension, osteoarthritis, hyperlipidemia, and methicillin-resistant Staphylococcus aureus infections of surgical wounds. PLAN: Continue current diet and pain regimen. Continue Physical and Occupational therapy. Continue aggressive incentive spirometry and bronchial hygiene. Continue Macrobid for UTI as well as azithromycin and cefpodoxime for suspected pneumonia. The patient is pending placement at an acute rehab facility. We are pending sputum culture and sensitivity results. Job ID: [id number]
[2019-06-24] MEDS: Ibuprofen 600 MG TAB PO SCH ×3 (05:00→22:06)
[2019-06-24] MEDS: Acetaminophen 325 MG TAB PO SCH ×4 (05:00→23:34)
[2019-06-24] MEDS: Acetaminophen/Codeine 30-300mg Tablet PO SCH ×4 (05:01→23:32)
[2019-06-24 05:30] LABS: Anion Gap 11 mmol/L (10-20); BUN (Urea Nitrogen) 14 mg/dL (9.8-20.1); Calc. Creatinine Clearance 75 mL/min (70-130); Calcium 8.9 mg/dL (7.8-10.44); Carbon Dioxide 28 mmol/L (23-31); Chloride 103 mmol/L (98-107); Estimated GFR-MDRD 67; Glucose 159 mg/dL (83-110); Magnesium 2.1 mg/dL (1.6-2.6); Phosphorus 3.2 mg/dL (2.3-4.7); Potassium 4.2 mmol/L (3.5-5.1); Sodium 138 mmol/L (136-145)
[2019-06-24 05:37] LABS: Band 11 % (5-11); Eosinophils 1 % (0-10); Hemoglobin 13.6 g/dL (12.0-16.0); Lymphocytes 7 % (21-51); MDiff Complete? YES; Mean Corpuscular HGB CONC 33.2 g/dL (32.0-36.0); Mean Corpuscular Hemoglobin 31.9 pg (27.0-31.0); Mean Corpuscular Volume 96.2 fL (78.0-98.0); Mean Platelet Volume 7.5 fL (7.4-10.4); Monocytes 1 % (0-10); Neutrophil 80 % (42-75); Platelet Count 252 thou/uL (130-400); RBC Distribution Width 12.8 % (11.5-14.5); Red Blood Cell (RBC) Count 4.26 mill/uL (4.20-5.40)
[2019-06-24] MEDS: Mometasone/Formoterol 120 PUFF INHALER INH SCH ×2 (07:40→19:54)
[2019-06-24] MEDS: Senokot S 8.6-50 MG TAB PO SCH ×2 (09:01→22:08)
[2019-06-24] MEDS: Gabapentin 300 MG CAP PO SCH ×3 (09:02→22:06)
[2019-06-24] MEDS: Losartan 25 MG TAB PO SCH (09:02)
[2019-06-24] MEDS: Spironolactone 25 MG TAB PO SCH (09:02)
[2019-06-24] MEDS: Aspirin 325 mg Enteric Coated Tablet PO SCH (09:02)
[2019-06-24] MEDS: Loratadine 10 MG TAB PO SCH (09:02)
[2019-06-24] MEDS: Nitrofurantoin Monohyd/M-Cryst 100 MG CAP PO SCH ×2 (09:03→22:07)
[2019-06-24] MEDS: Furosemide 20 MG TAB PO SCH (09:03)
[2019-06-24] MEDS: Carvedilol 6.25 MG TAB PO SCH ×2 (09:03→17:12)
[2019-06-24] MEDS: predniSONE 20 MG TAB PO SCH (09:04)
[2019-06-24] MEDS: Polyethylene Glycol 3350 17 GM Packet PO SCH (09:04)
[2019-06-24] MEDS: Azithromycin 250 MG TAB PO SCH (14:08)
[2019-06-24] MEDS: Acetaminophen/Codeine 30-300mg Tablet PO PRN (14:12)
--- NOTE | 2019-06-24 19:33 | PRG ---
DATE OF SERVICE: SUBJECTIVE: Patient remains on the surgical floor. She is status post ground level fall, in which she sustained a left greater trochanteric femur fracture that is being treated nonoperatively. She has been worked with Physical and Occupational Therapy and is currently awaiting placement to [facility] which is currently projected to be tomorrow. She is also undergoing treatment for urinary tract infection, COPD exacerbation, and likely right pneumonia. Patient has been working with Physical and Occupational Therapy and her pain is controlled. She is tolerating a diet. Her bowel functions returned. PHYSICAL EXAMINATION: VITAL SIGNS: Temperature is 98.0, heart rate 81, blood pressure 129/68, respirations 20, and oxygen saturation 94% on room air. GENERAL: The patient is resting comfortably. She is sitting in a chair beside the bed. She is awake, alert, and oriented x3. Alexandra Coma Scale is 15. HEENT: Unremarkable. LUNGS: Have scant rhonchi that improves after cough. HEART: Regular rate and rhythm. ABDOMEN: Soft, nontender with active bowel sounds. EXTREMITIES: Neurovascularly intact x4. LABORATORY FINDINGS: White blood cell count 9.0, hemoglobin 13.6, hematocrit 41.0, and platelets 252. Sodium 138, potassium 4.2, chloride 103, CO2 of 28, BUN 14, creatinine 0.83, glucose 159, magnesium 2.1, and phosphorus 3.2. There are no radiographs reviewed this morning. ASSESSMENT/PLAN: 1. Status post ground level fall. 2. Left greater trochanter fracture, treated nonoperatively. 3. Urinary tract infection on admission, positive for E coli, under appropriate antibiotic treatment. 4. Chronic obstructive pulmonary disease exacerbation, improving. 5. Bibasilar infiltrates. 6. Community-acquired pneumonia, likely bacterial, under treatment. Plan will be to continue encouraging physical and occupational therapy, empiric antibiotics, pulmonary toilet, and await placement decision. Job ID: [id number]
[2019-06-24] MEDS: Atorvastatin Calcium 40 MG TAB PO SCH (22:05)
[2019-06-24] MEDS: traZODone HCl 50 MG TAB PO SCH (22:06)
[2019-06-25] MEDS: Cyclobenzaprine 10 MG TAB PO PRN ×2 (02:28→23:26)
[2019-06-25] MEDS: Ibuprofen 600 MG TAB PO SCH ×3 (05:33→20:47)
[2019-06-25] MEDS: Acetaminophen/Codeine 30-300mg Tablet PO SCH ×4 (05:33→23:26)
[2019-06-25] MEDS: Acetaminophen 325 MG TAB PO SCH ×4 (05:34→23:26)
[2019-06-25] MEDS: Mometasone/Formoterol 120 PUFF INHALER INH SCH ×2 (06:41→18:19)
[2019-06-25] MEDS: predniSONE 20 MG TAB PO SCH (08:33)
[2019-06-25] MEDS: Carvedilol 6.25 MG TAB PO SCH ×2 (08:33→17:44)
[2019-06-25] MEDS: Gabapentin 300 MG CAP PO SCH ×3 (09:37→20:47)
[2019-06-25] MEDS: Nitrofurantoin Monohyd/M-Cryst 100 MG CAP PO SCH ×2 (09:37→20:46)
[2019-06-25] MEDS: Aspirin 325 mg Enteric Coated Tablet PO SCH (09:37)
[2019-06-25] MEDS: Senokot S 8.6-50 MG TAB PO SCH ×2 (09:37→20:48)
[2019-06-25] MEDS: Furosemide 20 MG TAB PO SCH (09:37)
[2019-06-25] MEDS: Losartan 25 MG TAB PO SCH (09:37)
[2019-06-25] MEDS: Spironolactone 25 MG TAB PO SCH (09:38)
[2019-06-25] MEDS: Loratadine 10 MG TAB PO SCH (09:38)
[2019-06-25] MEDS: Polyethylene Glycol 3350 17 GM Packet PO SCH (09:39)
[2019-06-25] MEDS: Azithromycin 250 MG TAB PO SCH (14:09)
[2019-06-25] MEDS: Acetaminophen/Codeine 30-300mg Tablet PO PRN (14:39)
--- NOTE | 2019-06-25 17:36 | PRG ---
DATE OF SERVICE: 06/25/2019 SUBJECTIVE: Ms. Tapia is 73-year-old female, status post ground level fall. She sustained left greater trochanteric fracture, conservative treatment. She also suffered from urinary tract infection on admission and treated and chronic obstructive pulmonary disease exacerbation has been managed with antibiotic. The patient currently has been stable. She has been afebrile. She developed no fever or shortness of breath. She tolerated her regular diet. She has been working with physical therapy and occupational therapy and her urine is adequate. Her bowel is normal. PHYSICAL EXAMINATION: GENERAL: The patient currently sitting in a chair, comfortable, with no acute respiratory distress. VITAL SIGNS: Temperature 97.7, heart rate 70, respiratory rate 20, O2 saturation 95% on room air, blood pressure 123/55. LUNGS: Clear bilaterally. HEART: Regular rate and rhythm. ABDOMEN: Soft, nondistended. EXTREMITIES: Neurovascularly intact x4. NEUROLOGY: No focal neurology deficits. ASSESSMENT: 1. Status post ground level fall. 2. Left greater trochanteric fracture with conservative treatment. 3. Urinary tract infection, treated, stable. 4. Chronic obstructive pulmonary disease exacerbation, treated and stable. PLAN: Continue supportive care. Continue pain control. Patient await for placement in [facility]. Await for insurance approval. The patient was seen and evaluated by Dr. De Los Santos on rounds this morning. Continue DVT prophylaxis. Job ID: [id number]
[2019-06-25] MEDS: Atorvastatin Calcium 40 MG TAB PO SCH (20:46)
[2019-06-25] MEDS: traZODone HCl 50 MG TAB PO SCH (20:47)
--- NOTE | 2019-06-26 02:03 | PRG ---
DATE OF SERVICE: 06/26/2019 SUBJECTIVE: The patient remains on the surgical floor. She is status post ground level fall when she sustained a left greater trochanteric femur fracture that is being treated nonoperatively. She is also being treated for urinary tract infection and COPD exacerbation. She has been working with physical therapy. She is tolerating a diet. Her pain is controlled, and she is awaiting placement to the [facility] bed. She remains under treatment for her urinary tract infection and her suspected upper respiratory infection causing her COPD exacerbation. PHYSICAL EXAMINATION: VITAL SIGNS: Stable. The patient is afebrile. GENERAL: The patient is resting comfortably in bed. She is awake, alert, conversant, and appropriate. LUNGS: Have scant wheezes bilaterally. HEART: Regular rate and rhythm. ABDOMEN: Soft, nondistended with active bowel sounds. EXTREMITIES: Neurovascularly intact x4. ASSESSMENT: 1. Status post ground level fall. 2. Left greater trochanteric femur fracture, treated nonoperatively. 3. Urinary tract infection on admission, positive for Escherichia coli, under appropriate antibiotic treatment. 4. Chronic obstructive pulmonary disease exacerbation, improving. 5. Bibasilar infiltrates, possible community-acquired pneumonia, likely bacterial, under treatment, improved. PLAN: Plan will be to continue supportive care. Encourage physical and occupational therapy. Continue antibiotics and await final placement decision. Job ID: [id number]
[2019-06-26] MEDS: Acetaminophen 325 MG TAB PO SCH ×4 (05:24→23:23)
[2019-06-26] MEDS: Ibuprofen 600 MG TAB PO SCH ×3 (05:24→21:00)
[2019-06-26] MEDS: Acetaminophen/Codeine 30-300mg Tablet PO SCH ×3 (05:24→18:29)
[2019-06-26] MEDS: Mometasone/Formoterol 120 PUFF INHALER INH SCH ×2 (07:30→18:12)
[2019-06-26] MEDS: Carvedilol 6.25 MG TAB PO SCH ×2 (08:44→16:44)
[2019-06-26] MEDS: predniSONE 20 MG TAB PO SCH (08:44)
[2019-06-26] MEDS: Polyethylene Glycol 3350 17 GM Packet PO SCH (09:21)
[2019-06-26] MEDS: Losartan 25 MG TAB PO SCH (09:22)
[2019-06-26] MEDS: Spironolactone 25 MG TAB PO SCH (09:24)
[2019-06-26] MEDS: Loratadine 10 MG TAB PO SCH (09:24)
[2019-06-26] MEDS: Senokot S 8.6-50 MG TAB PO SCH ×2 (09:24→20:48)
[2019-06-26] MEDS: Furosemide 20 MG TAB PO SCH (09:25)
[2019-06-26] MEDS: Aspirin 325 mg Enteric Coated Tablet PO SCH (09:25)
[2019-06-26] MEDS: Gabapentin 300 MG CAP PO SCH ×3 (09:25→20:47)
[2019-06-26] MEDS: Nitrofurantoin Monohyd/M-Cryst 100 MG CAP PO SCH (09:25)
--- NOTE | 2019-06-26 13:05 | PRG ---
DATE OF SERVICE: 06/26/2019 SUBJECTIVE: Ms. Tapia is a 73-year-old female, status post ground level fall, sustained left greater trochanteric fracture, conservative treatment. She also suffered from UTI, on admission COPD exacerbation has been managed successfully. The patient currently stable. She tolerated her regular diet. Her urine adequate. She able to work with Physical Therapy and Occupational Therapy. She is waiting for placement in [facility]. PHYSICAL EXAMINATION: GENERAL: The patient is lying in bed comfortable with no acute respiratory distress. VITAL SIGNS: Temperature 98.2, heart rate 71, respiratory rate 18, O2 saturation 93% on room air, blood pressure 116/62. LUNGS: Clear bilaterally. HEART: Regular rate and rhythm. ABDOMEN: Soft, nondistended. EXTREMITIES: Neurovascularly intact x4. NEUROLOGY: No focal neurology deficits. ASSESSMENT: 1. Status post ground level fall. 2. Left greater trochanter fracture, conservative treatment. 3. Urinary tract infection, treated, stable. 4. Chronic COPD exacerbation, stable, improved. PLAN: Plan will be to continue supportive care. Continue pain control. Continue working with Physical Therapy and Occupational Therapy. Continue DVT prophylaxis. Await for placement in [facility] pending insurance authorization. The patient was seen and evaluated by Dr. De Los Santos on rounds this morning. Job ID: [id number]
[2019-06-26] MEDS: Azithromycin 250 MG TAB PO SCH (14:57)
[2019-06-26] MEDS: Acetaminophen/Codeine 30-300mg Tablet PO PRN (16:44)
[2019-06-26] MEDS: traZODone HCl 50 MG TAB PO SCH (20:47)
[2019-06-26] MEDS: Atorvastatin Calcium 40 MG TAB PO SCH (20:47)
--- NOTE | 2019-06-26 23:13 | PRG ---
DATE OF SERVICE: 06/26/2019 SUBJECTIVE: The patient remains on the surgical floor. She is status post ground level fall, in which, she sustained a left greater trochanteric fracture. The patient is being treated nonoperatively. She has been working with Physical and Occupational Therapy. She has been progressing. Her pain is controlled. She is tolerating a diet and she is awaiting placement to the [facility] Bed. She is currently pending insurance. The patient is also under treatment for urinary tract infection and suspected upper respiratory infection causing a COPD exacerbation. PHYSICAL EXAMINATION: VITAL SIGNS: Stable. The patient is afebrile. GENERAL: The patient is resting comfortably in bed. She is awake, alert, conversant, and appropriate. LUNGS: Have scant scattered wheezing bilaterally. HEART: Regular rate and rhythm. ABDOMEN: Soft with active bowel sounds. EXTREMITIES: Neurovascularly intact x4. ASSESSMENT: 1. Status post ground level fall. 2. Left greater trochanteric femur fracture, treated nonoperatively. 3. Urinary tract infection on admission, under appropriate antibiotic treatment. 4. Chronic obstructive pulmonary disease exacerbation, improving. 5. Bibasilar infiltrates, possibly community-acquired pneumonia, likely bacterial, under treatment, improved. PLAN: Plan will be to continue supportive care. Encourage Physical and Occupational Therapy and await insurance approval for placement. Job ID: [id number]
[2019-06-26] MEDS: Cyclobenzaprine 10 MG TAB PO PRN (23:23)
[2019-06-27] MEDS: Acetaminophen/Codeine 30-300mg Tablet PO SCH ×4 (01:29→17:02)
[2019-06-27] MEDS: Acetaminophen 325 MG TAB PO SCH ×3 (05:44→17:02)
[2019-06-27] MEDS: Ibuprofen 600 MG TAB PO SCH ×3 (05:44→20:55)
[2019-06-27] MEDS: Mometasone/Formoterol 120 PUFF INHALER INH SCH ×2 (07:36→19:26)
[2019-06-27] MEDS: Furosemide 20 MG TAB PO SCH (08:26)
[2019-06-27] MEDS: Aspirin 325 mg Enteric Coated Tablet PO SCH (08:26)
[2019-06-27] MEDS: Carvedilol 6.25 MG TAB PO SCH ×2 (08:26→17:03)
[2019-06-27] MEDS: Spironolactone 25 MG TAB PO SCH (08:27)
[2019-06-27] MEDS: Loratadine 10 MG TAB PO SCH (08:27)
[2019-06-27] MEDS: predniSONE 20 MG TAB PO SCH (08:27)
[2019-06-27] MEDS: Losartan 25 MG TAB PO SCH (08:27)
[2019-06-27] MEDS: Gabapentin 300 MG CAP PO SCH ×3 (08:27→20:55)
[2019-06-27] MEDS: Polyethylene Glycol 3350 17 GM Packet PO SCH (08:28)
[2019-06-27] MEDS: Senokot S 8.6-50 MG TAB PO SCH ×2 (08:28→20:54)
--- NOTE | 2019-06-27 18:59 | PRG ---
DATE OF SERVICE: 06/27/2019 SUBJECTIVE: Ms. Tapia is a 73-year-old female, status post ground level fall. She sustained left greater trochanteric fracture conservative treatment. The patient has been doing good. Pain is well controlled. She is able to walk to the floor with physical therapy with tolerable pain. Vital signs stable. She tolerated with her regular diet. Her urine is adequate. The patient's UTI is resolved. She developed no fever or shortness of breath. PHYSICAL EXAMINATION: GENERAL: Currently, the patient is lying in bed comfortable with no acute respiratory distress. VITAL SIGNS: Temperature 98.1, heart rate 70, respiratory rate 16, O2 saturation 97% on room air, and blood pressure 121/69. LUNGS: Clear bilaterally. HEART: Regular rate and rhythm. ABDOMEN: Soft, nondistended. EXTREMITIES: Neurovascularly intact x4. NEUROLOGIC: No focal neurologic deficits. ASSESSMENT: 1. Status post ground level fall. 2. Left greater trochanter fracture, conservative treatment. 3. Urinary tract infection, treated. 4. Chronic obstructive pulmonary disease exacerbation, stable. PLAN: Continue supportive care. Continue pain control. Continue working with physical therapy and occupational therapy. Await for placement in the Medicine facility. Pending insurance authorization. Job ID: [id number]
[2019-06-27] MEDS: traZODone HCl 50 MG TAB PO SCH (20:55)
[2019-06-27] MEDS: Cyclobenzaprine 10 MG TAB PO PRN (20:55)
[2019-06-27] MEDS: Atorvastatin Calcium 40 MG TAB PO SCH (20:55)
[2019-06-28] MEDS: Acetaminophen 325 MG TAB PO SCH ×3 (00:09→11:38)
[2019-06-28] MEDS: Acetaminophen/Codeine 30-300mg Tablet PO SCH ×3 (00:10→11:37)
--- NOTE | 2019-06-28 00:53 | PRG ---
DATE OF SERVICE: 06/28/2019 SUBJECTIVE: The patient is currently on the surgical floor. She is status post ground level fall, in which, she sustained a left greater trochanteric fracture. The patient is being treated nonoperatively. She has been working with Physical and Occupational Therapy and then progressing. Her pain is controlled. She is tolerating a diet. Her bowel functions are resumed. She is currently awaiting insurance approval for placement at [facility]. Plans are also being made that if insurance denies, Home Health will be arranged for the patient to be discharged home. The patient is completed her antibiotics for urinary tract infection and has one more day of antibiotics for her upper respiratory infection. PHYSICAL EXAMINATION: VITAL SIGNS: Stable. The patient is afebrile. GENERAL: The patient is resting comfortably in bed. She is awake, alert and appropriate. LUNGS: Scattered wheezing bilaterally. HEART: Regular rate and rhythm. ABDOMEN: Soft with active bowel sounds. EXTREMITIES: Neurovascularly intact x4. ASSESSMENT/PLAN: 1. Status post ground level fall. 2. Left greater trochanteric femur fracture, treated nonoperatively. 3. Urinary tract infection, on admission, antibiotics completed. 4. Chronic obstructive pulmonary disease exacerbation, stable. 5. Bibasilar infiltrates, possibly community-acquired pneumonia, under treatment, stable. PLAN: Plan will be to continue supportive care. Encourage Physical and Occupational Therapy and await placement decision. Job ID: [id number]
[2019-06-28] MEDS: Ibuprofen 600 MG TAB PO SCH ×2 (05:39→13:52)
[2019-06-28] MEDS: Mometasone/Formoterol 120 PUFF INHALER INH SCH (06:40)
[2019-06-28] MEDS: predniSONE 20 MG TAB PO SCH (08:10)
[2019-06-28] MEDS: Aspirin 325 mg Enteric Coated Tablet PO SCH (08:10)
[2019-06-28] MEDS: Gabapentin 300 MG CAP PO SCH ×2 (08:11→13:53)
[2019-06-28] MEDS: Loratadine 10 MG TAB PO SCH (08:11)
[2019-06-28] MEDS: Spironolactone 25 MG TAB PO SCH (08:11)
[2019-06-28] MEDS: Furosemide 20 MG TAB PO SCH (08:11)
[2019-06-28] MEDS: Senokot S 8.6-50 MG TAB PO SCH (08:20)
[2019-06-28] MEDS: Carvedilol 6.25 MG TAB PO SCH (08:20)
[2019-06-28] MEDS: Losartan 25 MG TAB PO SCH (08:20)
[2019-06-28] MEDS: Polyethylene Glycol 3350 17 GM Packet PO SCH (08:20)
[2019-06-28 15:07] VITALS: BP 138/74; TEMP 98
--- NOTE | 2019-07-01 11:17 | DIS ---
DATE OF ADMISSION: 06/20/2019 DATE OF DISCHARGE: 06/28/2019 ADMISSION DIAGNOSES: 1. Status post ground level fall. 2. Left greater trochanteric fracture. 3. Urinary tract infection on admission. 4. Chronic obstructive pulmonary disease exacerbation. DISCHARGE DIAGNOSES: 1. Status post ground level fall. 2. Left greater trochanteric fracture, conservative treatment. 3. Urinary tract infection on admission, treated. 4. Chronic obstructive pulmonary disease exacerbation, stable. CONSULTING PHYSICIAN: Michael Archibald MD PROCEDURE: None. HOSPITAL COURSE: Ms. Tapia is a 73-year-old female, status post ground level fall. She sustained left greater trochanteric fracture, conservative treatment per Orthopedic Dr. Archibald. The patient also suffered from UTI on admission and COPD exacerbation. Both conditions have been treated and have been stable. The patient has been walking with physical therapy and occupational therapy. Pain is well controlled. She tolerated a regular diet. Her urine is adequate. Her UTI resolved and COPD exacerbation resolved. The patient has been accepted to a senior living facility. PHYSICAL EXAMINATION: GENERAL: The patient is lying on bed, comfortable with no acute respiratory distress. VITAL SIGNS: Temperature 98.1, heart rate 70, respiratory rate 16, O2 saturation 97% on room air, and blood pressure 120/69. LUNGS: Clear bilaterally. HEART: Regular rate and rhythm. ABDOMEN: Soft and nondistended. EXTREMITIES: Neurovascularly intact x4. NEUROLOGIC: No focal neurology deficits. DISCHARGE DISPOSITION: [facility] facility. DISCHARGE CONDITION: Fair, due to age and comorbidities. DISCHARGE INSTRUCTIONS: The patient is to take medication as directed. The patient is to continue working physical therapy and occupational therapy. The patient is to continue DVT prophylaxis and gastritis prophylaxis. Resume on home medication. The patient will see Dr. Archibald in 10 to 14 days. DISCHARGE MEDICATIONS: 1. Aspirin. 2. Atorvastatin. 3. Albuterol. 4. Acyclovir. 5. Zyrtec. 6. Carvedilol. 7. Calcium. 8. Vitamin D3. 9. Gabapentin. 10. Furosemide. 11. Spironolactone. 12. Omeprazole. 13. Losartan. 14. Trazodone. 15. Tylenol #3. 16. Tylenol. Job ID: [id number]
== END 2019-06-28 15:10 | DRG 535 ==
LOC: ERS 18:59 → OBSVTOIN 21:13 → SJJU 21:13
PROVIDERS: ADMIT Specialist; ATTEND Specialist
DX: S72.115A Nondisplaced fracture of greater trochanter of left femur, initial encounter for closed fracture (principal); J18.9 Pneumonia, unspecified organism; I50.32 Chronic diastolic (congestive) heart failure; N39.0 Urinary tract infection, site not specified; J44.1 Chronic obstructive pulmonary disease with (acute) exacerbation; J44.0 Chronic obstructive pulmonary disease with (acute) lower respiratory infection; M19.91 Primary osteoarthritis, unspecified site; I11.0 Hypertensive heart disease with heart failure; F17.210 Nicotine dependence, cigarettes, uncomplicated; W17.89XA Other fall from one level to another, initial encounter; B96.20 Unspecified Escherichia coli [E. coli] as the cause of diseases classified elsewhere; E78.5 Hyperlipidemia, unspecified; Z99.81 Dependence on supplemental oxygen; Z95.810 Presence of automatic (implantable) cardiac defibrillator; Z79.899 Other long term (current) drug therapy; Z88.0 Allergy status to penicillin; Z88.8 Allergy status to other drugs, medicaments and biological substances; Z95.1 Presence of aortocoronary bypass graft; Z86.14 Personal history of Methicillin resistant Staphylococcus aureus infection
CPT/HCPCS: 36415; 71045; 80048; 80053; 81001; 83735; 83880; 84100; 85007; 85025; 85027; 87070; 87077; 87086; 87186; 87205; 96374; 96376; G0390; J2270; J7512; J7620

== ENCOUNTER 2019-09-21 23:47 | Inpatient (IN) | payer MEDICARE, OTHER ==
[2019-09-22 01:07] LABS: #Basophils 0.1 thou/uL (0.0-0.2); #Eosinphils 0.2 thou/uL (0.0-0.7); #Monocytes 1.3 thou/uL (0.11-0.59); #Neutrophils 6.4 thou/uL (1.40-6.50); %Basophils 0.6 % (0.0-1.0); %Eosinophils 1.7 % (0.0-10.0); %Lymphocytes 27.2 % (21.0-51.0); %Monocytes 11.6 % (0.0-10.0); Hemoglobin 14.5 g/dL (12.0-16.0); Mean Corpuscular HGB CONC 32.5 g/dL (32.0-36.0); Mean Corpuscular Hemoglobin 31.9 pg (27.0-31.0); Mean Corpuscular Volume 98.1 fL (78.0-98.0); Mean Platelet Volume 7.7 fL (7.4-10.4); Platelet Count 244 thou/uL (130-400); RBC Distribution Width 12.3 % (11.5-14.5); Red Blood Cell (RBC) Count 4.54 mill/uL (4.20-5.40); White Blood Cell (WBC) Count 10.8 thou/uL (4.8-10.8)
[2019-09-22 01:28] LABS: ALT (SGPT) Less than 7 U/L (8-55); AST (SGOT) 9 U/L (5-34); Albumin 3.6 g/dL (3.4-4.8); Alkaline Phosphatase 122 U/L (40-110); Anion Gap 12 mmol/L (10-20); BUN (Urea Nitrogen) 11 mg/dL (9.8-20.1); Bilirubin, Total 0.6 mg/dL (0.2-1.2); Calc. Creatinine Clearance 0 mL/min (70-130); Calcium 8.6 mg/dL (7.8-10.44); Carbon Dioxide 25 mmol/L (23-31); Chloride 106 mmol/L (98-107); Estimated GFR-MDRD 68; Globulin 2.7 g/dL (2.4-3.5); Glucose 93 mg/dL (83-110); Potassium 3.3 mmol/L (3.5-5.1); Protein, Total 6.3 g/dL (6.0-8.3); Sodium 140 mmol/L (136-145)
[2019-09-22] MEDS ORDERED: Azithromycin 500 MG VIAL ONE (02:22)
[2019-09-22] MEDS ORDERED: Guaifenesin DM 100-10/5 ML UDCUP PO PRN (02:24)
[2019-09-22] MEDS ORDERED: Non-Formulary Item 1 EACH (Albuterol Sulfate 2 PUFF) INH PRN (02:27)
[2019-09-22] MEDS ORDERED: Albuterol 200 PUFF (6.7GM INHALER) INH PRN (02:35)
[2019-09-22] MEDS ORDERED: Aztreonam 1 GM in Sodium Chloride 0.9% 100 ML IVPB SCH (04:45)
--- NOTE | 2019-09-22 05:46 | HP ---
CHIEF COMPLAINT: Shortness of breath. HISTORY OF PRESENT ILLNESS: Ms. Tapia is a 73-year-old female with past medical history of COPD, chronic respiratory failure on home oxygen, congestive heart failure with EF 35% to 40%, and cardiac arrhythmias, among others, presents to the emergency room for shortness of breath and coughing for the last 2 days. The patient has history of intubation in the past. The patient uses oxygen at night. Denies chest pain. Denies fever or chills. Workup in the emergency room, the patient had a temperature of 100.1. Chest x-ray shows right mid lung infiltrate, pneumonia. Septic workup done in the emergency room. COVID swab done in the emergency room. The patient started on IV antibiotics. The patient is being admitted to the hospital for further management. PAST MEDICAL HISTORY: 1. Coronary artery disease. 2. Cardiac pacemaker. 3. Chronic obstructive pulmonary disease. 4. Congestive heart failure, with ejection fraction 30% to 40%. 5. Osteoarthritis. 6. Hyperlipidemia. 7. Chronic respiratory failure. PAST SURGICAL HISTORY: 1. Coronary artery bypass graft surgery. 2. Cataract surgery. 3. Cardiac pacemaker. 4. Appendectomy. 5. Carpal tunnel surgery. 6. Cholecystectomy. 7. Laparotomy. 8. Left knee replacement. 9. Right elbow and left ankle surgery. 10. Tonsillectomy. 11. Heart ablation. PAST PSYCHIATRIC HISTORY: Depression. SOCIAL HISTORY: The patient still smokes cigarettes about one pack a day. Denies alcohol drinking. FAMILY HISTORY: Reviewed and noncontributory. HOME MEDICATIONS: Please see home medication reconciliation form for updated medications. ALLERGIES: THE PATIENT IS ALLERGIC TO DEMEROL, LEVOFLOXACIN, LISINOPRIL, AND PENICILLIN. REVIEW OF SYSTEMS: Review of 14-systems negative except what is mentioned in the history of present illness. PHYSICAL EXAMINATION: GENERAL: The patient is awake and alert, in mild respiratory distress. VITAL SIGNS: Blood pressure is 122/83, temperature 100.1, respiratory rate is 28, and oxygen saturation is 95% on room air. HEAD AND NECK: Normocephalic and atraumatic. NECK: Supple. CHEST: Decreased air entry bilaterally with prolonged expiratory phase. HEART: Distant heart sounds. ABDOMEN: Soft and nontender. Bowel sounds present. NEUROLOGIC: Awake, alert, and oriented, moving extremities. PSYCH: Unable to assess. EXTREMITIES: No clubbing or cyanosis. GENITOURINARY: No suprapubic tenderness. No flank tenderness. LABORATORY DATA: Potassium is 3.3. WBC is 10.8, hemoglobin 14.5, and platelets 244. Chest x-ray, right lung infiltrate. ASSESSMENT: 1. Pneumonia. 2. Suspected COVID-19 infection. 3. Chronic obstructive pulmonary disease. 4. Chronic respiratory failure on home oxygen at night. 5. Congestive heart failure, systolic with ejection fraction of 35% to 40%. 6. History of cardiac arrhythmia. 7. Cardiac pacemaker. 8. Coronary artery disease. PLAN: 1. Admit. 2. Septic workup including blood cultures and COVID-19 swab done in the ED. 3. Isolation precautions. 4. Continue with IV antibiotics. 5. Oxygen to keep saturation more than 90%. 6. Bronchodilators as needed. 7. Reconcile home medications. 8. DVT prophylaxis, low molecular weight heparin. 9. Expected length of stay, 2 midnights or more. Job ID: [id number]
[2019-09-22 06:09] VITALS: BMI 32.5
[2019-09-22] MEDS ORDERED: Famotidine 20 MG TAB PO SCH (09:00)
[2019-09-22] MEDS: Carvedilol 6.25 MG TAB PO SCH ×2 (09:14→17:25)
[2019-09-22] MEDS: Spironolactone 25 MG TAB PO SCH (09:15)
[2019-09-22] MEDS: Losartan 25 MG TAB PO SCH (09:15)
[2019-09-22] MEDS: Furosemide 20 MG TAB PO SCH (09:15)
[2019-09-22] MEDS: Aspirin 325 mg Enteric Coated Tablet PO SCH (09:15)
[2019-09-22] MEDS: Enoxaparin Sodium 40 MG/0.4 ML SYRINGE SC SCH (09:16)
--- NOTE | 2019-09-22 10:43 | RAD ---
PORTABLE CHEST 1 VIEW: Date: 09/21/2019 Time: 1146 hours HISTORY: Cough. COPD exacerbation. COMPARISON: 06/23/2019. FINDINGS/IMPRESSION: The heart is enlarged. The aorta is tortuous. There is a left-sided pacemaker device. Evidence of old granulomatous disease and old right rib fractures again seen. There is mild infiltrate in the right lower lung. No pneumothoraces or large effusions are seen. POS: OFF
[2019-09-22] MEDS: cefTRIAXone\\ROCEPHIN 1 GM in Sodium Chloride 0.9% 100 ML IVPB SCH (11:00)
[2019-09-22] MEDS ORDERED: Vancomycin HCl 1.5 GM in Sodium Chloride 0.9% 250 ML 300 ML IVPB SCH (16:41)
[2019-09-22 17:20] LABS: SARS-CoV-2 MS2 Positive; SARS-CoV-2 N Gene Positive; SARS-CoV-2 S Gene Positive; SARS-CoV-2 orf1ab Positive
[2019-09-22] MEDS: Vancomycin 1.5 GRAM/300 ML BAG 1.5 GM in Premix Bag 1 BAG IVPB SCH (17:25)
[2019-09-22] MEDS: Atorvastatin Calcium 40 MG TAB PO SCH (20:01)
[2019-09-22] MEDS: traZODone HCl 50 MG TAB PO SCH (20:01)
[2019-09-22] MEDS: Gabapentin 300 MG CAP PO SCH (20:01)
[2019-09-23] MEDS ORDERED: Azithromycin 500 MG in Sodium Chloride 0.9% 250 ML 250 ML IVPB SCH (03:00)
[2019-09-23] MEDS: cefTRIAXone\\ROCEPHIN 1 GM in Sodium Chloride 0.9% 100 ML IVPB SCH (03:17)
[2019-09-23 05:28] LABS: #Basophils 0.1 thou/uL (0.0-0.2); #Eosinphils 0.3 thou/uL (0.0-0.7); #Lymphocytes 2.8 thou/uL (1.20-3.40); #Monocytes 0.8 thou/uL (0.11-0.59); #Neutrophils 4.6 thou/uL (1.40-6.50); %Basophils 0.8 % (0.0-1.0); %Eosinophils 3.4 % (0.0-10.0); %Lymphocytes 32.1 % (21.0-51.0); %Monocytes 9.6 % (0.0-10.0); %Neutrophils 54.2 % (42.0-75.0); Hemoglobin 14.2 g/dL (12.0-16.0); Mean Corpuscular HGB CONC 31.9 g/dL (32.0-36.0); Mean Corpuscular Hemoglobin 31.6 pg (27.0-31.0); Mean Corpuscular Volume 99.2 fL (78.0-98.0); Mean Platelet Volume 7.8 fL (7.4-10.4); Platelet Count 234 thou/uL (130-400); RBC Distribution Width 12.2 % (11.5-14.5); Red Blood Cell (RBC) Count 4.48 mill/uL (4.20-5.40); White Blood Cell (WBC) Count 8.6 thou/uL (4.8-10.8)
[2019-09-23 05:53] LABS: ALT (SGPT) Less than 7 U/L (8-55); AST (SGOT) 8 U/L (5-34); Albumin 3.4 g/dL (3.4-4.8); Alkaline Phosphatase 115 U/L (40-110); Anion Gap 9 mmol/L (10-20); BUN (Urea Nitrogen) 12 mg/dL (9.8-20.1); Bilirubin, Total 0.6 mg/dL (0.2-1.2); CRP (Inflammatory) 6.25 mg/dL (= or < 0.5); Calc. Creatinine Clearance 76 mL/min (70-130); Calcium 8.6 mg/dL (7.8-10.44); Carbon Dioxide 29 mmol/L (23-31); Chloride 107 mmol/L (98-107); Estimated GFR-MDRD 67; Globulin 2.7 g/dL (2.4-3.5); Glucose 97 mg/dL (83-110); Potassium 3.4 mmol/L (3.5-5.1); Protein, Total 6.1 g/dL (6.0-8.3); Sodium 142 mmol/L (136-145)
[2019-09-23] MEDS: Enoxaparin Sodium 40 MG/0.4 ML SYRINGE SC SCH (08:14)
[2019-09-23] MEDS: Losartan 25 MG TAB PO SCH (08:14)
[2019-09-23] MEDS: Carvedilol 6.25 MG TAB PO SCH ×2 (08:15→16:03)
[2019-09-23] MEDS: Aspirin 325 mg Enteric Coated Tablet PO SCH (08:15)
[2019-09-23] MEDS: Furosemide 20 MG TAB PO SCH (08:15)
[2019-09-23] MEDS: Spironolactone 25 MG TAB PO SCH (08:16)
--- NOTE | 2019-09-23 14:41 | PRG ---
DATE OF SERVICE: The patient has been diagnosed with COVID-19 and she has been administered Remdesivir. I have explained to the patient this is a drug that has not yet been approved by FDA, but it has an emergency use authorization based on recent clinical trial results. The potential side effects have been described by the study group and mostly include thyroid toxicity, so her liver functions will have to be monitored periodically. The duration of therapy will be 5 days and there has been significant reduction in the duration of illness with the medication compared with placebo. The patient understood and agreed to receive medication. We discussed that the options would be to just give her supportive medication with particularly oxygenation. Job ID: [id number] MTDD
[2019-09-23] MEDS ORDERED: Non-Formulary Item 1 EACH in Sodium Chloride 0.9% 250 ML 210 ML IV SCH (14:45)
[2019-09-23] MEDS: Non-Formulary Item 1 EACH in Sodium Chloride 0.9% 250 ML 230 ML IV SCH (16:02)
[2019-09-23] MEDS: Vancomycin 1.5 GRAM/300 ML BAG 1.5 GM in Premix Bag 1 BAG IVPB SCH (17:59)
[2019-09-23] MEDS: Atorvastatin Calcium 40 MG TAB PO SCH (20:08)
[2019-09-23] MEDS: Gabapentin 300 MG CAP PO SCH (20:08)
[2019-09-23] MEDS: traZODone HCl 50 MG TAB PO SCH (20:08)
--- NOTE | 2019-09-23 20:53 | CON ---
DATE OF CONSULTATION: REASON FOR CONSULTATION: COVID-19 pneumonia and COPD. HISTORY OF PRESENT ILLNESS: A 73-year-old with history of COPD, coronary artery disease with bypass graft surgery in 2010 with postop infection by MRSA, who developed progressively worsening fever the day before admission associated with dyspnea. She had cough, but she always coughs anyway, so that was not very different and she lives with one of disabled relative in the house and has another nephew who goes out and she may have acquired from him the infection. The patient has tested positive for COVID on the . Currently, she is wearing oxygen. She usually wears oxygen at night to go to sleep, but not during the daytime. She is still [id number] dyspneic. No headaches. No chest pain. She does have some intermittent coughing spells, but those are reportedly not different than usual in her chronic status even before the COVID infection. No abdominal pain, some diarrhea, but that has been transitory. No genitourinary symptoms. No joint symptoms except for chronic osteoarthrosis in knees and ankles. No neurological symptoms. PAST MEDICAL HISTORY: COPD, coronary artery disease, bypass graft surgery, hyperlipidemia, MRSA infection of the sternotomy site, urinary incontinence, osteoarthritis, CHF. PAST SURGICAL HISTORY: Also includes defibrillator, cataract surgery, pacemaker replacement, carpal tunnel surgery, cholecystectomy, laparotomy, left knee replacement, right elbow and left ankle surgery, tonsillectomy, ablation. SOCIAL HISTORY: [place] in the area. Actually, she lives in [facility]. Does not drink. Current smoker. ALLERGIES: DEMEROL, [id number], LISINOPRIL, PENICILLIN. CURRENT MEDICATIONS: 1. Tylenol. 2. Proventil. 3. Ecotrin. 4. Lipitor. 5. Azithromycin. 6. Coreg. 7. Ceftriaxone. 8. Lovenox. 9. Lasix. 10. Neurontin. 11. Robitussin. 12. Cozaar. 13. Protonix. 15. Vancomycin. PHYSICAL EXAMINATION: VITAL SIGNS: T-max 101 when she came in and now she has been afebrile since admission, BP 140/72, O2 saturation 96% on 2 L and was 93% when she came in and then 92%. SKIN: Shows no areas of skin breakdown peripheral IV access. GENERAL: She is voiding in the bedside commode. LYMPHATIC: No lymphadenopathy. HEENT: Ocular movements conjugate. Oral cavity with no [place] teeth remaining. NECK: Supple. No jugular venous distention. LUNGS: With faint crackles at right base. HEART: S1 and S2. Regular rate. No S3 or S4. ABDOMEN: Soft, not distended or tender. AICD pocket site does not appear inflamed. No bladder distention. No ascites. EXTREMITIES: Chronic osteoarthrosis in knees. Pulses 1+ in dorsalis pedis. Moves extremities on command. No focal weakness. NEUROLOGIC: She is awake and oriented. Follows commands. LABORATORY DATA: White cell count 8.6, hemoglobin 14.2, platelets 234 with normal differential, total lymphocyte count 2.8. Sodium 142, creatinine 0.83. CRP 6.25. COVID detected and chest x-ray with enlarged heart, left-sided pacemaker, old granulomatous disease, infiltrate in right lower lung. ASSESSMENT: Chronic obstructive pulmonary disease, coronary artery disease, automatic implantable cardioverter-defibrillator, and COVID-19 pneumonia, [id number] disease. We will discontinue azithromycin and Rocephin and start Remdesivir. She has a high risk for deterioration and this is quite early in the infectious cycle of the virus. Monitor inflammatory markers and D-dimer every other day. Job ID: [id number] [facility]
[2019-09-24] MEDS: Furosemide 20 MG TAB PO SCH (07:36)
[2019-09-24] MEDS: Losartan 25 MG TAB PO SCH (07:36)
[2019-09-24] MEDS: Spironolactone 25 MG TAB PO SCH (07:36)
[2019-09-24] MEDS: Carvedilol 6.25 MG TAB PO SCH ×2 (07:36→18:43)
[2019-09-24] MEDS: Aspirin 325 mg Enteric Coated Tablet PO SCH (07:36)
[2019-09-24] MEDS: Enoxaparin Sodium 40 MG/0.4 ML SYRINGE SC SCH (07:37)
[2019-09-24] MEDS ORDERED: Azithromycin 500 MG in Sodium Chloride 0.9% 250 ML 250 ML IVPB SCH (09:00)
[2019-09-24] MEDS ORDERED: cefTRIAXone\\ROCEPHIN 1 GM in Sodium Chloride 0.9% 100 ML IVPB SCH (09:00)
[2019-09-24] MEDS: Non-Formulary Item 1 EACH in Sodium Chloride 0.9% 250 ML 230 ML IV SCH (16:32)
[2019-09-24] MEDS ORDERED: Vancomycin HCl 1.5 GM in Sodium Chloride 0.9% 250 ML 300 ML IVPB SCH (18:00)
[2019-09-24 18:30] LABS: Vancomycin, Trough 7.7 ug/mL
[2019-09-24] MEDS: Vancomycin 1 GM in Premix Bag 1 BAG IVPB SCH (18:43)
[2019-09-24] MEDS: Atorvastatin Calcium 40 MG TAB PO SCH (19:52)
[2019-09-24] MEDS: traZODone HCl 50 MG TAB PO SCH (19:53)
[2019-09-24] MEDS: Gabapentin 300 MG CAP PO SCH (19:53)
[2019-09-24] MEDS: Acetaminophen 325 MG TAB PO PRN (22:32)
[2019-09-25 05:20] LABS: ALT (SGPT) 9 U/L (8-55); AST (SGOT) 18 U/L (5-34); Albumin 2.9 g/dL (3.4-4.8); Alkaline Phosphatase 112 U/L (40-110); Bilirubin, Direct 0.1 mg/dL (0.1-0.3); Bilirubin, Total 0.2 mg/dL (0.2-1.2); Protein, Total 6.2 g/dL (6.0-8.3)
--- NOTE | 2019-09-25 07:38 | PDOC.HOSPP ---
- Subjective Encounter Date: 09/24/19 Encounter Time: 16:00 Subjective: pt up in bed no complains - Objective Vital Signs & Weight: Vital Signs (12 hours) Temp Pulse Resp BP Pulse Ox 09/25/19 05:00 97.7 F 70 18 105/61 93 L 09/24/19 22:48 97.6 F 70 20 122/65 97 09/24/19 19:59 97.9 F 70 20 121/62 97 Weight Weight 177 lb 12.8 oz I&O: 09/24/19 09/25/19 09/26/19 06:59 06:59 06:59 Intake Total 1260 200 Output Total 2600 3200 Balance -1340 -3000 Result Diagrams: 09/23/19 05:08 09/23/19 05:08 Hospitalist ROS - Review of Systems Cardiovascular: denies: chest pain, palpitations, orthopnea, paroxysmal noc. dyspnea, edema, light headedness, other Gastrointestinal: denies: nausea, vomiting, abdominal pain, diarrhea, constipation, melena, hematochezia, other Genitourinary: denies: dysuria, frequency, incontinence, hematuria, retention, other - Medication Medications: Active Medications Generic Name Dose Route Start Last Admin Trade Name Freq PRN Reason Stop Dose Admin Acetaminophen 650 mg 09/22/19 02:24 09/24/19 22:32 Tylenol PO 650 mg Q4H PRN Administration Headache/Fever/Mild Pain (1-3) Aspirin 325 mg 09/22/19 09:00 09/24/19 07:36 Ecotrin PO 325 mg DAILY TRISTAN Administration Atorvastatin Calcium 80 mg 09/22/19 21:00 09/24/19 19:52 Lipitor PO 80 mg HS TRISTAN Administration Carvedilol 6.25 mg 09/22/19 08:00 09/24/19 18:43 Coreg PO 6.25 mg BID-WM TRISTAN Administration Enoxaparin Sodium 40 mg 09/22/19 09:00 09/24/19 07:37 Lovenox SC 40 mg 0900 TRISTAN Administration Furosemide 20 mg 09/22/19 09:00 09/24/19 07:36 Lasix PO 20 mg DAILY TRISTAN Administration Gabapentin 300 mg 09/22/19 21:00 09/24/19 19:53 Neurontin PO 300 mg HS TRISTAN Administration Non-Formulary Medication 1 250 mls @ 250 mls/hr 09/23/19 15:00 09/24/19 16:32 each/ Sodium Chloride IV 09/27/19 15:01 250 mls 1500 TRISTAN Administration Vancomycin HCl 1 gm/ Device 200 mls @ 200 mls/hr 09/24/19 19:00 09/24/19 18: 43 IVPB 200 mls 0700,1900 TRISTAN Administration Losartan Potassium 12.5 mg 09/22/19 09:00 09/24/19 07:36 Cozaar PO 12.5 mg DAILY TRISTAN Administration Pantoprazole Sodium 40 mg 09/23/19 09:00 09/24/19 07:37 Protonix PO 40 mg DAILY TRISTAN Administration Spironolactone 25 mg 09/22/19 09:00 09/24/19 07:36 Aldactone PO 25 mg DAILY TRISTAN Administration Trazodone HCl 100 mg 09/22/19 21:00 09/24/19 19:53 Desyrel PO 100 mg HS TRISTAN Administration - Exam Neck: negative: supple, symmetric, no JVD, no thyromegaly, no lymphadenopathy, no carotid bruit, JVD Heart: negative: RRR, no murmur, no gallops, no rubs, normal peripheral pulses, irregular, diminshed peripheral pulses, murmur present, II/IV, III/IV Respiratory: negative: CTAB, no wheezes, no rales, no ronchi, normal chest expansion, no tachypnea, normal percussion, rales, rhonchi, tachypneic, wheezes Gastrointestinal: negative: soft, non-tender, non-distended, normal bowel sounds , no palpable masses, no hepatomegaly, no splenomegaly, no bruit, no guarding, no rigidity, tender to palpation, distended, diminished bowl sounds, voluntary guarding Hosp A/P (1) COVID-19 virus detected Code(s): U07.1 - COVID-19 Status: Acute (2) SOB (shortness of breath) Code(s): R06.02 - SHORTNESS OF BREATH Status: Acute (3) Anxiety and depression Code(s): F41.8 - OTHER SPECIFIED ANXIETY DISORDERS Status: Chronic (4) Hypertension Code(s): I10 - ESSENTIAL (PRIMARY) HYPERTENSION Status: Chronic Qualifiers: Hypertension type: essential hypertension Qualified Code(s): I10 - Essential (primary) hypertension (5) Obesity (BMI 30-39.9) Code(s): E66.9 - OBESITY, UNSPECIFIED Status: Chronic - Plan pt continues to be on oxygen 2L which she is at home. ID consulted. pt's blood cx positive possible contaminant? 6/2 pt feels well, started on remdesivir. will follow along.
--- NOTE | 2019-09-25 07:40 | PDOC.HOSPP ---
- Subjective Encounter Date: 09/23/19 Encounter Time: 17:00 Subjective: pt up in bed no complains - Objective Vital Signs & Weight: Vital Signs (12 hours) Temp Pulse Resp BP Pulse Ox 09/25/19 05:00 97.7 F 70 18 105/61 93 L 09/24/19 22:48 97.6 F 70 20 122/65 97 09/24/19 19:59 97.9 F 70 20 121/62 97 Weight Weight 177 lb 12.8 oz I&O: 09/24/19 09/25/19 09/26/19 06:59 06:59 06:59 Intake Total 1260 200 Output Total 2600 3200 Balance -1340 -3000 Result Diagrams: 09/23/19 05:08 09/23/19 05:08 Hospitalist ROS - Review of Systems Respiratory: reports: cough Cardiovascular: denies: chest pain, palpitations, orthopnea, paroxysmal noc. dyspnea, edema, light headedness, other Gastrointestinal: denies: nausea, vomiting, abdominal pain, diarrhea, constipation, melena, hematochezia, other Musculoskeletal: denies: neck pain, shoulder pain, arm pain, back pain, hand pain, leg pain, foot pain, other Skin: denies: rash, lesions, michelle, bruising, other - Medication Medications: Active Medications Generic Name Dose Route Start Last Admin Trade Name Freq PRN Reason Stop Dose Admin Acetaminophen 650 mg 09/22/19 02:24 09/24/19 22:32 Tylenol PO 650 mg Q4H PRN Administration Headache/Fever/Mild Pain (1-3) Aspirin 325 mg 09/22/19 09:00 09/24/19 07:36 Ecotrin PO 325 mg DAILY TRISTAN Administration Atorvastatin Calcium 80 mg 09/22/19 21:00 09/24/19 19:52 Lipitor PO 80 mg HS TRISTAN Administration Carvedilol 6.25 mg 09/22/19 08:00 09/24/19 18:43 Coreg PO 6.25 mg BID-WM TRISTAN Administration Enoxaparin Sodium 40 mg 09/22/19 09:00 09/24/19 07:37 Lovenox SC 40 mg 0900 TRISTAN Administration Furosemide 20 mg 09/22/19 09:00 09/24/19 07:36 Lasix PO 20 mg DAILY TRISTAN Administration Gabapentin 300 mg 09/22/19 21:00 09/24/19 19:53 Neurontin PO 300 mg HS TRISTAN Administration Non-Formulary Medication 1 250 mls @ 250 mls/hr 09/23/19 15:00 09/24/19 16:32 each/ Sodium Chloride IV 09/27/19 15:01 250 mls 1500 TRISTAN Administration Vancomycin HCl 1 gm/ Device 200 mls @ 200 mls/hr 09/24/19 19:00 09/24/19 18: 43 IVPB 200 mls 0700,1900 TRISTAN Administration Losartan Potassium 12.5 mg 09/22/19 09:00 09/24/19 07:36 Cozaar PO 12.5 mg DAILY TRISTNA Administration Pantoprazole Sodium 40 mg 09/23/19 09:00 09/24/19 07:37 Protonix PO 40 mg DAILY TRISTAN Administration Spironolactone 25 mg 09/22/19 09:00 09/24/19 07:36 Aldactone PO 25 mg DAILY TRISTAN Administration Trazodone HCl 100 mg 09/22/19 21:00 09/24/19 19:53 Desyrel PO 100 mg HS TRISTAN Administration - Exam Neck: negative: supple, symmetric, no JVD, no thyromegaly, no lymphadenopathy, no carotid bruit, JVD Heart: negative: RRR, no murmur, no gallops, no rubs, normal peripheral pulses, irregular, diminshed peripheral pulses, murmur present, II/IV, III/IV Respiratory: rhonchi. negative: CTAB, no wheezes, no rales, no ronchi, normal chest expansion, no tachypnea, normal percussion, rales, tachypneic, wheezes Gastrointestinal: negative: soft, non-tender, non-distended, normal bowel sounds , no palpable masses, no hepatomegaly, no splenomegaly, no bruit, no guarding, no rigidity, tender to palpation, distended, diminished bowl sounds, voluntary guarding Hosp A/P (1) SOB (shortness of breath) Code(s): R06.02 - SHORTNESS OF BREATH Status: Acute (2) COVID-19 virus detected Code(s): U07.1 - COVID-19 Status: Acute (3) COPD (chronic obstructive pulmonary disease) Status: Acute (4) CAD (coronary artery disease) Code(s): I25.10 - ATHSCL HEART DISEASE OF [place] CORONARY ARTERY W/O ANG PCTRS Status: Chronic Qualifiers: Coronary Disease-Associated Artery/Lesion type: [place] artery [place] vs. transplanted heart: [place] heart Associated angina: without angina Qualified Code(s): I25.10 - Atherosclerotic heart disease of [place] coronary artery without angina pectoris (5) Hypertension Code(s): I10 - ESSENTIAL (PRIMARY) HYPERTENSION Status: Chronic Qualifiers: Hypertension type: essential hypertension Qualified Code(s): I10 - Essential (primary) hypertension - Plan pt continues to be on oxygen 2L which she is at home. ID consulted. pt's blood cx positive possible contaminant?
[2019-09-25] MEDS: Vancomycin 1 GM in Premix Bag 1 BAG IVPB SCH ×2 (07:46→18:19)
[2019-09-25] MEDS: Enoxaparin Sodium 40 MG/0.4 ML SYRINGE SC SCH (07:46)
[2019-09-25] MEDS: Spironolactone 25 MG TAB PO SCH (07:47)
[2019-09-25] MEDS: Carvedilol 6.25 MG TAB PO SCH ×2 (07:47→17:04)
[2019-09-25] MEDS: Losartan 25 MG TAB PO SCH (07:47)
[2019-09-25] MEDS: Aspirin 325 mg Enteric Coated Tablet PO SCH (07:47)
[2019-09-25] MEDS: Furosemide 20 MG TAB PO SCH (07:48)
[2019-09-25] MEDS: Acetaminophen/Codeine 30-300mg Tablet PO PRN (11:51)
[2019-09-25] MEDS: Non-Formulary Item 1 EACH in Sodium Chloride 0.9% 250 ML 230 ML IV SCH (15:45)
[2019-09-25] MEDS: Atorvastatin Calcium 40 MG TAB PO SCH (20:34)
[2019-09-25] MEDS: Gabapentin 300 MG CAP PO SCH (20:34)
[2019-09-25] MEDS: traZODone HCl 50 MG TAB PO SCH (20:34)
[2019-09-26 05:55] LABS: ALT (SGPT) 10 U/L (8-55); AST (SGOT) 13 U/L (5-34); Albumin 3.2 g/dL (3.4-4.8); Alkaline Phosphatase 108 U/L (40-110); Bilirubin, Direct 0.2 mg/dL (0.1-0.3); Bilirubin, Total 0.3 mg/dL (0.2-1.2); Protein, Total 5.7 g/dL (6.0-8.3)
[2019-09-26 06:32] LABS: Vancomycin, Trough 16.6 ug/mL
[2019-09-26] MEDS: Vancomycin 1 GM in Premix Bag 1 BAG IVPB SCH (06:41)
[2019-09-26] MEDS: Enoxaparin Sodium 40 MG/0.4 ML SYRINGE SC SCH (08:14)
[2019-09-26] MEDS: Aspirin 325 mg Enteric Coated Tablet PO SCH (08:14)
[2019-09-26] MEDS: Furosemide 20 MG TAB PO SCH (08:14)
[2019-09-26] MEDS: Losartan 25 MG TAB PO SCH (08:14)
[2019-09-26] MEDS: Carvedilol 6.25 MG TAB PO SCH ×2 (08:14→17:50)
[2019-09-26] MEDS: Spironolactone 25 MG TAB PO SCH (08:15)
[2019-09-26] MEDS: Non-Formulary Item 1 EACH in Sodium Chloride 0.9% 250 ML 230 ML IV SCH (15:25)
--- NOTE | 2019-09-26 17:40 | PDOC.HOSPP ---
- Subjective Encounter Date: 09/25/19 Encounter Time: 17:00 Subjective: pt up in bed coughing up sputum. - Objective Vital Signs & Weight: Vital Signs (12 hours) Temp Pulse Resp BP Pulse Ox 09/26/19 15:46 98.2 F 72 20 131/62 96 09/26/19 12:00 98.2 F 70 18 108/57 L 96 09/26/19 08:15 97 09/26/19 08:10 97.9 F 70 20 118/70 97 Weight Weight 177 lb 12.8 oz I&O: 09/25/19 09/26/19 09/27/19 06:59 06:59 06:59 Intake Total 200 2320 Output Total 3200 3550 Balance -3000 -1230 Result Diagrams: 09/23/19 05:08 09/23/19 05:08 Hospitalist ROS - Review of Systems Cardiovascular: denies: chest pain, palpitations, orthopnea, paroxysmal noc. dyspnea, edema, light headedness, other Gastrointestinal: denies: nausea, vomiting, abdominal pain, diarrhea, constipation, melena, hematochezia, other Genitourinary: denies: dysuria, frequency, incontinence, hematuria, retention, other - Medication Medications: Active Medications Generic Name Dose Route Start Last Admin Trade Name Freq PRN Reason Stop Dose Admin Acetaminophen 650 mg 09/22/19 02:24 09/24/19 22:32 Tylenol PO 650 mg Q4H PRN Administration Headache/Fever/Mild Pain (1-3) Acetaminophen/Codeine Phosphate 1 tab 09/25/19 09:56 09/25/19 11:51 Tylenol #3 PO 1 tab Q6H PRN Administration Mild-Moderate Pain (1-5) Aspirin 325 mg 09/22/19 09:00 09/26/19 08:14 Ecotrin PO 325 mg DAILY TRISTAN Administration Atorvastatin Calcium 80 mg 09/22/19 21:00 09/25/19 20:34 Lipitor PO 80 mg HS TRISTAN Administration Carvedilol 6.25 mg 09/22/19 08:00 09/26/19 08:14 Coreg PO 6.25 mg BID-WM TRISTAN Administration Enoxaparin Sodium 40 mg 09/22/19 09:00 09/26/19 08:14 Lovenox SC 40 mg 0900 TRISTAN Administration Furosemide 20 mg 09/22/19 09:00 09/26/19 08:14 Lasix PO 20 mg DAILY TRISTAN Administration Gabapentin 300 mg 09/22/19 21:00 09/25/19 20:34 Neurontin PO 300 mg HS TRISTAN Administration Non-Formulary Medication 1 250 mls @ 250 mls/hr 09/23/19 15:00 09/26/19 15:25 each/ Sodium Chloride IV 09/27/19 15:01 250 mls 1500 TRISTAN Administration Losartan Potassium 12.5 mg 09/22/19 09:00 09/26/19 08:14 Cozaar PO 12.5 mg DAILY TRISTAN Administration Pantoprazole Sodium 40 mg 09/23/19 09:00 09/26/19 08:15 Protonix PO 40 mg DAILY TRISTAN Administration Spironolactone 25 mg 09/22/19 09:00 09/26/19 08:15 Aldactone PO 25 mg DAILY TRISTAN Administration Trazodone HCl 100 mg 09/22/19 21:00 09/25/19 20:34 Desyrel PO 100 mg HS TRISTAN Administration - Exam Neck: negative: supple, symmetric, no JVD, no thyromegaly, no lymphadenopathy, no carotid bruit, JVD Heart: negative: RRR, no murmur, no gallops, no rubs, normal peripheral pulses, irregular, diminshed peripheral pulses, murmur present, II/IV, III/IV Respiratory: negative: CTAB, no wheezes, no rales, no ronchi, normal chest expansion, no tachypnea, normal percussion, rales, rhonchi, tachypneic, wheezes Gastrointestinal: negative: soft, non-tender, non-distended, normal bowel sounds , no palpable masses, no hepatomegaly, no splenomegaly, no bruit, no guarding, no rigidity, tender to palpation, distended, diminished bowl sounds, voluntary guarding Hosp A/P (1) SOB (shortness of breath) Code(s): R06.02 - SHORTNESS OF BREATH Status: Acute (2) COVID-19 virus detected Code(s): U07.1 - COVID-19 Status: Acute (3) COPD (chronic obstructive pulmonary disease) Status: Acute (4) CAD (coronary artery disease) Code(s): I25.10 - ATHSCL HEART DISEASE OF [place] CORONARY ARTERY W/O ANG PCTRS Status: Chronic Qualifiers: Coronary Disease-Associated Artery/Lesion type: [place] artery [place] vs. transplanted heart: [place] heart Associated angina: without angina Qualified Code(s): I25.10 - Atherosclerotic heart disease of [place] coronary artery without angina pectoris (5) Hypertension Code(s): I10 - ESSENTIAL (PRIMARY) HYPERTENSION Status: Chronic Qualifiers: Hypertension type: essential hypertension Qualified Code(s): I10 - Essential (primary) hypertension - Plan pt continues to be on oxygen 2L which she is at home. ID consulted. pt's blood cx positive possible contaminant? 6/ pt feels well, started on remdesivir. will follow along. 09/24 pt doing well, she is coughing up sputum. She is still on 2L on [place].
--- NOTE | 2019-09-26 17:45 | PRG ---
DATE OF SERVICE: 09/26/2019 SUBJECTIVE: Ms. Tapia denies shortness of breath. No chest pain. No abdominal pain. No diarrhea. She has no pain. SUBJECTIVE: VITAL SIGNS: She is afebrile. O2 saturations are 96% on 2 L nasal cannula, pulse 72, respiratory rate 18 to 20. LUNGS: Clear. HEART: S1 and S2, regular rate. ABDOMEN: Soft. Not distended or tender. EXTREMITIES: Moves extremities equally. LABORATORY DATA: White cell count is 8.6. It has not been repeated since 3 days ago. Chemistry showed normal liver function tests today, albumin 3.2, and we will need to repeat some markers. ASSESSMENT AND DISCUSSION: COVID-19 pneumonia, chronic obstructive pulmonary disease, coronary artery disease, AICD. Today is the 4th day of remdesivir and tomorrow will be the last day. Hopefully, can be discharged soon. Job ID: [id number]
--- NOTE | 2019-09-26 17:46 | PDOC.HOSPP ---
- Subjective Encounter Date: 09/26/19 Encounter Time: 17:00 Subjective: spoke with pt on the phone she feels well. No complains. - Objective Vital Signs & Weight: Vital Signs (12 hours) Temp Pulse Resp BP Pulse Ox 09/26/19 15:46 98.2 F 72 20 131/62 96 09/26/19 12:00 98.2 F 70 18 108/57 L 96 09/26/19 08:15 97 09/26/19 08:10 97.9 F 70 20 118/70 97 Weight Weight 177 lb 12.8 oz I&O: 09/25/19 09/26/19 09/27/19 06:59 06:59 06:59 Intake Total 200 2320 Output Total 3200 3550 Balance -3000 -1230 Result Diagrams: 09/23/19 05:08 09/23/19 05:08 Hospitalist ROS - Review of Systems Respiratory: reports: cough. denies: dry, shortness of breath, hemoptysis, SOB with excertion, pleuritic pain, sputum, wheezing, other Cardiovascular: denies: chest pain, palpitations, orthopnea, paroxysmal noc. dyspnea, edema, light headedness, other Gastrointestinal: denies: nausea, vomiting, abdominal pain, diarrhea, constipation, melena, hematochezia, other - Medication Medications: Active Medications Generic Name Dose Route Start Last Admin Trade Name Freq PRN Reason Stop Dose Admin Acetaminophen 650 mg 09/22/19 02:24 09/24/19 22:32 Tylenol PO 650 mg Q4H PRN Administration Headache/Fever/Mild Pain (1-3) Acetaminophen/Codeine Phosphate 1 tab 09/25/19 09:56 09/25/19 11:51 Tylenol #3 PO 1 tab Q6H PRN Administration Mild-Moderate Pain (1-5) Aspirin 325 mg 09/22/19 09:00 09/26/19 08:14 Ecotrin PO 325 mg DAILY TRISTAN Administration Atorvastatin Calcium 80 mg 09/22/19 21:00 09/25/19 20:34 Lipitor PO 80 mg HS TRISTAN Administration Carvedilol 6.25 mg 09/22/19 08:00 09/26/19 08:14 Coreg PO 6.25 mg BID-WM TRISTAN Administration Enoxaparin Sodium 40 mg 09/22/19 09:00 09/26/19 08:14 Lovenox SC 40 mg 0900 TRISTAN Administration Furosemide 20 mg 09/22/19 09:00 09/26/19 08:14 Lasix PO 20 mg DAILY TRISTAN Administration Gabapentin 300 mg 09/22/19 21:00 09/25/19 20:34 Neurontin PO 300 mg HS TRISTAN Administration Non-Formulary Medication 1 250 mls @ 250 mls/hr 09/23/19 15:00 09/26/19 15:25 each/ Sodium Chloride IV 09/27/19 15:01 250 mls 1500 TRISTAN Administration Losartan Potassium 12.5 mg 09/22/19 09:00 09/26/19 08:14 Cozaar PO 12.5 mg DAILY TRISTAN Administration Pantoprazole Sodium 40 mg 09/23/19 09:00 09/26/19 08:15 Protonix PO 40 mg DAILY TRISTAN Administration Spironolactone 25 mg 09/22/19 09:00 09/26/19 08:15 Aldactone PO 25 mg DAILY TRISTAN Administration Trazodone HCl 100 mg 09/22/19 21:00 09/25/19 20:34 Desyrel PO 100 mg HS TRISTAN Administration Hosp A/P (1) SOB (shortness of breath) Code(s): R06.02 - SHORTNESS OF BREATH Status: Acute (2) COVID-19 virus detected Code(s): U07.1 - COVID-19 Status: Acute (3) COPD (chronic obstructive pulmonary disease) Status: Acute (4) CAD (coronary artery disease) Code(s): I25.10 - ATHSCL HEART DISEASE OF [place] CORONARY ARTERY W/O ANG PCTRS Status: Chronic Qualifiers: Coronary Disease-Associated Artery/Lesion type: [place] artery [place] vs. transplanted heart: [place] heart Associated angina: without angina Qualified Code(s): I25.10 - Atherosclerotic heart disease of [place] coronary artery without angina pectoris (5) Hypertension Code(s): I10 - ESSENTIAL (PRIMARY) HYPERTENSION Status: Chronic Qualifiers: Hypertension type: essential hypertension Qualified Code(s): I10 - Essential (primary) hypertension - Plan pt continues to be on oxygen 2L which she is at home. ID consulted. pt's blood cx positive possible contaminant? 6/ pt feels well, started on remdesivir. will follow along. / pt doing well, she is coughing up sputum. She is still on 2L on [place]. 09/25 pt seen by Id, will continue to follow labs. will see her in am.
[2019-09-26] MEDS: traZODone HCl 50 MG TAB PO SCH (19:22)
[2019-09-26] MEDS: Gabapentin 300 MG CAP PO SCH (19:22)
[2019-09-26] MEDS: Atorvastatin Calcium 40 MG TAB PO SCH (19:22)
[2019-09-26] MEDS: Acetaminophen/Codeine 30-300mg Tablet PO PRN (22:42)
[2019-09-27 05:50] LABS: ALT (SGPT) 16 U/L (8-55); AST (SGOT) 16 U/L (5-34); Albumin 3.2 g/dL (3.4-4.8); Alkaline Phosphatase 116 U/L (40-110); Bilirubin, Direct 0.2 mg/dL (0.1-0.3); Bilirubin, Total 0.3 mg/dL (0.2-1.2); Protein, Total 5.8 g/dL (6.0-8.3)
[2019-09-27] MEDS: Spironolactone 25 MG TAB PO SCH (08:01)
[2019-09-27] MEDS: Furosemide 20 MG TAB PO SCH (08:01)
[2019-09-27] MEDS: Aspirin 325 mg Enteric Coated Tablet PO SCH (08:01)
[2019-09-27] MEDS: Enoxaparin Sodium 40 MG/0.4 ML SYRINGE SC SCH (08:01)
[2019-09-27] MEDS: Losartan 25 MG TAB PO SCH (08:01)
[2019-09-27] MEDS: Carvedilol 6.25 MG TAB PO SCH ×2 (08:01→17:43)
[2019-09-27] MEDS: Non-Formulary Item 1 EACH in Sodium Chloride 0.9% 250 ML 230 ML IV SCH (14:51)
[2019-09-27] MEDS: traZODone HCl 50 MG TAB PO SCH (20:46)
[2019-09-27] MEDS: Gabapentin 300 MG CAP PO SCH (20:46)
[2019-09-27] MEDS: Atorvastatin Calcium 40 MG TAB PO SCH (20:46)
[2019-09-27] MEDS: Acetaminophen/Codeine 30-300mg Tablet PO PRN (21:58)
[2019-09-28] MEDS: Enoxaparin Sodium 40 MG/0.4 ML SYRINGE SC SCH (07:41)
[2019-09-28] MEDS: Furosemide 20 MG TAB PO SCH (07:41)
[2019-09-28] MEDS: Carvedilol 6.25 MG TAB PO SCH ×2 (07:41→18:17)
[2019-09-28] MEDS: Spironolactone 25 MG TAB PO SCH (07:41)
[2019-09-28] MEDS: Aspirin 325 mg Enteric Coated Tablet PO SCH (07:41)
[2019-09-28] MEDS: Losartan 25 MG TAB PO SCH (07:41)
--- NOTE | 2019-09-28 13:51 | EKG ---
Test Reason : Blood Pressure : / mmHG Vent. Rate : 094 BPM Atrial Rate : 094 BPM P-R Int : 168 ms QRS Dur : 122 ms QT Int : 396 ms P-R-T Axes : -27 082 261 degrees QTc Int : 495 ms Normal sinus rhythm Non-specific intra-ventricular conduction delay Abnormal ECG Confirmed by STEFAN MOSES M.D. ([id number]), script editor KORINA LOERA ([id number] on 09/28/2019 1:51:32 PM Referred By: Confirmed By:STEFAN MOSES M.D.
[2019-09-28] MEDS: traZODone HCl 50 MG TAB PO SCH (20:24)
[2019-09-28] MEDS: Gabapentin 300 MG CAP PO SCH (20:24)
[2019-09-28] MEDS: Atorvastatin Calcium 40 MG TAB PO SCH (20:24)
[2019-09-29] MEDS: Aspirin 325 mg Enteric Coated Tablet PO SCH (08:29)
[2019-09-29] MEDS: Furosemide 20 MG TAB PO SCH (08:29)
[2019-09-29] MEDS: Losartan 25 MG TAB PO SCH (08:30)
[2019-09-29] MEDS: Carvedilol 6.25 MG TAB PO SCH ×3 (08:30→18:02)
[2019-09-29] MEDS: Enoxaparin Sodium 40 MG/0.4 ML SYRINGE SC SCH (08:31)
[2019-09-29] MEDS: Spironolactone 25 MG TAB PO SCH (08:31)
[2019-09-29] MEDS: Acetaminophen 325 MG TAB PO PRN (08:33)
[2019-09-29 09:07] VITALS: TEMP 96.6
--- NOTE | 2019-09-29 13:56 | PDOC.HOSPP ---
- Subjective Encounter Date: 09/27/19 Encounter Time: 17:00 Subjective: pt up in bed no complains. spoke with nephew who want pt to make sure pt is non infectious before i discharge her - Objective Vital Signs & Weight: Vital Signs (12 hours) Temp Pulse Resp BP BP Pulse Ox 09/29/19 12:00 70 113/62 95 09/29/19 09:05 96.6 F L 68 18 132/68 97 Weight Weight 172 lb 8 oz I&O: 09/28/19 09/29/19 09/30/19 06:59 06:59 06:59 Intake Total 1050 500 Output Total 1300 5000 Balance -250 -4500 Result Diagrams: 09/23/19 05:08 09/23/19 05:08 Hospitalist ROS - Review of Systems Cardiovascular: denies: chest pain, palpitations, orthopnea, paroxysmal noc. dyspnea, edema, light headedness, other Gastrointestinal: denies: nausea, vomiting, abdominal pain, diarrhea, constipation, melena, hematochezia, other Genitourinary: denies: dysuria, frequency, incontinence, hematuria, retention, other - Medication Medications: Active Medications Generic Name Dose Route Start Last Admin Trade Name Freq PRN Reason Stop Dose Admin Acetaminophen 650 mg 09/22/19 02:24 09/24/19 22:32 Tylenol PO 650 mg Q4H PRN Administration Headache/Fever/Mild Pain (1-3) Acetaminophen/Codeine Phosphate 1 tab 09/25/19 09:56 09/27/19 21:58 Tylenol #3 PO 1 tab Q6H PRN Administration Mild-Moderate Pain (1-5) Aspirin 325 mg 09/22/19 09:00 09/29/19 08:29 Ecotrin PO 325 mg DAILY TRISTAN Administration Atorvastatin Calcium 80 mg 09/22/19 21:00 09/28/19 20:24 Lipitor PO 80 mg HS TRISTAN Administration Carvedilol 6.25 mg 09/22/19 08:00 09/29/19 08:30 Coreg PO 6.25 mg BID-WM TRISTAN Administration Enoxaparin Sodium 40 mg 09/22/19 09:00 09/29/19 08:31 Lovenox SC 40 mg 0900 TRISTAN Administration Furosemide 20 mg 09/22/19 09:00 09/29/19 08:29 Lasix PO 20 mg DAILY TRISTAN Administration Gabapentin 300 mg 09/22/19 21:00 09/28/19 20:24 Neurontin PO 300 mg HS TRISTAN Administration Losartan Potassium 12.5 mg 09/22/19 09:00 09/29/19 08:30 Cozaar PO 12.5 mg DAILY TRISTAN Administration Pantoprazole Sodium 40 mg 09/23/19 09:00 09/29/19 08:29 Protonix PO 40 mg DAILY TRISTAN Administration Spironolactone 25 mg 09/22/19 09:00 09/29/19 08:31 Aldactone PO 25 mg DAILY TRISTAN Administration Trazodone HCl 100 mg 09/22/19 21:00 09/28/19 20:24 Desyrel PO 100 mg HS TRISTAN Administration - Exam Neck: negative: supple, symmetric, no JVD, no thyromegaly, no lymphadenopathy, no carotid bruit, JVD Heart: negative: RRR, no murmur, no gallops, no rubs, normal peripheral pulses, irregular, diminshed peripheral pulses, murmur present, II/IV, III/IV Respiratory: negative: CTAB, no wheezes, no rales, no ronchi, normal chest expansion, no tachypnea, normal percussion, rales, rhonchi, tachypneic, wheezes Hosp A/P (1) SOB (shortness of breath) Code(s): R06.02 - SHORTNESS OF BREATH Status: Acute (2) COVID-19 virus detected Code(s): U07.1 - COVID-19 Status: Acute (3) COPD (chronic obstructive pulmonary disease) Status: Acute (4) CAD (coronary artery disease) Code(s): I25.10 - ATHSCL HEART DISEASE OF [place] CORONARY ARTERY W/O ANG PCTRS Status: Chronic Qualifiers: Coronary Disease-Associated Artery/Lesion type: [place] artery [place] vs. transplanted heart: [place] heart Associated angina: without angina Qualified Code(s): I25.10 - Atherosclerotic heart disease of [place] coronary artery without angina pectoris (5) Hypertension Code(s): I10 - ESSENTIAL (PRIMARY) HYPERTENSION Status: Chronic Qualifiers: Hypertension type: essential hypertension Qualified Code(s): I10 - Essential (primary) hypertension - Plan pt continues to be on oxygen 2L which she is at home. ID consulted. pt's blood cx positive possible contaminant? 6/2 pt feels well, started on remdesivir. will follow along. 09/24 pt doing well, she is coughing up sputum. She is still on 2L on [place]. 09/25 pt seen by Id, will continue to follow labs. will see her in am. 09/26 I did advice pt's nephew that we cannot write a letter saying she is non infectious. He states that he has many health issues and does not feel comfortable taking the pt back home. 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 I spoke with Dr kirk and will order a oral swab.
--- NOTE | 2019-09-29 13:57 | PDOC.HOSPP ---
- Subjective Encounter Date: 09/29/19 Encounter Time: 17:30 Subjective: pt up in bed no complains - Objective Vital Signs & Weight: Vital Signs (12 hours) Temp Pulse Resp BP BP Pulse Ox 09/29/19 12:00 70 113/62 95 09/29/19 09:05 96.6 F L 68 18 132/68 97 Weight Weight 172 lb 8 oz I&O: 09/28/19 09/29/19 09/30/19 06:59 06:59 06:59 Intake Total 1050 500 Output Total 1300 5000 Balance -250 -4500 Result Diagrams: 09/23/19 05:08 09/23/19 05:08 Hospitalist ROS - Review of Systems Cardiovascular: denies: chest pain, palpitations, orthopnea, paroxysmal noc. dyspnea, edema, light headedness, other Gastrointestinal: denies: nausea, vomiting, abdominal pain, diarrhea, constipation, melena, hematochezia, other Genitourinary: denies: dysuria, frequency, incontinence, hematuria, retention, other - Medication Medications: Active Medications Generic Name Dose Route Start Last Admin Trade Name Freq PRN Reason Stop Dose Admin Acetaminophen 650 mg 09/22/19 02:24 09/24/19 22:32 Tylenol PO 650 mg Q4H PRN Administration Headache/Fever/Mild Pain (1-3) Acetaminophen/Codeine Phosphate 1 tab 09/25/19 09:56 09/27/19 21:58 Tylenol #3 PO 1 tab Q6H PRN Administration Mild-Moderate Pain (1-5) Aspirin 325 mg 09/22/19 09:00 09/29/19 08:29 Ecotrin PO 325 mg DAILY TRISTAN Administration Atorvastatin Calcium 80 mg 09/22/19 21:00 09/28/19 20:24 Lipitor PO 80 mg HS TRISTAN Administration Carvedilol 6.25 mg 09/22/19 08:00 09/29/19 08:30 Coreg PO 6.25 mg BID-WM TRISTAN Administration Enoxaparin Sodium 40 mg 09/22/19 09:00 09/29/19 08:31 Lovenox SC 40 mg 0900 TRISTAN Administration Furosemide 20 mg 09/22/19 09:00 09/29/19 08:29 Lasix PO 20 mg DAILY TRISTAN Administration Gabapentin 300 mg 09/22/19 21:00 09/28/19 20:24 Neurontin PO 300 mg HS TRISTAN Administration Losartan Potassium 12.5 mg 09/22/19 09:00 09/29/19 08:30 Cozaar PO 12.5 mg DAILY TRISTAN Administration Pantoprazole Sodium 40 mg 09/23/19 09:00 09/29/19 08:29 Protonix PO 40 mg DAILY TRISTAN Administration Spironolactone 25 mg 09/22/19 09:00 09/29/19 08:31 Aldactone PO 25 mg DAILY TRISTAN Administration Trazodone HCl 100 mg 09/22/19 21:00 09/28/19 20:24 Desyrel PO 100 mg HS TRISTAN Administration - Exam Neck: negative: supple, symmetric, no JVD, no thyromegaly, no lymphadenopathy, no carotid bruit, JVD Heart: negative: RRR, no murmur, no gallops, no rubs, normal peripheral pulses, irregular, diminshed peripheral pulses, murmur present, II/IV, III/IV Respiratory: negative: CTAB, no wheezes, no rales, no ronchi, normal chest expansion, no tachypnea, normal percussion, rales, rhonchi, tachypneic, wheezes Hosp A/P (1) SOB (shortness of breath) Code(s): R06.02 - SHORTNESS OF BREATH Status: Acute (2) COVID-19 virus detected Code(s): U07.1 - COVID-19 Status: Acute (3) COPD (chronic obstructive pulmonary disease) Status: Acute (4) CAD (coronary artery disease) Code(s): I25.10 - ATHSCL HEART DISEASE OF [place] CORONARY ARTERY W/O ANG PCTRS Status: Chronic Qualifiers: Coronary Disease-Associated Artery/Lesion type: [place] artery [place] vs. transplanted heart: [place] heart Associated angina: without angina Qualified Code(s): I25.10 - Atherosclerotic heart disease of [place] coronary artery without angina pectoris (5) Hypertension Code(s): I10 - ESSENTIAL (PRIMARY) HYPERTENSION Status: Chronic Qualifiers: Hypertension type: essential hypertension Qualified Code(s): I10 - Essential (primary) hypertension - Plan pt continues to be on oxygen 2L which she is at home. ID consulted. pt's blood cx positive possible contaminant? 6/2 pt feels well, started on remdesivir for 5 days. will follow along. 6/3 pt doing well, she is coughing up sputum. She is still on 2L on [place]. 09/25 pt seen by Id, will continue to follow labs. will see her in am. 09/26 I did advice pt's nephew that we cannot write a letter saying she is non infectious. He states that he has many health issues and does not feel comfortable taking the pt back home. 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 I spoke with Dr kirk and will order a oral swab. 09/27 oral swab ordered results pending. she clinically is doing well. possible discharge if her swab is normal.
[2019-09-29 15:21] LABS: SARS-CoV-2 MS2 Positive; SARS-CoV-2 N Gene Negative; SARS-CoV-2 S Gene Negative; SARS-CoV-2 orf1ab Negative
[2019-09-29] MEDS ORDERED: diphenhydrAMINE 12.5 MG/5 ML UDCUP PO PRN (17:06)
[2019-09-29 18:04] VITALS: BP 103/67
[2019-09-29] MEDS: Atorvastatin Calcium 40 MG TAB PO SCH (19:43)
[2019-09-29] MEDS: traZODone HCl 50 MG TAB PO SCH (19:43)
[2019-09-29] MEDS: Gabapentin 300 MG CAP PO SCH (19:43)
== END 2019-09-29 20:03 | disposition home or self-care (01) | DRG 177 ==
LOC: ERS 23:47 → 2SW 09-22 05:49 → OBSVTOIN 09-22 16:46
PROVIDERS: ADMIT Internal Medicine; ATTEND Internal Medicine
PROC: 8E0ZXY6 Isolation (ICD-10-PCS; principal; 2019-09-22)
DX: U07.1 COVID-19 (principal); J12.89 Other viral pneumonia; J96.10 Chronic respiratory failure, unspecified whether with hypoxia or hypercapnia; J44.0 Chronic obstructive pulmonary disease with (acute) lower respiratory infection; I50.22 Chronic systolic (congestive) heart failure; Z20.828 Contact with and (suspected) exposure to other viral communicable diseases; M19.90 Unspecified osteoarthritis, unspecified site; Z96.652 Presence of left artificial knee joint; F32.9 Major depressive disorder, single episode, unspecified; F17.210 Nicotine dependence, cigarettes, uncomplicated; F41.9 Anxiety disorder, unspecified; E78.5 Hyperlipidemia, unspecified; I11.0 Hypertensive heart disease with heart failure; I25.10 Atherosclerotic heart disease of native coronary artery without angina pectoris; R32 Unspecified urinary incontinence; Z96.1 Presence of intraocular lens; Z99.81 Dependence on supplemental oxygen; Z95.1 Presence of aortocoronary bypass graft; Z98.42 Cataract extraction status, left eye; Z98.41 Cataract extraction status, right eye; Z90.49 Acquired absence of other specified parts of digestive tract; Z88.6 Allergy status to analgesic agent; Z88.1 Allergy status to other antibiotic agents; Z88.0 Allergy status to penicillin; Z88.8 Allergy status to other drugs, medicaments and biological substances; Z95.0 Presence of cardiac pacemaker
CPT/HCPCS: 36415; 71045; 80053; 80076; 80202; 82728; 84484; 85025; 85379; 86140; 87040; 87149; 87635; 93005; 96365; 96375; J0456; J0696; J1650; J3370; J3490; J7050; Q0163; U0003

== ENCOUNTER 2019-12-23 21:37 | Emergency (ER) | payer MEDICARE ==
[2019-12-23] MEDS ORDERED: Ondansetron PF 4 MG/2 ML Vial ONE (22:25)
[2019-12-23] MEDS ORDERED: Morphine 2 MG/ML SYRINGE ONE (22:25)
[2019-12-23] MEDS ORDERED: Baclofen 10 MG TAB PO SCH (22:45)
--- NOTE | 2019-12-23 22:51 | RAD ---
Exam: Chest one view HISTORY:Bilateral posterior chest wall pain. Comparison: 12/07/2019 FINDINGS: Cardiac silhouette:Cardiomegaly. Stable left-sided dual lead defibrillator. Aorta: Atherosclerosis and elongation of the aorta Pulmonary vessels: Normal Costophrenic angles: Small left-sided pleural effusion. LUNGS: Chronic lung parenchymal changes, without mass or consolidation. Pneumothorax: None Osseous abnormalities: None IMPRESSION: 1. Atherosclerosis 2. Cardiomegaly, without evidence of congestive heart failure.
--- NOTE | 2019-12-23 23:59 | CT ---
Exam: Chest CT without contrast HISTORY: Posterior chest wall pain. COMPARISON: None Correlation: CT angiogram of the chest 12/07/2019 FINDINGS: Mediastinum: Limited evaluation by the lack of IV contrast. No mass, lymphadenopathy or hematoma Lower neck and axilla: No lymphadenopathy. Redemonstration of indeterminate right thyroid nodule Heart: Enlarged. No significant pericardial fluid. There are coronary calcifications Aorta: Atherosclerosis and elongation. Subdiaphragmatic structures: Redemonstration of fullness of the left adrenal gland suggesting hyperpl conrado. Incompletely evaluated hypodensity emanating from the left or right renal cortex likely representing cysts. Trachea and central bronchi: Patent Pleural effusion: None Right lung: Dependent atelectatic changes. Calcified granuloma in the right upper lobe. No suspicious masses or consolidation. Small blebs in the right upper lobe. Interval development of consolidation with air bronchograms in the right lower lobe. Left lung: Dependent atelectatic changes. Interval development of consolidation with air bronchograms in the left lower lobe. Calcified granuloma in the left lower lobe is noted. Pneumothorax: None Osseous structures: Intact sternum, scapula and clavicles Old right rib fractures are noted. No acute right rib fractures. No remote or acute left rib fracture s. The thoracic spine demonstrates degenerative change. Probable hemangioma at the C6 level. No acute thoracic spine fractures. Mild irregularity involving the superior endplate of T3 may represent a remote superior endplate injury. Changes along the superior endplate of T3 are similar to the previous CT angiogram. IMPRESSION: 1. Remote injury to the T3 vertebral body and right ribs. Acute fractures are not appreciated. 2. Interval consolidation in both lower lobes likely represent atelectasis. Aspiration and/or pneumon ia cannot be entirely excluded. 3. Additional findings as above.
== END 2019-12-24 01:19 | disposition home or self-care (01) ==
LOC: ERS 21:37
DX: M54.6 Pain in thoracic spine (principal); J98.11 Atelectasis; S22.41XD Multiple fractures of ribs, right side, subsequent encounter for fracture with routine healing; E78.5 Hyperlipidemia, unspecified; M19.90 Unspecified osteoarthritis, unspecified site; I11.0 Hypertensive heart disease with heart failure; I50.9 Heart failure, unspecified; I49.9 Cardiac arrhythmia, unspecified; J44.9 Chronic obstructive pulmonary disease, unspecified; D64.9 Anemia, unspecified; F17.210 Nicotine dependence, cigarettes, uncomplicated; F32.9 Major depressive disorder, single episode, unspecified; Z79.899 Other long term (current) drug therapy; Z79.51 Long term (current) use of inhaled steroids
CPT/HCPCS: 71045; 71250; 94799; 96374; 96375; J2270; J2405

== ENCOUNTER 2020-03-24 18:34 | Inpatient (IN) | payer MEDICARE ==
[2020-03-24] MEDS ORDERED: Magnesium 2 GM/50 ML BAG (IN WATER) ONE (18:53)
[2020-03-24] MEDS ORDERED: Dexamethasone 10 MG/ML VIAL ONE (18:53)
[2020-03-24] MEDS ORDERED: Lorazepam 2 MG/ML VIAL ONE (18:53)
[2020-03-24 18:58] LABS: Actual Bicarbonate (HCO3a) 27.3 mEq/L (22-28); Analyzer IN Cardio ER; Base Excess (BEa) 2.5 mEq/L (-2.0 to +3.0); CO2 Tension 43.2 mmHg (35.0-45.0); Calcium, Ionized (arterial) 1.16 mmol/L (1.12-1.30); Hemoglobin (Hb) 13.3 g/dL (12.0-16.0); O2 Tension (PaO2), arterial 169.8 mmHg (> 70.0); Potassium - ABG Lab 2.98 mmol/L (3.70-5.30); pH, Arterial 7.42 (7.35-7.45)
[2020-03-24 18:59] LABS: Puncture Site RRA
[2020-03-24] MEDS ORDERED: Albuterol Sulfate 2.5 mg/3 ml Neb ONE (19:01)
[2020-03-24 19:17] LABS: #Basophils 0.1 thou/uL (0.0-0.2); #Eosinphils 0.1 thou/uL (0.0-0.7); #Lymphocytes 1.9 thou/uL (1.20-3.40); #Monocytes 0.6 thou/uL (0.11-0.59); #Neutrophils 6.4 thou/uL (1.40-6.50); %Basophils 0.7 % (0.0-1.0); %Eosinophils 1.6 % (0.0-10.0); %Lymphocytes 20.7 % (21.0-51.0); %Monocytes 6.3 % (0.0-10.0); %Neutrophils 70.7 % (42.0-75.0); Mean Corpuscular HGB CONC 32.5 g/dL (32.0-36.0); Mean Corpuscular Hemoglobin 30.9 pg (27.0-31.0); Mean Corpuscular Volume 95.1 fL (78.0-98.0); Mean Platelet Volume 7.1 fL (7.4-10.4); Platelet Count 285 thou/uL (130-400); RBC Distribution Width 12.6 % (11.5-14.5); Red Blood Cell (RBC) Count 4.52 mill/uL (4.20-5.40); White Blood Cell (WBC) Count 9.1 thou/uL (4.8-10.8)
[2020-03-24 19:36] LABS: ALT (SGPT) 12 U/L (8-55); AST (SGOT) 17 U/L (5-34); Albumin 3.8 g/dL (3.4-4.8); Alkaline Phosphatase 95 U/L (40-110); Anion Gap 15 mmol/L (10-20); BUN (Urea Nitrogen) 9 mg/dL (9.8-20.1); Bilirubin, Total 0.5 mg/dL (0.2-1.2); CK (CPK) 73 U/L (29-168); Calc. Creatinine Clearance 0 mL/min (70-130); Calcium 8.9 mg/dL (7.8-10.44); Carbon Dioxide 29 mmol/L (23-31); Chloride 102 mmol/L (98-107); Estimated GFR-MDRD 67; Globulin 2.9 g/dL (2.4-3.5); Glucose 119 mg/dL (83-110); Lipase 14 U/L (8-78); Protein, Total 6.7 g/dL (6.0-8.3); Sodium 143 mmol/L (136-145)
[2020-03-24 19:46] LABS: Potassium 2.8 mmol/L (3.5-5.1)
[2020-03-24] MEDS ORDERED: Azithromycin 500 MG VIAL ONE (19:59)
--- NOTE | 2020-03-24 20:08 | RAD ---
SINGLE VIEW OF THE CHEST: 03/24/20 COMPARISON: 12/23/19. HISTORY: Shortness OF breath with CHF and COPD. FINDINGS: Single view of the chest shows enlarged but stable cardiomediastinal silhouette with atherosclerotic calcifications in the aorta. The pacemaker is unchanged in position. Diffuse increased interstitial m arkings are present. Calcified granuloma projects over the right upper lobe. There is no evidence of consolidation or pleural effusion. Degenerative changes are seen in the spine and shoulders. There appear to be healed right rib fractur es. IMPRESSION: Stable cardiomegaly. POS: EAA
[2020-03-24] MEDS ORDERED: methylPREDNISolone Sod Succ 40 MG VIAL IVP SCH (21:15)
[2020-03-24] MEDS: Heparin 5,000 UNITS/ML VIAL SC SCH (23:13)
[2020-03-25 00:44] VITALS: BMI 29.8
--- NOTE | 2020-03-25 01:10 | HP ---
REASON FOR ADMISSION: Shortness of breath. HISTORY OF PRESENT ILLNESS: This is a 74-year-old female patient, known to have history of COPD and congestive heart failure, was picked up by EMS at a local restaurant when she developed respiratory distress and her pulse ox dropped to 85%. Initially, her systolic blood pressure was 200. She was placed on CPAP, given IV Solu-Medrol and brought to the emergency room. She was a bit anxious and she did receive Ativan. Currently, she feels much better. She is somewhat of a poor historian. She does report being short of breath for approximately a week and a half. Continues to smoke. Denies fevers. Denies chills. Denies sick contacts. Denies chest pain. I did review her records and the patient was admitted to our hospital approximately 6 months ago for shortness of breath, diagnosed with COVID pneumonia. She remained hospitalized for approximately a week. During her stay, she received remdesivir, she did improve. Since then, she was seen at the emergency room for falls. PAST MEDICAL HISTORY: 1. COPD. 2. Congestive heart failure, EF of 35% to 40%. 3. Status post pacemaker. 4. Osteoarthritis. 5. High cholesterol. 6. Post cataract surgery. 7. Open-heart surgery. 8. Appendectomy. 9. Carpal tunnel surgery. 10. Cholecystectomy. 11. Left knee replacement. 12. Right elbow and left ankle surgery. 13. Tonsillectomy. 14. Depression. SOCIAL HISTORY: She continues to smoke half a pack a day. FAMILY HISTORY: Reviewed and found to be noncontributory. ALLERGIES: TO DEMEROL, LEVAQUIN, LISINOPRIL, AND PENICILLIN. REVIEW OF SYSTEMS: All systems reviewed and except the above mentioned, found to be negative. PHYSICAL EXAMINATION: GENERAL: Awake, alert, oriented, does not appear in distress. She continues to be on BiPAP. VITAL SIGNS: Her blood pressure is 134/73, heart rate of 90, saturating 98% on BiPAP. HEENT: Head is nontraumatic, normocephalic. Pupils equal, reactive. Extraocular movements are intact. Nonicteric sclerae. Well-injected conjunctivae. Oral mucosa normal. Nasal mucosa normal. NECK: Supple. No adenopathy. No murmur. Thyroid is not palpable. Trachea is midline. No supraclavicular adenopathy. HEART: S1, S2 regular. No murmur. No gallop. No friction rubs. No displacement of PMI. LUNGS: Decreased air entry bilaterally. Diffuse bilateral expiratory rhonchi. ABDOMEN: Bowel sounds are positive. Nontender abdomen. No hepatosplenomegaly. EXTREMITIES: No lower extremity edema. No cyanosis. NEUROLOGIC: Cranial nerves 2-12 within normal limits. Normal motor function. Normal sensory function. Normal reflexes. LABORATORY DATA: Blood work shows WBC of 9.1, hemoglobin of 14, platelets of 285. An ABG shows a bicarb of 27.3, pH 7.42, pCO2 of 43.2. Sodium of 143, potassium of 2.8, bicarb of 29, BUN 9, creatinine 0.83. BNP 992.5. Troponin less than 0.01. Chest x-ray shows stable cardiomegaly. EKG per my read shows paced rhythm. ASSESSMENT AND PLAN: This is a 74-year-old female patient presenting with acute respiratory distress with hypoxia secondary to most likely chronic obstructive pulmonary disease exacerbation, possibly superimposed fluid overload. She is requiring BiPAP. Pulmonary: The patient most likely has chronic obstructive pulmonary disease exacerbation. She continues to smoke. The patient will be on IV Solu-Medrol and neb treatments. In case we are dealing with a superimposed bacterial infection, we will have her on azithromycin. She did receive her initial dose in the emergency room. The patient will be admitted to [facility] and will be on BiPAP. She reported that she was recently tested for COVID-19 and the test was negative. We will retest her as per our protocol. Cardiac: The patient has history of congestive heart failure. She claims that she is compliant with her medications. We can change her Lasix to IV. We will continue with her other medications. I am waiting her med rec to be done to reconcile her medications. For DVT prophylaxis, she will be on SCDs and heparin subcutaneously. I did discuss with her code status. She wishes to be a full code. Job ID: [id number]
[2020-03-25 03:42] LABS: #Lymphocytes 0.6 thou/uL (1.20-3.40); #Neutrophils 6.1 thou/uL (1.40-6.50); %Basophils 0.4 % (0.0-1.0); %Lymphocytes 8.7 % (21.0-51.0); %Monocytes 0.5 % (0.0-10.0); %Neutrophils 90.5 % (42.0-75.0); Hemoglobin 12.7 g/dL (12.0-16.0); Mean Corpuscular HGB CONC 32.4 g/dL (32.0-36.0); Mean Corpuscular Hemoglobin 31.1 pg (27.0-31.0); Mean Corpuscular Volume 96.3 fL (78.0-98.0); Mean Platelet Volume 7.1 fL (7.4-10.4); Platelet Count 255 thou/uL (130-400); RBC Distribution Width 12.6 % (11.5-14.5); Red Blood Cell (RBC) Count 4.08 mill/uL (4.20-5.40); White Blood Cell (WBC) Count 6.7 thou/uL (4.8-10.8)
[2020-03-25 04:03] LABS: Anion Gap 16 mmol/L (10-20); BUN (Urea Nitrogen) 13 mg/dL (9.8-20.1); Calc. Creatinine Clearance 68 mL/min (70-130); Calcium 8.5 mg/dL (7.8-10.44); Carbon Dioxide 23 mmol/L (23-31); Chloride 105 mmol/L (98-107); Estimated GFR-MDRD 64; Glucose 262 mg/dL (83-110); Potassium 3.3 mmol/L (3.5-5.1); Sodium 141 mmol/L (136-145)
[2020-03-25] MEDS ORDERED: Potassium Chloride 20 MEQ TAB PO SCH ×2 (04:15→15:15)
[2020-03-25] MEDS: Furosemide 40 MG/4 ML VIAL SLOW IVP SCH ×2 (06:12→15:27)
[2020-03-25] MEDS: methylPREDNISolone Sod Succ 40 MG VIAL IVP SCH ×3 (07:49→20:13)
[2020-03-25] MEDS: Heparin 5,000 UNITS/ML VIAL SC SCH ×3 (07:49→20:16)
[2020-03-25] MEDS ORDERED: Albuterol 200 PUFF (6.7GM INHALER) INH PRN (10:15)
[2020-03-25] MEDS: Acetaminophen 325 MG TAB PO SCH ×2 (11:14→16:34)
--- NOTE | 2020-03-25 11:43 | CON ---
DATE OF CONSULTATION: 03/25/2020 50 minutes of time, of that time greater than 50% was spent with the patient and/or the patient's unit in the hospital. REASON FOR CONSULTATION: COPD exacerbation. HISTORY OF PRESENT ILLNESS: The patient is a pleasant 74-year-old female who presented to the emergency room last night with a 2- to 3-day history of increasing shortness of breath and hypoxemia. 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 In the ER, she required BiPAP. She has been started on steroids and nebulization treatments. She says she has continued to smoke about 4 to 5 cigarettes per day. She has had a hospitalization about 6 months ago for COVID. She has also had hospitalizations in the past for COPD and congestive heart failure. PAST MEDICAL HISTORY: 1. Chronic obstructive pulmonary disease. 2. Systolic heart failure with EF 35% to 40%. 3. Hyperlipidemia. 4. Cataracts. PAST SURGICAL HISTORY: 1. Tonsillectomy. 2. Left knee replacement. 3. Right elbow and left ankle surgery. 4. Carpal tunnel release. 5. Appendectomy. 6. Coronary artery bypass grafting surgery. 7. Cataract surgery. 8. Pacemaker placement. SOCIAL HISTORY: See above. Does not consume alcohol. FAMILY MEDICAL HISTORY: Unremarkable. ALLERGIES: DEMEROL, LEVAQUIN, LISINOPRIL, AND PENICILLIN. REVIEW OF SYSTEMS: Twelve-point review of systems is otherwise negative. PHYSICAL EXAMINATION: VITAL SIGNS: Temperature 98.0, pulse 72, blood pressure 141/73, O2 saturation 99%. GENERAL: She is awake and alert. She is in some respiratory discomfort. HEENT: Unremarkable. NECK: No adenopathy or JVD. LUNGS: She has some faint end-expiratory wheezing. CARDIOVASCULAR: S1, S2. Regular. ABDOMEN: Soft and nontender. EXTREMITIES: No edema. LABORATORY DATA: CBC; white blood cell count 6.7, hematocrit 39.3, and platelet count 255. The pH is 7.42, pCO2 of 43, PO2 of 169. Sodium 141, potassium 3.3, chloride 105, CO2 of 23, BUN 13, creatinine 0.8, glucose 262. Her chest x-ray shows hyperinflation, some cardiomegaly. BNP level was 992. ASSESSMENT: 1. Acute systolic heart failure with pulmonary edema. 2. Chronic obstructive pulmonary disease with exacerbation. PLAN: The patient is being treated with nebulization treatments, antibiotics, and diuretics. From my standpoint, she could be transferred to the medical floor. She does not need BiPAP at this time. Job ID: [id number]
--- NOTE | 2020-03-25 14:20 | PDOC.HOSPP ---
- Subjective Encounter Date: 03/25/20 Encounter Time: 11:15 Subjective: Patient up in bed continues to be short of breath - Objective Vital Signs & Weight: Vital Signs (12 hours) Temp Pulse Resp Pulse Ox 03/25/20 12:51 71 24 H 95 03/25/20 08:00 98.0 F 99 03/25/20 03:38 97.4 F L Weight Weight 167 lb 12.8 oz Most Recent Monitor Data Heart Rate from ECG 77 NIBP 138/76 NIBP BP-Mean 96 Respiration from ECG 31 SpO2 99 I&O: 03/24/20 03/25/20 03/26/20 06:59 06:59 06:59 Intake Total 490 Output Total 400 750 Balance 90 -750 Result Diagrams: 03/25/20 03:29 03/25/20 03:29 Hospitalist ROS - Review of Systems Cardiovascular: denies: chest pain, palpitations, orthopnea, paroxysmal noc. dyspnea, edema, light headedness, other Gastrointestinal: denies: nausea, vomiting, abdominal pain, diarrhea, constipation, melena, hematochezia, other Genitourinary: denies: dysuria, frequency, incontinence, hematuria, retention, other - Medication Medications: Active Medications Generic Name Dose Route Start Last Admin Trade Name Freq PRN Reason Stop Dose Admin Acetaminophen 325 mg 03/25/20 12:00 03/25/20 11:14 Acetaminophen 325 Mg Tab PO 325 mg Q6HR TRISTAN Administration Albuterol/Ipratropium 3 ml 03/25/20 01:00 03/25/20 12:51 Ipratropium/Albuterol Sulfate 3 Ml Neb NEB 3 ml [id number] TRISTAN Administration Furosemide 40 mg 03/25/20 06:00 03/25/20 06:12 Furosemide 40 Mg/4 Ml Vial SLOW IVP 40 mg 0600,1400 TRISTAN Administration Heparin Sodium (Porcine) 5,000 units 03/24/20 21:00 03/25/20 07:49 Heparin 5,000 Units/Ml Vial SC 5,000 units TID TIRSTAN Administration Methylprednisolone Sodium Succinate 40 mg 03/25/20 09:00 03/25/20 07:49 Methylprednisolone Sod Succ 40 Mg Vial IVP 40 mg TID TRISTAN Administration Pantoprazole Sodium 40 mg 03/25/20 09:00 03/25/20 07:48 Pantoprazole 40 Mg Tab PO 40 mg DAILY TRISTAN Administration - Exam Neck: negative: supple, symmetric, no JVD, no thyromegaly, no lymphadenopathy, no carotid bruit, JVD Heart: negative: RRR, no murmur, no gallops, no rubs, normal peripheral pulses, irregular, diminshed peripheral pulses, murmur present, II/IV, III/IV Respiratory: rhonchi Gastrointestinal: negative: soft, non-tender, non-distended, normal bowel sounds, no palpable masses, no hepatomegaly, no splenomegaly, no bruit, no guar ding, no rigidity, tender to palpation, distended, diminished bowl sounds, voluntary guarding Hosp A/P (1) Acute on chronic respiratory failure with hypoxia Code(s): J96.21 - ACUTE AND CHRONIC RESPIRATORY FAILURE WITH HYPOXIA Status: Acute (2) COPD exacerbation Code(s): J44.1 - CHRONIC OBSTRUCTIVE PULMONARY DISEASE W (ACUTE) EXACERBATION Status: Acute (3) SOB (shortness of breath) Code(s): R06.02 - SHORTNESS OF BREATH Status: Acute (4) Anxiety and depression Code(s): F41.8 - OTHER SPECIFIED ANXIETY DISORDERS Status: Chronic (5) Hypertension Code(s): I10 - ESSENTIAL (PRIMARY) HYPERTENSION Status: Chronic Qualifiers: - Plan Spoke with patient's nephew who states that patient has been very short of breath recently. Wanted to do home with hospice. We will continue steroids and duo nebs. She recently was diagnosed with Covid pneumonia. He continues to smoke. Currently is on 2 L. We will continue Lasix twice daily for now
[2020-03-25] MEDS ORDERED: Electrolyte Replacement Protoc 1 EACH EACH FS SCH (15:15)
[2020-03-25] MEDS ORDERED: Electrolyte Replacement Protocol FS PRN (15:15)
[2020-03-25] MEDS: Carvedilol 6.25 MG TAB PO SCH (15:27)
[2020-03-25] MEDS: Albuterol 200 PUFF (6.7GM INHALER) INH SCH (18:44)
[2020-03-25] MEDS: Atorvastatin Calcium 40 MG TAB PO SCH (20:12)
[2020-03-25] MEDS: Azithromycin 250 MG TAB PO SCH (20:13)
[2020-03-25] MEDS: traZODone HCl 50 MG TAB PO SCH (20:13)
[2020-03-25] MEDS: Gabapentin 300 MG CAP PO SCH (20:13)
[2020-03-25] MEDS ORDERED: FLU VACC QS2020-21(65YR UP)/PF 240 MCG/0.7 ML SYRINGE IM ONE (21:00)
[2020-03-25] MEDS: Calcium Carbonate + Vit D 250 MG TAB PO SCH (22:11)
[2020-03-26] MEDS: Acetaminophen 325 MG TAB PO SCH ×5 (00:29→23:18)
[2020-03-26 04:23] LABS: #Lymphocytes 1.1 thou/uL (1.20-3.40); #Monocytes 0.4 thou/uL (0.11-0.59); #Neutrophils 13.7 thou/uL (1.40-6.50); %Basophils 0.1 % (0.0-1.0); %Eosinophils 0.1 % (0.0-10.0); %Lymphocytes 7.3 % (21.0-51.0); %Monocytes 2.5 % (0.0-10.0); Hemoglobin 12.6 g/dL (12.0-16.0); Mean Corpuscular HGB CONC 32.4 g/dL (32.0-36.0); Mean Corpuscular Hemoglobin 30.8 pg (27.0-31.0); Mean Platelet Volume 7.3 fL (7.4-10.4); Platelet Count 266 thou/uL (130-400); RBC Distribution Width 12.8 % (11.5-14.5); Red Blood Cell (RBC) Count 4.09 mill/uL (4.20-5.40); White Blood Cell (WBC) Count 15.3 thou/uL (4.8-10.8)
[2020-03-26 04:36] LABS: Anion Gap 11 mmol/L (10-20); BUN (Urea Nitrogen) 17 mg/dL (9.8-20.1); Calc. Creatinine Clearance 79 mL/min (70-130); Calcium 8.6 mg/dL (7.8-10.44); Carbon Dioxide 30 mmol/L (23-31); Chloride 103 mmol/L (98-107); Estimated GFR-MDRD 77; Glucose 155 mg/dL (83-110); Sodium 140 mmol/L (136-145)
[2020-03-26] MEDS: Furosemide 40 MG/4 ML VIAL SLOW IVP SCH ×2 (06:20→16:35)
[2020-03-26] MEDS: Losartan 25 MG TAB PO SCH (09:50)
[2020-03-26] MEDS: Calcium Carbonate + Vit D 250 MG TAB PO SCH ×2 (09:50→20:48)
[2020-03-26] MEDS: Spironolactone 25 MG TAB PO SCH (09:51)
[2020-03-26] MEDS: Aspirin 325 mg Enteric Coated Tablet PO SCH (09:51)
[2020-03-26] MEDS: Loratadine 10 MG TAB PO SCH (09:51)
[2020-03-26] MEDS: Carvedilol 6.25 MG TAB PO SCH ×2 (09:52→16:00)
[2020-03-26] MEDS: methylPREDNISolone Sod Succ 40 MG VIAL IVP SCH ×2 (09:54→15:54)
[2020-03-26] MEDS: Heparin 5,000 UNITS/ML VIAL SC SCH ×3 (09:57→20:49)
[2020-03-26] MEDS: Albuterol 200 PUFF (6.7GM INHALER) INH SCH ×2 (10:43→19:19)
--- NOTE | 2020-03-26 10:56 | PRG ---
DATE OF SERVICE: 03/26/2020 SUBJECTIVE: The patient continues to do a little better compared to admission. She is considering hospice care because she says her breathing has not improved much since she had COVID-19 pneumonia. OBJECTIVE: VITAL SIGNS: Temperature is 99, pulse 70, blood pressure 130/61, O2 saturation 100%. HEENT: Unremarkable. NECK: No JVD. LUNGS: Diffuse mild end-expiratory wheezing. ABDOMEN: Soft. EXTREMITIES: No edema. LABORATORY DATA: White blood cell count 15.3, hematocrit 38.9, and platelet count 266. Sodium 140, potassium 4, chloride 103, CO2 of 30, BUN 17, creatinine 0.7, glucose 155. ASSESSMENT: 1. Chronic obstructive pulmonary disease with exacerbation. 2. Previous COVID-19 pneumonia. PLAN: She is stable for transfer to the medical floor. Continue nebulization treatments. Can wean steroids at any time. No further recommendations at this time. Job ID: [id number]
--- NOTE | 2020-03-26 15:47 | PDOC.HOSPP ---
- Subjective Encounter Date: 03/26/20 Encounter Time: 10:30 Subjective: Patient up in bed no complaints - Objective Vital Signs & Weight: Vital Signs (12 hours) Temp Pulse Resp BP Pulse Ox 03/26/20 15:16 98.2 F 03/26/20 15:01 100 22 H 96 03/26/20 11:45 98.2 F 03/26/20 09:52 119/77 03/26/20 08:00 99 03/26/20 07:28 99.0 F 03/26/20 04:40 97.0 F L Weight Weight 167 lb 1.6 oz Most Recent Monitor Data Heart Rate from ECG 70 NIBP 127/63 NIBP BP-Mean 84 Respiration from ECG 20 SpO2 100 I&O: 03/25/20 03/26/20 03/27/20 06:59 06:59 06:59 Intake Total 490 380 Output Total 400 1150 Balance 90 -770 Result Diagrams: 03/26/20 03:58 03/26/20 03:58 Hospitalist ROS - Review of Systems Cardiovascular: denies: chest pain, palpitations, orthopnea, paroxysmal noc. dyspnea, edema, light headedness, other Gastrointestinal: denies: nausea, vomiting, abdominal pain, diarrhea, constipation, melena, hematochezia, other Genitourinary: denies: dysuria, frequency, incontinence, hematuria, retention, other - Medication Medications: Active Medications Generic Name Dose Route Start Last Admin Trade Name Freq PRN Reason Stop Dose Admin Acetaminophen 325 mg 03/25/20 12:00 03/26/20 12:00 Acetaminophen 325 Mg Tab PO Not Given Q6HR TRISTAN Albuterol Sulfate 2 puff 03/25/20 18:30 03/26/20 10:43 Albuterol 200 Puff (6.7gm Inhaler) INH Not Given BID-RT TRISTAN Albuterol/Ipratropium 3 ml 03/25/20 01:00 03/26/20 15:01 Ipratropium/Albuterol Sulfate 3 Ml Neb NEB 3 ml [id number] TRISTAN Administration Aspirin 325 mg 03/26/20 09:00 03/26/20 09:51 Aspirin 325 Mg Enteric Coated Tablet PO 325 mg DAILY TRISTAN Administration Atorvastatin Calcium 80 mg 03/25/20 21:00 03/25/20 20:12 Atorvastatin Calcium 40 Mg Tab PO 80 mg HS TRISTAN Administration Azithromycin 500 mg 03/25/20 20:00 03/25/20 20:13 Azithromycin 250 Mg Tab PO 03/28/20 20:01 500 mg Q24HR TRISTAN Administration Calcium/Vitamin D 250 mg 03/25/20 21:00 03/26/20 09:50 Calcium Carbonate + Vit D 250 Mg Tab PO 250 mg BID TRISTAN Administration Carvedilol 6.25 mg 03/25/20 17:00 03/26/20 09:52 Carvedilol 6.25 Mg Tab PO 6.25 mg BID-WM TRISTAN Administration Furosemide 40 mg 03/25/20 06:00 03/26/20 06:20 Furosemide 40 Mg/4 Ml Vial SLOW IVP 40 mg 0600,1400 TRISTAN Administration Gabapentin 300 mg 03/25/20 21:00 03/25/20 20:13 Gabapentin 300 Mg Cap PO 300 mg HS TRISTAN Administration Heparin Sodium (Porcine) 5,000 units 03/24/20 21:00 03/26/20 09:57 Heparin 5,000 Units/Ml Vial SC 5,000 units TID TRISTAN Administration Loratadine 10 mg 03/26/20 09:00 03/26/20 09:51 Loratadine 10 Mg Tab PO 10 mg DAILY TRISTAN Administration Losartan Potassium 12.5 mg 03/26/20 09:00 03/26/20 09:50 Losartan 25 Mg Tab PO 12.5 mg DAILY TRISTAN Administration Pantoprazole Sodium 40 mg 03/25/20 09:00 03/26/20 09:51 Pantoprazole 40 Mg Tab PO 40 mg DAILY TRISTAN Administration Spironolactone 25 mg 03/26/20 09:00 03/26/20 09:51 Spironolactone 25 Mg Tab PO 25 mg DAILY TRISTAN Administration Trazodone HCl 100 mg 03/25/20 21:00 03/25/20 20:13 Trazodone Hcl 50 Mg Tab PO 100 mg HS TRISTAN Administration - Exam Neck: negative: supple, symmetric, no JVD, no thyromegaly, no lymphadenopathy, no carotid bruit, JVD Heart: negative: RRR, no murmur, no gallops, no rubs, normal peripheral pulses, irregular, diminshed peripheral pulses, murmur present, II/IV, III/IV Respiratory: wheezes Gastrointestinal: negative: soft, non-tender, non-distended, normal bowel sounds, no palpable masses, no hepatomegaly, no splenomegaly, no bruit, no guarding, no rigidity, tender to palpation, distended, diminished bowl sounds, voluntary guarding Hosp A/P (1) Acute on chronic respiratory failure with hypoxia Code(s): J96.21 - ACUTE AND CHRONIC RESPIRATORY FAILURE WITH HYPOXIA Status: Acute (2) COPD exacerbation Code(s): J44.1 - CHRONIC OBSTRUCTIVE PULMONARY DISEASE W (ACUTE) EXACERBATION Status: Acute (3) SOB (shortness of breath) Code(s): R06.02 - SHORTNESS OF BREATH Status: Acute (4) Anxiety and depression Code(s): F41.8 - OTHER SPECIFIED ANXIETY DISORDERS Status: Chronic (5) Hypertension Code(s): I10 - ESSENTIAL (PRIMARY) HYPERTENSION Status: Chronic Qualifiers: - Plan Spoke with patient's nephew who states that patient has been very short of breath recently. Wanted to do home with hospice. We will continue steroids and duo nebs. She recently was diagnosed with Covid pneumonia. He continues to smoke. Currently is on 2 L. We will continue Lasix twice daily for now 03/26 we will change IV steroids to p.o. prednisone. Will decrease diuretics to p.o. Echocardiogram ordered. Possible discharge home tomorrow. Hospice did come speak with the patient however patient at this time refused to go home with hospice.
[2020-03-26] MEDS ORDERED: Furosemide 40 MG/4 ML VIAL ONE (15:53)
[2020-03-26] MEDS: Atorvastatin Calcium 40 MG TAB PO SCH (20:48)
[2020-03-26] MEDS: Azithromycin 250 MG TAB PO SCH (20:48)
[2020-03-26] MEDS: traZODone HCl 50 MG TAB PO SCH (20:49)
[2020-03-26] MEDS: Gabapentin 300 MG CAP PO SCH (20:49)
[2020-03-27] MEDS: Acetaminophen 325 MG TAB PO SCH ×3 (06:00→18:35)
[2020-03-27] MEDS ORDERED: Furosemide 40 MG TAB PO SCH (07:30)
[2020-03-27] MEDS ORDERED: predniSONE 20 MG TAB PO SCH (08:00)
[2020-03-27] MEDS: Albuterol 200 PUFF (6.7GM INHALER) INH SCH ×2 (08:14→19:28)
[2020-03-27] MEDS: Loratadine 10 MG TAB PO SCH (08:50)
[2020-03-27] MEDS: Losartan 25 MG TAB PO SCH (08:50)
[2020-03-27] MEDS: Heparin 5,000 UNITS/ML VIAL SC SCH ×2 (08:50→16:01)
[2020-03-27] MEDS: Aspirin 325 mg Enteric Coated Tablet PO SCH (08:50)
[2020-03-27] MEDS: Calcium Carbonate + Vit D 250 MG TAB PO SCH (08:50)
[2020-03-27] MEDS: Spironolactone 25 MG TAB PO SCH (08:51)
[2020-03-27] MEDS: Carvedilol 6.25 MG TAB PO SCH ×2 (08:51→16:03)
--- NOTE | 2020-03-27 18:17 | PDOC.DS.DS ---
Provider - Provider Date of Admission: 03/24/20 20:26 Date of Discharge: 03/27/20 Admitting Provider: Trinh Hooks MD Consultations: Cardiology, Pulmonary Primary Care Physician: Jazmyne De Los Santos Course - Hospital Course Hospital Course: Patient is a very pleasant 74-year-old female who initially presented to the hospital with shortness of breath. She has a history of COPD continues to smoke. She is on 2 L of nasal cannula. She had Covid a few months ago. Patient at this time was noted to have an elevated BNP and significant wheezing on examination. She was treated for COPD exacerbation and acute on chronic systolic heart failure. Her EF currently has been depressed than her prior EF. I encouraged the patient to not smoke. I did speak with the patient's nephew Harshad who had mentioned about hospice however patient did not want hospice at this time. She will be discharged home on her 2 L nasal cannula, steroids and antibiotics. She has been asked to follow-up with Dr. Jennings. She is optimized on her heart failure medications. I have asked her to refrain from salty meals and watch her water intake. Resuscitation Status: 03/24/20 20:47 Resuscitation Status Routine Resuscitation Status: FULL: Full Resuscitation - Labs Lab Results: 03/26/20 03:58 03/26/20 03:58 Abnormal Lab Results - Last 48 hrs 03/26/20 03:58: WBC 15.3 H, RBC 4.09 L, MPV 7.3 L, Neutrophils % 90.0 H, Lymphocytes % 7.3 L, Neutrophils # 13.7 H, Lymphocytes # 1.1 L Microbiology - Entire Visit 03/24/20 19:04 Venous blood - Left Arm Blood Culture - Preliminary NO GROWTH AT 48 HOURS 03/24/20 19:03 Venous blood - Right Arm Blood Culture - Preliminary NO GROWTH AT 48 HOURS - Physical Exam Vitals: Vital Signs (12 hours) Temp Pulse Resp BP BP Pulse Ox 03/27/20 16:06 97.9 F 66 16 107/66 94 L 03/27/20 16:03 107/64 03/27/20 13:22 67 18 95 03/27/20 08:51 132/66 03/27/20 08:13 95 20 94 L 03/27/20 07:06 98.1 F 68 18 102/57 L 96 Weight Weight 169 lb 1 oz Most Recent Monitor Data Heart Rate from ECG 72 NIBP 121/69 NIBP BP-Mean 86 Respiration from ECG 31 SpO2 100 Physical Exam: The patient was seen and examined on the day of discharge. Problem - Problem (1) Acute on chronic respiratory failure with hypoxia Code(s): J96.21 - ACUTE AND CHRONIC RESPIRATORY FAILURE WITH HYPOXIA Status: Acute (2) COPD exacerbation Code(s): J44.1 - CHRONIC OBSTRUCTIVE PULMONARY DISEASE W (ACUTE) EXACERBATION Status: Acute (3) SOB (shortness of breath) Code(s): R06.02 - SHORTNESS OF BREATH Status: Acute (4) Anxiety and depression Code(s): F41.8 - OTHER SPECIFIED ANXIETY DISORDERS Status: Chronic (5) Hypertension Code(s): I10 - ESSENTIAL (PRIMARY) HYPERTENSION Status: Chronic Qualifiers: (6) Acute on chronic combined systolic and diastolic CHF, NYHA class 2 Code(s): I50.43 - ACUTE ON CHRONIC COMBINED SYSTOLIC AND DIASTOLIC HRT FAIL Status: Acute Plan - Discharge Medications Prescriptions: predniSONE 40 mg PO QAM-WM #4 tab Doxycycline [Vibramycin] 100 mg PO Q12HR #10 cap Home Medications: Medication Instructions Recorded Confirmed Type Carvedilol [Coreg] 6.25 mg PO BID-WM tab 07/01/16 03/25/20 Rx Albuterol Sulfate [Proventil Hfa] 2 puff INH Q6HR PRN 06/28/17 03/25/20 History Gabapentin [Neurontin] 300 mg PO HS 06/28/17 03/25/20 History Losartan [Cozaar] 0.5 tab PO DAILY 06/28/17 03/25/20 History Spironolactone 25 mg PO DAILY 06/28/17 03/25/20 History Calcium Carbonate/Vitamin D3 1 each PO BID 01/29/18 03/25/20 History [Calcium 500-Vit D3 200 Tablet] Omeprazole 20 mg PO DAILY 01/29/18 03/25/20 History traZODone HCl [Trazodone HCl] 100 mg PO HS 01/29/18 03/25/20 History Acyclovir 400 mg PO BID PRN 09/28/18 03/25/20 History Cetirizine HCl [Zyrtec] 10 mg PO DAILY 09/28/18 03/25/20 History Furosemide [Lasix] 20 mg PO DAILY 09/28/18 03/25/20 History Ipratropium/Albuterol Sulfate 3 ml NEB BID-RT 09/28/18 03/25/20 History [DuoNeb] Atorvastatin Calcium 80 mg PO HS 09/29/18 03/25/20 History Aspirin [Aspirin EC] 325 mg PO DAILY 06/21/19 03/25/20 History Acetaminophen [Tylenol Regular 325 mg PO Q6HR tab 06/28/19 03/25/20 Rx Strength] Doxycycline [Vibramycin] 100 mg PO Q12HR #10 cap 03/27/20 Rx predniSONE 40 mg PO QAM-WM #4 tab 03/27/20 Rx Allergies: levofloxacin [From Levaquin] Allergy (Verified 09/22/19 05:57) lisinopril Allergy (Verified 07/11/19 12:10) meperidine HCl [From Demerol] Allergy (Verified 09/22/19 05:57) Penicillins Allergy (Verified 09/22/19 05:57) - Discharge Instructions Activity:: Activity as Tolerated Nourishment:: Heart Healthy Diet - Follow up Plan Referrals: Dominic Lima [Other] (You have been accepted for care by [facility]. Their nurse will contact you to set up an appointment for your first home visit following discharge and anticipate starting services on 03/28/20.) Rodríguez Jennings MD [Active] - Jazmyne De Los Santos MD [Primary Care Provider] - Harvinder Bowers MD [Active] - Disposition: HOME Quality - Care Measures CORE MEASURES:: N/A
[2020-03-27 19:30] VITALS: BP 121/65; TEMP 97.3
== END 2020-03-27 20:20 | disposition home or self-care (01) | DRG 291 ==
LOC: ERS 18:34 → IMCU/EMU 20:26 → T4-A 03-26 18:38
PROVIDERS: ADMIT Internal Medicine; ATTEND Internal Medicine
DX: I11.0 Hypertensive heart disease with heart failure (principal); J96.21 Acute and chronic respiratory failure with hypoxia; J44.1 Chronic obstructive pulmonary disease with (acute) exacerbation; E78.5 Hyperlipidemia, unspecified; I50.43 Acute on chronic combined systolic (congestive) and diastolic (congestive) heart failure; D64.9 Anemia, unspecified; Z96.652 Presence of left artificial knee joint; F32.9 Major depressive disorder, single episode, unspecified; M19.90 Unspecified osteoarthritis, unspecified site; F17.210 Nicotine dependence, cigarettes, uncomplicated; F41.9 Anxiety disorder, unspecified; E87.6 Hypokalemia; Z96.1 Presence of intraocular lens; Z95.1 Presence of aortocoronary bypass graft; Z95.0 Presence of cardiac pacemaker; Z98.42 Cataract extraction status, left eye; Z98.41 Cataract extraction status, right eye; Z90.49 Acquired absence of other specified parts of digestive tract; Z90.89 Acquired absence of other organs; Z88.0 Allergy status to penicillin; Z88.1 Allergy status to other antibiotic agents; Z88.8 Allergy status to other drugs, medicaments and biological substances; Z79.899 Other long term (current) drug therapy; Z79.51 Long term (current) use of inhaled steroids; Z86.19 Personal history of other infectious and parasitic diseases
CPT/HCPCS: 36415; 36600; 71045; 80048; 80053; 82550; 82805; 83605; 83690; 83880; 84484; 85025; 87040; 93005; 93306; 94640; 94660; 94760; J0456; J1100; J1644; J1940; J2060; J2920; J3475; J7512; J7611; J7620

== ENCOUNTER 2023-02-01 22:35 | Inpatient (IN) | payer OTHER ==
[2023-02-02 00:06] LABS: Actual Bicarbonate (HCO3a) 26.9 mEq/L (22-28); Base Excess (BEa) 3.6 mEq/L (-2.0 to +3.0); CO2 Tension 36.3 mmHg (35.0-45.0); Calcium, Ionized (arterial) 1.17 mmol/L (1.12-1.30); Carboxyhemoglobin (COHb) 1.3 gm% (0.0-3.0); Hematocrit-ABG 39 % (36.0-47.0); Hemoglobin (Hb) 13.2 g/dL (12.0-16.0); O2 Tension (PaO2), arterial 131.4 mmHg (> 70.0); Potassium - ABG Lab 3.83 mmol/L (3.70-5.30); pH, Arterial 7.487 (7.35-7.45)
[2023-02-02 00:07] LABS: ALV-art Gradient 108.425 mmHg (0-20); Analyzer IN Cardio ER; Puncture Site RRA
[2023-02-02 00:25] LABS: Anion Gap 16 mmol/L (10-20); BUN (Urea Nitrogen) 7 mg/dL (9.8-20.1); Calc. Creatinine Clearance 0 mL/min (70-130); Calcium 9.5 mg/dL (7.8-10.44); Carbon Dioxide 21 mmol/L (23-31); Chloride 105 mmol/L (98-107); Estimated GFR 79; Glucose 140 mg/dL (83-110); Potassium 3.7 mmol/L (3.5-5.1); Sodium 138 mmol/L (136-145)
[2023-02-02] MEDS ORDERED: Ipratropium/Albuterol 3 ML NEB EZPAP PRN (01:05)
[2023-02-02] MEDS ORDERED: Ondansetron PF 4 MG/2 ML Vial IVP PRN (01:09)
[2023-02-02] MEDS ORDERED: Acetaminophen 325 MG TAB PO PRN (01:09)
[2023-02-02 01:19] LABS: Magnesium 1.7 mg/dL (1.6-2.6)
[2023-02-02] MEDS ORDERED: Electrolyte Replacement Protocol 1 EACH FS SCH (01:27)
[2023-02-02] MEDS ORDERED: Magnesium 2 GM/50 ML(in water) 2 GM in Premix Bag 1 BAG IVPB SCH (01:30)
[2023-02-02] MEDS ORDERED: ALPRAZolam 0.25 MG TAB PO SCH (01:30)
[2023-02-02] MEDS ORDERED: Magnesium Sulfate 2 GM in Sodium Chloride 0.9% 100 ML IVPB SCH (01:45)
[2023-02-02] MEDS: Furosemide 40 MG/4 ML VIAL SLOW IVP SCH ×2 (05:04→17:17)
[2023-02-02 07:00] LABS: #Monocytes 0.1 thou/uL (0.11-0.59); #Neutrophils 2.2 thou/uL (1.40-6.50); %Basophils 0.3 % (0.0-1.0); %Lymphocytes 25.6 % (21.0-51.0); %Monocytes 2.9 % (0.0-10.0); %Neutrophils 70.9 % (42.0-75.0); Hematocrit 39.6 % (36.0-47.0); Mean Corpuscular HGB CONC 32.8 g/dL (32.0-36.0); Mean Corpuscular Hemoglobin 31.3 pg (27.0-31.0); Mean Corpuscular Volume 95.4 fl (78.0-98.0); Mean Platelet Volume 9.8 fL (7.4-10.4); Platelet Count 280 10x3/uL (130-400); RBC Distribution Width 13.7 % (11.5-14.5); Red Blood Cell (RBC) Count 4.15 mill/uL (4.20-5.40); White Blood Cell (WBC) Count 3.1 10x3/uL (4.8-10.8)
[2023-02-02 07:30] LABS: Anion Gap 12 mmol/L (10-20); BUN (Urea Nitrogen) 8 mg/dL (9.8-20.1); Calc. Creatinine Clearance 55 mL/min (70-130); Calcium 9.3 mg/dL (7.8-10.44); Carbon Dioxide 28 mmol/L (23-31); Chloride 106 mmol/L (98-107); Estimated GFR 84; Glucose 141 mg/dL (83-110); Magnesium 2.2 mg/dL (1.6-2.6); Potassium 3.7 mmol/L (3.5-5.1); Sodium 142 mmol/L (136-145)
[2023-02-02] MEDS: Ipratropium/Albuterol 3 ML NEB IPPB SCH ×3 (07:56→18:25)
[2023-02-02] MEDS: Gabapentin 300 MG CAP PO SCH (21:50)
[2023-02-02] MEDS: traZODone HCl 50 MG TAB PO SCH (21:50)
[2023-02-03] MEDS: Ipratropium/Albuterol 3 ML NEB IPPB SCH ×5 (00:45→22:08)
[2023-02-03 04:00] LABS: #Basophils 0.1 thou/uL (0.0-0.2); #Eosinphils 0.1 thou/uL (0.0-0.7); #Monocytes 0.8 thou/uL (0.11-0.59); #Neutrophils 5.3 thou/uL (1.40-6.50); %Basophils 0.7 % (0.0-1.0); %Eosinophils 1.3 % (0.0-10.0); %Lymphocytes 34.3 % (21.0-51.0); %Monocytes 8.4 % (0.0-10.0); %Neutrophils 55.1 % (42.0-75.0); Hematocrit 36.1 % (36.0-47.0); Hemoglobin 11.7 g/dL (12.0-16.0); Mean Corpuscular HGB CONC 32.4 g/dL (32.0-36.0); Mean Corpuscular Hemoglobin 30.5 pg (27.0-31.0); Mean Corpuscular Volume 94.3 fl (78.0-98.0); Mean Platelet Volume 9.6 fL (7.4-10.4); Platelet Count 251 10x3/uL (130-400); RBC Distribution Width 13.9 % (11.5-14.5); Red Blood Cell (RBC) Count 3.83 mill/uL (4.20-5.40); White Blood Cell (WBC) Count 9.6 10x3/uL (4.8-10.8)
[2023-02-03 04:27] LABS: Anion Gap 13 mmol/L (10-20); BUN (Urea Nitrogen) 16 mg/dL (9.8-20.1); Calc. Creatinine Clearance 53 mL/min (70-130); Calcium 8.8 mg/dL (7.8-10.44); Carbon Dioxide 28 mmol/L (23-31); Chloride 104 mmol/L (98-107); Estimated GFR 81; Glucose 100 mg/dL (83-110); Magnesium 1.9 mg/dL (1.6-2.6); Potassium 3.4 mmol/L (3.5-5.1); Sodium 142 mmol/L (136-145)
[2023-02-03] MEDS: Furosemide 40 MG/4 ML VIAL SLOW IVP SCH ×2 (06:41→13:18)
[2023-02-03] MEDS ORDERED: Magnesium 2 GM/50 ML(in water) 2 GM in Premix Bag 1 BAG IVPB SCH (08:00)
[2023-02-03] MEDS ORDERED: Potassium Chloride 20 MEQ TAB PO SCH (08:00)
[2023-02-03] MEDS: methylPREDNISolone Sod Succ 40 MG VIAL IVP SCH ×3 (13:19→23:40)
[2023-02-03] MEDS: traZODone HCl 50 MG TAB PO SCH (20:47)
[2023-02-03] MEDS: Gabapentin 300 MG CAP PO SCH (20:47)
[2023-02-04 03:55] LABS: #Monocytes 0.1 thou/uL (0.11-0.59); #Neutrophils 10.6 thou/uL (1.40-6.50); %Basophils 0.1 % (0.0-1.0); %Lymphocytes 7.5 % (21.0-51.0); %Monocytes 0.9 % (0.0-10.0); %Neutrophils 91.1 % (42.0-75.0); Hematocrit 36.7 % (36.0-47.0); Hemoglobin 12.1 g/dL (12.0-16.0); Mean Corpuscular Hemoglobin 31.1 pg (27.0-31.0); Mean Corpuscular Volume 94.3 fl (78.0-98.0); Mean Platelet Volume 9.8 fL (7.4-10.4); Platelet Count 259 10x3/uL (130-400); RBC Distribution Width 13.8 % (11.5-14.5); Red Blood Cell (RBC) Count 3.89 mill/uL (4.20-5.40); White Blood Cell (WBC) Count 11.7 10x3/uL (4.8-10.8)
[2023-02-04 04:19] LABS: Anion Gap 12 mmol/L (10-20); BUN (Urea Nitrogen) 18 mg/dL (9.8-20.1); Calc. Creatinine Clearance 43 mL/min (70-130); Calcium 9.1 mg/dL (7.8-10.44); Carbon Dioxide 28 mmol/L (23-31); Chloride 100 mmol/L (98-107); Estimated GFR 65; Glucose 160 mg/dL (83-110); Magnesium 2.3 mg/dL (1.6-2.6); Potassium 4.4 mmol/L (3.5-5.1); Sodium 136 mmol/L (136-145)
[2023-02-04] MEDS: methylPREDNISolone Sod Succ 40 MG VIAL IVP SCH ×3 (06:13→22:26)
[2023-02-04] MEDS: Furosemide 40 MG/4 ML VIAL SLOW IVP SCH ×2 (06:14→14:31)
[2023-02-04] MEDS: Ipratropium/Albuterol 3 ML NEB IPPB SCH ×3 (07:09→18:11)
[2023-02-04] MEDS: Budesonide 0.5 MG/2 ML NEB NEB SCH (18:11)
[2023-02-04] MEDS: Gabapentin 300 MG CAP PO SCH (20:20)
[2023-02-04] MEDS: traZODone HCl 50 MG TAB PO SCH (20:20)
[2023-02-05] MEDS: Ipratropium/Albuterol 3 ML NEB IPPB SCH ×5 (00:40→23:47)
[2023-02-05 04:19] LABS: #Monocytes 0.3 thou/uL (0.11-0.59); #Neutrophils 10.5 thou/uL (1.40-6.50); %Basophils 0.1 % (0.0-1.0); %Lymphocytes 7.5 % (21.0-51.0); %Monocytes 2.8 % (0.0-10.0); Hematocrit 37.5 % (36.0-47.0); Hemoglobin 12.3 g/dL (12.0-16.0); Mean Corpuscular HGB CONC 32.8 g/dL (32.0-36.0); Mean Corpuscular Hemoglobin 31.6 pg (27.0-31.0); Mean Corpuscular Volume 96.4 fl (78.0-98.0); Mean Platelet Volume 9.7 fL (7.4-10.4); Platelet Count 280 10x3/uL (130-400); RBC Distribution Width 13.9 % (11.5-14.5); Red Blood Cell (RBC) Count 3.89 mill/uL (4.20-5.40); White Blood Cell (WBC) Count 11.7 10x3/uL (4.8-10.8)
[2023-02-05 04:43] LABS: Anion Gap 14 mmol/L (10-20); BUN (Urea Nitrogen) 22 mg/dL (9.8-20.1); Calc. Creatinine Clearance 50 mL/min (70-130); Calcium 9.3 mg/dL (7.8-10.44); Carbon Dioxide 28 mmol/L (23-31); Chloride 98 mmol/L (98-107); Estimated GFR 77; Glucose 149 mg/dL (83-110); Magnesium 2.2 mg/dL (1.6-2.6); Potassium 4.4 mmol/L (3.5-5.1); Sodium 136 mmol/L (136-145)
[2023-02-05] MEDS: methylPREDNISolone Sod Succ 40 MG VIAL IVP SCH ×2 (06:11→21:34)
[2023-02-05] MEDS: Furosemide 40 MG/4 ML VIAL SLOW IVP SCH ×2 (06:11→13:49)
[2023-02-05] MEDS: Budesonide 0.5 MG/2 ML NEB NEB SCH ×2 (07:41→19:10)
[2023-02-05] MEDS: traZODone HCl 50 MG TAB PO SCH (21:34)
[2023-02-05] MEDS: Gabapentin 300 MG CAP PO SCH (21:34)
[2023-02-06 03:43] LABS: #Monocytes 0.3 thou/uL (0.11-0.59); #Neutrophils 7.7 thou/uL (1.40-6.50); %Basophils 0.1 % (0.0-1.0); %Lymphocytes 9.8 % (21.0-51.0); %Monocytes 2.9 % (0.0-10.0); %Neutrophils 86.8 % (42.0-75.0); Hematocrit 38.7 % (36.0-47.0); Hemoglobin 12.7 g/dL (12.0-16.0); Mean Corpuscular HGB CONC 32.8 g/dL (32.0-36.0); Mean Corpuscular Hemoglobin 31.4 pg (27.0-31.0); Mean Corpuscular Volume 95.6 fl (78.0-98.0); Mean Platelet Volume 9.8 fL (7.4-10.4); Platelet Count 278 10x3/uL (130-400); RBC Distribution Width 13.8 % (11.5-14.5); Red Blood Cell (RBC) Count 4.05 mill/uL (4.20-5.40); White Blood Cell (WBC) Count 8.9 10x3/uL (4.8-10.8)
[2023-02-06 04:12] LABS: Anion Gap 12 mmol/L (10-20); BUN (Urea Nitrogen) 28 mg/dL (9.8-20.1); Calc. Creatinine Clearance 49 mL/min (70-130); Calcium 9.3 mg/dL (7.8-10.44); Carbon Dioxide 31 mmol/L (23-31); Chloride 99 mmol/L (98-107); Estimated GFR 74; Glucose 140 mg/dL (83-110); Magnesium 2.2 mg/dL (1.6-2.6); Potassium 4.2 mmol/L (3.5-5.1); Sodium 138 mmol/L (136-145)
[2023-02-06] MEDS: Furosemide 40 MG/4 ML VIAL SLOW IVP SCH ×2 (06:04→15:56)
[2023-02-06] MEDS: Ipratropium/Albuterol 3 ML NEB IPPB SCH ×4 (06:46→23:40)
[2023-02-06] MEDS: Budesonide 0.5 MG/2 ML NEB NEB SCH ×2 (06:47→19:02)
[2023-02-06] MEDS: methylPREDNISolone Sod Succ 40 MG VIAL IVP SCH ×2 (09:09→21:17)
[2023-02-06] MEDS: Carvedilol 6.25 MG TAB PO SCH (15:56)
[2023-02-06] MEDS ORDERED: Atorvastatin Calcium 40 MG TAB PO SCH (21:00)
[2023-02-06] MEDS: Gabapentin 300 MG CAP PO SCH (21:17)
[2023-02-06] MEDS: traZODone HCl 50 MG TAB PO SCH (21:17)
[2023-02-07 03:30] LABS: Anion Gap 13 mmol/L (10-20); BUN (Urea Nitrogen) 33 mg/dL (9.8-20.1); Calc. Creatinine Clearance 37 mL/min (70-130); Calcium 9.2 mg/dL (7.8-10.44); Carbon Dioxide 31 mmol/L (23-31); Cardiac Risk 3.1 (Less than 4.5); Chloride 96 mmol/L (98-107); Cholesterol 185 mg/dl (< 200 Desired); Estimated GFR 54; Glucose 155 mg/dL (83-110); HDL Cholesterol 60 mg/dL (>60 Neg Risk); LDL Cholesterol, Calculated 111 mg/dL; Magnesium 2.2 mg/dL (1.6-2.6); Sodium 136 mmol/L (136-145); Triglycerides 71 mg/dL (Less than 150)
[2023-02-07] MEDS: Furosemide 40 MG/4 ML VIAL SLOW IVP SCH ×2 (05:53→14:00)
[2023-02-07] MEDS: Ipratropium/Albuterol 3 ML NEB IPPB SCH ×2 (06:42→12:50)
[2023-02-07] MEDS: Budesonide 0.5 MG/2 ML NEB NEB SCH (06:42)
[2023-02-07] MEDS: Carvedilol 6.25 MG TAB PO SCH ×2 (07:56→17:41)
[2023-02-07] MEDS: methylPREDNISolone Sod Succ 40 MG VIAL IVP SCH (07:57)
[2023-02-07 08:59] VITALS: BMI 21.0
[2023-02-07] MEDS ORDERED: Aspirin 325 mg Enteric Coated Tablet PO SCH (09:00)
[2023-02-07] MEDS ORDERED: Spironolactone 25 MG TAB PO SCH (09:00)
[2023-02-07 17:36] VITALS: TEMP 97.6
[2023-02-07 17:42] VITALS: BP 134/65
[2023-02-08] MEDS ORDERED: Furosemide 40 MG TAB PO SCH (07:30)
== END 2023-02-07 18:44 | disposition swing bed (61) | DRG 291 ==
LOC: ERS 22:35 → CCU 02-02 00:42 → IMCU/EMU 02-02 06:28
PROVIDERS: ADMIT Internal Medicine; ATTEND Internal Medicine
PROC: 4A033R1 Measurement of Arterial Saturation, Peripheral, Percutaneous Approach (ICD-10-PCS; principal; 2023-02-01)
PROC: 5A09357 Assistance with Respiratory Ventilation, Less than 24 Consecutive Hours, Continuous Positive Airway Pressure (ICD-10-PCS; 2023-02-02)
DX: I11.0 Hypertensive heart disease with heart failure (principal); I50.43 Acute on chronic combined systolic (congestive) and diastolic (congestive) heart failure; J96.21 Acute and chronic respiratory failure with hypoxia; I42.9 Cardiomyopathy, unspecified; E78.5 Hyperlipidemia, unspecified; F32.A Depression, unspecified; J44.9 Chronic obstructive pulmonary disease, unspecified; F17.210 Nicotine dependence, cigarettes, uncomplicated; I25.10 Atherosclerotic heart disease of native coronary artery without angina pectoris; E87.6 Hypokalemia; G47.33 Obstructive sleep apnea (adult) (pediatric); D64.9 Anemia, unspecified; Z96.652 Presence of left artificial knee joint; Z88.0 Allergy status to penicillin; Z88.1 Allergy status to other antibiotic agents; Z88.8 Allergy status to other drugs, medicaments and biological substances; Z79.899 Other long term (current) drug therapy; Z71.6 Tobacco abuse counseling; Z79.82 Long term (current) use of aspirin; Z95.810 Presence of automatic (implantable) cardiac defibrillator; Z90.49 Acquired absence of other specified parts of digestive tract; Z98.890 Other specified postprocedural states; Z90.89 Acquired absence of other organs; Z98.49 Cataract extraction status, unspecified eye; Z82.49 Family history of ischemic heart disease and other diseases of the circulatory system
CPT/HCPCS: 36415; 36600; 71045; 80048; 80061; 82805; 83735; 83880; 85025; 93306; 93798; 94640; 94660; J1650; J1940; J2920; J3475; J7620; J7626

== ENCOUNTER 2023-10-11 05:49 | Inpatient (IN) | payer OTHER ==
[2023-10-11] MEDS ORDERED: Magnesium 2 GM/50 ML BAG (IN WATER) ONE (06:43)
[2023-10-11 07:05] LABS: Troponin I 0.044 ng/mL (< 0.028)
[2023-10-11 07:33] LABS: Influenza A by NAA Not Detected (NotDetected); Influenza B by NAA Not Detected (NotDetected); SARS-CoV-2 NAA Rapid Test Not Detected (NotDetected)
[2023-10-11] MEDS ORDERED: Senokot S 8.6-50 MG TAB PO PRN (07:44)
[2023-10-11] MEDS ORDERED: Ipratropium/Albuterol 3 ML NEB ONE (07:44)
[2023-10-11] MEDS ORDERED: Acetaminophen 650 MG Suppository PR PRN (07:44)
[2023-10-11] MEDS ORDERED: Albuterol 2.5 MG (0.5 mL) NEB ONE (07:44)
[2023-10-11] MEDS ORDERED: Acetaminophen 325 MG TAB PO PRN (07:44)
[2023-10-11] MEDS ORDERED: Albuterol 2.5 MG (3 mL) NEB NEB PRN ×2 (07:44→07:50)
[2023-10-11] MEDS ORDERED: Bisacodyl 5 MG TAB PO PRN (07:44)
[2023-10-11] MEDS: methylPREDNISolone Sod Succ 40 MG VIAL IVP SCH (12:16)
[2023-10-11 12:46] LABS: Troponin I 0.043 ng/mL (< 0.028)
[2023-10-11] MEDS: Ipratropium/Albuterol 3 ML NEB NEB SCH (13:45)
[2023-10-11 14:38] VITALS: BMI 24.4
[2023-10-11] MEDS: Budesonide 0.5 MG/2 ML NEB NEB SCH (19:34)
[2023-10-11] MEDS: Atorvastatin Calcium 40 MG TAB PO SCH (20:11)
[2023-10-11] MEDS: Gabapentin 300 MG CAP PO SCH (20:11)
[2023-10-11] MEDS: Bupropion 150 MG SR.TAB PO SCH (20:11)
[2023-10-11] MEDS: traZODone HCl 50 MG TAB PO SCH (21:34)
[2023-10-11] MEDS: cefTRIAXone\\ROCEPHIN 1 GM in Sodium Chloride 0.9% 100 ML IVPB SCH (21:35)
[2023-10-12 04:45] LABS: #Basophils Less than 0.03 10x3/uL (0.0-0.2); #Eosinphils Less than 0.03 10x3/uL (0.0-0.7); %Basophils 0.1 % (0.0-1.0); %Lymphocytes 8.9 % (21.0-51.0); %Monocytes 5.4 % (0.0-10.0); %Neutrophils 85.3 % (42.0-75.0); Hematocrit 36.3 % (36.0-47.0); Hemoglobin 12.1 g/dL (12.0-16.0); Mean Corpuscular HGB CONC 33.3 g/dL (32.0-36.0); Mean Corpuscular Hemoglobin 31.7 pg (27.0-31.0); Mean Platelet Volume 9.9 fL (7.4-10.4); Platelet Count 201 10x3/uL (130-400); RBC Distribution Width 12.7 % (11.5-14.5); Red Blood Cell (RBC) Count 3.82 mill/uL (4.20-5.40)
[2023-10-12 05:52] LABS: Anion Gap 11 mmol/L (10-20); BUN (Urea Nitrogen) 14 mg/dL (9.8-20.1); Calc. Creatinine Clearance 66 mL/min (70-130); Calcium 8.6 mg/dL (7.8-10.44); Carbon Dioxide 24 mmol/L (23-31); Chloride 106 mmol/L (98-107); Estimated GFR 89; Glucose 160 mg/dL (83-110); Magnesium 1.9 mg/dL (1.6-2.6); Potassium 3.6 mmol/L (3.5-5.1); Sodium 137 mmol/L (136-145)
[2023-10-12] MEDS: Oxybutynin 5 MG TAB PO SCH (09:20)
[2023-10-12] MEDS: Aspirin 325 mg Enteric Coated Tablet PO SCH (09:20)
[2023-10-12] MEDS: Carvedilol 6.25 MG TAB PO SCH (09:20)
[2023-10-12] MEDS: Polyethylene Glycol 3350 17 GM Packet PO SCH (09:20)
[2023-10-12] MEDS: Furosemide 20 MG TAB PO SCH (09:20)
[2023-10-12] MEDS ORDERED: Albuterol 200 PUFF (6.7GM INHALER) INH PRN (14:45)
[2023-10-12] MEDS ORDERED: Albuterol 2.5 MG (3 mL) NEB NEB PRN (14:45)
[2023-10-12 15:27] VITALS: BP 133/67; TEMP 98.6
[2023-10-12] MEDS: Magnesium 2 GM/50 ML(in water) 2 GM in Premix 1 BAG IVPB SCH (15:53)
[2023-10-12] MEDS: Potassium Chloride 20 MEQ TAB PO SCH (15:54)
[2023-10-12 16:06] LABS: Magnesium 1.8 mg/dL (1.6-2.6)
[2023-10-13] MEDS ORDERED: predniSONE 20 MG TAB PO SCH (08:00)
[2023-10-13] MEDS ORDERED: Non-Formulary Item 1 EACH (Tiotropium Bromide 4 GM Inhaler) IH SCH (09:00)
[2023-10-13] MEDS ORDERED: Ubidecarenone [Coenzyme Q10] 10 MG Capsule PO SCH (09:00)
[2023-10-13] MEDS ORDERED: Ascorbic Acid 500 mg Chewable Tablet PO SCH (09:00)
[2023-10-13] MEDS ORDERED: Multivit, Therapeutic 1 TAB PO SCH (09:00)
[2023-10-13] MEDS ORDERED: Losartan 25 MG TAB PO SCH (09:00)
== END 2023-10-12 18:31 | disposition home or self-care (01) | DRG 189 ==
LOC: ERS 05:49 → 2SW 06:58
PROVIDERS: ADMIT Internal Medicine; ATTEND Internal Medicine
DX: J96.21 Acute and chronic respiratory failure with hypoxia (principal); J44.1 Chronic obstructive pulmonary disease with (acute) exacerbation; I50.42 Chronic combined systolic (congestive) and diastolic (congestive) heart failure; I5A Non-ischemic myocardial injury (non-traumatic); I11.0 Hypertensive heart disease with heart failure; E78.5 Hyperlipidemia, unspecified; D64.9 Anemia, unspecified; F32.A Depression, unspecified; Z88.0 Allergy status to penicillin; Z88.8 Allergy status to other drugs, medicaments and biological substances; Z79.82 Long term (current) use of aspirin; Z79.899 Other long term (current) drug therapy; Z90.89 Acquired absence of other organs; Z90.49 Acquired absence of other specified parts of digestive tract; Z96.652 Presence of left artificial knee joint; Z98.890 Other specified postprocedural states; Z98.49 Cataract extraction status, unspecified eye; I25.10 Atherosclerotic heart disease of native coronary artery without angina pectoris; F41.9 Anxiety disorder, unspecified
CPT/HCPCS: 36415; 36416; 80048; 83735; 83880; 84484; 85025; 87070; 87205; 87633; 93005; 94640; J0696; J2920; J3475; J3490; J7611; J7620; J7626